=== PATIENT | male | born 1980 | race Caucasian/White ===

== ENCOUNTER 2016-04-18 08:39 | Day surgery (SDC) | payer OTHER ==
[2016-04-12 15:04] VITALS: BMI 19.2
[~2016-04-18 08:39] MED LIST: CLINDAMYCIN 900 MG in DEXTROSE 5% IN WATER 50 ML IVPB ONE; HYDROmorphone 1 MG/ML 1 ML SYRINGE IVP PRN; LACTATED RINGERS 1,000 ML IV SCH; LIDOCAINE 1% 20 ML VIAL (10MG/ML) FOR IV START INTRADERMA PRN; MIDAZOLAM 2 MG/2 ML VIAL IV PRN; ONDANSETRON 4 MG/2 ML VIAL IVP PRN
[2016-04-18 09:06] VITALS: TEMP 98.3
[2016-04-18] MEDS ORDERED: LIDOCAINE 1% 20 ML VIAL (10MG/ML) FOR IV START INTRADERMA ONE (09:33)
[2016-04-18] MEDS ORDERED: GENTAMICIN 180 MG in SODIUM CHLORIDE 0.9% 100 ML IV ONE (10:00)
[2016-04-18] MEDS ORDERED: PROPOFOL 10 MG/ML 20 ML VIAL IV ONE (10:32)
[2016-04-18] MEDS ORDERED: ePHEDrine 50 MG/ML 1 ML AMP ONE (10:32)
[2016-04-18] MEDS ORDERED: MIDAZOLAM 2 MG/2 ML VIAL ONE (10:32)
[2016-04-18] MEDS ORDERED: fentaNYL (PF) 50 MCG/ML 2 ML AMP ONE (10:32)
[2016-04-18] MEDS ORDERED: LIDOCAINE 1% INJ 10MG/ML (20 ML MDV) ONE (10:32)
[2016-04-18] MEDS ORDERED: KETOROLAC 30 MG/ML 1 ML VIAL IVP ONE (12:04)
[2016-04-18 12:34] VITALS: BP 138/93; PULSE 105; RESP 16
--- NOTE | 2016-04-19 05:22 | OP ---
DATE OF SERVICE: 04/18/2016 SURGEON: RAMESH YOU MD PREOPERATIVE DIAGNOSIS: Bladder calculi. POSTOPERATIVE DIAGNOSIS: Bladder calculi. OPERATION: Cystolithotomy. ANESTHESIA: General. ESTIMATED BLOOD LOSS: 5 ml SPECIMENS REMOVED: Bladder calculi The patient is a 35-year-old male with quadriplegia and a neurogenic bladder which has been managed with an indwelling catheter. Patient has developed recurrent urinary tract infections and has been found to have 2 bladder calculi. The largest bladder calculus measures approximately 2.5 cm in greatest diameter and the smallest appeared to be 2 cm in diameter. Treatment options reviewed and the patient has elected to proceed with cystolithotomy for treatment of the stones. DESCRIPTION OF PROCEDURE: The patient was taken the operating suite where adequate general anesthesia via LMA was instituted. The patient was placed in the supine position. Pneumatic compression stockings were applied to the lower legs. The patient has a somewhat contracted left arm which was placed in a neutral position and padded. The hair in the suprapubic area was clipped. Patient's urethral catheter was removed. The genitalia was prepped with Betadine soap and painted with Betadine solution. DuraPrep was then used to prep the lower abdominal region. The lower abdominal region and genitalia were then draped in a sterile fashion. A new 16 [place] Medel catheter was inserted into the bladder and the bladder was irrigated multiple times with saline. The bladder was then drained. A suprapubic midline incision was then made. Bleeding vessels were controlled using electrocautery. Using electrocautery, the linea alba was incised. The rectus muscles were retracted laterally. The prevesical space was developed using blunt dissection. Approximately 100 mL of water was then placed into the bladder. The location of the bladder was confirmed by passing an 18-gauge needle through the anterior wall of the bladder and into the bladder. A 4 cm midline cystotomy was then made using electrocautery. The bladder calculi were identified visually and removed using forceps. The bladder was then irrigated multiple times using sterile water. The urothelium of the bladder was then closed using running 3-0 chromic. The muscle bladder was closed using running 2-0 Vicryl. The suprapubic area and subcutaneous area was re-irrigated with sterile water. The linea alba was reapproximated in the midline using interrupted 0 Vicryl. The subcutaneous area was again irrigated with sterile water and the skin was closed using shyanne. Sterile dressing was applied. The patient tolerated the procedure well and left the operating room awake and in satisfactory condition. Blood loss was less than 5 mL. There were no intraoperative complications. Final sponge, needle and instrument reports were reported as correct. DOT
== END 2016-04-18 13:51 | disposition home or self-care (01) ==
LOC: OR 08:39
PROVIDERS: ATTEND Urology
DX: N21.0 Calculus in bladder (principal); N31.9 Neuromuscular dysfunction of bladder, unspecified; Z87.440 Personal history of urinary (tract) infections; G82.50 Quadriplegia, unspecified; I95.9 Hypotension, unspecified; N19 Unspecified kidney failure; K21.9 Gastro-esophageal reflux disease without esophagitis; Z79.891 Long term (current) use of opiate analgesic; Z79.899 Other long term (current) drug therapy; Z88.1 Allergy status to other antibiotic agents; Z88.2 Allergy status to sulfonamides
CPT/HCPCS: 51050; J2250; J2405; J2001; J3010; J1885; J2704; 82365

== ENCOUNTER 2016-05-05 06:25 | Emergency (ER) | payer OTHER ==
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
[2016-05-05 07:49] LABS: Basophils % (A) 1 %; CH 30.3; CHCM 34.1; Eosinophils # (A) 0.3 k/uL (0-0.7); Eosinophils % (A) 4 %; HCT 40.4 % (39.0-53.0); HDW 2.64; HGB 13.6 gm/dL (13.0-17.5); Luc # (Auto) 0.13; Luc % (Auto) 2; Lymphocytes # (A) 1.7 k/uL (1.0-4.8); Lymphocytes % (A) 28 %; MCHC 33.6 g/dL (31.0-37.0); MCV 89.1 fL (80.0-100.0); Mean Platelet Volume 8.6; Monocytes # (A) 0.3 k/uL (0-1.0); Monocytes % (A) 6 %; Neutrophils # (A) 3.6 k/uL (1.3-7.7); Neutrophils % (A) 60 %; RBC 4.53 m/uL (4.30-5.90); RDW 13.4 % (11.5-15.5); WBC (Perox) 5.89
[2016-05-05 08:01] LABS: ALT 27 U/L (21-72); AST 18 U/L (17-59); Alkaline Phosphatase 84 U/L (38-126); Amylase 67 U/L (30-110); Anion Gap 10 mmol/L; Blood Urea Nitrogen 9 mg/dL (9-20); Calcium 8.9 mg/dL (8.4-10.2); Carbon Dioxide 31 mmol/L (22-30); Chloride 101 mmol/L (98-107); Glucose 80 mg/dL (74-99); Non-African American GFR(MDRD) >60 (>60 ml/min/1.73 sqM); Potassium 3.1 mmol/L (3.5-5.1); Sodium 142 mmol/L (137-145); Total Bilirubin 0.6 mg/dL (0.2-1.3)
[2016-05-05 09:54] LABS: Amorphous Sediment,Urine Rare /hpf; Appearance,Urine Turbid (Clear); Bacteria,Urine Many /hpf; Bilirubin,Urine Negative (Negative); Glucose,Urine (UA) Negative (Negative); Ketones,Urine Negative (Negative); Leukocyte Esterase,Urine Large (Negative); Mucus,Urine Few /hpf; Nitrite,Urine Negative (Negative); PH, Urine 6.5 (5.0-8.0); Particle Count 35874; Protein,Urine 1+ (Negative); RBC,Urine 5 /hpf (0-5); Specific Gravity,Urine 1.018 (1.001-1.035); Squamous Epithelial Cell,Urine 3 /hpf (0-4); UA Billing (MACRO vs. MICRO) MICRO; Urobilinogen,Urine <2.0 mg/dL (<2.0); WBC,Urine >182 /hpf (0-5)
--- NOTE | 2016-05-05 11:08 | CT ---
EXAMINATION TYPE: CT abdomen pelvis wo con DATE OF EXAM: 05/05/2016 10:59 AM COMPARISON: NONE INDICATION: Kidney pain DLP: 249.3 mGycm, Automated exposure control for dose reduction was used. CONTRAST: None Study performed without Oral Contrast TECHNIQUE: Axial images were obtained from above the diaphragm to the pubic rami in the axial plane a t 5 mm thick sections. Reconstructed images are reviewed on the computer in the coronal plane. FINDINGS: Limited CT sections are obtained the lung bases. There is increased lung marking the posterior media l right lung base. Correlate for some atelectasis or pneumonia.. CT ABDOMEN: Liver: Normal Spleen: Normal Pancreas: Normal Adrenal glands: The adrenal glands are normal. Gallbladder: Normal Kidneys: No masses are evident. No hydronephrosis is present. No cysts are present. Aorta: Vascular calcification is within the aorta. Inferior vena cava: Normal. CT PELVIS: No free air is evident. Tiny dot of air may be within the left bladder wall. Loops of bowel within the abdomen and pelvis are normal. Appendix: Normal as visualized. Urinary bladder: Decompressed. Medel catheter appears to be present. Some asymmetric wall thickening may be present. No suspicious calcifications are identified currently. Phleboliths are adjacent to th e urinary bladder. Genitourinary structures: Prostate appears within normal limits. Osseous structures: No suspicious lytic or sclerotic lesions. Degenerative changes are at the bilater al hips. IMPRESSIONS: 1. No acute abdominal process. 2. Exam appears similar to 02/08/2016. Prior urinary bladder calcifications been resected. 3. Mild right medial lower lobe infiltrate
[2016-05-05] MEDS ORDERED: SULFAMETHOX-TMP 800-160MG 1 EACH TAB PO STA (11:52)
[2016-05-05] MEDS ORDERED: SULFAMETH-TMP DS STARTER PACK 2 TAB BTL PO STA (11:52)
[2016-05-05 12:18] VITALS: RESP 16
[2016-05-05 13:50] VITALS: BP 123/70; PULSE 88; TEMP 97.8
== END 2016-05-05 13:48 | disposition home or self-care (01) ==
LOC: EC 06:25
DX: N39.0 Urinary tract infection, site not specified (principal); G82.20 Paraplegia, unspecified; N31.8 Other neuromuscular dysfunction of bladder; F41.9 Anxiety disorder, unspecified; F32.9 Major depressive disorder, single episode, unspecified; Z79.899 Other long term (current) drug therapy; Z88.1 Allergy status to other antibiotic agents; Z88.0 Allergy status to penicillin; Z87.442 Personal history of urinary calculi; Z79.52 Long term (current) use of systemic steroids
CPT/HCPCS: 36415; 51701; 74176; 80053; 81001; 82150; 83605; 83690; 85025; 87040; 99285

== ENCOUNTER 2016-06-28 17:02 | Emergency (ER) | payer OTHER ==
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
--- NOTE | 2016-06-28 18:45 | US ---
EXAMINATION TYPE: US venous doppler duplex LE RT DATE OF EXAM: 06/28/2016 6:26 PM COMPARISON: NONE CLINICAL HISTORY: Pain. Rt foot swelling and leg pain. Patients is paralyzed in both legs. SIDE PERFORMED: Right VESSELS IMAGED: External Iliac Vein (EIV) Common Femoral Vein Deep Femoral Vein Greater Saphenous Vein * Femoral Vein Popliteal Vein Small Saphenous Vein * Proximal Calf Veins (* superficial vessels) TECHNOLOGIST IMPRESSION: Patient was scanned in motorized chair Right Leg: Appears negative for DVT IMPRESSION: No evidence of deep venous thrombosis within the right lower extremity.
[2016-06-28 19:14] VITALS: BP 135/78; PULSE 68; RESP 18; TEMP 98.2
== END 2016-06-28 19:14 | disposition home or self-care (01) ==
LOC: EC 17:02
DX: M25.475 Effusion, left foot (principal); M25.474 Effusion, right foot; F41.9 Anxiety disorder, unspecified; F32.9 Major depressive disorder, single episode, unspecified; Z87.01 Personal history of pneumonia (recurrent); Z86.14 Personal history of Methicillin resistant Staphylococcus aureus infection; Z79.899 Other long term (current) drug therapy; Z88.0 Allergy status to penicillin; Z88.1 Allergy status to other antibiotic agents; Z88.8 Allergy status to other drugs, medicaments and biological substances
CPT/HCPCS: 99283

== ENCOUNTER 2016-10-15 12:13 | Emergency (ER) | payer OTHER ==
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
[2016-10-15 12:47] LABS: Basophils % (A) 1 %; CH 29.7; CHCM 34.3; Eosinophils # (A) 0.3 k/uL (0-0.7); Eosinophils % (A) 6 %; HCT 41.6 % (39.0-53.0); HDW 2.49; HGB 14.2 gm/dL (13.0-17.5); Luc # (Auto) 0.07; Luc % (Auto) 1; Lymphocytes # (A) 1.4 k/uL (1.0-4.8); Lymphocytes % (A) 24 %; MCH 29.7 pg (25.0-35.0); MCHC 34.2 g/dL (31.0-37.0); MCV 86.9 fL (80.0-100.0); Mean Platelet Volume 9.1; Monocytes # (A) 0.3 k/uL (0-1.0); Monocytes % (A) 5 %; Neutrophils # (A) 3.5 k/uL (1.3-7.7); Neutrophils % (A) 63 %; RBC 4.79 m/uL (4.30-5.90); RDW 13.6 % (11.5-15.5); WBC 5.6 k/uL (3.8-10.6); WBC (Perox) 5.41
[2016-10-15 12:57] LABS: ALT 29 U/L (21-72); AST 23 U/L (17-59); Alkaline Phosphatase 104 U/L (38-126); Anion Gap 11 mmol/L; Blood Urea Nitrogen 12 mg/dL (9-20); Calcium 8.7 mg/dL (8.4-10.2); Carbon Dioxide 29 mmol/L (22-30); Chloride 103 mmol/L (98-107); Glucose 88 mg/dL (74-99); Non-African American GFR(MDRD) >60 (>60 ml/min/1.73 sqM); Potassium 3.6 mmol/L (3.5-5.1); Sodium 143 mmol/L (137-145); Total Bilirubin 0.8 mg/dL (0.2-1.3); Total Protein 7.1 g/dL (6.3-8.2); Uric Acid 4.1 mg/dL (3.5-8.5)
--- NOTE | 2016-10-15 13:19 | XR ---
EXAMINATION TYPE: 3 views left ankle. 3 views left foot. DATE OF EXAM: 10/15/2016 COMPARISON: NONE HISTORY: 36-year-old male left foot and ankle swelling and pain. Paraplegic. FINDINGS: Ankle: There is diffuse soft tissue swelling especially about the ankle. Diffuse osteopenia is also present. Ankle mortise appears groin to. Multiple extensive external artifact secures much of the calcaneus. Foot: Hammertoes are noted. There is bony deformity to the base of the first metatarsal and an impacted sub acute fracture is not excluded. IMPRESSION: 1. Marked diffuse osteopenia limits assessment of osseous detail. 2. Diffuse soft tissue swelling. 3. Assessment of the calcaneus is limited due to external artifact. If concern for calcaneal injury, consider 2 views of the calcaneus after moving the sheets from the patient's foot. 4. Possible subacute impacted fracture first metatarsal base.
[2016-10-15 14:13] VITALS: BP 110/74; PULSE 68; RESP 18; TEMP 97.9
--- NOTE | 2016-10-15 14:21 | US ---
EXAMINATION TYPE: US venous doppler duplex LE LT DATE OF EXAM: 10/15/2016 1:55 PM COMPARISON: 06/28/2016 CLINICAL HISTORY: 36-year-old male Pain. Swollen foot since this AM SIDE PERFORMED: Left TECHNIQUE: The lower extremity deep venous system is examined utilizing real time linear array sonog tom with graded compression, doppler sonography and color-flow sonography. FINDINGS: VESSELS IMAGED: External Iliac Vein (EIV) Common Femoral Vein Deep Femoral Vein Greater Saphenous Vein * Femoral Vein Popliteal Vein Proximal Calf Veins (* superficial vessels) Left Leg: Negative for DVT Additional targeted scanning in the region of the patient's foot and toes shows mild soft tissue swel ling. Patient is quadriplegic, scanned in wheelchair. IMPRESSION: No evidence for DVT within the left lower extremity imaged from the groin to the upper calf.
== END 2016-10-15 14:15 | disposition home or self-care (01) ==
LOC: EC 12:13
DX: S92.312A Displaced fracture of first metatarsal bone, left foot, initial encounter for closed fracture (principal); F32.9 Major depressive disorder, single episode, unspecified; Z88.1 Allergy status to other antibiotic agents; Z88.0 Allergy status to penicillin; Z79.899 Other long term (current) drug therapy; X58.XXXA Exposure to other specified factors, initial encounter
CPT/HCPCS: 29515; 36415; 80053; 84550; 85025; 87040; 99284

== ENCOUNTER 2016-11-10 11:35 | Emergency (ER) | payer OTHER ==
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
[2016-11-10] MEDS ORDERED: KETOROLAC 60 MG/2 ML VIAL IVP STA (12:09)
[2016-11-10 12:31] LABS: Basophils # (A) 0.1 k/uL (0-0.2); Basophils % (A) 0 %; CH 29.9; CHCM 34.4; Eosinophils # (A) 0.1 k/uL (0-0.7); Eosinophils % (A) 1 %; HDW 2.67; HGB 14.6 gm/dL (13.0-17.5); Luc # (Auto) 0.15; Luc % (Auto) 1; Lymphocytes # (A) 1.2 k/uL (1.0-4.8); Lymphocytes % (A) 9 %; MCH 29.7 pg (25.0-35.0); Mean Platelet Volume 9.4; Monocytes # (A) 0.9 k/uL (0-1.0); Monocytes % (A) 7 %; Neutrophils # (A) 10.8 k/uL (1.3-7.7); Neutrophils % (A) 82 %; RBC 4.93 m/uL (4.30-5.90); RDW 14.6 % (11.5-15.5); WBC 13.3 k/uL (3.8-10.6); WBC (Perox) 13.45
[2016-11-10 12:33] LABS: ALT 32 U/L (21-72); AST 26 U/L (17-59); Alkaline Phosphatase 114 U/L (38-126); Anion Gap 12 mmol/L; Blood Urea Nitrogen 12 mg/dL (9-20); Calcium 8.9 mg/dL (8.4-10.2); Carbon Dioxide 29 mmol/L (22-30); Chloride 101 mmol/L (98-107); Glucose 77 mg/dL (74-99); Non-African American GFR(MDRD) >60 (>60 ml/min/1.73 sqM); Potassium 3.2 mmol/L (3.5-5.1); Sodium 142 mmol/L (137-145); Total Bilirubin 0.6 mg/dL (0.2-1.3); Total Protein 6.8 g/dL (6.3-8.2)
[2016-11-10 12:36] LABS: MCV 87.2 fL (80.0-100.0)
[2016-11-10 14:14] LABS: Appearance,Urine Turbid (Clear); Bacteria,Urine Rare /hpf; Bilirubin,Urine Negative (Negative); Glucose,Urine (UA) Negative (Negative); Ketones,Urine Negative (Negative); Leukocyte Esterase,Urine Large (Negative); Mucus,Urine Occasional /hpf; Nitrite,Urine Positive (Negative); Particle Count 26929; Protein,Urine 3+ (Negative); RBC,Urine >182 /hpf (0-5); Squamous Epithelial Cell,Urine 3 /hpf (0-4); UA Billing (MACRO vs. MICRO) MICRO; Urobilinogen,Urine <2.0 mg/dL (<2.0); WBC,Urine >182 /hpf (0-5)
[2016-11-10] MEDS ORDERED: LEVOFLOXACIN 750MG-D5W PMX 750 MG in DEXTROSE/WATER 1 150ML.BAG IVPB STA (14:31)
[2016-11-10] MEDS ORDERED: SODIUM CHLORIDE 0.9% 1,000 ML IV ONE (14:32)
[2016-11-10] MEDS ORDERED: HYDROmorphone 1 MG/ML 1 ML SYRINGE IVP STA (16:12)
[2016-11-10 18:10] VITALS: TEMP 98.3
--- NOTE | 2016-11-10 18:43 | CT ---
EXAMINATION TYPE: CT abdomen pelvis wo con DATE OF EXAM: 11/10/2016 COMPARISON: May 05, 2016 HISTORY: Left sided flank pain and decreased urine output CT DLP: 327.2 mGycm Automated exposure control for dose reduction was used. TECHNIQUE: Helical acquisition of images was performed from the lung bases through the pelvis. FINDINGS: LUNG BASES: Mild dependent changes are noted at both lung bases which appear slightly improved since the previous study. LIVER/GB: No significant abnormality is appreciated. PANCREAS: No significant abnormality is seen. SPLEEN: The spleen could be enlarged however it has a very flattened appearance silhouette is most li berta normal. It is unchanged since the previous study. ADRENALS: No significant abnormality is seen. KIDNEYS: There is nonspecific. Pancreatic stranding of the fat which is stable when compared to the p revious study. There is no hydronephrosis. The left kidney is slightly diminutive with comparison to the right. FREE AIR: No free air is visualized RETROPERITONEAL ADENOPATHY: None visualized REPRODUCTIVE ORGANS: No significant abnormality is seen URINARY BLADDER: Medel catheter is noted within the collapsed urinary bladder. PELVIC ADENOPATHY: None visualized. OSSEOUS STRUCTURES: Osseous structures are stable. There is abnormal trabeculation within the left f emur which is stable. BOWEL: No significant abnormality is seen. OTHER: None IMPRESSION: FINDINGS ARE BASICALLY STABLE WHEN COMPARED TO THE PREVIOUS STUDY. PREVIOUS RIGHT LOWER LOBE INFILTRA TE HAS NEARLY RESOLVED IF NOT COMPLETELY RESOLVED.
[2016-11-10 19:13] VITALS: BP 92/55; PULSE 79; RESP 18
== END 2016-11-10 19:42 | disposition other institution (70) ==
LOC: EC 11:35
DX: N39.0 Urinary tract infection, site not specified (principal); F32.9 Major depressive disorder, single episode, unspecified; F41.9 Anxiety disorder, unspecified; Z88.0 Allergy status to penicillin; Z88.1 Allergy status to other antibiotic agents; Z79.899 Other long term (current) drug therapy
CPT/HCPCS: 99285; 96365; 96375 ×2; 36415; 80053; 85025; 81001; 74176; J1885; J1170; J1956

== ENCOUNTER → 2017-04-29 | Outpatient (CLI) | payer OTHER ==
--- NOTE | 2017-04-29 14:14 | XR ---
EXAMINATION TYPE: XR pelvis AP view DATE OF EXAM: 04/29/2017 COMPARISON: NONE HISTORY: 36-year-old male with pressure ulcer, osteomyelitis, paraplegic. FINDINGS: Marked osteopenia compatible with disuse. There is moderate to severe narrowing of superolateral hip joint space on both sides. No viktorai bony destruction identified though patient positioning, obliquity and the degree of osteopenia limits assessment. The left ischial tuberosity in particular is not wel l seen. IMPRESSION: Marked osteopenia compatible with disuse and at least moderate degenerative joint space narrowing at both hips. The degree of osteopenia and patient positioning limits assessment. However, there is no viktoria bony destruction identified on this frontal view of the pelvis. If there is persistent clinical concern, MRI can be considered.
== END | disposition home or self-care (01) ==
LOC: RADXRMAIN 11:57
PROVIDERS: ATTEND Internal Medicine Infectious Disease
DX: M85.80 Other specified disorders of bone density and structure, unspecified site (principal); L89.890 Pressure ulcer of other site, unstageable; M86.9 Osteomyelitis, unspecified; M25.852 Other specified joint disorders, left hip; M25.851 Other specified joint disorders, right hip
CPT/HCPCS: 11042; 36415; 72170; 80053; 84134; 85027; 85652; 86140

== ENCOUNTER 2017-06-03 12:25 | Inpatient (IN) | payer OTHER ==
[2017-06-03] MEDS ORDERED: VANCOMYCIN IV PER PHARMACY 1 EACH MISC MISCELLANE PRN (12:31)
[2017-06-03] MEDS ORDERED: ACETAMINOPHEN TAB 500 MG TAB PO STA (12:31)
[2017-06-03] MEDS: SODIUM CHLORIDE 0.9% 500 ML IV SCH (12:51)
[2017-06-03] MEDS ORDERED: VANCOMYCIN 1,500 MG in SODIUM CHLORIDE 0.9% 250 ML IVPB ONE (13:00)
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
[2017-06-03 13:20] LABS: Amorphous Sediment,Urine Rare /hpf; Appearance,Urine Cloudy (Clear); Bacteria,Urine Rare /hpf; Bilirubin,Urine Negative (Negative); Blood,Urine Negative (Negative); Calcium Oxalate Crystals,Urine Rare /hpf; Color,Urine Yellow; Glucose,Urine (UA) Negative (Negative); Hyaline Casts,Urine 8 /lpf (0-2); Ketones,Urine Negative (Negative); Leukocyte Esterase,Urine Large (Negative); Mucus,Urine Moderate /hpf; Protein,Urine 1+ (Negative); Specific Gravity,Urine 1.018 (1.001-1.035); Squamous Epithelial Cell,Urine 1 /hpf (0-4); WBC,Urine 63 /hpf (0-5)
[2017-06-03 13:23] LABS: ALT 49 U/L (21-72); AST 39 U/L (17-59); Albumin 2.8 g/dL (3.5-5.0); Alkaline Phosphatase 74 U/L (38-126); Anion Gap 10 mmol/L; Blood Urea Nitrogen 17 mg/dL (9-20); Calcium 8.3 mg/dL (8.4-10.2); Carbon Dioxide 35 mmol/L (22-30); Chloride 99 mmol/L (98-107); Glucose 113 mg/dL (74-99); Potassium 3.8 mmol/L (3.5-5.1); Sodium 144 mmol/L (137-145); Total Bilirubin 0.3 mg/dL (0.2-1.3); Total Protein 6.2 g/dL (6.3-8.2)
--- NOTE | 2017-06-03 13:25 | XR ---
EXAMINATION TYPE: XR chest 1V portable DATE OF EXAM: 06/03/2017 COMPARISON: Chest x-ray January 08, 2017 HISTORY: Altered mental status. Patient has lower extremity paraplegia. TECHNIQUE: Single AP portable frontal upright view of the chest is obtained. FINDINGS: There is underlying levoconvex scoliosis centered near thoracolumbar junction. Current exam is suboptimal as patient cannot sit upright or have upright positioning versus prior. There is new p atchy bibasilar linear atelectasis. No large pleural effusion or pneumothorax is seen bilaterally. Ca rdiac silhouette size is stable and upper limits of normal. IMPRESSION: Suboptimal study with new patchy bibasilar linear atelectasis.
[2017-06-03 13:27] LABS: Basophils # (A) 0.1 k/uL (0-0.2); Basophils % (A) 0 %; Eosinophils # (A) 0.1 k/uL (0-0.7); Eosinophils % (A) 0 %; HCT 36.5 % (39.0-53.0); HGB 11.5 gm/dL (13.0-17.5); Hypochromasia Slight; Lymphocytes # (A) 2.3 k/uL (1.0-4.8); Lymphocytes % (A) 12 %; MCH 27.1 pg (25.0-35.0); MCHC 31.5 g/dL (31.0-37.0); MCV 86.1 fL (80.0-100.0); Mean Platelet Volume 7.8; Monocytes # (A) 0.8 k/uL (0-1.0); Monocytes % (A) 4 %; Neutrophils # (A) 16.5 k/uL (1.3-7.7); Neutrophils % (A) 83 %; Platelet Count 328 k/uL (150-450); RBC 4.24 m/uL (4.30-5.90); RDW 13.5 % (11.5-15.5); WBC 19.9 k/uL (3.8-10.6)
[2017-06-03 13:43] LABS: INR 1.3 (<1.2); Partial Thromboplastin Time 23.2 sec (22.0-30.0); Prothrombin Time 12.2 sec (9.0-12.0)
[2017-06-03] MEDS ORDERED: ERTAPENEM 1 GM in SODIUM CHLORIDE 0.9% 50 ML IVPB STA (13:47)
[2017-06-03] MEDS ORDERED: MEROPENEM 1 GM in SODIUM CHLORIDE 0.9% 100 ML IVPB STA (13:48)
[2017-06-03] MEDS ORDERED: KETOROLAC 30 MG/ML 1 ML VIAL IVP STA (14:22)
[2017-06-03] MEDS ORDERED: ALBUTEROL NEBULIZED 2.5 MG/3 ML INHALATION PRN (14:34)
[2017-06-03] MEDS ORDERED: POLYETHYLENE GLYCOL 3350 17 GM POWD.PACK PO PRN (14:34)
[2017-06-03] MEDS ORDERED: DOCUSATE 100 MG CAP PO PRN (14:34)
--- NOTE | 2017-06-03 16:08 | XR ---
EXAMINATION TYPE: XR sacrum coccyx DATE OF EXAM: 06/03/2017 COMPARISON: NONE HISTORY: 36-year-old male with a sacral ulcer, evaluate for osteomyelitis TECHNIQUE: 4 views FINDINGS: There is marked osteopenia which limits evaluation. Degenerative changes at the hips There appears to be cortical loss involving the left ischial tuberosity. Sacrum/coccyx appears mainta ined on the lateral view. IMPRESSION: 1. Limited exam due to marked osteopenia. 2. There appears to be some cortical loss involving the left ischial tuberosity. If the patient's dec ubitus ulcer overlies this region, osteomyelitis would be suspected.
[2017-06-03] MEDS: NA PHOS,M-B/NA PHOS,DI-BA 133 ML ENEMA RECTAL SCH (17:15)
[2017-06-03] MEDS: GABAPENTIN 300 MG CAP PO SCH ×2 (18:43→23:25)
[2017-06-03] MEDS: SODIUM CHLORIDE 0.9% 1,000 ML IV SCH (18:50)
[2017-06-03] MEDS ORDERED: VANCOMYCIN 1,250 MG in SODIUM CHLORIDE 0.9% 250 ML IVPB SCH (20:00)
[2017-06-03] MEDS ORDERED: [UNRECOGNIZED DRUG - OTHER] PO SCH (21:00)
[2017-06-03] MEDS ORDERED: NUTRITIONAL SUPPLEMENT PO SCH (21:00)
[2017-06-03] MEDS: MEGESTROL 400 MG/10 ML CUP PO SCH (23:25)
[2017-06-03] MEDS: QUEtiapine 25 MG TAB PO SCH (23:26)
[2017-06-03] MEDS: BACLOFEN 10 MG TAB PO SCH (23:27)
[2017-06-03] MEDS: FLUDROCORTISONE 0.1 MG TAB PO SCH (23:27)
[2017-06-04 06:27] LABS: Basophils % (A) 0 %; Eosinophils # (A) 0.1 k/uL (0-0.7); Eosinophils % (A) 1 %; HCT 31.2 % (39.0-53.0); Hypochromasia Moderate; Lymphocytes # (A) 1.1 k/uL (1.0-4.8); Lymphocytes % (A) 7 %; MCH 27.3 pg (25.0-35.0); MCHC 30.9 g/dL (31.0-37.0); MCV 88.3 fL (80.0-100.0); Mean Platelet Volume 7.4; Monocytes # (A) 0.4 k/uL (0-1.0); Monocytes % (A) 2 %; Neutrophils # (A) 13.6 k/uL (1.3-7.7); Neutrophils % (A) 89 %; Platelet Count 268 k/uL (150-450); RBC 3.53 m/uL (4.30-5.90); RDW 13.2 % (11.5-15.5); WBC 15.3 k/uL (3.8-10.6)
[2017-06-04 06:31] LABS: HGB 9.6 gm/dL (13.0-17.5)
[2017-06-04 06:33] LABS: ALT 44 U/L (21-72); AST 23 U/L (17-59); Albumin 2.3 g/dL (3.5-5.0); Alkaline Phosphatase 70 U/L (38-126); Anion Gap 9 mmol/L; Blood Urea Nitrogen 12 mg/dL (9-20); Calcium 7.8 mg/dL (8.4-10.2); Carbon Dioxide 30 mmol/L (22-30); Chloride 101 mmol/L (98-107); Glucose 87 mg/dL (74-99); Potassium 3.2 mmol/L (3.5-5.1); Sodium 140 mmol/L (137-145); Total Bilirubin 0.3 mg/dL (0.2-1.3); Total Protein 5.2 g/dL (6.3-8.2)
[2017-06-04] MEDS ORDERED: Potassium Replacement Protocol 1 EACH MISC MISCELLANE PRN (08:02)
[2017-06-04] MEDS ORDERED: NON-FORMULARY DRUG (Ubidecarenone [Co Q-10] 100 MG) PO SCH (09:00)
[2017-06-04] MEDS: BACLOFEN 10 MG TAB PO SCH ×2 (09:16→23:10)
[2017-06-04] MEDS: GABAPENTIN 300 MG CAP PO SCH ×3 (09:17→23:21)
[2017-06-04] MEDS: SERTRALINE 100 MG TAB PO SCH (09:18)
[2017-06-04] MEDS: FLUDROCORTISONE 0.1 MG TAB PO SCH ×2 (09:18→23:10)
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
[2017-06-04] MEDS ORDERED: NA PHOS,M-B/NA PHOS,DI-BA 133 ML ENEMA RECTAL PRN (09:35)
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
[2017-06-04] MEDS ORDERED: VANCOMYCIN TROUGH DUE 1 EACH MISC MISCELLANE ONE (11:00)
[2017-06-04] MEDS: PANTOPRAZOLE 40 MG TABLET PO SCH (13:20)
[2017-06-04] MEDS: POTASSIUM CHLORIDE ER 20 MEQ TAB.ER PO SCH ×2 (13:20→23:19)
[2017-06-04] MEDS: ASCORBIC ACID 500 MG TAB PO SCH (13:21)
[2017-06-04] MEDS: MEROPENEM 1 GM in SODIUM CHLORIDE 0.9% 100 ML IVPB SCH ×2 (13:21→23:17)
--- NOTE | 2017-06-04 15:02 | NM ---
EXAMINATION TYPE: NM bone 3 phase DATE OF EXAM: 06/04/2017 COMPARISON: Radiograph 06/03/2017 HISTORY: 36-year-old male with open sore along the coccyx and left hip/pelvis for 6 months. Technique: Triple phase bone scintigraphy was performed following the injection of 23.7 mCi Tc 99m MD P. Flow and pool images followed by 3.25 hours post injection images acquired centered at the pelvis . FINDINGS: There is focal increased tracer activity posteriorly and towards the left on all 3 phases. There appe ars to be a Medel catheter in place but this increased activity a separate from where the Medel wyatt ter terminates in the bladder. IMPRESSION: Three-phase bone scan abnormality left and posteriorly. Finding suggest osteomyelitis. While it is di fficult to localize the exact site of involvement on these nuclear medicine images, the left ischial tuberosity is suspected. If confirmation is needed, a CT may be helpful to evaluate the site of bony abnormality in relation to the patient's decubitus ulcers.
[2017-06-04] MEDS: ACETAMINOPHEN TAB 325 MG TAB PO PRN ×2 (17:36→22:02)
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
[2017-06-04] MEDS: OXYBUTYNIN CHLORIDE 5 MG TAB PO SCH ×3 (23:04→23:20)
[2017-06-04] MEDS: MEGESTROL 400 MG/10 ML CUP PO SCH ×4 (23:07→23:21)
[2017-06-04] MEDS: SODIUM CHLORIDE 0.9% 1,000 ML IV SCH ×2 (23:08→23:23)
[2017-06-04] MEDS: QUEtiapine 25 MG TAB PO SCH (23:11)
[2017-06-04] MEDS: VANCOMYCIN 1,250 MG in SODIUM CHLORIDE 0.9% 250 ML IVPB SCH (23:16)
[2017-06-05] MEDS: MEROPENEM 1 GM in SODIUM CHLORIDE 0.9% 100 ML IVPB SCH ×3 (03:30→22:34)
[2017-06-05] MEDS: ACETAMINOPHEN TAB 325 MG TAB PO PRN (05:36)
[2017-06-05] MEDS: VANCOMYCIN 1,250 MG in SODIUM CHLORIDE 0.9% 250 ML IVPB SCH ×3 (05:45→16:21)
[2017-06-05] MEDS: SODIUM CHLORIDE 0.9% 1,000 ML IV SCH ×2 (05:46→06:43)
[2017-06-05 06:40] LABS: Glucose,Whole Blood 121 mg/dL (75-99)
[2017-06-05] MEDS: PANTOPRAZOLE 40 MG TABLET PO SCH (06:44)
[2017-06-05 06:58] LABS: Basophils % (A) 0 %; Eosinophils # (A) 0.2 k/uL (0-0.7); Eosinophils % (A) 1 %; HCT 32.9 % (39.0-53.0); HGB 10.4 gm/dL (13.0-17.5); Hypochromasia Moderate; Lymphocytes # (A) 1.2 k/uL (1.0-4.8); Lymphocytes % (A) 8 %; MCH 26.8 pg (25.0-35.0); MCHC 31.6 g/dL (31.0-37.0); MCV 84.8 fL (80.0-100.0); Mean Platelet Volume 7.3; Monocytes # (A) 0.4 k/uL (0-1.0); Monocytes % (A) 2 %; Neutrophils # (A) 14.4 k/uL (1.3-7.7); Neutrophils % (A) 89 %; Platelet Count 287 k/uL (150-450); RBC 3.88 m/uL (4.30-5.90); WBC 16.3 k/uL (3.8-10.6)
[2017-06-05 07:15] LABS: ALT 29 U/L (21-72); AST 22 U/L (17-59); Albumin 2.4 g/dL (3.5-5.0); Alkaline Phosphatase 79 U/L (38-126); Anion Gap 11 mmol/L; Blood Urea Nitrogen 4 mg/dL (9-20); Calcium 7.6 mg/dL (8.4-10.2); Carbon Dioxide 32 mmol/L (22-30); Chloride 96 mmol/L (98-107); Glucose 121 mg/dL (74-99); Sodium 139 mmol/L (137-145); Total Bilirubin 0.3 mg/dL (0.2-1.3); Total Protein 5.4 g/dL (6.3-8.2)
[2017-06-05 07:20] LABS: Potassium 2.5 mmol/L (3.5-5.1)
[2017-06-05] MEDS: GABAPENTIN 300 MG CAP PO SCH ×3 (09:03→22:36)
[2017-06-05] MEDS: BACLOFEN 10 MG TAB PO SCH ×2 (09:03→22:33)
[2017-06-05] MEDS: POTASSIUM CHLORIDE ER 20 MEQ TAB.ER PO SCH ×6 (09:03→22:34)
[2017-06-05] MEDS: SERTRALINE 100 MG TAB PO SCH (09:03)
[2017-06-05] MEDS: OXYBUTYNIN CHLORIDE 5 MG TAB PO SCH ×2 (09:03→22:36)
[2017-06-05] MEDS: MEGESTROL 400 MG/10 ML CUP PO SCH ×4 (09:04→22:36)
[2017-06-05] MEDS: FLUDROCORTISONE 0.1 MG TAB PO SCH ×2 (09:04→22:35)
[2017-06-05] MEDS ORDERED: HYDROcodone/APAP 5-325MG 1 EACH TAB PO PRN (10:01)
[2017-06-05] MEDS: SODIUM CHLORIDE 0.9% IRRIG 1,000 ML BTL IRRIGATION SCH (11:31)
[2017-06-05] MEDS: ASCORBIC ACID 500 MG TAB PO SCH (12:22)
[2017-06-05] MEDS: NA PHOS,M-B/NA PHOS,DI-BA 133 ML ENEMA RECTAL SCH (12:31)
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
[2017-06-05] MEDS: IBUPROFEN 400 MG TAB PO PRN (14:21)
[2017-06-05] MEDS ORDERED: Potassium Replacement Protocol 1 EACH MISC MISCELLANE PRN (17:03)
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
[2017-06-05] MEDS: QUEtiapine 25 MG TAB PO SCH (22:35)
[2017-06-06] MEDS: VANCOMYCIN 1,250 MG in SODIUM CHLORIDE 0.9% 250 ML IVPB SCH ×2 (00:15→09:02)
[2017-06-06] MEDS: MEROPENEM 1 GM in SODIUM CHLORIDE 0.9% 100 ML IVPB SCH ×3 (03:15→18:19)
[2017-06-06] MEDS: SODIUM CHLORIDE 0.9% 1,000 ML IV SCH ×4 (04:41→17:28)
[2017-06-06 06:28] LABS: Basophils % (A) 0 %; Eosinophils # (A) 0.2 k/uL (0-0.7); Eosinophils % (A) 1 %; HCT 33.9 % (39.0-53.0); HGB 10.3 gm/dL (13.0-17.5); Hypochromasia Moderate; Lymphocytes # (A) 1.3 k/uL (1.0-4.8); Lymphocytes % (A) 7 %; MCH 26.4 pg (25.0-35.0); MCHC 30.3 g/dL (31.0-37.0); MCV 87.2 fL (80.0-100.0); Mean Platelet Volume 7.3; Monocytes # (A) 0.5 k/uL (0-1.0); Monocytes % (A) 3 %; Neutrophils # (A) 15.6 k/uL (1.3-7.7); Neutrophils % (A) 89 %; Platelet Count 305 k/uL (150-450); RBC 3.89 m/uL (4.30-5.90); RDW 13.3 % (11.5-15.5); WBC 17.7 k/uL (3.8-10.6)
[2017-06-06 06:32] LABS: ALT 43 U/L (21-72); AST 23 U/L (17-59); Albumin 2.5 g/dL (3.5-5.0); Alkaline Phosphatase 91 U/L (38-126); Anion Gap 11 mmol/L; Blood Urea Nitrogen 6 mg/dL (9-20); Calcium 8.1 mg/dL (8.4-10.2); Carbon Dioxide 30 mmol/L (22-30); Chloride 104 mmol/L (98-107); Glucose 78 mg/dL (74-99); Potassium 3.7 mmol/L (3.5-5.1); Sodium 145 mmol/L (137-145); Total Bilirubin 0.5 mg/dL (0.2-1.3); Total Protein 5.5 g/dL (6.3-8.2)
[2017-06-06] MEDS ORDERED: VANCOMYCIN TROUGH DUE 1 EACH MISC MISCELLANE ONE (07:00)
[2017-06-06] MEDS: PANTOPRAZOLE 40 MG TABLET PO SCH (07:03)
[2017-06-06] MEDS: GABAPENTIN 300 MG CAP PO SCH ×3 (09:02→20:06)
[2017-06-06] MEDS: BACLOFEN 10 MG TAB PO SCH ×2 (09:04→19:53)
[2017-06-06] MEDS: SERTRALINE 100 MG TAB PO SCH (09:04)
[2017-06-06] MEDS: MEGESTROL 400 MG/10 ML CUP PO SCH ×4 (09:04→19:54)
[2017-06-06] MEDS: FLUDROCORTISONE 0.1 MG TAB PO SCH ×2 (09:04→19:55)
[2017-06-06] MEDS: OXYBUTYNIN CHLORIDE 5 MG TAB PO SCH ×2 (09:04→19:53)
[2017-06-06] MEDS ORDERED: LIDOCAINE 2% INJ 20 MG/ML SQ ONE (10:08)
[2017-06-06] MEDS: DAPTOmycin 500 MG in SODIUM CHLORIDE 0.9% 50 ML IV SCH (11:41)
[2017-06-06] MEDS ORDERED: BENZOCAINE/MENTHOL LOZENG 1 EACH LOZENGE MUCOUS MEM PRN (12:01)
[2017-06-06] MEDS: ASCORBIC ACID 500 MG TAB PO SCH (12:21)
--- NOTE | 2017-06-06 13:10 | IR ---
EXAMINATION TYPE: IR cvc insert >=5 years DATE OF EXAM: 06/06/2017 COMPARISON: NONE CLINICAL HISTORY: Infection Needs long-term intravenous access for antibiotics. PROCEDURE: After informed consent, the skin overlying the left upper extremity vein was localized with ultrasoun d and noted to be compressible and patent. An ultrasound image was obtained and submitted on the pat ient's chart. The overlying skin was prepped and draped and Lidocaine was used for local anesthesia. A skin christian was made with a scalpel. Access was gained to the vein under ultrasound guidance with a 21 gauge needle and a 0.018 inch wire was advanced. Access site was dilated with Peel-Away sheath and catheter tailored to the appropriate length and advanced such that the distal tip is at the cavoa trial junction. Spot image was obtained verifying placement. Catheter was fixed to the skin and a s terile dressing was placed following hemostasis. Catheter was aspirated and flushed with saline. Maulik frank was discharged in stable condition without complication.Maximal barrier technique is utilized. Ultrasound image is documented on the chart. Ultrasound used with sterile technique. Fluoro time and fluoroscopic images submitted to document procedure: 17 intraoperative C-arm images, 0.1 minutes fluoroscopy time IMPRESSION: STATUS POST ULTRASOUND AND FLUOROSCOPIC GUIDED PICC LINE PLACEMENT, READY FOR USE. THIS PROCEDURE WAS PERFORMED BY THE UNDERSIGNED.
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
[2017-06-06] MEDS: QUEtiapine 25 MG TAB PO SCH (19:52)
[2017-06-06] MEDS: ACETAMINOPHEN TAB 325 MG TAB PO PRN (20:07)
[2017-06-07] MEDS: MEROPENEM 1 GM in SODIUM CHLORIDE 0.9% 100 ML IVPB SCH ×3 (02:08→18:25)
[2017-06-07] MEDS: PANTOPRAZOLE 40 MG TABLET PO SCH (06:52)
[2017-06-07 06:58] LABS: Anion Gap 9 mmol/L; Blood Urea Nitrogen 6 mg/dL (9-20); Carbon Dioxide 35 mmol/L (22-30); Chloride 99 mmol/L (98-107); Glucose 101 mg/dL (74-99); Sodium 143 mmol/L (137-145)
[2017-06-07 07:05] LABS: Potassium 2.7 mmol/L (3.5-5.1)
[2017-06-07] MEDS ORDERED: Potassium Replacement Protocol 1 EACH MISC MISCELLANE PRN (07:06)
[2017-06-07] MEDS: BACLOFEN 10 MG TAB PO SCH ×2 (08:37→20:57)
[2017-06-07] MEDS: POTASSIUM CHLORIDE 10 MEQ in WATER FOR INJECTION 1 100ML.BAG IVPB SCH ×3 (08:37→11:22)
[2017-06-07] MEDS: MEGESTROL 400 MG/10 ML CUP PO SCH ×4 (08:37→20:59)
[2017-06-07] MEDS: SERTRALINE 100 MG TAB PO SCH (08:38)
[2017-06-07] MEDS: GABAPENTIN 300 MG CAP PO SCH ×3 (08:38→20:59)
[2017-06-07] MEDS: FLUDROCORTISONE 0.1 MG TAB PO SCH ×2 (08:38→20:58)
[2017-06-07] MEDS: OXYBUTYNIN CHLORIDE 5 MG TAB PO SCH ×2 (08:38→20:58)
[2017-06-07] MEDS: DAPTOmycin 500 MG in SODIUM CHLORIDE 0.9% 50 ML IV SCH (10:00)
[2017-06-07] MEDS ORDERED: VANCOMYCIN IV PER PHARMACY 1 EACH MISC MISCELLANE PRN (10:19)
[2017-06-07] MEDS: VANCOMYCIN 1,250 MG in SODIUM CHLORIDE 0.9% 250 ML IVPB SCH ×2 (12:01→18:25)
[2017-06-07] MEDS: ASCORBIC ACID 500 MG TAB PO SCH (12:01)
--- NOTE | 2017-06-07 15:48 | P.PN ---
Subjective He is feeling anxious. Daptomycin was not approved. He has to fail vancomycin. Dr. Gill and switched back to this. He is tolerated meropenem. There is no one to do IV antibiotics at home for him. He will go to an F, most likely Saturday. Objective - Vital Signs Vital signs: Vital Signs Temp 99.5 F 06/07/17 12:00 Pulse 96 06/07/17 12:00 Resp 16 06/07/17 12:00 BP 198/100 06/07/17 12:00 Pulse Ox 98 06/07/17 12:00 Intake & Output 06/06/17 06/07/17 06/07/17 18:59 06:59 18:59 Intake Total 3630 580 1320 Output Total 2600 2350 1850 Balance 1030 -1770 -530 Weight 120.1 kg 120.6 kg 70 kg Intake: Intake, IV Titration 1950 100 Amount DAPTOmycin 500 mg In 100 Sodium Chloride 0.9% 50 ml @ 100 mls/hr IV Q24H ANGELINA Rx#:[id number] Meropenem 1 gm In Sodium 100 100 Chloride 0.9% 100 ml @ 100 mls/hr IVPB Q8H ANGELINA Rx#:[id number] Sodium Chloride 0.9% 1, 1500 000 ml @ 125 mls/hr IV . Q8H ANGELINA Rx#:[id number] Vancomycin 1,250 mg In 250 Sodium Chloride 0.9% 250 ml @ 125 mls/hr IVPB Q8H ANGELINA Rx#:[id number] Oral [id number] Output: Urine 2600 2350 1850 Other: Voiding Method Indwelling Catheter Indwelling Catheter Indwelling Catheter # Voids 1 1 2 - Exam General: The patient is awake and alert, anxious Neck: The neck is supple, there is no thyromegaly, lymphadenopathy, tenderness or JVD. Cardiovascular: S1S2 is normal, There is a regular rate and rhythm. No murmur, rub or gallop is appreciated. Respiratory: Lungs are clear to auscultation bilaterally, respirations are non -labored, breath sounds are equal. Extremities: quadrepligia - Labs CBC & Chem 7: 06/06/17 05:38 06/07/17 06:06 Labs: Abnormal Lab Results - Last 24 Hours (Table) 06/07/17 Range/Units 06:06 Potassium 2.7 L* (3.5-5.1) mmol/L Carbon Dioxide 35 H (22-30) mmol/L BUN 6 L (9-20) mg/dL Creatinine 0.35 L (0.66-1.25) mg/dL Glucose 101 H (74-99) mg/dL Calcium 8.0 L (8.4-10.2) mg/dL Microbiology - Last 24 Hours (Table) 06/03/17 13:11 Blood Culture - Preliminary Blood No Growth after 96 hours 06/03/17 12:45 Blood Culture - Preliminary Blood No Growth after 96 hours Assessment and Plan (1) Osteomyelitis Current Visit: Yes Status: Acute Code(s): M86.9 - OSTEOMYELITIS, UNSPECIFIED SNOMED Code(s): 66202098 (2) Severe sepsis Current Visit: Yes Status: Acute Code(s): A41.9 - SEPSIS, UNSPECIFIED ORGANISM; R65.20 - SEVERE SEPSIS WITHOUT SEPTIC SHOCK SNOMED Code(s): 70866462 (3) UTI (urinary tract infection) Current Visit: Yes Status: Acute Code(s): N39.0 - URINARY TRACT INFECTION, SITE NOT SPECIFIED SNOMED Code(s): 32741348 (4) Blood loss anemia Current Visit: No Status: Acute Code(s): D50.0 - IRON DEFICIENCY ANEMIA SECONDARY TO BLOOD LOSS (CHRONIC) SNOMED Code(s): 951945886 (5) Pressure ulcer of contiguous region involving back and buttock Current Visit: Yes Status: Chronic Code(s): L89.40 - PRESSR ULC OF CONTIG SITE OF BACK, BUTTOCK AND HIP, UNSP STG SNOMED Code(s): 728582553 (6) Quadriplegia Current Visit: Yes Status: Chronic Code(s): G82.50 - QUADRIPLEGIA, UNSPECIFIED SNOMED Code(s): 52824567 Plan: He will continue on his current medications and antibiotics as prescribed by Dr. Bosch. We'll wait on ECF approval. Recheck labs in a.m.r
[2017-06-07] MEDS: QUEtiapine 25 MG TAB PO SCH (20:58)
[2017-06-07] MEDS: NA PHOS,M-B/NA PHOS,DI-BA 133 ML ENEMA RECTAL SCH (21:04)
[2017-06-07] MEDS: SODIUM CHLORIDE 0.9% IRRIG 1,000 ML BTL IRRIGATION SCH (22:38)
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
[2017-06-08] MEDS: VANCOMYCIN 1,250 MG in SODIUM CHLORIDE 0.9% 250 ML IVPB SCH ×3 (02:16→19:41)
[2017-06-08] MEDS: MEROPENEM 1 GM in SODIUM CHLORIDE 0.9% 100 ML IVPB SCH ×3 (02:16→17:07)
[2017-06-08 06:43] LABS: Anion Gap 6 mmol/L; Blood Urea Nitrogen 6 mg/dL (9-20); Calcium 7.9 mg/dL (8.4-10.2); Carbon Dioxide 36 mmol/L (22-30); Chloride 96 mmol/L (98-107); Glucose 116 mg/dL (74-99); Sodium 138 mmol/L (137-145)
[2017-06-08 06:46] LABS: Potassium 2.5 mmol/L (3.5-5.1)
[2017-06-08] MEDS ORDERED: Potassium Replacement Protocol 1 EACH MISC MISCELLANE PRN ×2 (06:48→20:13)
[2017-06-08] MEDS: PANTOPRAZOLE 40 MG TABLET PO SCH ×2 (06:55→09:29)
[2017-06-08] MEDS: GABAPENTIN 300 MG CAP PO SCH ×4 (09:29→19:46)
[2017-06-08] MEDS: FLUDROCORTISONE 0.1 MG TAB PO SCH ×2 (09:29→19:44)
[2017-06-08] MEDS: BACLOFEN 10 MG TAB PO SCH ×2 (09:29→19:43)
[2017-06-08] MEDS: OXYBUTYNIN CHLORIDE 5 MG TAB PO SCH ×2 (09:30→19:44)
[2017-06-08] MEDS: SERTRALINE 100 MG TAB PO SCH (09:30)
[2017-06-08] MEDS: MEGESTROL 400 MG/10 ML CUP PO SCH ×4 (09:30→19:50)
[2017-06-08] MEDS: POTASSIUM CHLORIDE ER 20 MEQ TAB.ER PO SCH ×5 (09:32→21:58)
[2017-06-08] MEDS ORDERED: METOPROLOL TARTRATE 25 MG TAB PO STA (10:05)
[2017-06-08] MEDS: ASCORBIC ACID 500 MG TAB PO SCH (12:07)
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
[2017-06-08] MEDS ORDERED: VANCOMYCIN TROUGH DUE 1 EACH MISC MISCELLANE ONE (18:00)
[2017-06-08] MEDS: METOPROLOL TARTRATE 12.5 MG TAB PO SCH (19:44)
[2017-06-08] MEDS: QUEtiapine 25 MG TAB PO SCH (19:44)
[2017-06-09] MEDS: MEROPENEM 1 GM in SODIUM CHLORIDE 0.9% 100 ML IVPB SCH ×3 (01:19→17:20)
[2017-06-09] MEDS: VANCOMYCIN 1,250 MG in SODIUM CHLORIDE 0.9% 250 ML IVPB SCH ×3 (02:51→21:02)
[2017-06-09 06:53] LABS: Anion Gap 9 mmol/L; Blood Urea Nitrogen 5 mg/dL (9-20); Calcium 8.1 mg/dL (8.4-10.2); Carbon Dioxide 35 mmol/L (22-30); Chloride 98 mmol/L (98-107); Glucose 112 mg/dL (74-99); Potassium 3.1 mmol/L (3.5-5.1); Sodium 142 mmol/L (137-145)
[2017-06-09] MEDS: FLUDROCORTISONE 0.1 MG TAB PO SCH ×2 (09:06→21:00)
[2017-06-09] MEDS: PANTOPRAZOLE 40 MG TABLET PO SCH (09:06)
[2017-06-09] MEDS: BACLOFEN 10 MG TAB PO SCH ×2 (09:06→21:00)
[2017-06-09] MEDS: OXYBUTYNIN CHLORIDE 5 MG TAB PO SCH ×2 (09:07→21:00)
[2017-06-09] MEDS: GABAPENTIN 300 MG CAP PO SCH ×3 (09:07→21:00)
[2017-06-09] MEDS: SERTRALINE 100 MG TAB PO SCH (09:07)
[2017-06-09] MEDS: METOPROLOL TARTRATE 12.5 MG TAB PO SCH (09:07)
[2017-06-09] MEDS: MEGESTROL 400 MG/10 ML CUP PO SCH ×5 (09:07→21:05)
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
[2017-06-09] MEDS: ASCORBIC ACID 500 MG TAB PO SCH (12:14)
[2017-06-09] MEDS ORDERED: METOPROLOL TARTRATE 25 MG TAB PO STA (13:33)
[2017-06-09] MEDS: QUEtiapine 25 MG TAB PO SCH (20:59)
[2017-06-09] MEDS: METOPROLOL TARTRATE 25 MG TAB PO SCH (20:59)
[2017-06-10] MEDS: MEROPENEM 1 GM in SODIUM CHLORIDE 0.9% 100 ML IVPB SCH ×3 (01:34→18:31)
[2017-06-10] MEDS: VANCOMYCIN 1,250 MG in SODIUM CHLORIDE 0.9% 250 ML IVPB SCH ×3 (03:22→20:08)
[2017-06-10 07:08] LABS: Glucose,Whole Blood 88 mg/dL (75-99)
[2017-06-10] MEDS: MEGESTROL 400 MG/10 ML CUP PO SCH ×4 (07:51→20:12)
[2017-06-10] MEDS: GABAPENTIN 300 MG CAP PO SCH ×3 (07:52→20:09)
[2017-06-10] MEDS: METOPROLOL TARTRATE 25 MG TAB PO SCH ×2 (07:52→20:10)
[2017-06-10] MEDS: FLUDROCORTISONE 0.1 MG TAB PO SCH ×2 (07:52→20:10)
[2017-06-10] MEDS: OXYBUTYNIN CHLORIDE 5 MG TAB PO SCH ×2 (07:53→20:10)
[2017-06-10] MEDS: PANTOPRAZOLE 40 MG TABLET PO SCH (07:53)
[2017-06-10] MEDS: BACLOFEN 10 MG TAB PO SCH ×2 (07:53→20:11)
[2017-06-10] MEDS: SERTRALINE 100 MG TAB PO SCH (07:54)
[2017-06-10 09:18] LABS: Basophils % (A) 0 %; Eosinophils # (A) 0.2 k/uL (0-0.7); Eosinophils % (A) 2 %; HCT 34.3 % (39.0-53.0); HGB 10.3 gm/dL (13.0-17.5); Hypochromasia Moderate; Lymphocytes # (A) 1.5 k/uL (1.0-4.8); Lymphocytes % (A) 13 %; MCH 26.1 pg (25.0-35.0); MCHC 29.9 g/dL (31.0-37.0); Mean Platelet Volume 7.2; Monocytes # (A) 0.5 k/uL (0-1.0); Monocytes % (A) 5 %; Neutrophils # (A) 9.1 k/uL (1.3-7.7); Neutrophils % (A) 79 %; Platelet Count 360 k/uL (150-450); RBC 3.94 m/uL (4.30-5.90); RDW 13.6 % (11.5-15.5); WBC 11.6 k/uL (3.8-10.6)
[2017-06-10 09:30] LABS: Anion Gap 10 mmol/L; Blood Urea Nitrogen 8 mg/dL (9-20); Calcium 8.1 mg/dL (8.4-10.2); Carbon Dioxide 35 mmol/L (22-30); Chloride 97 mmol/L (98-107); Glucose 77 mg/dL (74-99); Sodium 142 mmol/L (137-145)
[2017-06-10] MEDS: POTASSIUM CHLORIDE ER 20 MEQ TAB.ER PO SCH ×6 (11:30→23:46)
[2017-06-10] MEDS: ASCORBIC ACID 500 MG TAB PO SCH (11:32)
[2017-06-10] MEDS: SODIUM CHLORIDE 0.9% IRRIG 1,000 ML BTL IRRIGATION SCH (13:33)
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
[2017-06-10] MEDS: NA PHOS,M-B/NA PHOS,DI-BA 133 ML ENEMA RECTAL SCH (18:54)
[2017-06-10] MEDS: QUEtiapine 25 MG TAB PO SCH (20:09)
[2017-06-10] MEDS ORDERED: Potassium Replacement Protocol 1 EACH MISC MISCELLANE PRN (21:21)
[2017-06-11] MEDS: MEROPENEM 1 GM in SODIUM CHLORIDE 0.9% 100 ML IVPB SCH ×3 (02:08→18:02)
[2017-06-11] MEDS: VANCOMYCIN 1,250 MG in SODIUM CHLORIDE 0.9% 250 ML IVPB SCH ×3 (04:01→20:10)
[2017-06-11] MEDS: ACETAMINOPHEN TAB 325 MG TAB PO PRN ×2 (06:17→18:10)
[2017-06-11] MEDS: METOPROLOL TARTRATE 25 MG TAB PO SCH ×2 (06:24→20:20)
[2017-06-11 08:33] LABS: Basophils % (A) 0 %; Eosinophils # (A) 0.2 k/uL (0-0.7); Eosinophils % (A) 1 %; HCT 31.8 % (39.0-53.0); HGB 9.6 gm/dL (13.0-17.5); Hypochromasia Moderate; Lymphocytes # (A) 1.6 k/uL (1.0-4.8); Lymphocytes % (A) 12 %; MCH 25.9 pg (25.0-35.0); MCHC 30.3 g/dL (31.0-37.0); MCV 85.5 fL (80.0-100.0); Mean Platelet Volume 7.3; Monocytes # (A) 0.7 k/uL (0-1.0); Monocytes % (A) 5 %; Neutrophils # (A) 10.7 k/uL (1.3-7.7); Neutrophils % (A) 80 %; Platelet Count 347 k/uL (150-450); RBC 3.73 m/uL (4.30-5.90); RDW 13.7 % (11.5-15.5); WBC 13.3 k/uL (3.8-10.6)
[2017-06-11] MEDS: MEGESTROL 400 MG/10 ML CUP PO SCH ×5 (08:53→21:38)
[2017-06-11] MEDS: GABAPENTIN 300 MG CAP PO SCH ×3 (08:54→21:37)
[2017-06-11] MEDS: SERTRALINE 100 MG TAB PO SCH (08:54)
[2017-06-11] MEDS: FLUDROCORTISONE 0.1 MG TAB PO SCH ×2 (08:55→20:20)
[2017-06-11] MEDS: BACLOFEN 10 MG TAB PO SCH ×2 (08:55→20:19)
[2017-06-11] MEDS: OXYBUTYNIN CHLORIDE 5 MG TAB PO SCH ×2 (08:55→20:20)
[2017-06-11] MEDS: PANTOPRAZOLE 40 MG TABLET PO SCH (08:55)
[2017-06-11 09:07] LABS: Anion Gap 7 mmol/L; Blood Urea Nitrogen 10 mg/dL (9-20); Calcium 8.2 mg/dL (8.4-10.2); Carbon Dioxide 36 mmol/L (22-30); Chloride 98 mmol/L (98-107); Glucose 94 mg/dL (74-99); Potassium 3.7 mmol/L (3.5-5.1); Sodium 141 mmol/L (137-145)
[2017-06-11] MEDS: ASCORBIC ACID 500 MG TAB PO SCH (12:04)
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
--- NOTE | 2017-06-11 14:16 | P.DS ---
Providers Date of admission: 06/03/17 14:33 Expected date of discharge: 06/11/17 Attending physician: Moise Dubon Consults: 06/03/17 14:35 Consult Physician Routine Consulting Provider: Claus Gill Consult Reason/Comments: Sepsis, Sacral Ulcer Do you want consulting provider notified?: Yes 06/11/17 10:05 Consult Physician Stat Consulting Provider: Megan Cochran Consult Reason/Comments: suicidal ideation. need clearance for discharge to [facility]. Do you want consulting provider notified?: Already Contacted Primary care physician: Sung Fink - Discharge Diagnosis(es) (1) Osteomyelitis Noted patient currently getting PICC line with meropenem As well as vancomycin for resistant bacterial osteomyelitic infection Current Visit: Yes Status: Acute (2) Severe sepsis Resolved Current Visit: Yes Status: Acute (3) Quadriplegia Noted and it currently long-term care for same Current Visit: Yes Status: Chronic Patient Condition at Discharge: Fair Plan - Discharge Summary Discharge Rx Participant: No New Discharge Prescriptions: New Meropenem [Merrem] 1 gm IVPB Q8H #90 vial Acetaminophen Tab [Tylenol] 650 mg PO Q6HR PRN tab PRN Reason: Fever And/ Or Pain Benzocaine/Menthol Lozeng [Cepacol lozenge] 1 each MUCOUS MEM Q4HR PRN lozenge PRN Reason: Cough Ibuprofen [Motrin] 400 mg PO TID PRN tab PRN Reason: Fever And/Or Mild Pain Meropenem [Merrem] 1 gm IVPB Q8H vial Na Phos,M-B/Na Phos,Di-Ba [Fleet Adult] 133 ml RECTAL ONCE PRN enema PRN Reason: Constipation Pantoprazole [Protonix] 40 mg PO AC-BRKFST #30 tablet. Vancomycin 1,250 mg IVPB Q8H #90 bag Continue Fludrocortisone [Florinef] 0.2 mg PO BID Baclofen [Lioresal] 5 mg PO BID Gabapentin [Neurontin] 600 mg PO TID Sertraline [Zoloft] 200 mg PO DAILY Oxybutynin Chloride [Ditropan] 5 mg PO BID Cranberry Conc/C/Bacill Coag [Cranberry Tablet] 2 tab PO BID Ubidecarenone [Co Q-10] 100 mg PO DAILY Docusate [Colace] 100 mg PO BID PRN PRN Reason: Constipation Ascorbic Acid [Vitamin C] 500 mg PO DAILY Albuterol Nebulized [Ventolin Nebulized] 2.5 mg INHALATION RT-Q6H PRN PRN Reason: Shortness Of Breath Polyethylene Glycol 3350 [Miralax] 17 gm PO DAILY PRN PRN Reason: Constipation Sodium Chloride 0.9% Irrigatio [Saline 0.9% Irrigation] 1 applic IRRIGATION MOWEFR QUEtiapine FUMARATE [SEROquel] 75 mg PO HS Na Phos,M-B/Na Phos,Di-Ba [Fleet Adult] 133 ml RECTAL MOWEFR Megestrol [Megace] 200 mg PO QID Ensure Enlive 1 can PO BID Discharge Medication List Baclofen [Lioresal] 5 mg PO BID 04/28/14 [History] Cranberry Conc/C/Bacill Coag [Cranberry Tablet] 2 tab PO BID 04/28/14 [History] Fludrocortisone [Florinef] 0.2 mg PO BID 04/28/14 [History] Gabapentin [Neurontin] 600 mg PO TID 04/28/14 [History] Oxybutynin Chloride [Ditropan] 5 mg PO BID 04/28/14 [History] Sertraline [Zoloft] 200 mg PO DAILY 04/28/14 [History] Ubidecarenone [Co Q-10] 100 mg PO DAILY 02/18/15 [History] Docusate [Colace] 100 mg PO BID PRN 06/28/16 [History] Ascorbic Acid [Vitamin C] 500 mg PO DAILY 11/10/16 [History] Albuterol Nebulized [Ventolin Nebulized] 2.5 mg INHALATION RT-Q6H PRN 01/08/17 [ History] Ensure Enlive 1 can PO BID 06/03/17 [History] Megestrol [Megace] 200 mg PO QID 06/03/17 [History] Na Phos,M-B/Na Phos,Di-Ba [Fleet Adult] 133 ml RECTAL MOWEFR 06/03/17 [History] Polyethylene Glycol 3350 [Miralax] 17 gm PO DAILY PRN 06/03/17 [History] QUEtiapine FUMARATE [SEROquel] 75 mg PO HS 06/03/17 [History] Sodium Chloride 0.9% Irrigatio [Saline 0.9% Irrigation] 1 applic IRRIGATION MOWEFR 06/03/17 [History] Acetaminophen Tab [Tylenol] 650 mg PO Q6HR PRN tab 06/06/17 [Rx] Benzocaine/Menthol Lozeng [Cepacol lozenge] 1 each MUCOUS MEM Q4HR PRN lozenge 06/06/17 [Rx] Ibuprofen [Motrin] 400 mg PO TID PRN tab 06/06/17 [Rx] Meropenem [Merrem] 1 gm IVPB Q8H vial 06/06/17 [Rx] Meropenem [Merrem] 1 gm IVPB Q8H #90 vial 06/06/17 [Rx] Na Phos,M-B/Na Phos,Di-Ba [Fleet Adult] 133 ml RECTAL ONCE PRN enema 06/06/17 [ Rx] Pantoprazole [Protonix] 40 mg PO AC-BRKFST #30 tablet. 06/06/17 [Rx] Vancomycin 1,250 mg IVPB Q8H #90 bag 06/07/17 [Rx] Follow up Appointment(s)/Referral(s): Sung Fink Jr, DO [Primary Care Provider] - 1 Week Claus Gill MD [STAFF PHYSICIAN] - 1 Week [facility], [NON-STAFF] - [facility] [NON-STAFF] - 1 Week Ambulatory/Diagnostic Orders: Basic Metabolic Panel [LAB.AMB] Location: Determined By Patient C Reactive Protein [LAB.AMB] Location: Determined By Patient Erythrocyte Sedimentation Rate [LAB.AMB] Location: Determined By Patient Vancomycin,Trough [LAB.AMB] Location: Determined By Patient Basic Metabolic Panel [LAB.AMB] Location: Determined By Patient Complete Blood Count w/diff [LAB.AMB] Location: Determined By Patient Complete Blood Count w/diff [LAB.AMB] Time Frame: 1 Week, Location: Determined By Patient Miscellaneous Lab Order [LAB.AMB] Location: Determined By Patient Patient Instructions/Handouts: Osteomyelitis (DC), How to Prevent Pressure Ulcers (DC) Discharge Disposition: HOME WITH HOME HEALTH SERVICES
[2017-06-11] MEDS: QUEtiapine 25 MG TAB PO SCH (20:20)
[2017-06-12] MEDS: MEROPENEM 1 GM in SODIUM CHLORIDE 0.9% 100 ML IVPB SCH ×3 (02:17→20:11)
[2017-06-12] MEDS: VANCOMYCIN 1,250 MG in SODIUM CHLORIDE 0.9% 250 ML IVPB SCH ×3 (03:32→20:47)
[2017-06-12 08:46] LABS: Anion Gap 8 mmol/L; Blood Urea Nitrogen 9 mg/dL (9-20); Calcium 8.2 mg/dL (8.4-10.2); Carbon Dioxide 36 mmol/L (22-30); Chloride 99 mmol/L (98-107); Glucose 89 mg/dL (74-99); Sodium 143 mmol/L (137-145)
[2017-06-12] MEDS: PANTOPRAZOLE 40 MG TABLET PO SCH (08:59)
[2017-06-12] MEDS: BACLOFEN 10 MG TAB PO SCH ×2 (09:00→20:49)
[2017-06-12] MEDS: FLUDROCORTISONE 0.1 MG TAB PO SCH (09:02)
[2017-06-12] MEDS: GABAPENTIN 300 MG CAP PO SCH ×3 (09:07→20:49)
[2017-06-12] MEDS: MEGESTROL 400 MG/10 ML CUP PO SCH ×4 (09:08→20:50)
[2017-06-12] MEDS: SERTRALINE 100 MG TAB PO SCH (09:09)
[2017-06-12] MEDS: OXYBUTYNIN CHLORIDE 5 MG TAB PO SCH ×2 (09:09→20:49)
[2017-06-12] MEDS: METOPROLOL TARTRATE 25 MG TAB PO SCH ×2 (09:09→20:49)
[2017-06-12] MEDS ORDERED: Potassium Replacement Protocol 1 EACH MISC MISCELLANE PRN ×2 (09:11→17:06)
[2017-06-12] MEDS: POTASSIUM CHLORIDE 10 MEQ in WATER FOR INJECTION 1 100ML.BAG IVPB SCH ×4 (09:44→18:53)
[2017-06-12] MEDS: ASCORBIC ACID 500 MG TAB PO SCH (12:17)
[2017-06-12] MEDS: SODIUM CHLORIDE 0.9% IRRIG 1,000 ML BTL IRRIGATION SCH (12:18)
--- NOTE | 2017-06-12 15:55 | P.PN ---
Progress Note - Text Progress Note Date: 06/12/17 Patient has been cleared for discharge and is currently awaiting insurance authorization. [facility] Patient remains stable without concerns or complaints. Potassium is low today and is being supplemented per protocol. Will re-check in AM. Vital signs remain stable. Nurse practitioner note has been reviewed by physician. Signing provider agrees with the documented findings, assessment, and plan of care.
[2017-06-12] MEDS: NA PHOS,M-B/NA PHOS,DI-BA 133 ML ENEMA RECTAL SCH (16:45)
[2017-06-12] MEDS: QUEtiapine 25 MG TAB PO SCH (20:49)
[2017-06-12] MEDS: IBUPROFEN 400 MG TAB PO PRN (20:54)
[2017-06-13] MEDS: POTASSIUM CHLORIDE ER 20 MEQ TAB.ER PO SCH ×2 (01:03→02:19)
[2017-06-13] MEDS: MEROPENEM 1 GM in SODIUM CHLORIDE 0.9% 100 ML IVPB SCH ×2 (01:03→10:42)
[2017-06-13 01:16] VITALS: RESP 18
[2017-06-13] MEDS: VANCOMYCIN 1,250 MG in SODIUM CHLORIDE 0.9% 250 ML IVPB SCH ×2 (02:23→12:19)
[2017-06-13 06:50] LABS: Anion Gap 9 mmol/L; Blood Urea Nitrogen 12 mg/dL (9-20); Calcium 8.5 mg/dL (8.4-10.2); Carbon Dioxide 35 mmol/L (22-30); Chloride 98 mmol/L (98-107); Glucose 82 mg/dL (74-99); Potassium 3.7 mmol/L (3.5-5.1); Sodium 142 mmol/L (137-145)
[2017-06-13] MEDS ORDERED: POTASSIUM CHLORIDE ER 20 MEQ TAB.ER PO STA (07:14)
[2017-06-13 07:48] VITALS: BP 146/106; PULSE 86; TEMP 97.9
[2017-06-13] MEDS ORDERED: FLUDROCORTISONE 0.1 MG TAB PO SCH (09:00)
[2017-06-13] MEDS: ACETAMINOPHEN TAB 325 MG TAB PO PRN (10:41)
[2017-06-13] MEDS: MEGESTROL 400 MG/10 ML CUP PO SCH ×2 (10:47→12:32)
[2017-06-13] MEDS: BACLOFEN 10 MG TAB PO SCH (10:48)
[2017-06-13] MEDS: GABAPENTIN 300 MG CAP PO SCH (10:48)
[2017-06-13] MEDS: OXYBUTYNIN CHLORIDE 5 MG TAB PO SCH (10:48)
[2017-06-13] MEDS: ASCORBIC ACID 500 MG TAB PO SCH (10:48)
[2017-06-13] MEDS: PANTOPRAZOLE 40 MG TABLET PO SCH (10:49)
[2017-06-13] MEDS: SERTRALINE 100 MG TAB PO SCH (10:49)
[2017-06-13] MEDS: METOPROLOL TARTRATE 25 MG TAB PO SCH (10:49)
== END 2017-06-13 14:59 | DRG 698 ==
LOC: EC 12:25 → 6SEL 14:33 → 4MS4W 06-09 13:53 → UNDODISIN 06-13 14:16
PROVIDERS: ADMIT Family Medicine; ATTEND Family Medicine
PROC: 02HV33Z Insertion of Infusion Device into Superior Vena Cava, Percutaneous Approach (ICD-10-PCS; principal; 2017-06-06 09:32)
DX: T83.511A Infection and inflammatory reaction due to indwelling urethral catheter, initial encounter (principal); A41.9 Sepsis, unspecified organism; R65.20 Severe sepsis without septic shock; G82.53 Quadriplegia, C5-C7 complete; E43 Unspecified severe protein-calorie malnutrition; G93.41 Metabolic encephalopathy; L89.152 Pressure ulcer of sacral region, stage 2; L89.323 Pressure ulcer of left buttock, stage 3; M86.9 Osteomyelitis, unspecified; J98.11 Atelectasis; N39.0 Urinary tract infection, site not specified; S14.105S Unspecified injury at C5 level of cervical spinal cord, sequela; N31.9 Neuromuscular dysfunction of bladder, unspecified; D50.0 Iron deficiency anemia secondary to blood loss (chronic); E87.6 Hypokalemia; F32.9 Major depressive disorder, single episode, unspecified; F41.9 Anxiety disorder, unspecified; W16.42XS Fall into unspecified water causing other injury, sequela; Z66 Do not resuscitate; Z79.899 Other long term (current) drug therapy; Z86.14 Personal history of Methicillin resistant Staphylococcus aureus infection; Z87.442 Personal history of urinary calculi; Z88.1 Allergy status to other antibiotic agents; Z88.0 Allergy status to penicillin; Z88.2 Allergy status to sulfonamides; Z60.2 Problems related to living alone
CPT/HCPCS: 36415; 36569; 71045; 72220; 76937; 77001; 78315; 80048; 80053; 80202; 81001; 83605; 83735; 84132; 85025; 85610; 85730; 87040; 87077; 87086; 87186; 87502; 93005; 94640; 94760; 96361; 96365; 96366; 96375; 99285

== ENCOUNTER 2017-06-13 18:24 | Inpatient (IN) | payer OTHER ==
[2017-06-13] MEDS ORDERED: SODIUM CHLORIDE 0.9% 500 ML IV STA (18:45)
[2017-06-13] MEDS ORDERED: ACETAMINOPHEN TAB 500 MG TAB PO STA (18:53)
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
[2017-06-13 20:00] LABS: Basophils # (A) 0.1 k/uL (0-0.2); Basophils % (A) 1 %; Eosinophils # (A) 0.2 k/uL (0-0.7); Eosinophils % (A) 1 %; HCT 33.8 % (39.0-53.0); HGB 10.2 gm/dL (13.0-17.5); Hypochromasia Moderate; Lymphocytes # (A) 1.5 k/uL (1.0-4.8); Lymphocytes % (A) 11 %; MCHC 30.1 g/dL (31.0-37.0); MCV 86.3 fL (80.0-100.0); Mean Platelet Volume 7.2; Monocytes # (A) 0.4 k/uL (0-1.0); Monocytes % (A) 3 %; Neutrophils # (A) 10.8 k/uL (1.3-7.7); Neutrophils % (A) 83 %; Platelet Count 345 k/uL (150-450); RBC 3.92 m/uL (4.30-5.90); RDW 14.2 % (11.5-15.5); WBC 13.1 k/uL (3.8-10.6)
[2017-06-13 20:01] LABS: Appearance,Urine Clear (Clear); Bilirubin,Urine Negative (Negative); Blood,Urine Negative (Negative); Color,Urine Colorless; Glucose,Urine (UA) Negative (Negative); Ketones,Urine Negative (Negative); Leukocyte Esterase,Urine Negative (Negative); Nitrite,Urine Negative (Negative); PH, Urine 7.5 (5.0-8.0); Protein,Urine Negative (Negative); Specific Gravity,Urine 1.004 (1.001-1.035); Urobilinogen,Urine <2.0 mg/dL (<2.0)
[2017-06-13 20:07] LABS: INR 1.1 (<1.2); Partial Thromboplastin Time 23.3 sec (22.0-30.0)
[2017-06-13 20:11] LABS: ALT 39 U/L (21-72); AST 23 U/L (17-59); Alkaline Phosphatase 105 U/L (38-126); Amylase 73 U/L (30-110); Anion Gap 9 mmol/L; Blood Urea Nitrogen 12 mg/dL (9-20); Calcium 8.1 mg/dL (8.4-10.2); Carbon Dioxide 34 mmol/L (22-30); Chloride 97 mmol/L (98-107); Glucose 102 mg/dL (74-99); Lipase 267 U/L (23-300); Potassium 3.6 mmol/L (3.5-5.1); Sodium 140 mmol/L (137-145); Total Bilirubin 0.2 mg/dL (0.2-1.3); Total Protein 6.3 g/dL (6.3-8.2)
[2017-06-13 20:13] LABS: Amphetamine Screen,Urine Not Detected (NotDetected); Barbiturate Screen,Urine Not Detected (NotDetected); Benzodiazepines Screen,Urine Not Detected (NotDetected); Cocaine Screen,Urine Not Detected (NotDetected); Methadone Screen, Urine Not Detected (NotDetected); Opiate Screen,Urine Not Detected (NotDetected); Oxycodone Screen, Urine Not Detected (NotDetected); Phencyclidine Screen,Urine Not Detected (NotDetected); Tricyclic Antidepressant,Urine Not Detected (NotDetected); Urn Cannabinoid Scrn Not Detected (NotDetected)
[2017-06-13 20:14] LABS: Lactic Acid, Venous 1.5 mmol/L (0.7-2.0)
[2017-06-13] MEDS ORDERED: MEROPENEM 1 GM in SODIUM CHLORIDE 0.9% 100 ML IVPB STA (20:26)
[2017-06-13] MEDS ORDERED: VANCOMYCIN IV PER PHARMACY 1 EACH MISC MISCELLANE PRN (20:27)
[2017-06-13] MEDS ORDERED: SODIUM CHLORIDE 0.9% 1,000 ML IV ONE (20:34)
[2017-06-13] MEDS ORDERED: VANCOMYCIN 1,250 MG in SODIUM CHLORIDE 0.9% 250 ML IVPB STA (20:34)
[2017-06-13] MEDS ORDERED: DOCUSATE 100 MG CAP PO PRN (20:35)
[2017-06-13] MEDS ORDERED: ACETAMINOPHEN TAB 325 MG TAB PO PRN (20:35)
[2017-06-13] MEDS ORDERED: ALBUTEROL NEBULIZED 2.5 MG/3 ML INHALATION PRN (20:35)
[2017-06-13] MEDS ORDERED: POLYETHYLENE GLYCOL 3350 17 GM POWD.PACK PO PRN (20:35)
[2017-06-13] MEDS ORDERED: MEROPENEM 1 GM VIAL IVPB SCH (20:45)
[2017-06-13] MEDS: OXYBUTYNIN CHLORIDE 5 MG TAB PO SCH (23:07)
[2017-06-13] MEDS: BACLOFEN 10 MG TAB PO SCH (23:07)
[2017-06-13] MEDS: QUEtiapine 25 MG TAB PO SCH (23:13)
[2017-06-13] MEDS: GABAPENTIN 300 MG CAP PO SCH (23:13)
[2017-06-13] MEDS: MEGESTROL 400 MG/10 ML CUP PO SCH (23:19)
[2017-06-14] MEDS ORDERED: VANCOMYCIN 1,000 MG VIAL IVPB SCH
[2017-06-14] MEDS ORDERED: LORazepam 1 MG TAB PO PRN (00:14)
[2017-06-14] MEDS ORDERED: LORazepam 2 MG/ML INJ IV PRN (00:14)
[2017-06-14] MEDS: HYDROcodone/APAP 10-325MG 1 EACH TAB PO PRN (00:56)
[2017-06-14] MEDS: VANCOMYCIN 1,250 MG in SODIUM CHLORIDE 0.9% 250 ML IVPB SCH ×2 (06:03→15:01)
[2017-06-14] MEDS: MEROPENEM 1 GM in SODIUM CHLORIDE 0.9% 100 ML IVPB SCH ×3 (06:03→22:35)
[2017-06-14] MEDS: MEGESTROL 400 MG/10 ML CUP PO SCH ×4 (07:57→22:36)
[2017-06-14] MEDS: BACLOFEN 10 MG TAB PO SCH ×2 (07:58→22:35)
[2017-06-14] MEDS: SERTRALINE 100 MG TAB PO SCH (07:58)
[2017-06-14] MEDS: FLUDROCORTISONE 0.1 MG TAB PO SCH (07:58)
[2017-06-14] MEDS: GABAPENTIN 300 MG CAP PO SCH ×3 (07:58→22:36)
[2017-06-14] MEDS: OXYBUTYNIN CHLORIDE 5 MG TAB PO SCH ×2 (07:59→22:35)
[2017-06-14] MEDS: PANTOPRAZOLE 40 MG TABLET PO SCH (08:00)
[2017-06-14] MEDS ORDERED: VANCOMYCIN TROUGH DUE 1 EACH MISC MISCELLANE ONE (13:00)
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
[2017-06-14 14:32] VITALS: BMI 19.8
[2017-06-14] MEDS: VANCOMYCIN 1,000 MG in SODIUM CHLORIDE 0.9% 250 ML IVPB SCH (16:08)
[2017-06-14] MEDS: QUEtiapine 25 MG TAB PO SCH (22:36)
[2017-06-15] MEDS: VANCOMYCIN 1,000 MG in SODIUM CHLORIDE 0.9% 250 ML IVPB SCH ×3 (00:09→16:26)
[2017-06-15] MEDS: MEROPENEM 1 GM in SODIUM CHLORIDE 0.9% 100 ML IVPB SCH ×3 (05:58→22:04)
[2017-06-15 07:54] LABS: Basophils # (A) 0.1 k/uL (0-0.2); Basophils % (A) 1 %; Eosinophils # (A) 0.1 k/uL (0-0.7); Eosinophils % (A) 1 %; HCT 34.8 % (39.0-53.0); HGB 10.6 gm/dL (13.0-17.5); Hypochromasia Moderate; Lymphocytes # (A) 1.7 k/uL (1.0-4.8); Lymphocytes % (A) 15 %; MCH 26.1 pg (25.0-35.0); MCHC 30.4 g/dL (31.0-37.0); Mean Platelet Volume 7.2; Monocytes # (A) 0.4 k/uL (0-1.0); Monocytes % (A) 4 %; Neutrophils # (A) 8.6 k/uL (1.3-7.7); Neutrophils % (A) 77 %; Platelet Count 345 k/uL (150-450); RBC 4.04 m/uL (4.30-5.90); RDW 14.3 % (11.5-15.5); WBC 11.2 k/uL (3.8-10.6)
[2017-06-15 07:58] LABS: ALT 35 U/L (21-72); AST 22 U/L (17-59); Alkaline Phosphatase 115 U/L (38-126); Anion Gap 8 mmol/L; Blood Urea Nitrogen 8 mg/dL (9-20); Calcium 8.4 mg/dL (8.4-10.2); Carbon Dioxide 34 mmol/L (22-30); Chloride 100 mmol/L (98-107); Glucose 101 mg/dL (74-99); Potassium 3.2 mmol/L (3.5-5.1); Sodium 142 mmol/L (137-145); Total Bilirubin 0.2 mg/dL (0.2-1.3); Total Protein 6.3 g/dL (6.3-8.2)
[2017-06-15] MEDS ORDERED: METOPROLOL TARTRATE 25 MG TAB PO ONE (08:00)
[2017-06-15] MEDS: BACLOFEN 10 MG TAB PO SCH ×2 (08:17→22:02)
[2017-06-15] MEDS: MEGESTROL 400 MG/10 ML CUP PO SCH ×4 (08:18→22:02)
[2017-06-15] MEDS: SERTRALINE 100 MG TAB PO SCH (08:18)
[2017-06-15] MEDS: GABAPENTIN 300 MG CAP PO SCH ×3 (08:18→22:02)
[2017-06-15] MEDS: FLUDROCORTISONE 0.1 MG TAB PO SCH (08:18)
[2017-06-15] MEDS: OXYBUTYNIN CHLORIDE 5 MG TAB PO SCH ×2 (08:18→22:02)
[2017-06-15] MEDS: PANTOPRAZOLE 40 MG TABLET PO SCH (08:21)
[2017-06-15] MEDS: HYDROcodone/APAP 10-325MG 1 EACH TAB PO PRN ×2 (09:50→16:29)
--- NOTE | 2017-06-15 15:13 | P.PN ---
Subjective Progress Note Date: 06/15/17 Principal diagnosis: Osteomyelitis, sepsis/resolved, quadriplegia Patient is a 36-year-old quadriplegic male well-known to the practice who after being transferred to rehab unit to undergo IV antibiotic therapy and aggressive wound therapy decided he didn't like it there was asked to leave the facility was driven by ambulance back to [facility] and readmitted. Patient has a PICC line in the left forearm is currently receiving meropenem and vancomycin Objective - Vital Signs Vital signs: Vital Signs Temp 99.1 F 06/15/17 06:52 Pulse 98 06/15/17 06:52 Resp 16 06/15/17 06:52 BP 182/129 06/15/17 06:52 Pulse Ox 98 06/15/17 06:52 Intake & Output 06/14/17 06/15/17 06/15/17 18:59 06:59 18:59 Output Total 200 3750 Balance -200 -3750 Weight 70 kg Output: Urine 200 3750 Other: Voiding Method Indwelling Catheter Indwelling Catheter Indwelling Catheter - Exam General: [Patient awake, alert and oriented times 3. Patient in no acute distress.] HEENT: [PERRL. EOMI. No pharyngeal erythema or exudate.] Neck: [No adenopathy.] Cardiac: [Heart regular in rate and rhythm. No S3. No S4. No clicks, rubs. No murmur.] Lungs: [Clear to auscultation bilaterally.] Abdomen: [No mass. No organomegaly. Bowel sounds presnt and normoactive in all 4 quadrants.] Extremes: [No edema no cyanosis no claudication normal pulses] : [] Musculoskeletal: [No joint erythema, edema or tenderness.] Skin: Sacral decubitus ulcer currently utilizing Aquasol Silver and dressing changing dressings daily Neurologic: [No lateralizing deficits. CN II - XII grossly intact.] Quadriplegia with spastic paralysis limited use to upper extreme Lymphatic: [No adenopathy.] - Labs CBC & Chem 7: 06/15/17 07:16 06/15/17 07:16 Labs: Abnormal Lab Results - Last 24 Hours (Table) 06/15/17 06/15/17 Range/Units 07:16 07:16 WBC 11.2 H (3.8-10.6) k/uL RBC 4.04 L (4.30-5.90) m/uL Hgb 10.6 L (13.0-17.5) gm/dL Hct 34.8 L (39.0-53.0) % MCHC 30.4 L (31.0-37.0) g/dL Neutrophils # 8.6 H (1.3-7.7) k/uL Potassium 3.2 L (3.5-5.1) mmol/L Carbon Dioxide 34 H (22-30) mmol/L BUN 8 L (9-20) mg/dL Creatinine 0.40 L (0.66-1.25) mg/dL Glucose 101 H (74-99) mg/dL Albumin 3.0 L (3.5-5.0) g/dL Microbiology - Last 24 Hours (Table) 06/13/17 19:36 Urine Culture - Preliminary Urine,Catheterized Gram Neg Bacilli 06/13/17 19:36 Blood Culture - Preliminary Blood No Growth after 24 hours Assessment and Plan (1) Infected decubitus ulcer Narrative/Plan: See previous note for measurements is nicely granulated limited or no slough applying Aquacel Silver will continue to follow Current Visit: Yes Status: Acute Code(s): L89.90 - PRESSURE ULCER OF UNSPECIFIED SITE, UNSPECIFIED STAGE; L08.9 - LOCAL INFECTION OF THE SKIN AND SUBCUTANEOUS TISSUE, UNSP SNOMED Code(s): 394327001 (2) Osteomyelitis Narrative/Plan: Patient currently has PICC line inserted into the posterior aspect of the left forearm, currently getting meropenem M IV as well as vancomycin IV Current Visit: No Status: Acute Code(s): M86.9 - OSTEOMYELITIS, UNSPECIFIED SNOMED Code(s): 26571499
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
[2017-06-15] MEDS: QUEtiapine 25 MG TAB PO SCH (22:02)
[2017-06-16] MEDS: VANCOMYCIN 1,000 MG in SODIUM CHLORIDE 0.9% 250 ML IVPB SCH ×4 (00:47→23:59)
[2017-06-16] MEDS: MEROPENEM 1 GM in SODIUM CHLORIDE 0.9% 100 ML IVPB SCH ×3 (05:50→21:55)
[2017-06-16] MEDS: PANTOPRAZOLE 40 MG TABLET PO SCH (07:55)
[2017-06-16] MEDS: FLUDROCORTISONE 0.1 MG TAB PO SCH (07:56)
[2017-06-16] MEDS: BACLOFEN 10 MG TAB PO SCH ×2 (07:56→21:53)
[2017-06-16] MEDS: GABAPENTIN 300 MG CAP PO SCH ×3 (07:56→21:53)
[2017-06-16] MEDS: SERTRALINE 100 MG TAB PO SCH (07:57)
[2017-06-16] MEDS: OXYBUTYNIN CHLORIDE 5 MG TAB PO SCH ×2 (07:57→21:52)
[2017-06-16] MEDS: MEGESTROL 400 MG/10 ML CUP PO SCH ×4 (07:57→21:58)
[2017-06-16 09:21] LABS: Basophils % (A) 0 %; Eosinophils # (A) 0.1 k/uL (0-0.7); Eosinophils % (A) 1 %; HCT 33.1 % (39.0-53.0); HGB 9.9 gm/dL (13.0-17.5); Hypochromasia Moderate; Lymphocytes # (A) 1.9 k/uL (1.0-4.8); Lymphocytes % (A) 15 %; MCH 25.8 pg (25.0-35.0); MCHC 29.8 g/dL (31.0-37.0); MCV 86.6 fL (80.0-100.0); Mean Platelet Volume 7.4; Monocytes # (A) 0.5 k/uL (0-1.0); Monocytes % (A) 4 %; Neutrophils # (A) 9.8 k/uL (1.3-7.7); Neutrophils % (A) 78 %; Platelet Count 307 k/uL (150-450); RBC 3.82 m/uL (4.30-5.90); RDW 14.6 % (11.5-15.5); WBC 12.5 k/uL (3.8-10.6)
[2017-06-16 09:26] LABS: ALT 34 U/L (21-72); AST 19 U/L (17-59); Albumin 2.8 g/dL (3.5-5.0); Alkaline Phosphatase 104 U/L (38-126); Anion Gap 7 mmol/L; Blood Urea Nitrogen 10 mg/dL (9-20); Calcium 8.4 mg/dL (8.4-10.2); Carbon Dioxide 33 mmol/L (22-30); Chloride 100 mmol/L (98-107); Glucose 103 mg/dL (74-99); Potassium 3.1 mmol/L (3.5-5.1); Sodium 140 mmol/L (137-145); Total Bilirubin 0.2 mg/dL (0.2-1.3); Total Protein 5.9 g/dL (6.3-8.2)
--- NOTE | 2017-06-16 11:17 | P.PN ---
Subjective Progress Note Date: 06/16/17 Principal diagnosis: Osteomyelitis, sepsis/resolved, quadriplegia Patient is a 36-year-old quadriplegic male well-known to the practice who after being transferred to rehab unit to undergo IV antibiotic therapy and aggressive wound therapy decided he didn't like it there was asked to leave the facility was driven by ambulance back to [facility] and readmitted. Patient has a PICC line in the left forearm is currently receiving meropenem and vancomycin Objective - Vital Signs Vital signs: Vital Signs Temp 98.6 F 06/16/17 06:43 Pulse 97 06/16/17 06:43 Resp 16 06/16/17 06:43 BP 156/89 06/16/17 08:00 Pulse Ox 97 06/16/17 06:43 Intake & Output 06/15/17 06/16/17 06/16/17 18:59 06:59 18:59 Intake Total 200 Output Total 1999 2600 Balance -2000 -2600 200 Intake: Oral 200 Output: Urine 1999 2600 Other: Voiding Method Indwelling Catheter Indwelling Catheter Indwelling Catheter - Exam General: [Patient awake, alert and oriented times 3. Patient in no acute distress.] HEENT: [PERRL. EOMI. No pharyngeal erythema or exudate.] Neck: [No adenopathy.] Cardiac: [Heart regular in rate and rhythm. No S3. No S4. No clicks, rubs. No murmur.] Lungs: [Clear to auscultation bilaterally.] Abdomen: [No mass. No organomegaly. Bowel sounds presnt and normoactive in all 4 quadrants.] Extremes: [No edema no cyanosis no claudication normal pulses] : [] Musculoskeletal: [No joint erythema, edema or tenderness.] Skin: Sacral decubitus ulcer currently utilizing Aquasol Silver and dressing changing dressings daily Neurologic: [No lateralizing deficits. CN II - XII grossly intact.] Quadriplegia with spastic paralysis limited use to upper extreme Lymphatic: [No adenopathy.] - Labs CBC & Chem 7: 06/16/17 08:56 06/16/17 08:56 Labs: Abnormal Lab Results - Last 24 Hours (Table) 06/16/17 06/16/17 Range/Units 08:56 08:56 WBC 12.5 H (3.8-10.6) k/uL RBC 3.82 L (4.30-5.90) m/uL Hgb 9.9 L (13.0-17.5) gm/dL Hct 33.1 L (39.0-53.0) % MCHC 29.8 L (31.0-37.0) g/dL Neutrophils # 9.8 H (1.3-7.7) k/uL Potassium 3.1 L (3.5-5.1) mmol/L Carbon Dioxide 33 H (22-30) mmol/L Creatinine 0.40 L (0.66-1.25) mg/dL Glucose 103 H (74-99) mg/dL Total Protein 5.9 L (6.3-8.2) g/dL Albumin 2.8 L (3.5-5.0) g/dL Microbiology - Last 24 Hours (Table) 06/13/17 19:36 Urine Culture - Final Urine,Catheterized Pseudomonas aeruginosa 06/13/17 19:36 Blood Culture - Preliminary Blood No Growth after 48 hours Assessment and Plan (1) Infected decubitus ulcer Narrative/Plan: See previous note for measurements is nicely granulated limited or no slough applying Aquacel Silver will continue to follow Current Visit: Yes Status: Acute Code(s): L89.90 - PRESSURE ULCER OF UNSPECIFIED SITE, UNSPECIFIED STAGE; L08.9 - LOCAL INFECTION OF THE SKIN AND SUBCUTANEOUS TISSUE, UNSP SNOMED Code(s): 981127643 (2) Osteomyelitis Narrative/Plan: Patient currently has PICC line inserted into the posterior aspect of the left forearm, currently getting meropenem M IV as well as vancomycin IV Current Visit: No Status: Acute Code(s): M86.9 - OSTEOMYELITIS, UNSPECIFIED SNOMED Code(s): 64742720 Time with Patient: Greater than 30
[2017-06-16] MEDS ORDERED: Potassium Replacement Protocol 1 EACH MISC MISCELLANE PRN (11:28)
[2017-06-16] MEDS: POTASSIUM CHLORIDE ER 20 MEQ TAB.ER PO SCH ×2 (12:00→13:05)
[2017-06-16] MEDS: QUEtiapine 25 MG TAB PO SCH (21:52)
[2017-06-17] MEDS: MEROPENEM 1 GM in SODIUM CHLORIDE 0.9% 100 ML IVPB SCH ×2 (05:22→11:48)
[2017-06-17] MEDS ORDERED: VANCOMYCIN TROUGH DUE 1 EACH MISC MISCELLANE ONE (07:00)
[2017-06-17] MEDS: SERTRALINE 100 MG TAB PO SCH (08:07)
[2017-06-17] MEDS: GABAPENTIN 300 MG CAP PO SCH ×3 (08:07→20:56)
[2017-06-17] MEDS: PANTOPRAZOLE 40 MG TABLET PO SCH (08:08)
[2017-06-17] MEDS: MEGESTROL 400 MG/10 ML CUP PO SCH ×5 (08:08→21:04)
[2017-06-17] MEDS: BACLOFEN 10 MG TAB PO SCH ×2 (08:08→20:56)
[2017-06-17] MEDS: OXYBUTYNIN CHLORIDE 5 MG TAB PO SCH ×2 (08:08→20:56)
[2017-06-17] MEDS: FLUDROCORTISONE 0.1 MG TAB PO SCH (08:08)
[2017-06-17] MEDS: HYDROcodone/APAP 10-325MG 1 EACH TAB PO PRN ×2 (08:16→18:22)
[2017-06-17] MEDS: VANCOMYCIN 1,000 MG in SODIUM CHLORIDE 0.9% 250 ML IVPB SCH (08:31)
[2017-06-17 08:59] LABS: Basophils # (A) 0.1 k/uL (0-0.2); Basophils % (A) 0 %; Eosinophils # (A) 0.1 k/uL (0-0.7); Eosinophils % (A) 1 %; HCT 36.5 % (39.0-53.0); HGB 10.6 gm/dL (13.0-17.5); Hypochromasia Moderate; Lymphocytes % (A) 19 %; MCH 25.6 pg (25.0-35.0); MCHC 29.1 g/dL (31.0-37.0); MCV 87.9 fL (80.0-100.0); Mean Platelet Volume 7.2; Monocytes # (A) 0.5 k/uL (0-1.0); Monocytes % (A) 5 %; Neutrophils # (A) 7.6 k/uL (1.3-7.7); Neutrophils % (A) 73 %; Platelet Count 302 k/uL (150-450); RBC 4.16 m/uL (4.30-5.90); RDW 14.9 % (11.5-15.5); WBC 10.5 k/uL (3.8-10.6)
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
[2017-06-17 10:58] LABS: ALT 34 U/L (21-72); AST 23 U/L (17-59); Albumin 3.2 g/dL (3.5-5.0); Alkaline Phosphatase 116 U/L (38-126); Anion Gap 12 mmol/L; Blood Urea Nitrogen 11 mg/dL (9-20); Calcium 9.2 mg/dL (8.4-10.2); Carbon Dioxide 33 mmol/L (22-30); Chloride 101 mmol/L (98-107); Glucose 85 mg/dL (74-99); Sodium 146 mmol/L (137-145); Total Bilirubin 0.3 mg/dL (0.2-1.3); Total Protein 6.7 g/dL (6.3-8.2)
[2017-06-17] MEDS ORDERED: NA PHOS,M-B/NA PHOS,DI-BA 133 ML ENEMA RECTAL SCH ×2 (12:00→21:00)
[2017-06-17] MEDS: COLLAGENASE 250 UNIT/GM OINTMENT 30 GM TUBE TOPICAL SCH (13:04)
--- NOTE | 2017-06-17 14:46 | P.CN ---
Psychiatric Consult - . Consult date: 06/17/17 Consult:: Patient was seen on consult regarding his suicide statements. Patient insists that he is not suicidal and said he is suicidal only to stay in the hospital longer. He said he does not want to go to prison or stepdown unit since he doesn't like it there and wants to be here. He also said he noticed the system and how to work the system. He said insurance will not pay for his stay in the hospital since he is okay to go to stepdown unit. However he said insurance will pay for his services here if he says he is suicidal. When patient was asked what if the insurance company denies to pay for his services here even if he says he is suicidal, he said "then bill me". When he was asked if he can afford to pay the hospital bill he said he cannot and the hospital will not get paid. He said this with a smirk on his face. He also said he does not need to be watched since he is not really going to kill himself. I had seen this patient last week prior to his discharge. That time also he had told me that he was not suicidal and even if he wanted to kill himself there is no way he can kill himself since he is quadriplegic. Patient is on Zoloft 200 mg in the morning for "depression"and Seroquel 75 mg at bedtime to help him sleep. He said he takes Benadryl or Tylenol PM at home to sleep well in addition to Seroquel. Patient is euthymic, is able to joke smile etc. He also appears to be bright, knows how the system works and how to manipulate system for his benefit. He also agrees that he is manipulating the system to stay in the hospital. Otherwise he is polite and cooperative. He does not show any psychomotor agitation or retardation. His speech is spontaneous relevant and goal-directed even though he is very highly manipulative. His mood is euthymic and affect is appropriate to the thought content. He denies hallucinations, delusional thinking, suicidal and homicidal thoughts. He is well oriented with adequate memory concentration general knowledge etc. Assessment: Patient is highly manipulative and denies adamantly that he is suicidal. His the heavier does not appear to be because of mental illness and appears to be for secondary gains. Suggestions: I do not think he needs to be supervised for suicidal behavior since he insists that he is not suicidal and said he is suicidal only to stay in the hospital for a longer time. In view of this, his suicide precautions can be discontinued. However make sure he does not have any access to sharp objects, including utensils, since he is liable to make some gestures to convince that he is danger to self in order to extend the hospitalization.
[2017-06-17] MEDS: VANCOMYCIN 1,250 MG in SODIUM CHLORIDE 0.9% 250 ML IVPB SCH (16:47)
[2017-06-17] MEDS: IBUPROFEN 400 MG TAB PO PRN (18:21)
[2017-06-17] MEDS: QUEtiapine 25 MG TAB PO SCH (20:56)
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
[2017-06-18] MEDS: VANCOMYCIN 1,250 MG in SODIUM CHLORIDE 0.9% 250 ML IVPB SCH ×3 (01:35→17:06)
[2017-06-18] MEDS: MEGESTROL 400 MG/10 ML CUP PO SCH ×4 (07:51→21:00)
[2017-06-18] MEDS: BACLOFEN 10 MG TAB PO SCH ×2 (07:52→20:59)
[2017-06-18] MEDS: SERTRALINE 100 MG TAB PO SCH (07:52)
[2017-06-18] MEDS: metroNIDAZOLE 500 MG TAB PO SCH ×3 (07:52→21:00)
[2017-06-18] MEDS: GABAPENTIN 300 MG CAP PO SCH ×3 (07:52→20:59)
[2017-06-18] MEDS: PANTOPRAZOLE 40 MG TABLET PO SCH (07:53)
[2017-06-18] MEDS: OXYBUTYNIN CHLORIDE 5 MG TAB PO SCH ×2 (07:53→20:59)
[2017-06-18] MEDS: FLUDROCORTISONE 0.1 MG TAB PO SCH (07:53)
[2017-06-18] MEDS: COLLAGENASE 250 UNIT/GM OINTMENT 30 GM TUBE TOPICAL SCH (07:54)
[2017-06-18 08:04] LABS: Basophils % (A) 0 %; Eosinophils # (A) 0.1 k/uL (0-0.7); Eosinophils % (A) 1 %; HCT 30.8 % (39.0-53.0); HGB 9.6 gm/dL (13.0-17.5); Hypochromasia Slight; Lymphocytes # (A) 1.9 k/uL (1.0-4.8); Lymphocytes % (A) 18 %; Mean Platelet Volume 7.5; Monocytes # (A) 0.5 k/uL (0-1.0); Monocytes % (A) 5 %; Neutrophils # (A) 7.6 k/uL (1.3-7.7); Neutrophils % (A) 74 %; Platelet Count 240 k/uL (150-450); RBC 3.67 m/uL (4.30-5.90); RDW 15.4 % (11.5-15.5); WBC 10.3 k/uL (3.8-10.6)
[2017-06-18 08:30] LABS: ALT 35 U/L (21-72); AST 21 U/L (17-59); Alkaline Phosphatase 107 U/L (38-126); Anion Gap 10 mmol/L; Blood Urea Nitrogen 12 mg/dL (9-20); Calcium 8.4 mg/dL (8.4-10.2); Carbon Dioxide 31 mmol/L (22-30); Chloride 102 mmol/L (98-107); Glucose 82 mg/dL (74-99); Potassium 3.6 mmol/L (3.5-5.1); Sodium 143 mmol/L (137-145); Total Bilirubin 0.2 mg/dL (0.2-1.3)
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
[2017-06-18] MEDS: hydrALAZINE HCL 20 MG/ML 1 ML VIAL IVP PRN (10:42)
--- NOTE | 2017-06-18 11:14 | PN ---
PROGRESS NOTE DATE OF SERVICE: 06/18/2017 REASON FOR FOLLOWUP: 1. Right ischium osteomyelitis. 2. Unstageable pressure ulcer to the sacrum area. 3. UTI. INTERVAL HISTORY: The patient is afebrile. He seems to be slightly upset about his new wound to the sacral area. Denies any pain. No chest pain. No shortness of breath. No cough. No nausea, vomiting or diarrhea. PHYSICAL EXAMINATION: Blood pressure is 156/106, pulse of 105, temperature 96.9, he is 97% on room air. General description is a middle-aged male, lying in bed in no distress. RESPIRATORY SYSTEM: Unlabored breathing, clear to auscultation anteriorly. HEART: S1, S2. Regular rate and rhythm. ABDOMEN: Soft, no tenderness. Wound are currently dressed up. No drainage on the dressing. LABS: White count 10.3 with a BUN of 12, creatinine 0.39. DIAGNOSTIC IMPRESSION AND PLAN: Patient with infected pressure ulcer to the right ischium. The osteomyelitis confirmed on the x-rays as well as the bone scan. Outpatient culture positive for methicillin- resistant Staphylococcus aureus, Escherichia coli and anaerobic gram-positive rods. The patient also has a urinary tract infection with Pseudomonas that has been adequately treated as repeat UA done on 06/13/2017 was negative. He is currently on Fortaz, Vanco and Flagyl. Will be recommending switching over to Rocephin 2 g daily along with the p.o. Flagyl and IV vancomycin for 6 weeks as the organism that he grew from his wound culture in the outpatient setting. Local wound care per the his wound care physician and keep the area off the pressure. MMODL / IJN: [id number] /
[2017-06-18] MEDS ORDERED: NA PHOS,M-B/NA PHOS,DI-BA 133 ML ENEMA RECTAL STA (12:40)
[2017-06-18] MEDS ORDERED: VANCOMYCIN TROUGH DUE 1 EACH MISC MISCELLANE ONE (15:00)
[2017-06-18] MEDS: QUEtiapine 25 MG TAB PO SCH (20:59)
[2017-06-18] MEDS: POLYETHYLENE GLYCOL 3350 17 GM POWD.PACK PO SCH (20:59)
[2017-06-18] MEDS: HYDROcodone/APAP 10-325MG 1 EACH TAB PO PRN (23:39)
[2017-06-19] MEDS: VANCOMYCIN 1,000 MG in SODIUM CHLORIDE 0.9% 250 ML IVPB SCH ×4 (00:32→23:25)
[2017-06-19 09:44] LABS: Basophils % (A) 0 %; Eosinophils # (A) 0.1 k/uL (0-0.7); Eosinophils % (A) 1 %; HCT 30.1 % (39.0-53.0); HGB 9.2 gm/dL (13.0-17.5); Hypochromasia Slight; Lymphocytes # (A) 1.8 k/uL (1.0-4.8); Lymphocytes % (A) 19 %; MCH 25.7 pg (25.0-35.0); MCHC 30.5 g/dL (31.0-37.0); MCV 84.3 fL (80.0-100.0); Mean Platelet Volume 7.9; Monocytes # (A) 0.6 k/uL (0-1.0); Monocytes % (A) 6 %; Neutrophils # (A) 6.5 k/uL (1.3-7.7); Neutrophils % (A) 71 %; Platelet Count 280 k/uL (150-450); RBC 3.57 m/uL (4.30-5.90); RDW 15.7 % (11.5-15.5); WBC 9.1 k/uL (3.8-10.6)
[2017-06-19 10:10] LABS: ALT 38 U/L (21-72); AST 19 U/L (17-59); Albumin 2.9 g/dL (3.5-5.0); Alkaline Phosphatase 111 U/L (38-126); Anion Gap 12 mmol/L; Blood Urea Nitrogen 12 mg/dL (9-20); Calcium 8.6 mg/dL (8.4-10.2); Carbon Dioxide 32 mmol/L (22-30); Chloride 100 mmol/L (98-107); Glucose 83 mg/dL (74-99); Potassium 3.5 mmol/L (3.5-5.1); Sodium 144 mmol/L (137-145); Total Bilirubin 0.2 mg/dL (0.2-1.3); Total Protein 5.9 g/dL (6.3-8.2)
[2017-06-19] MEDS: PANTOPRAZOLE 40 MG TABLET PO SCH (10:17)
[2017-06-19] MEDS: GABAPENTIN 300 MG CAP PO SCH ×3 (10:18→21:03)
[2017-06-19] MEDS: MEGESTROL 400 MG/10 ML CUP PO SCH ×4 (10:18→20:51)
[2017-06-19] MEDS: SERTRALINE 100 MG TAB PO SCH (10:18)
[2017-06-19] MEDS: metroNIDAZOLE 500 MG TAB PO SCH ×3 (10:18→21:03)
[2017-06-19] MEDS: BACLOFEN 10 MG TAB PO SCH ×2 (10:18→21:03)
[2017-06-19] MEDS: OXYBUTYNIN CHLORIDE 5 MG TAB PO SCH ×2 (10:18→21:03)
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
--- NOTE | 2017-06-19 14:16 | PN ---
PROGRESS NOTE DATE OF SERVICE: 06/19/2017 REASON FOR FOLLOWUP: 1. Right ischium osteomyelitis, polymicrobic. 2. Unstageable pressure ulcer to the sacrum area. 3. UTI. 4. Pseudomonas adequately treated. INTERVAL HISTORY: The patient is afebrile. He is breathing comfortably. Denies having any chest pain or shortness of breath. No abdominal pain or any worsening pain to the right ischium or the sacral wound area. PHYSICAL EXAMINATION: Blood pressure is 145/99, with a pulse of 90, temperature 99, he is 97% on room air. General description is a middle-aged male, lying in bed in no distress. RESPIRATORY SYSTEM: Unlabored breathing, clear to auscultation anteriorly. HEART: S1, S2. Regular rate and rhythm. ABDOMEN: Soft, no tenderness. Wounds are continued dressed up, no drainage on the dressing. LABS: Hemoglobin 9.2, white count 9.1 with a BUN of 12, creatinine 0.45. DIAGNOSTIC IMPRESSION AND PLAN: Patient with a right ischium osteomyelitis with nonhealing wound. The pressure ulcer outpatient culture positive for methicillin-resistant Staphylococcus aureus, anaerobic gram-positive. Antibiotic adjusted to Rocephin 2 g daily in addition to vancomycin, pharmacy to dose and oral Flagyl for 6 weeks. Keep the area off the pressure. Local wound care per his wound care doctor. Weekly monitoring of CBC, BMP and sed rate. Follow up in the office in 2 to 3 weeks time. Scripts were written for the patient. MMODL / IJN: [id number] /
[2017-06-19] MEDS: cefTRIAXone IN SWFI 2,000 MG/20 ML SYRINGE IVP SCH (15:16)
[2017-06-19] MEDS: POTASSIUM CHLORIDE ER 20 MEQ TAB.ER PO STA ×2 (15:16→15:37)
[2017-06-19] MEDS: COLLAGENASE 250 UNIT/GM OINTMENT 30 GM TUBE TOPICAL SCH (15:37)
[2017-06-19] MEDS: NA PHOS,M-B/NA PHOS,DI-BA 133 ML ENEMA RECTAL SCH (15:38)
[2017-06-19] MEDS: hydrALAZINE HCL 20 MG/ML 1 ML VIAL IVP PRN (18:29)
[2017-06-19] MEDS: TEMAZEPAM 30 MG CAP PO SCH (21:03)
[2017-06-19] MEDS: HYDROcodone/APAP 10-325MG 1 EACH TAB PO PRN (21:05)
[2017-06-20] MEDS: cefTRIAXone IN SWFI 2,000 MG/20 ML SYRINGE IVP SCH (08:46)
[2017-06-20] MEDS: VANCOMYCIN 1,000 MG in SODIUM CHLORIDE 0.9% 250 ML IVPB SCH ×2 (08:47→16:40)
[2017-06-20] MEDS: OXYBUTYNIN CHLORIDE 5 MG TAB PO SCH ×2 (08:47→22:26)
[2017-06-20] MEDS: SERTRALINE 100 MG TAB PO SCH (08:47)
[2017-06-20] MEDS: GABAPENTIN 300 MG CAP PO SCH ×3 (08:47→22:26)
[2017-06-20] MEDS: PANTOPRAZOLE 40 MG TABLET PO SCH (08:47)
[2017-06-20] MEDS: BACLOFEN 10 MG TAB PO SCH ×2 (08:47→22:26)
[2017-06-20] MEDS: MEGESTROL 400 MG/10 ML CUP PO SCH ×4 (08:47→22:26)
[2017-06-20] MEDS: metroNIDAZOLE 500 MG TAB PO SCH ×3 (08:47→22:26)
[2017-06-20 09:17] LABS: Basophils # (A) 0.1 k/uL (0-0.2); Basophils % (A) 1 %; Eosinophils # (A) 0.2 k/uL (0-0.7); Eosinophils % (A) 2 %; HCT 32.4 % (39.0-53.0); HGB 10.2 gm/dL (13.0-17.5); Hypochromasia Slight; Lymphocytes # (A) 1.6 k/uL (1.0-4.8); Lymphocytes % (A) 20 %; MCH 26.3 pg (25.0-35.0); MCHC 31.3 g/dL (31.0-37.0); MCV 83.8 fL (80.0-100.0); Mean Platelet Volume 7.3; Monocytes # (A) 0.6 k/uL (0-1.0); Monocytes % (A) 7 %; Neutrophils # (A) 5.8 k/uL (1.3-7.7); Neutrophils % (A) 69 %; Platelet Count 280 k/uL (150-450); RBC 3.86 m/uL (4.30-5.90); RDW 15.5 % (11.5-15.5); WBC 8.4 k/uL (3.8-10.6)
[2017-06-20 09:27] LABS: ALT 38 U/L (21-72); AST 20 U/L (17-59); Alkaline Phosphatase 109 U/L (38-126); Anion Gap 9 mmol/L; Blood Urea Nitrogen 12 mg/dL (9-20); Calcium 8.8 mg/dL (8.4-10.2); Carbon Dioxide 31 mmol/L (22-30); Chloride 103 mmol/L (98-107); Glucose 86 mg/dL (74-99); Potassium 4.3 mmol/L (3.5-5.1); Sodium 143 mmol/L (137-145); Total Bilirubin 0.2 mg/dL (0.2-1.3)
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
[2017-06-20] MEDS: hydrALAZINE HCL 20 MG/ML 1 ML VIAL IVP PRN (12:08)
[2017-06-20] MEDS: COLLAGENASE 250 UNIT/GM OINTMENT 30 GM TUBE TOPICAL SCH (14:00)
--- NOTE | 2017-06-20 17:50 | PN ---
PROGRESS NOTE REASON FOR FOLLOWUP: Infected right ischial pressure ulcer with osteomyelitis. INTERVAL HISTORY: The patient is afebrile. He is currently breathing comfortably. Denies having any chest pain, shortness of breath and no diarrhea. EXAMINATION: Blood pressure is 150/98 with a pulse of 98, temperature 97.5. He is 98% on room air. General description is a middle-aged male lying in bed in no distress. RESPIRATORY SYSTEM: Unlabored breathing. Clear to auscultation anteriorly. HEART: S1, S2. Regular rate and rhythm. ABDOMEN: Soft, no tenderness. Wounds are currently dressed up. No obvious drainage on the dressing. LABS: Hemoglobin 10.2, white count 8.4 with a BUN of 12, creatinine 0.43. DIAGNOSTIC IMPRESSION AND PLAN: 1. Patient with infected right ischium pressure ulcer stage IV with underlying osteomyelitis. Culture positive for MRSA, E coli and anaerobic gram-positive. Antibiotic in the form of vancomycin, pharmacy to dose to target of 15, Rocephin 2 g daily and Flagyl to continue for 6 week course of therapy with weekly monitoring of CBC, BMP and sed rate. Local wound care with Santyl. He may benefit from a wound VAC to the right ischium pressure ulcer. Will leave that decision to his wound care doctor. 2. Patient with a sacral wound. Continue with Santyl. Keep the area off the pressure. MMODL / IJN: [id number] /
[2017-06-20] MEDS: TEMAZEPAM 30 MG CAP PO SCH (22:26)
[2017-06-20] MEDS: POLYETHYLENE GLYCOL 3350 17 GM POWD.PACK PO SCH (22:26)
[2017-06-21] MEDS: VANCOMYCIN 1,000 MG in SODIUM CHLORIDE 0.9% 250 ML IVPB SCH ×2 (01:11→08:55)
[2017-06-21] MEDS: MEGESTROL 400 MG/10 ML CUP PO SCH ×5 (01:26→21:21)
[2017-06-21] MEDS: POLYETHYLENE GLYCOL 3350 17 GM POWD.PACK PO SCH (01:26)
[2017-06-21] MEDS: TEMAZEPAM 30 MG CAP PO SCH ×2 (01:26→21:30)
[2017-06-21] MEDS: metroNIDAZOLE 500 MG TAB PO SCH ×4 (01:27→21:20)
[2017-06-21] MEDS: OXYBUTYNIN CHLORIDE 5 MG TAB PO SCH ×3 (01:27→21:20)
[2017-06-21] MEDS: BACLOFEN 10 MG TAB PO SCH ×3 (01:27→21:19)
[2017-06-21] MEDS: GABAPENTIN 300 MG CAP PO SCH ×4 (01:28→21:20)
[2017-06-21] MEDS ORDERED: VANCOMYCIN TROUGH DUE 1 EACH MISC MISCELLANE ONE (07:00)
[2017-06-21 07:31] LABS: Anion Gap 8 mmol/L; Blood Urea Nitrogen 14 mg/dL (9-20); Carbon Dioxide 28 mmol/L (22-30); Chloride 103 mmol/L (98-107); Glucose 93 mg/dL (74-99); Potassium 4.7 mmol/L (3.5-5.1); Sodium 139 mmol/L (137-145)
[2017-06-21] MEDS: PANTOPRAZOLE 40 MG TABLET PO SCH (08:58)
[2017-06-21] MEDS: COLLAGENASE 250 UNIT/GM OINTMENT 30 GM TUBE TOPICAL SCH (08:59)
[2017-06-21] MEDS: cefTRIAXone IN SWFI 2,000 MG/20 ML SYRINGE IVP SCH (08:59)
[2017-06-21] MEDS: SERTRALINE 100 MG TAB PO SCH (09:01)
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
--- NOTE | 2017-06-21 14:36 | P.PCN ---
Date of Procedure: 06/21/17 Procedure(s) Performed: Crosshatching of unstageable coccyx pressure ulcer Description of Procedure: Dr. Dubon performed bedside crosshatching of unstageable coccyx wound with scalpel to allow for better penetration of santyl and optimize wound healing. Minimal bleeding was observed. Pre and post wound measurements are the same: 7.0cm x 3.2 cm with a depth of zero. Patient tolerated procedure well.
--- NOTE | 2017-06-21 15:52 | P.CN ---
Psychiatric Consult - . Consult date: 06/21/17 Consult:: 06/21/17 15:46 Patient was seen for a psych consult regarding his inappropriate behavior last night which was considered to be suicidal. Patient is angry that his telephone coat and other belongings were removed from him and his closet last night when he was placed on suicide precaution. He insists that he is not suicidal and will not kill himself. He said he did what he did only to get the attention and to get his belongings back. He promised not to do anything that can be considered as a suicide behavior or inappropriate behavior to get attention if he wouldn't get his phone and other belongings as he wants. He also agreed to request the staff members if he needs anything in the proper way instead of acting out and causing is scene. He also agreed if he engages in any behavior suggestive of suicide behavior, he will be placed back on suicide precautions and he will not have any access to sharps and other belongings. This promised was witnessed by patient's nurse and it was agreed that he will conduct himself as a gentleman and he will receive his belongings back. Suggestion: His suicide precautions can be discontinued, his belongings can be returned to him except for sharp objects. Indication please refer to my progress note dated 06/17/2017 for other details.
[2017-06-21] MEDS: NA PHOS,M-B/NA PHOS,DI-BA 133 ML ENEMA RECTAL SCH (16:03)
--- NOTE | 2017-06-21 16:24 | PN ---
PROGRESS NOTE DATE OF SERVICE: 06/21/2017 REASON FOR FOLLOWUP: Infected right ischium pressure ulcer with osteomyelitis. INTERVAL HISTORY: The patient is afebrile. He seems to be breathing comfortably. Slightly upset, as he received a letter from the court about the guardianship. Denies having any chest pain, shortness of breath or cough. No abdominal pain and no diarrhea. PHYSICAL EXAMINATION: Blood pressure is 126/81 with a pulse of 93, temperature 98.6. He is 99% on room air. General description is a middle-aged male lying in bed in no distress. RESPIRATORY SYSTEM: Unlabored breathing. Clear to auscultation anteriorly. HEART: S1, S2. Regular rate and rhythm. ABDOMEN: Soft. No tenderness. Wounds are currently dressed up. No obvious drainage or change per the RN. LABS: BUN of 14, creatinine 0.50. Vancomycin trough was therapeutic at 15. DIAGNOSTIC IMPRESSION AND PLAN: Patient with a right ischium infected pressure ulcer with osteomyelitis. Outpatient culture with MRSA E coli and anaerobes, for which the patient is currently covered with Rocephin, vancomycin and Flagyl. That will be continued. Local wound care to continue per his admitting physician. May benefit from a wound VAC to the right hip wound. Continue Santyl to the sacral wound. Keep the area off the pressure. MMODL / IJN: [id number] /
[2017-06-21] MEDS: VANCOMYCIN 1,250 MG in SODIUM CHLORIDE 0.9% 250 ML IVPB SCH ×2 (16:27→23:08)
[2017-06-21] MEDS: HYDROcodone/APAP 10-325MG 1 EACH TAB PO PRN (21:35)
[2017-06-22] MEDS: OXYBUTYNIN CHLORIDE 5 MG TAB PO SCH ×2 (08:41→21:10)
[2017-06-22] MEDS: SERTRALINE 100 MG TAB PO SCH (08:41)
[2017-06-22] MEDS: GABAPENTIN 300 MG CAP PO SCH ×3 (08:41→21:10)
[2017-06-22] MEDS: BACLOFEN 10 MG TAB PO SCH ×2 (08:41→21:09)
[2017-06-22] MEDS: metroNIDAZOLE 500 MG TAB PO SCH ×3 (08:41→21:10)
[2017-06-22] MEDS: VANCOMYCIN 1,250 MG in SODIUM CHLORIDE 0.9% 250 ML IVPB SCH ×2 (08:42→16:05)
[2017-06-22] MEDS: PANTOPRAZOLE 40 MG TABLET PO SCH (08:42)
[2017-06-22] MEDS: cefTRIAXone IN SWFI 2,000 MG/20 ML SYRINGE IVP SCH (08:42)
[2017-06-22] MEDS: COLLAGENASE 250 UNIT/GM OINTMENT 30 GM TUBE TOPICAL SCH (08:43)
[2017-06-22] MEDS: MEGESTROL 400 MG/10 ML CUP PO SCH ×4 (08:43→21:10)
[2017-06-22 08:57] LABS: Anion Gap 11 mmol/L; Blood Urea Nitrogen 13 mg/dL (9-20); Calcium 8.9 mg/dL (8.4-10.2); Carbon Dioxide 26 mmol/L (22-30); Chloride 104 mmol/L (98-107); Glucose 79 mg/dL (74-99); Potassium 4.8 mmol/L (3.5-5.1); Sodium 141 mmol/L (137-145)
--- NOTE | 2017-06-22 17:24 | P.PN ---
Subjective Progress Note Date: 06/22/17 Principal diagnosis: Osteomyelitis, sepsis/resolved, quadriplegia Patient is a 36-year-old quadriplegic male well-known to the practice who after being transferred to rehab unit to undergo IV antibiotic therapy and aggressive wound therapy decided he didn't like it there was asked to leave the facility was driven by ambulance back to [facility] and readmitted. Patient has a PICC line in the left forearm is currently receiving meropenem and vancomycin Objective - Vital Signs Vital signs: Vital Signs Temp 99.1 F 06/22/17 15:38 Pulse 100 06/22/17 15:38 Resp 19 06/22/17 15:38 BP 126/90 06/22/17 15:38 Pulse Ox 99 06/22/17 15:38 Intake & Output 06/21/17 06/22/17 06/22/17 18:59 06:59 18:59 Intake Total 1000 Output Total 1500 3200 1100 Balance -1500 -2200 -1100 Intake: Oral 1000 Output: Urine 1500 3200 1100 Other: Voiding Method Indwelling Catheter Indwelling Catheter Indwelling Catheter - Exam General: [Patient awake, alert and oriented times 3. Patient in no acute distress.] HEENT: [PERRL. EOMI. No pharyngeal erythema or exudate.] Neck: [No adenopathy.] Cardiac: [Heart regular in rate and rhythm. No S3. No S4. No clicks, rubs. No murmur.] Lungs: [Clear to auscultation bilaterally.] Abdomen: [No mass. No organomegaly. Bowel sounds presnt and normoactive in all 4 quadrants.] Extremes: [No edema no cyanosis no claudication normal pulses] : [] Musculoskeletal: [No joint erythema, edema or tenderness.] Skin: Sacral decubitus ulcer currently utilizing Aquasol Silver and dressing changing dressings daily Neurologic: [No lateralizing deficits. CN II - XII grossly intact.] Quadriplegia with spastic paralysis limited use to upper extreme Lymphatic: [No adenopathy.] - Labs CBC & Chem 7: 06/20/17 08:46 06/22/17 07:40 Labs: Abnormal Lab Results - Last 24 Hours (Table) 06/22/17 Range/Units 07:40 Creatinine 0.44 L (0.66-1.25) mg/dL Assessment and Plan (1) Infected decubitus ulcer Narrative/Plan: See previous note for measurements is nicely granulated limited or no slough applying Aquacel Silver will continue to follow Current Visit: Yes Status: Acute Code(s): L89.90 - PRESSURE ULCER OF UNSPECIFIED SITE, UNSPECIFIED STAGE; L08.9 - LOCAL INFECTION OF THE SKIN AND SUBCUTANEOUS TISSUE, UNSP SNOMED Code(s): 842621810 (2) Osteomyelitis Narrative/Plan: Patient currently has PICC line inserted into the posterior aspect of the left forearm, currently getting meropenem M IV as well as vancomycin IV Current Visit: No Status: Acute Code(s): M86.9 - OSTEOMYELITIS, UNSPECIFIED SNOMED Code(s): 59772908 Time with Patient: Greater than 30
[2017-06-22] MEDS: TEMAZEPAM 30 MG CAP PO SCH (21:15)
[2017-06-23] MEDS: VANCOMYCIN 1,250 MG in SODIUM CHLORIDE 0.9% 250 ML IVPB SCH ×3 (00:30→20:14)
[2017-06-23 10:16] LABS: Anion Gap 12 mmol/L; Blood Urea Nitrogen 13 mg/dL (9-20); Calcium 9.3 mg/dL (8.4-10.2); Carbon Dioxide 26 mmol/L (22-30); Chloride 106 mmol/L (98-107); Glucose 92 mg/dL (74-99); Potassium 5.4 mmol/L (3.5-5.1); Sodium 144 mmol/L (137-145)
[2017-06-23] MEDS: PANTOPRAZOLE 40 MG TABLET PO SCH (11:46)
[2017-06-23] MEDS: SERTRALINE 100 MG TAB PO SCH (11:46)
[2017-06-23] MEDS: metroNIDAZOLE 500 MG TAB PO SCH ×3 (11:46→22:21)
[2017-06-23] MEDS: GABAPENTIN 300 MG CAP PO SCH ×3 (11:47→22:20)
[2017-06-23] MEDS: OXYBUTYNIN CHLORIDE 5 MG TAB PO SCH ×2 (11:47→22:20)
[2017-06-23] MEDS: BACLOFEN 10 MG TAB PO SCH ×2 (11:47→22:20)
[2017-06-23] MEDS: MEGESTROL 400 MG/10 ML CUP PO SCH ×3 (11:49→22:21)
[2017-06-23] MEDS: cefTRIAXone IN SWFI 2,000 MG/20 ML SYRINGE IVP SCH (11:49)
[2017-06-23] MEDS: HYDROcodone/APAP 10-325MG 1 EACH TAB PO PRN (11:50)
[2017-06-23] MEDS: IBUPROFEN 400 MG TAB PO PRN (14:25)
--- NOTE | 2017-06-23 15:28 | P.PN ---
Subjective Progress Note Date: 06/23/17 Principal diagnosis: Osteomyelitis, sepsis/resolved, quadriplegia Patient is a 36-year-old quadriplegic male well-known to the practice who after being transferred to rehab unit to undergo IV antibiotic therapy and aggressive wound therapy decided he didn't like it there was asked to leave the facility was driven by ambulance back to [facility] and readmitted. Patient has a PICC line in the left forearm is currently receiving meropenem and vancomycin Objective - Vital Signs Vital signs: Vital Signs Temp 97.8 F 06/23/17 07:00 Pulse 90 06/23/17 07:00 Resp 20 06/23/17 07:00 BP 158/96 06/23/17 07:00 Pulse Ox 96 06/23/17 07:00 Intake & Output 06/22/17 06/23/17 06/23/17 17:59 06:59 18:59 Intake Total Output Total Balance Intake: Oral Output: Urine Other: Voiding Method - Exam General: [Patient awake, alert and oriented times 3. Patient in no acute distress.] HEENT: [PERRL. EOMI. No pharyngeal erythema or exudate.] Neck: [No adenopathy.] Cardiac: [Heart regular in rate and rhythm. No S3. No S4. No clicks, rubs. No murmur.] Lungs: [Clear to auscultation bilaterally.] Abdomen: [No mass. No organomegaly. Bowel sounds presnt and normoactive in all 4 quadrants.] Extremes: [No edema no cyanosis no claudication normal pulses] : [] Musculoskeletal: [No joint erythema, edema or tenderness.] Skin: Sacral decubitus ulcer currently utilizing Aquasol Silver and dressing changing dressings daily Neurologic: [No lateralizing deficits. CN II - XII grossly intact.] Quadriplegia with spastic paralysis limited use to upper extreme Lymphatic: [No adenopathy.] - Labs CBC & Chem 7: 06/20/17 08:46 06/23/17 09:42 Labs: Abnormal Lab Results - Last 24 Hours (Table) 06/23/17 Range/Units 09:42 Potassium 5.4 H (3.5-5.1) mmol/L Creatinine 0.40 L (0.66-1.25) mg/dL Assessment and Plan (1) Infected decubitus ulcer Narrative/Plan: See previous note for measurements is nicely granulated limited or no slough applying Aquacel Silver will continue to follow Current Visit: Yes Status: Acute Code(s): L89.90 - PRESSURE ULCER OF UNSPECIFIED SITE, UNSPECIFIED STAGE; L08.9 - LOCAL INFECTION OF THE SKIN AND SUBCUTANEOUS TISSUE, UNSP SNOMED Code(s): 387966823 (2) Osteomyelitis Narrative/Plan: Patient currently has PICC line inserted into the posterior aspect of the left forearm, currently getting meropenem M IV as well as vancomycin IV Current Visit: No Status: Acute Code(s): M86.9 - OSTEOMYELITIS, UNSPECIFIED SNOMED Code(s): 94514892 Time with Patient: Greater than 30
[2017-06-23] MEDS: COLLAGENASE 250 UNIT/GM OINTMENT 30 GM TUBE TOPICAL SCH (20:08)
[2017-06-24] MEDS: VANCOMYCIN 1,250 MG in SODIUM CHLORIDE 0.9% 250 ML IVPB SCH (01:16)
--- NOTE | 2017-06-24 05:38 | PN ---
PROGRESS NOTE DATE OF SERVICE: 06/23/2017. REASON FOR FOLLOWUP: 1. Right osteomyelitis with a stage IV pressure ulcer. 2. Unstageable pressure ulcer to the sacral area. INTERVAL HISTORY: The patient is afebrile. He has been noticed to be breathing comfortably. Denies having any chest pain, shortness of breath or cough. No abdominal pain. No diarrhea. EXAMINATION: Blood pressure 123/83 with a pulse of 88, temperature of 98.6. He is 98% on room air. General description is a middle-aged male lying in bed in no distress. Respiratory system: Unlabored breathing. Clear to auscultation anteriorly. Heart S1, S2. Regular rate and rhythm. Abdomen soft, no tenderness. Right heel pressure ulcer with a wound VAC on. LABS: BUN of 13, creatinine 0.40. DIAGNOSTIC IMPRESSION AND PLAN: 1. Patient with infected pressure ulcer to the right ischial tuberosity. Culture with E coli MRSA and anaerobic. Currently on the Rocephin, vancomycin and Flagyl which should be continue to finish a 6-week course of therapy. Local wound care with a wound VAC. 2. Unstageable pressure ulcer to sacral area. Continue wound care with Santyl followed by moist dressing, keep the area off the pressure. MMODL / IJN: [id number] /
[2017-06-24] MEDS ORDERED: VANCOMYCIN TROUGH DUE 1 EACH MISC MISCELLANE ONE (07:00)
[2017-06-24 08:28] LABS: Anion Gap 9 mmol/L; Blood Urea Nitrogen 14 mg/dL (9-20); Calcium 9.1 mg/dL (8.4-10.2); Carbon Dioxide 28 mmol/L (22-30); Chloride 104 mmol/L (98-107); Glucose 91 mg/dL (74-99); Potassium 4.7 mmol/L (3.5-5.1); Sodium 141 mmol/L (137-145)
[2017-06-24] MEDS: cefTRIAXone IN SWFI 2,000 MG/20 ML SYRINGE IVP SCH (10:24)
[2017-06-24] MEDS: SERTRALINE 100 MG TAB PO SCH (10:24)
[2017-06-24] MEDS: MEGESTROL 400 MG/10 ML CUP PO SCH ×4 (10:24→22:01)
[2017-06-24] MEDS: GABAPENTIN 300 MG CAP PO SCH ×3 (10:24→22:01)
[2017-06-24] MEDS: OXYBUTYNIN CHLORIDE 5 MG TAB PO SCH ×2 (10:25→22:01)
[2017-06-24] MEDS: PANTOPRAZOLE 40 MG TABLET PO SCH (10:25)
[2017-06-24] MEDS: metroNIDAZOLE 500 MG TAB PO SCH ×3 (10:25→22:01)
[2017-06-24] MEDS: BACLOFEN 10 MG TAB PO SCH ×2 (10:25→22:01)
[2017-06-24] MEDS: COLLAGENASE 250 UNIT/GM OINTMENT 30 GM TUBE TOPICAL SCH ×2 (10:32→22:03)
[2017-06-24] MEDS: NA PHOS,M-B/NA PHOS,DI-BA 133 ML ENEMA RECTAL SCH (12:21)
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
[2017-06-24] MEDS: VANCOMYCIN 1,000 MG in SODIUM CHLORIDE 0.9% 250 ML IVPB SCH ×2 (15:19→23:30)
[2017-06-24] MEDS: IBUPROFEN 400 MG TAB PO PRN (17:55)
[2017-06-24] MEDS: TEMAZEPAM 30 MG CAP PO SCH (22:04)
--- NOTE | 2017-06-24 22:39 | PN ---
PROGRESS NOTE DATE OF SERVICE: 06/24/2017. REASON FOR FOLLOWUP: 1. Right ischial tuberosity osteomyelitis. 2. Sacral pressure ulcer. INTERVAL HISTORY: The patient is afebrile. He is currently waiting for placement. Denies having any chest pain, shortness of breath, cough. No abdominal pain. No diarrhea. EXAMINATION: Blood pressure 107/68 with a pulse of 99, temperature 97.3. He is 99% on room air. General description is a middle-aged male lying in bed in no distress. Respiratory system: Unlabored breathing, clear to auscultation anteriorly. Heart S1, S2. Regular rate and rhythm. Abdomen soft, no tenderness. Right ischial wound is currently covered with a wound VAC. Sacral wound still has slough tissue. No surrounding redness. LABS: BUN 14, creatinine 0.54. Vancomycin trough is elevated at 1.2. DIAGNOSTIC IMPRESSION AND PLAN: 1. Patient with a right ischial infected pressure ulcer with underlying osteomyelitis covered with Rocephin . Vanco dose will be cut back to keep the trough around 15, pharmacy is following the dose while watching kidney function closely. 2. Unstageable pressure ulcer to the sacral area. Continue local wound care with Santyl followed by moist dressing to keep the area off the pressure. MMODL / IJN: [id number] /
[2017-06-25] MEDS: MEGESTROL 400 MG/10 ML CUP PO SCH ×4 (08:56→22:47)
[2017-06-25] MEDS: cefTRIAXone IN SWFI 2,000 MG/20 ML SYRINGE IVP SCH (08:56)
[2017-06-25] MEDS: BACLOFEN 10 MG TAB PO SCH ×2 (08:56→22:44)
[2017-06-25] MEDS: VANCOMYCIN 1,000 MG in SODIUM CHLORIDE 0.9% 250 ML IVPB SCH ×2 (08:56→16:18)
[2017-06-25] MEDS: SERTRALINE 100 MG TAB PO SCH (08:56)
[2017-06-25] MEDS: GABAPENTIN 300 MG CAP PO SCH ×3 (08:57→22:46)
[2017-06-25] MEDS: PANTOPRAZOLE 40 MG TABLET PO SCH (08:57)
[2017-06-25] MEDS: OXYBUTYNIN CHLORIDE 5 MG TAB PO SCH ×2 (08:57→22:46)
[2017-06-25] MEDS: metroNIDAZOLE 500 MG TAB PO SCH ×3 (08:57→22:44)
[2017-06-25 09:01] LABS: Anion Gap 11 mmol/L; Blood Urea Nitrogen 17 mg/dL (9-20); Calcium 9.2 mg/dL (8.4-10.2); Carbon Dioxide 24 mmol/L (22-30); Chloride 104 mmol/L (98-107); Glucose 108 mg/dL (74-99); Potassium 5.3 mmol/L (3.5-5.1); Sodium 139 mmol/L (137-145)
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
--- NOTE | 2017-06-25 15:58 | PN ---
PROGRESS NOTE DATE OF SERVICE: 06/25/2017 REASON FOR FOLLOWUP: 1. Right ischial tuberosity osteomyelitis with a stage IV wound. 2. Unstageable sacral wound. INTERVAL HISTORY: The patient is afebrile. He is currently breathing comfortably. Denies having any chest pain, shortness of breath or cough. No abdominal pain or any pain in his sacral right hip or right ischial wound area. PHYSICAL EXAMINATION: Blood pressure 109/69 with a pulse of 89, temperature of 98.2. He is 97% on room air. General description is a middle-aged male lying in bed in no distress. RESPIRATORY SYSTEM: Unlabored breathing. Clear to auscultation anteriorly. HEART: S1, S2. Regular rate and rhythm. ABDOMEN: Soft. No tenderness. LABS: BUN of 17, creatinine 0.55. DIAGNOSTIC IMPRESSION AND PLAN: Patient with right ischium tuberosity osteomyelitis with methicillin-resistant Staphylococcus aeruginosa, Escherichia coli and anaerobic Gram-positive, currently on Rocephin, vancomycin and Flagyl. Continue to finish a 6-week course of therapy. Currently waiting for placement. Local wound care to the right ischial wound with wound VAC and Santyl to the sacral area. Keep the area off pressure. Continue with supportive care. MMODL / IJN: [id number] /
[2017-06-25 17:30] LABS: Basophils # (A) 0.1 k/uL (0-0.2); Basophils % (A) 0 %; Eosinophils # (A) 0.2 k/uL (0-0.7); Eosinophils % (A) 2 %; HCT 36.6 % (39.0-53.0); HGB 11.4 gm/dL (13.0-17.5); Hypochromasia Slight; Lymphocytes # (A) 1.8 k/uL (1.0-4.8); Lymphocytes % (A) 17 %; MCH 26.5 pg (25.0-35.0); MCHC 31.1 g/dL (31.0-37.0); MCV 85.4 fL (80.0-100.0); Mean Platelet Volume 7.8; Monocytes # (A) 0.9 k/uL (0-1.0); Monocytes % (A) 8 %; Neutrophils # (A) 7.8 k/uL (1.3-7.7); Neutrophils % (A) 71 %; Platelet Count 321 k/uL (150-450); RBC 4.29 m/uL (4.30-5.90); WBC 10.9 k/uL (3.8-10.6)
[2017-06-25] MEDS: TEMAZEPAM 30 MG CAP PO SCH (22:44)
[2017-06-25] MEDS: SIMETHICONE 80 MG CHEWABLE PO SCH (22:46)
[2017-06-25] MEDS: POLYETHYLENE GLYCOL 3350 17 GM POWD.PACK PO SCH (22:47)
[2017-06-25] MEDS: COLLAGENASE 250 UNIT/GM OINTMENT 30 GM TUBE TOPICAL SCH (22:48)
[2017-06-26] MEDS: VANCOMYCIN 1,000 MG in SODIUM CHLORIDE 0.9% 250 ML IVPB SCH ×3 (00:59→15:06)
[2017-06-26] MEDS: MEGESTROL 400 MG/10 ML CUP PO SCH ×2 (08:50→14:20)
[2017-06-26] MEDS: BACLOFEN 10 MG TAB PO SCH (08:51)
[2017-06-26] MEDS: PANTOPRAZOLE 40 MG TABLET PO SCH (08:51)
[2017-06-26] MEDS: OXYBUTYNIN CHLORIDE 5 MG TAB PO SCH (08:51)
[2017-06-26] MEDS: GABAPENTIN 300 MG CAP PO SCH (08:51)
[2017-06-26] MEDS: metroNIDAZOLE 500 MG TAB PO SCH (08:51)
[2017-06-26] MEDS: cefTRIAXone IN SWFI 2,000 MG/20 ML SYRINGE IVP SCH (08:51)
[2017-06-26] MEDS: SERTRALINE 100 MG TAB PO SCH (08:51)
[2017-06-26] MEDS: NA PHOS,M-B/NA PHOS,DI-BA 133 ML ENEMA RECTAL SCH (10:15)
[2017-06-26 10:46] LABS: Anion Gap 13 mmol/L; Blood Urea Nitrogen 17 mg/dL (9-20); Calcium 9.1 mg/dL (8.4-10.2); Carbon Dioxide 25 mmol/L (22-30); Chloride 102 mmol/L (98-107); Glucose 107 mg/dL (74-99); Potassium 4.8 mmol/L (3.5-5.1); Sodium 140 mmol/L (137-145)
[2017-06-26] MEDS: SIMETHICONE 80 MG CHEWABLE PO SCH ×2 (12:00→14:20)
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
--- NOTE | 2017-06-26 13:59 | PN ---
PROGRESS NOTE DATE OF SERVICE: 06/26/2017 REASON FOR FOLLOW UP: 1. Right ischial tuberosity osteomyelitis. 2. Unstageable sacral wound. INTERVAL HISTORY: The patient is afebrile, he is breathing comfortably. Denies having any chest pain, shortness of breath, cough, no abdominal pain or any diarrhea. PHYSICAL EXAMINATION: Blood pressure 154/100 with a pulse of 90, temperature 97.3. He is 97% on room air. General description is a middle-aged male, lying in bed in no distress. RESPIRATORY SYSTEM: Unlabored breathing, clear to auscultation anteriorly. HEART: S1, S2. Regular rate and rhythm. ABDOMEN: Soft, no tender. Right sacral wound is currently dressed with a wound VAC. LABS: Hemoglobin 11.4, white count 10.9, creatinine 0.49. DIAGNOSTIC IMPRESSION AND PLAN: Patient with right ischial tuberosity with osteomyelitis with stage IV pressure ulcer. Outpatient culture positive for methicillin-resistant Staphylococcus aureus Escherichia coli and anaerobic gram-positive for the patient. Continue vancomycin, pharmacy to dose to keep the trough of 15. Flagyl and Rocephin 2 g daily to finish a 6-week course of therapy. Local wound care with a rash. The patient wants to continue with the wound VAC and to the sacral wound with Santyl followed by moist dressing, keep the area off the pressure. All his questions were answered. MMODL / IJN: [id number] /
[2017-06-26 16:38] VITALS: BP 120/76; PULSE 103; RESP 16; TEMP 98.7
== END 2017-06-26 16:37 | DRG 876 ==
LOC: EC 18:24 → EEVIPCON 20:34 → 4MS4W 20:34
PROVIDERS: ADMIT Family Medicine; ATTEND Family Medicine
PROC: 0J870ZZ Division of Back Subcutaneous Tissue and Fascia, Open Approach (ICD-10-PCS; principal; 2017-06-21)
DX: F32.9 Major depressive disorder, single episode, unspecified (principal); G82.50 Quadriplegia, unspecified; E43 Unspecified severe protein-calorie malnutrition; L89.150 Pressure ulcer of sacral region, unstageable; L89.314 Pressure ulcer of right buttock, stage 4; M86.9 Osteomyelitis, unspecified; N31.9 Neuromuscular dysfunction of bladder, unspecified; S14.105S Unspecified injury at C5 level of cervical spinal cord, sequela; S14.106S Unspecified injury at C6 level of cervical spinal cord, sequela; F41.9 Anxiety disorder, unspecified; B96.5 Pseudomonas (aeruginosa) (mallei) (pseudomallei) as the cause of diseases classified elsewhere; B95.62 Methicillin resistant Staphylococcus aureus infection as the cause of diseases classified elsewhere; G43.909 Migraine, unspecified, not intractable, without status migrainosus; B96.20 Unspecified Escherichia coli [E. coli] as the cause of diseases classified elsewhere; Z79.2 Long term (current) use of antibiotics; Z79.899 Other long term (current) drug therapy; Z91.5 Personal history of self-harm; Z87.440 Personal history of urinary (tract) infections; Z87.01 Personal history of pneumonia (recurrent); Z87.442 Personal history of urinary calculi; Z88.1 Allergy status to other antibiotic agents; Z88.0 Allergy status to penicillin; W16.42XS Fall into unspecified water causing other injury, sequela
CPT/HCPCS: 36415; 80048; 80053; 80202; 80306; 81003; 82075; 82140; 82150; 83605; 83690; 85025; 85610; 85730; 87040; 87077; 87086; 87186; 96361; 96365; 99285

== ENCOUNTER → 2017-08-07 | Outpatient (CLI) | payer OTHER ==
--- NOTE | 2017-08-07 13:22 | NM ---
EXAMINATION TYPE: NM bone 3 phase DATE OF EXAM: 08/07/2017 COMPARISON: 06/04/2017 HISTORY: Osteomyelitis of the left pelvis Triple phase bone scintigraphy was performed following the injection of 23.2 mCi Tc 99m MDP. Immedia te images and 4 hours post injection images acquired. FINDINGS: There is focal increased tracer activity posteriorly and towards the left on all 3 phases. There appe ars to be a Medel catheter in place but this increased activity a separate from where the Medel wyatt ter terminates in the bladder. IMPRESSION: While it is difficult to localize the exact site of involvement on these nuclear medicine images, the left ischial tuberosity is suspected. Finding is stable from previous exam.
== END | disposition home or self-care (01) ==
LOC: RADNMMAIN 07:33
PROVIDERS: ATTEND Family Medicine
DX: L89.154 Pressure ulcer of sacral region, stage 4 (principal)
CPT/HCPCS: 78315; A9503

== ENCOUNTER → 2018-05-22 | Outpatient (CLI) | payer OTHER ==
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
== END | disposition home or self-care (01) ==
LOC: SLEEP 10:16
PROVIDERS: ATTEND Internal Medicine
DX: G47.33 Obstructive sleep apnea (adult) (pediatric) (principal); R32 Unspecified urinary incontinence; R15.9 Full incontinence of feces; S14.15 Other incomplete lesions of cervical spinal cord; G82.54 Quadriplegia, C5-C7 incomplete; Z86.59 Personal history of other mental and behavioral disorders; Z98.890 Other specified postprocedural states; Z79.899 Other long term (current) drug therapy
CPT/HCPCS: 99211

== ENCOUNTER → 2018-07-31 | Outpatient (CLI) | payer OTHER ==
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
== END ==
LOC: EEVIPCON 13:00 → SLEEP 13:02
PROVIDERS: ATTEND Internal Medicine
DX: G47.33 Obstructive sleep apnea (adult) (pediatric) (principal); G82.50 Quadriplegia, unspecified; F32.9 Major depressive disorder, single episode, unspecified; Z79.899 Other long term (current) drug therapy; Z98.890 Other specified postprocedural states; Z99.89 Dependence on other enabling machines and devices

== ENCOUNTER → 2018-09-18 | Outpatient (CLI) | payer OTHER ==
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
== END ==
LOC: SLEEP 14:27
PROVIDERS: ATTEND Internal Medicine
DX: G47.33 Obstructive sleep apnea (adult) (pediatric) (principal); G82.50 Quadriplegia, unspecified; F32.9 Major depressive disorder, single episode, unspecified; Z98.890 Other specified postprocedural states; Z99.89 Dependence on other enabling machines and devices; Z79.899 Other long term (current) drug therapy

== ENCOUNTER → 2019-02-04 | Outpatient (CLI) | payer OTHER ==
--- NOTE | 2019-02-04 15:58 | CT ---
EXAMINATION TYPE: CT abdomen pelvis wo con DATE OF EXAM: 02/04/2019 HISTORY: hematuria CT DLP: 1172 mGycm. Automated Exposure Control for Dose Reduction was Utilized. TECHNIQUE: CT scan of the abdomen and pelvis is performed without oral or IV contrast. COMPARISON: CT abdomen and pelvis November 10, 2016 and older CTs FINDINGS: Within the limitations of a non-contrast study, the following observations are made. LUNG BASES: There is possible pectus excavatum deformity redemonstrated causing AP narrowing of the h eart similar to prior. There is bibasilar linear scarring and/or atelectasis more prominent centrally in both lower lungs. Tiny pericardial effusion anterior-inferior aspect axial image 32 is slightly l arger versus prior study LIVER/GB: Liver remains small in size with prominent left hepatic lobe. PANCREAS: Stable slight prominence proximal pancreatic body approximately 58 redemonstrated. SPLEEN: Splenomegaly redemonstrated measuring 15.1 cm long axis axial image 42. ADRENALS: No significant abnormality is seen. KIDNEYS: No renal stones or hydronephrosis is seen bilaterally. Partially exophytic anterior round 1. 2 cm lesion left kidney axial image 87 favor simple thin-walled cyst, Hounsfield units average 6. Fol ey catheter in decompressed bladder. There is a possible 1 to 2 mm calculus near Medel balloon axial image 146 and coronal image 58. BOWEL: Mild prominence of colonic fecal material. No suspicious small or large bowel dilatation. Some redundancy of sigmoid colon. GENITAL ORGANS: No gross abnormality seen. LYMPH NODES: No greater than 1cm abdominal or pelvic lymph nodes are appreciated. OSSEOUS STRUCTURES: Severe degenerative change both hips, left greater than right. Correlate for unde rlying cerebral palsy. Osseous structures are demineralized with underlying scoliosis. Narrowing is f or possible sacroiliac joints, right greater than left. Mild height loss involving vertebra near the thoracolumbar junction is thought chronic. OTHER: No significant additional abnormality is seen. IMPRESSION: There is a single 1 to 2 mm calculus thought present in decompressed bladder likely accou nting for patient's symptoms of hematuria.
== END ==
LOC: RADCTMAIN 14:36
PROVIDERS: ATTEND Family Medicine
DX: N20.0 Calculus of kidney (principal)
CPT/HCPCS: 74176

== ENCOUNTER → 2019-02-16 | Outpatient (CLI) | payer OTHER | END | disposition home or self-care (01) | LOC: RADNMMAIN 13:00 | PROVIDERS: ATTEND Family Medicine | DX: Z53.9 Procedure and treatment not carried out, unspecified reason (principal) ==

== ENCOUNTER → 2019-05-28 | Outpatient (CLI) | payer OTHER ==
[2019-05-28 14:20] LABS: ALT 20 U/L (4-49); AST 21 U/L (17-59); African American GFR (CKD) >90 (>60 ml/min/1.73 sqM); Albumin 3.8 g/dL (3.5-5.0); Alkaline Phosphatase 118 U/L (38-126); Anion Gap 8 mmol/L; Blood Urea Nitrogen 16 mg/dL (9-20); Calcium 8.7 mg/dL (8.4-10.2); Carbon Dioxide 28 mmol/L (22-30); Chloride 107 mmol/L (98-107); Glucose 81 mg/dL (74-99); Magnesium 2.3 mg/dL (1.6-2.3); Non-African American GFR(CKD) >90 (>60 ml/min/1.73 sqM); Potassium 3.4 mmol/L (3.5-5.1); Sodium 143 mmol/L (137-145); Total Bilirubin 0.4 mg/dL (0.2-1.3); Total Protein 6.9 g/dL (6.3-8.2)
--- NOTE | 2019-05-28 15:35 | XR ---
EXAMINATION TYPE: XR scoliosis survey DATE OF EXAM: 05/28/2019 COMPARISON: NONE HISTORY: Scoliosis. Patient is a quadriplegic. TECHNIQUE: Frontal and lateral views of the thoracolumbar spine were obtained. FINDINGS: There is a long segment scoliosis of the thoracolumbar spine, however due to patient positi oning as the patient is a quadriplegic the thoracolumbar spine cannot be included in one image. Welch angle was measured from the inferior endplate of T12 to the inferior endplate of L4 giving an estimat ed of the more exaggerated lumbar spine levoscoliosis. Welch angle measures approximately 10 degrees. No hemivertebrae are seen. Limited evaluation on the lateral views however no gross evidence of verte bral body height loss. Partial visualization of a cervical fusion device. IMPRESSION: Limited exam as described above however an approximate Welch angle of a levoscoliosis of t he lumbar spine was measured at 10 degrees.
== END | disposition home or self-care (01) ==
LOC: RADFLMAIN 12:51
PROVIDERS: ATTEND Family Medicine
DX: M41.9 Scoliosis, unspecified (principal); E87.6 Hypokalemia
CPT/HCPCS: 36415; 72082; 80053; 83735

== ENCOUNTER 2019-06-12 14:17 | Inpatient (IN) | payer OTHER ==
[2019-06-12] MEDS ORDERED: ACETAMINOPHEN TAB 325 MG TAB PO PRN ×2 (14:24→19:34)
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
[2019-06-12 16:52] LABS: Basophils % (A) 0 %; Eosinophils # (A) 0.1 k/uL (0-0.7); Eosinophils % (A) 2 %; HCT 44.6 % (39.0-53.0); HGB 13.5 gm/dL (13.0-17.5); Hypochromasia Slight; Lymphocytes # (A) 1.1 k/uL (1.0-4.8); Lymphocytes % (A) 23 %; MCH 25.3 pg (25.0-35.0); MCHC 30.3 g/dL (31.0-37.0); MCV 83.5 fL (80.0-100.0); Monocytes # (A) 0.2 k/uL (0-1.0); Monocytes % (A) 5 %; Neutrophils # (A) 3.2 k/uL (1.3-7.7); Neutrophils % (A) 68 %; Platelet Count 194 k/uL (150-450); RBC 5.34 m/uL (4.30-5.90); RDW 14.9 % (11.5-15.5); WBC 4.7 k/uL (3.8-10.6)
[2019-06-12 17:01] LABS: INR 1.1 (<1.2); Partial Thromboplastin Time 24.4 sec (22.0-30.0)
[2019-06-12 17:02] LABS: ALT 82 U/L (4-49); AST 83 U/L (17-59); African American GFR (CKD) >90 (>60 ml/min/1.73 sqM); Albumin 4.1 g/dL (3.5-5.0); Alkaline Phosphatase 119 U/L (38-126); Anion Gap 17 mmol/L; Blood Urea Nitrogen 3 mg/dL (9-20); Calcium 8.3 mg/dL (8.4-10.2); Carbon Dioxide 21 mmol/L (22-30); Chloride 99 mmol/L (98-107); Glucose 70 mg/dL (74-99); Magnesium 1.9 mg/dL (1.6-2.3); Non-African American GFR(CKD) >90 (>60 ml/min/1.73 sqM); Sodium 137 mmol/L (137-145); Total Bilirubin 0.8 mg/dL (0.2-1.3); Total Protein 7.5 g/dL (6.3-8.2)
[2019-06-12 17:10] LABS: Potassium 2.8 mmol/L (3.5-5.1)
[2019-06-12] MEDS: ONDANSETRON 4 MG/2 ML VIAL IVP PRN (17:20)
[2019-06-12] MEDS: SODIUM CHLORIDE 0.9% 1,000 ML IV SCH ×2 (17:21→21:28)
[2019-06-12] MEDS: SODIUM CHLORIDE 0.9% 500 ML 500 ML IV SCH ×3 (17:21→21:28)
[2019-06-12] MEDS: HEPARIN SODIUM,PORCINE 5,000 UNIT/ML 1 ML VIAL SQ SCH (17:21)
[2019-06-12] MEDS: CEFEPIME 2 GM in SODIUM CHLORIDE 0.9% 100 ML IVPB SCH (17:21)
[2019-06-12] MEDS: PHENAZOPYRIDINE 200 MG TAB PO SCH ×2 (17:30→21:25)
[2019-06-12] MEDS ORDERED: SIMETHICONE 80 MG CHEWABLE PO PRN (19:34)
[2019-06-12] MEDS ORDERED: NA PHOS,M-B/NA PHOS,DI-BA 133 ML ENEMA RECTAL PRN (19:34)
[2019-06-12] MEDS ORDERED: LORazepam 1 MG TAB PO PRN (19:34)
--- NOTE | 2019-06-12 20:16 | XR ---
EXAMINATION TYPE: XR chest 1V portable DATE OF EXAM: 06/12/2019 CLINICAL HISTORY: Shortness of breath and fever with productive cough. Rhonchi on exam. TECHNIQUE: Single AP portable frontal upright view of the chest is obtained. COMPARISON: Prior chest x-ray June 03, 2017. FINDINGS: Underlying scoliosis again seen making evaluation slightly suboptimal. Partial visualizatio n of surgical change in the cervical spine redemonstrated. Persistent cardiomegaly. Persistent elevat ed right hemidiaphragm. Stable patchy left basilar opacity. Right lung is clear. No pneumothorax seen bilaterally. IMPRESSION: Cardiomegaly with patchy left basilar linear scarring and/or atelectasis. No new suspicio us focal infiltrates clearly seen.
[2019-06-12] MEDS: FAMOTIDINE 20 MG TAB PO SCH (20:17)
[2019-06-12] MEDS: ALBUTEROL NEBULIZED 2.5 MG/3 ML INHALATION SCH (20:21)
[2019-06-12] MEDS: BACLOFEN 10 MG TAB PO SCH (21:24)
[2019-06-12] MEDS: GABAPENTIN 300 MG CAP PO SCH (21:24)
[2019-06-12] MEDS: QUEtiapine 50 MG TAB PO SCH (21:24)
[2019-06-12] MEDS: OXYBUTYNIN CHLORIDE 5 MG TAB PO SCH (21:24)
[2019-06-12] MEDS: DOCUSATE 100 MG CAP PO SCH (21:24)
[2019-06-12] MEDS: HYDROcodone/APAP 5-325MG 1 EACH TAB PO PRN (21:33)
[2019-06-12 23:16] LABS: Appearance,Urine Clear (Clear); Bacteria,Urine Rare /hpf; Bilirubin,Urine Negative (Negative); Blood,Urine Small (Negative); Color,Urine Yellow; Glucose,Urine (UA) Negative (Negative); Ketones,Urine 4+ (Negative); Leukocyte Esterase,Urine Large (Negative); Mucus,Urine Rare /hpf; Nitrite,Urine Negative (Negative); PH, Urine 6.5 (5.0-8.0); Protein,Urine 1+ (Negative); RBC,Urine 4 /hpf (0-5); Specific Gravity,Urine 1.012 (1.001-1.035); Urobilinogen,Urine <2.0 mg/dL (<2.0); WBC,Urine 32 /hpf (0-5)
[2019-06-13 03:11] LABS: African American GFR (CKD) >90 (>60 ml/min/1.73 sqM); Anion Gap 14 mmol/L; Blood Urea Nitrogen 3 mg/dL (9-20); Carbon Dioxide 22 mmol/L (22-30); Chloride 101 mmol/L (98-107); Glucose 76 mg/dL (74-99); Magnesium 1.8 mg/dL (1.6-2.3); Non-African American GFR(CKD) >90 (>60 ml/min/1.73 sqM); Sodium 137 mmol/L (137-145)
[2019-06-13 03:15] LABS: Basophils % (A) 0 %; Eosinophils # (A) 0.1 k/uL (0-0.7); Eosinophils % (A) 3 %; HCT 39.5 % (39.0-53.0); HGB 12.4 gm/dL (13.0-17.5); Hypochromasia Slight; Lymphocytes # (A) 1.5 k/uL (1.0-4.8); Lymphocytes % (A) 34 %; MCH 25.9 pg (25.0-35.0); MCHC 31.5 g/dL (31.0-37.0); MCV 82.2 fL (80.0-100.0); Mean Platelet Volume 8.9; Monocytes # (A) 0.2 k/uL (0-1.0); Monocytes % (A) 6 %; Neutrophils # (A) 2.4 k/uL (1.3-7.7); Neutrophils % (A) 54 %; Platelet Count 187 k/uL (150-450); RDW 15.1 % (11.5-15.5); WBC 4.4 k/uL (3.8-10.6)
[2019-06-13 03:18] LABS: Potassium 2.6 mmol/L (3.5-5.1)
[2019-06-13] MEDS: CEFEPIME 2 GM in SODIUM CHLORIDE 0.9% 100 ML IVPB SCH ×2 (05:12→16:43)
[2019-06-13] MEDS: HEPARIN SODIUM,PORCINE 5,000 UNIT/ML 1 ML VIAL SQ SCH ×3 (06:41→16:43)
[2019-06-13] MEDS: LEVOTHYROXINE 50 MCG TAB PO SCH (06:42)
[2019-06-13] MEDS: SODIUM CHLORIDE 0.9% 1,000 ML IV SCH ×3 (06:43→21:56)
[2019-06-13] MEDS: POTASSIUM CHLORIDE ER 20 MEQ TAB.ER PO SCH ×3 (07:07→13:07)
[2019-06-13] MEDS: ALBUTEROL NEBULIZED 2.5 MG/3 ML INHALATION SCH ×2 (08:50→20:25)
[2019-06-13] MEDS: ONDANSETRON 4 MG/2 ML VIAL IVP PRN (09:31)
[2019-06-13] MEDS: VORTIOXETINE HYDROBROMIDE 10 MG TABLET PO SCH (09:32)
[2019-06-13] MEDS: BACLOFEN 10 MG TAB PO SCH ×4 (09:34→21:48)
[2019-06-13] MEDS: PHENAZOPYRIDINE 200 MG TAB PO SCH ×3 (09:35→21:43)
[2019-06-13] MEDS: FAMOTIDINE 20 MG TAB PO SCH (09:35)
[2019-06-13] MEDS: HYDROcodone/APAP 5-325MG 1 EACH TAB PO PRN (11:22)
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
[2019-06-13] MEDS ORDERED: VANCOMYCIN IV PER PHARMACY 1 EACH MISC MISCELLANE PRN (12:06)
[2019-06-13] MEDS ORDERED: VANCOMYCIN 1,500 MG in SODIUM CHLORIDE 0.9% 250 ML IVPB ONE (12:30)
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
[2019-06-13 14:14] LABS: Appearance,Urine Clear (Clear); Bacteria,Urine Rare /hpf; Bilirubin,Urine Negative (Negative); Blood,Urine Trace (Negative); Color,Urine Yellow; Glucose,Urine (UA) Negative (Negative); Hyaline Casts,Urine 4 /lpf (0-2); Ketones,Urine 4+ (Negative); Leukocyte Esterase,Urine Large (Negative); Mucus,Urine Many /hpf; Nitrite,Urine Negative (Negative); Protein,Urine 1+ (Negative); RBC,Urine 3 /hpf (0-5); Squamous Epithelial Cell,Urine <1 /hpf (0-4); Urobilinogen,Urine <2.0 mg/dL (<2.0); WBC,Urine 17 /hpf (0-5)
[2019-06-13] MEDS: FLUDROCORTISONE 0.1 MG TAB PO SCH (14:56)
[2019-06-13] MEDS: MULTIVITAMINS, THERA 1 EACH TAB PO SCH (14:56)
[2019-06-13] MEDS: OXYBUTYNIN CHLORIDE 5 MG TAB PO SCH ×2 (14:56→21:49)
[2019-06-13] MEDS: GABAPENTIN 300 MG CAP PO SCH ×2 (14:56→21:49)
[2019-06-13] MEDS: DOCUSATE 100 MG CAP PO SCH ×2 (14:56→21:48)
--- NOTE | 2019-06-13 15:45 | P.CN ---
Psychiatric Consult - . Consult date: 06/13/19 Consult:: 06/13/19 15:35 IDENTIFYING DATA: 38-year-old male patient HPI: Patient admitted to the medical floor [facility] with difficulties feeling sick and not able to sleep for 3 days. Patient describes that he has been feeling sick and has not been sleeping for the last 3 days. He does state he slept some last night. He believes he was admitted for a bladder infection. Psychiatry is consulted coming he doesn't think he has been feeling depressed lately. He does feel like he is feeling worse physically currently. PAST PSYCHIATRIC HISTORY: Patient states that he was on Zoloft for a long time and per chart history he was recently switched to trintellix. He has never had any psychiatric hospitalizations. He is not no attempts to hurt himself. He states that this point in time he has no interest in counseling, doesn't want a referral sheet for outpatient counseling treatment. He is currently on Seroquel and trintellix. He did not seem to have awareness of being on the newer medication trintellix. PMH: Quadriplegic, breathing issues; per chart history pneumonia, renal disease, osteomyelitis, sepsis, decubitus ulcer, migraines, kidney stones, sinus infections, bronchitis ALLERGIES: Ciprofloxacin, erythromycin, penicillin MEDICATIONS: Tylenol when necessary, albuterol, Lioresal, cefepime, Colace, Neurontin, heparin, [place] when necessary, Motrin when necessary, Synthroid, Florinef, Ativan when necessary, Theragran, Zofran when necessary, Ditropan, Protonix, Pyridium, MiraLAX, Seroquel, Fleet adult when necessary, Trintellix, vancomycin when necessary Mylicon when necessary CHEMICAL DEPENDENCY HISTORY: Denies, says it's never been an issue. FAMILY PSYCHIATRIC HISTORY: Not that he is aware of FAMILY CHEMICAL DEPENDENCY HISTORY: Family history of drug and alcohol use SOCIAL HISTORY: Currently lives by himself in an apartment. He is on disability. No current relationship. he does have some family support. Relates that he likes art and working on puzzles. MENTAL STATUS EXAM: He is alert and cooperative with the interview. His speech is fluent, not rapid or pressured. His mood is described as "up in the air." He denies any suicidal ideations. He does not voice any thoughts of harm to others. No evidence of psychosis or agitation. IMPRESSIONS: Unspecified depressive disorder history PLAN: At this time maintain current psychotropic medication regimen. Continue to monitor for further benefit of intelligence. Continue to monitor for any medication side effects. I did discuss he treatment option of outpatient counseling for patient which he is refusing at this time, does not wish to have the outpatient referral list. I do not see any criteria for inpatient psychiatric hospitalization.
[2019-06-13] MEDS: PANTOPRAZOLE 40 MG TABLET PO SCH (17:53)
[2019-06-13] MEDS: QUEtiapine 50 MG TAB PO SCH (21:49)
[2019-06-13] MEDS: VANCOMYCIN 1,000 MG in SODIUM CHLORIDE 0.9% 250 ML IVPB SCH (23:57)
[2019-06-14] MEDS: HEPARIN SODIUM,PORCINE 5,000 UNIT/ML 1 ML VIAL SQ SCH ×3 (03:21→16:35)
[2019-06-14] MEDS: HYDROcodone/APAP 5-325MG 1 EACH TAB PO PRN (03:24)
[2019-06-14] MEDS: CEFEPIME 2 GM in SODIUM CHLORIDE 0.9% 100 ML IVPB SCH ×2 (03:27→15:34)
[2019-06-14] MEDS: SODIUM CHLORIDE 0.9% 1,000 ML IV SCH ×3 (06:51→21:47)
[2019-06-14] MEDS: VANCOMYCIN 1,000 MG in SODIUM CHLORIDE 0.9% 250 ML IVPB SCH ×3 (06:51→22:10)
[2019-06-14] MEDS: LEVOTHYROXINE 50 MCG TAB PO SCH (06:51)
[2019-06-14] MEDS ORDERED: LISINOPRIL 5 MG TAB PO SCH (09:00)
[2019-06-14] MEDS: PHENAZOPYRIDINE 200 MG TAB PO SCH ×3 (09:22→21:47)
[2019-06-14] MEDS: POLYETHYLENE GLYCOL 3350 17 GM POWD.PACK PO SCH (09:24)
[2019-06-14] MEDS: CHLORTHALIDONE 25 MG TAB PO SCH (09:24)
[2019-06-14] MEDS: BACLOFEN 10 MG TAB PO SCH ×4 (09:24→21:45)
[2019-06-14] MEDS ORDERED: LISINOPRIL 5 MG TAB PO STA (10:56)
--- NOTE | 2019-06-14 11:01 | P.PN ---
Subjective Progress Note Date: 06/14/19 Principal diagnosis: Admission for urinary tract infection symptomatic occluding elevated temp, history of quadriplegia, indwelling Medel catheter Patient is awake alert oriented 3 recent elevation in blood pressure initiating therapy including 5 mg lisinopril as well as 25 mg chlorthalidone daily Also with the presumptive culture and the blood and probably in the urine is co agulase-negative staph initiated vancomycin IV yesterday to complete therapeutic antibiotic choices Objective - Vital Signs Vital signs: Vital Signs Temp 98.3 F 06/14/19 08:00 Pulse 65 06/14/19 08:00 Resp 16 06/14/19 08:00 BP 188/111 06/14/19 10:37 Pulse Ox 97 06/14/19 08:00 Intake & Output 06/13/19 06/14/19 06/14/19 18:59 06:59 18:59 Intake Total 1500 Output Total 700 2000 Balance 800 -2000 Intake: Intake, IV Titration 1100 Amount Cefepime 2 gm In Sodium 100 Chloride 0.9% 100 ml @ 200 mls/hr IVPB Q12H [facility] Rx#:[id number] Sodium Chloride 0.9% 1, 750 000 ml @ 130 mls/hr IV . Q7H42M [facility] Rx#:[id number] Vancomycin 1,500 mg In 250 Sodium Chloride 0.9% 250 ml @ 125 mls/hr IVPB ONCE ONE Rx#:[id number] Oral 400 Output: Urine 700 2000 Other: Voiding Method Indwelling Catheter Indwelling Catheter Indwelling Catheter # Bowel Movements 1 - Exam General: [Patient awake, alert and oriented times 3. Patient in no acute distress.] Quadriplegia HEENT: [PERRL. EOMI. No pharyngeal erythema or exudate.] Neck: [No adenopathy.] Cardiac: [Heart regular in rate and rhythm. No S3. No S4. No clicks, rubs. No murmur.] Lungs: [Clear to auscultation bilaterally.] Abdomen: [No mass. No organomegaly. Bowel sounds presnt and normoactive in all 4 quadrants.] Extremes: [No edema no cyanosis no claudication normal pulses] : Normal male genitalia with some erosion of the urethral meatus Musculoskeletal: [No joint erythema, edema or tenderness.] Marked atrophy of all 4 extremes consistent with quadriplegia Skin: [No rash.] Neurologic: [No lateralizing deficits. CN II - XII grossly intact.] Lymphatic: [No adenopathy.] - Labs CBC & Chem 7: 06/13/19 02:47 06/13/19 02:47 Labs: Abnormal Lab Results - Last 24 Hours (Table) 06/13/19 Range/Units 13:36 Urine Protein 1+ H (Negative) Urine Ketones 4+ H (Negative) Urine Blood Trace H (Negative) Ur Leukocyte Esterase Large H (Negative) Urine WBC 17 H (0-5) /hpf Urine Bacteria Rare H (None) /hpf Hyaline Casts 4 H (0-2) /lpf Urine Mucus Many H (None) /hpf Microbiology - Last 24 Hours (Table) 06/13/19 13:36 Urine Culture - Preliminary Urine,Voided 06/12/19 16:15 Blood Culture Gram Stain - Preliminary Blood Blood Culture - Preliminary Coagulase Negative Staph 06/12/19 16:15 Blood Culture - Final Blood Assessment and Plan (1) Essential hypertension with goal blood pressure less than 130/85 Current Visit: Yes Status: Acute Code(s): I10 - ESSENTIAL (PRIMARY) HYPERTENSION SNOMED Code(s): 50526366 Plan: Urinary tract infection probable coag-negative staph Vanco and second-generation cephalosporin IV Started patient on 10 mg lisinopril 25 mg chlorthalidone for hypertension Hypokalemia being corrected We'll continue to follow closely Time with Patient: Greater than 30
[2019-06-14] MEDS: GABAPENTIN 300 MG CAP PO SCH ×2 (11:10→21:45)
[2019-06-14] MEDS: FLUDROCORTISONE 0.1 MG TAB PO SCH (11:10)
[2019-06-14] MEDS: DOCUSATE 100 MG CAP PO SCH ×2 (11:10→21:46)
[2019-06-14] MEDS: VORTIOXETINE HYDROBROMIDE 10 MG TABLET PO SCH (11:11)
[2019-06-14] MEDS: OXYBUTYNIN CHLORIDE 5 MG TAB PO SCH ×2 (11:11→21:46)
[2019-06-14] MEDS: MULTIVITAMINS, THERA 1 EACH TAB PO SCH (11:11)
--- NOTE | 2019-06-14 11:26 | P.PN ---
Subjective Principal diagnosis: Admission for urinary tract infection symptomatic occluding elevated temp, history of quadriplegia, indwelling Medel catheter Patient is awake alert oriented 3 recent elevation in blood pressure initiating therapy including 5 mg lisinopril as well as 25 mg chlorthalidone daily Also with the presumptive culture and the blood and probably in the urine is coagulase-negative staph initiated vancomycin IV yesterday to complete therapeutic antibiotic choices Objective - Vital Signs Vital signs: Vital Signs Temp 98.3 F 06/14/19 08:00 Pulse 65 06/14/19 08:00 Resp 16 06/14/19 08:00 BP 188/111 06/14/19 10:37 Pulse Ox 97 06/14/19 08:00 Intake & Output 06/13/19 06/14/19 06/14/19 18:59 06:59 18:59 Intake Total 1500 420 Output Total 700 2000 Balance 800 -2000 420 Intake: Intake, IV Titration 1100 Amount Cefepime 2 gm In Sodium 100 Chloride 0.9% 100 ml @ 200 mls/hr IVPB Q12H [facility] Rx#:[id number] Sodium Chloride 0.9% 1, 750 000 ml @ 130 mls/hr IV . Q7H42M [facility] Rx#:[id number] Vancomycin 1,500 mg In 250 Sodium Chloride 0.9% 250 ml @ 125 mls/hr IVPB ONCE ONE Rx#:[id number] Oral 400 420 Output: Urine 700 2000 Other: Voiding Method Indwelling Catheter Indwelling Catheter Indwelling Catheter # Bowel Movements 1 - Labs CBC & Chem 7: 06/13/19 02:47 06/13/19 02:47 Labs: Abnormal Lab Results - Last 24 Hours (Table) 06/13/19 Range/Units 13:36 Urine Protein 1+ H (Negative) Urine Ketones 4+ H (Negative) Urine Blood Trace H (Negative) Ur Leukocyte Esterase Large H (Negative) Urine WBC 17 H (0-5) /hpf Urine Bacteria Rare H (None) /hpf Hyaline Casts 4 H (0-2) /lpf Urine Mucus Many H (None) /hpf Microbiology - Last 24 Hours (Table) 06/13/19 13:36 Urine Culture - Preliminary Urine,Voided 06/12/19 16:15 Blood Culture Gram Stain - Preliminary Blood Blood Culture - Preliminary Coagulase Negative Staph 06/12/19 16:15 Blood Culture - Final Blood Assessment and Plan (1) Essential hypertension with goal blood pressure less than 130/85 Current Visit: Yes Status: Acute Code(s): I10 - ESSENTIAL (PRIMARY) HYPERTENSION SNOMED Code(s): 94876268
--- NOTE | 2019-06-14 11:26 | P.PN ---
Progress Note - Text Progress Note Date: 06/14/19 The patient is afebrile and says that he wants to go home. White blood count yesterday was 4400. Potassium was 2.6. Urine culture is pending. I examined the patient's penis and he does not appear to have any significant urethral erosion as the meatus remains within the glans. There is some purulent discharge around the catheter and this may be related to the fact that he now has an 18-[place] catheter. I suggested to the patient that the catheter be downsized to a 16-[place] as this will help reduce urethritis. If he has leakage of urine around the catheter it is most likely related to bladder spasms and not an inadequate urethral lumen. He had a computed tomography scan of the abdomen and pelvis on 02/04/2019 without IV contrast. I reviewed the images. He has no evidence of renal calculi or hydronephrosis. There was a less than 1 mm calculus adjacent to the balloon of the catheter which is most likely nonsignificant. I plan no further evaluation at this time. He should continue to have his catheter changed every 3 weeks. Only symptomatic urinary tract infection should be treated.
[2019-06-14] MEDS: ALBUTEROL NEBULIZED 2.5 MG/3 ML INHALATION SCH ×2 (13:11→15:58)
[2019-06-14] MEDS ORDERED: amLODIPine 5 MG TAB PO STA (14:47)
[2019-06-14 16:00] LABS: HCT 39.2 % (39.0-53.0); HGB 12.5 gm/dL (13.0-17.5); Hypochromasia Slight; MCH 26.3 pg (25.0-35.0); MCV 82.2 fL (80.0-100.0); Mean Platelet Volume 8.4; Platelet Count 178 k/uL (150-450); RBC 4.77 m/uL (4.30-5.90); RDW 15.1 % (11.5-15.5); WBC 3.9 k/uL (3.8-10.6)
[2019-06-14 16:08] LABS: ALT 58 U/L (4-49); AST 57 U/L (17-59); African American GFR (CKD) >90 (>60 ml/min/1.73 sqM); Albumin 3.9 g/dL (3.5-5.0); Alkaline Phosphatase 115 U/L (38-126); Anion Gap 13 mmol/L; Blood Urea Nitrogen <2 mg/dL (9-20); Calcium 8.4 mg/dL (8.4-10.2); Carbon Dioxide 26 mmol/L (22-30); Chloride 101 mmol/L (98-107); Glucose 80 mg/dL (74-99); Non-African American GFR(CKD) >90 (>60 ml/min/1.73 sqM); Sodium 140 mmol/L (137-145); Total Bilirubin 0.7 mg/dL (0.2-1.3); Total Protein 7.3 g/dL (6.3-8.2)
[2019-06-14 16:15] LABS: Potassium 2.7 mmol/L (3.5-5.1)
[2019-06-14] MEDS ORDERED: Potassium Replacement Protocol 1 EACH MISC MISCELLANE PRN (16:16)
--- NOTE | 2019-06-14 16:33 | P.PN ---
Progress Note - Text Progress Note Date: 06/14/19 Interval history: Patient seen in psychiatric follow-up today. I had discussed earlier today with Dr. Fink regarding history of some of his psychiatric symptoms. We discussed him currently being on trintellix. He does describe is having difficulties with nausea today. Patient relays that he will have some on and off thoughts of not wanting to live, when he gets these thoughts he just lets it pass. He denies any actual suicidal thoughts. Mental status exam: He is alert and cooperative with the interview. He seems to describe his mood is doing pretty well, he does not relate any significant depressed mood. He denies any thoughts of suicide. He does not show any active evidence of psychosis and does not display any agitation. Plan: Patient will be maintained on current psychotropic medication regimen. Continue to monitor for any medication side effects. I did bring up the idea about outpatient counseling with the patient again which he again refuses. Psychiatry can continue to follow up with the patient to monitor his status.
[2019-06-14] MEDS: POTASSIUM CHLORIDE ER 20 MEQ TAB.ER PO SCH ×3 (16:35→18:59)
[2019-06-14] MEDS: PANTOPRAZOLE 40 MG TABLET PO SCH (16:36)
[2019-06-14] MEDS: IBUPROFEN 400 MG TAB PO PRN (16:40)
[2019-06-14] MEDS: QUEtiapine 50 MG TAB PO SCH (21:46)
[2019-06-14] MEDS: Potassium Replacement Protocol 1 EACH MISC MISCELLANE PRN (22:50)
[2019-06-15] MEDS: HEPARIN SODIUM,PORCINE 5,000 UNIT/ML 1 ML VIAL SQ SCH ×4 (00:09→22:46)
[2019-06-15] MEDS: Potassium Replacement Protocol 1 EACH MISC MISCELLANE PRN ×2 (00:10→01:10)
[2019-06-15] MEDS: CEFEPIME 2 GM in SODIUM CHLORIDE 0.9% 100 ML IVPB SCH ×2 (04:15→17:15)
[2019-06-15] MEDS: SODIUM CHLORIDE 0.9% 1,000 ML IV SCH ×3 (04:15→20:50)
[2019-06-15] MEDS: VANCOMYCIN 1,000 MG in SODIUM CHLORIDE 0.9% 250 ML IVPB SCH ×3 (05:41→21:19)
[2019-06-15] MEDS: LEVOTHYROXINE 50 MCG TAB PO SCH (05:41)
[2019-06-15 05:49] LABS: Basophils % (A) 0 %; Eosinophils # (A) 0.1 k/uL (0-0.7); Eosinophils % (A) 4 %; HCT 38.1 % (39.0-53.0); HGB 12.4 gm/dL (13.0-17.5); Lymphocytes # (A) 1.1 k/uL (1.0-4.8); Lymphocytes % (A) 33 %; MCH 26.3 pg (25.0-35.0); MCHC 32.4 g/dL (31.0-37.0); MCV 81.2 fL (80.0-100.0); Mean Platelet Volume 8.3; Monocytes # (A) 0.4 k/uL (0-1.0); Monocytes % (A) 12 %; Neutrophils # (A) 1.6 k/uL (1.3-7.7); Neutrophils % (A) 48 %; Platelet Count 172 k/uL (150-450); RBC 4.69 m/uL (4.30-5.90); RDW 15.6 % (11.5-15.5); WBC 3.3 k/uL (3.8-10.6)
[2019-06-15 06:00] LABS: ALT 50 U/L (4-49); AST 45 U/L (17-59); African American GFR (CKD) >90 (>60 ml/min/1.73 sqM); Albumin 3.6 g/dL (3.5-5.0); Alkaline Phosphatase 112 U/L (38-126); Anion Gap 10 mmol/L; Blood Urea Nitrogen 2 mg/dL (9-20); Calcium 8.4 mg/dL (8.4-10.2); Carbon Dioxide 21 mmol/L (22-30); Chloride 106 mmol/L (98-107); Glucose 79 mg/dL (74-99); Non-African American GFR(CKD) >90 (>60 ml/min/1.73 sqM); Potassium 3.4 mmol/L (3.5-5.1); Sodium 137 mmol/L (137-145); Total Bilirubin 0.8 mg/dL (0.2-1.3); Total Protein 6.8 g/dL (6.3-8.2)
[2019-06-15] MEDS: ALBUTEROL NEBULIZED 2.5 MG/3 ML INHALATION SCH (08:28)
[2019-06-15] MEDS ORDERED: ALBUTEROL NEBULIZED 2.5 MG/3 ML INHALATION PRN (08:41)
[2019-06-15] MEDS: LISINOPRIL 10 MG TAB PO SCH (08:48)
[2019-06-15] MEDS: BACLOFEN 10 MG TAB PO SCH ×4 (08:48→21:20)
[2019-06-15] MEDS: CHLORTHALIDONE 25 MG TAB PO SCH (08:48)
[2019-06-15] MEDS: amLODIPine 5 MG TAB PO SCH (08:48)
[2019-06-15] MEDS: PHENAZOPYRIDINE 200 MG TAB PO SCH ×3 (08:49→22:45)
[2019-06-15] MEDS: VORTIOXETINE HYDROBROMIDE 10 MG TABLET PO SCH (08:50)
[2019-06-15] MEDS: ONDANSETRON 4 MG/2 ML VIAL IVP PRN (11:13)
[2019-06-15] MEDS: HYDROcodone/APAP 5-325MG 1 EACH TAB PO PRN (11:39)
[2019-06-15] MEDS ORDERED: VANCOMYCIN TROUGH DUE 1 EACH MISC MISCELLANE ONE (12:00)
[2019-06-15] MEDS ORDERED: ALBUTEROL NEBULIZED 2.5 MG/3 ML INHALATION SCH (12:00)
[2019-06-15] MEDS ORDERED: IPRATROPIUM-ALBUTEROL 3 ML NEB INHALATION PRN (12:06)
[2019-06-15] MEDS: GABAPENTIN 300 MG CAP PO SCH ×2 (12:54→20:51)
[2019-06-15] MEDS: OXYBUTYNIN CHLORIDE 5 MG TAB PO SCH ×2 (12:54→20:51)
[2019-06-15] MEDS: MULTIVITAMINS, THERA 1 EACH TAB PO SCH (12:54)
[2019-06-15] MEDS: DOCUSATE 100 MG CAP PO SCH ×2 (12:54→20:51)
[2019-06-15] MEDS: FLUDROCORTISONE 0.1 MG TAB PO SCH (12:55)
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
[2019-06-15] MEDS: IPRATROPIUM-ALBUTEROL 3 ML NEB INHALATION SCH ×2 (16:19→20:23)
[2019-06-15] MEDS: PANTOPRAZOLE 40 MG TABLET PO SCH (17:09)
[2019-06-15] MEDS: IBUPROFEN 400 MG TAB PO PRN (17:09)
[2019-06-15] MEDS: QUEtiapine 50 MG TAB PO SCH (20:51)
[2019-06-15] MEDS: guaiFENesin 600 MG TABLET.ER PO SCH (20:51)
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
[2019-06-16] MEDS: SODIUM CHLORIDE 0.9% 1,000 ML IV SCH ×3 (03:37→20:55)
[2019-06-16] MEDS: CEFEPIME 2 GM in SODIUM CHLORIDE 0.9% 100 ML IVPB SCH ×2 (03:53→18:16)
[2019-06-16] MEDS: LEVOTHYROXINE 50 MCG TAB PO SCH (05:48)
[2019-06-16] MEDS: IPRATROPIUM-ALBUTEROL 3 ML NEB INHALATION SCH ×4 (08:00→18:59)
[2019-06-16] MEDS: HEPARIN SODIUM,PORCINE 5,000 UNIT/ML 1 ML VIAL SQ SCH ×3 (08:19→23:45)
[2019-06-16] MEDS: VORTIOXETINE HYDROBROMIDE 10 MG TABLET PO SCH (08:20)
[2019-06-16] MEDS: PHENAZOPYRIDINE 200 MG TAB PO SCH ×3 (08:21→21:55)
[2019-06-16] MEDS: BACLOFEN 10 MG TAB PO SCH ×4 (08:21→20:54)
[2019-06-16] MEDS: LISINOPRIL 10 MG TAB PO SCH (08:22)
[2019-06-16] MEDS: guaiFENesin 600 MG TABLET.ER PO SCH ×2 (08:22→20:54)
[2019-06-16] MEDS: amLODIPine 5 MG TAB PO SCH (08:22)
[2019-06-16] MEDS: POLYETHYLENE GLYCOL 3350 17 GM POWD.PACK PO SCH (08:28)
[2019-06-16] MEDS: CHLORTHALIDONE 25 MG TAB PO SCH (09:14)
[2019-06-16] MEDS ORDERED: amLODIPine 5 MG TAB PO STA (11:09)
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
[2019-06-16 12:03] LABS: Appearance,Urine Clear (Clear); Bacteria,Urine Rare /hpf; Bilirubin,Urine Negative (Negative); Blood,Urine Moderate (Negative); Color,Urine Dark Yellow; Glucose,Urine (UA) Negative (Negative); Ketones,Urine Negative (Negative); Leukocyte Esterase,Urine Large (Negative); Mucus,Urine Rare /hpf; Nitrite,Urine Negative (Negative); PH, Urine 6.5 (5.0-8.0); Protein,Urine Negative (Negative); RBC,Urine 178 /hpf (0-5); Specific Gravity,Urine 1.005 (1.001-1.035); Squamous Epithelial Cell,Urine 1 /hpf (0-4); Urobilinogen,Urine <2.0 mg/dL (<2.0); WBC,Urine 12 /hpf (0-5)
[2019-06-16] MEDS: OXYBUTYNIN CHLORIDE 5 MG TAB PO SCH ×2 (12:22→20:54)
[2019-06-16] MEDS: GABAPENTIN 300 MG CAP PO SCH ×2 (12:22→20:54)
[2019-06-16] MEDS: FLUDROCORTISONE 0.1 MG TAB PO SCH (12:22)
[2019-06-16] MEDS: DOCUSATE 100 MG CAP PO SCH ×2 (12:22→20:54)
[2019-06-16] MEDS: MULTIVITAMINS, THERA 1 EACH TAB PO SCH (12:25)
[2019-06-16 12:44] LABS: Magnesium 1.8 mg/dL (1.6-2.3)
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
[2019-06-16] MEDS: ONDANSETRON 4 MG/2 ML VIAL IVP PRN (12:58)
[2019-06-16 13:06] LABS: Potassium 2.6 mmol/L (3.5-5.1)
[2019-06-16] MEDS ORDERED: Magnesium Replacement Protocol 1 EACH MISC MISCELLANE PRN (14:08)
--- NOTE | 2019-06-16 14:09 | PN ---
PROGRESS NOTE DATE OF SERVICE: 06/16/2019 REASON: 1. Currently Pseudomonas urinary tract infection with #2 positive blood culture. INTERVAL HISTORY: The patient is currently afebrile, has been breathing comfortably. Denies having any chest pain or any cough. No abdominal pain, no diarrhea. PHYSICAL EXAMINATION: Blood pressure 150/100 with a pulse of 85, temperature 97.9, he is 92% on room air. General description is a middle-aged male, lying in bed in no distress. RESPIRATORY SYSTEM: Unlabored breathing, clear to auscultation anteriorly. HEART: S1, S2. Regular rate and rhythm. ABDOMEN: Soft, no tenderness. LABS: Repeat UA this morning after change of Medel catheter shows large leukocyte esterases and 170 WBC. DIAGNOSTIC IMPRESSION AND PLAN: Patient with recurrent Pseudomonas urinary tract infection. Medel catheter has been changed though UA is still positive. Will keep the patient on cefepime 2 g q.12 for another 10 days to finish his 2 week course of therapy. The patient currently has a midline #2 positive blood culture with likely skin contamination no need for treatment for the same. MMODL / IJN: [id number] /
[2019-06-16] MEDS: MAGNESIUM SULFATE-D5W PMX 1 GM in DEXTROSE/WATER 1 100ML.BAG IVPB SCH ×2 (14:22→17:06)
[2019-06-16] MEDS: POTASSIUM CHLORIDE ER 20 MEQ TAB.ER PO SCH ×5 (14:22→23:45)
--- NOTE | 2019-06-16 14:25 | P.PN ---
Subjective Progress Note Date: 06/15/19 This 38-year-old quadraplegic white male was admitted for UTI, possible sepsis, and worsening depression. He has been seen by infectious disease. He remains on IV antibiotics. He has been seen by psychiatric services. currently rounded on him until today. He informed me that this patient frequently denies illnesses to anyone other than the primary care team and that frequently is manipulative. Today he complains of staff not paying good attention to them. He is on new medications for hypertension he is tolerating these. He denies any chest pains or shortness of breath this time. Objective - Vital Signs Vital signs: Vital Signs Temp 97.7 F 06/16/19 06:42 Pulse 85 06/16/19 06:42 Resp 18 06/16/19 06:42 BP 160/107 06/16/19 06:42 Pulse Ox 92 L 06/16/19 06:42 Intake & Output 06/15/19 06/16/19 06/16/19 18:59 06:59 18:59 Intake Total 240 1020 Output Total 2603 3800 1250 Balance -2363 -2780 -1250 Intake: Oral 240 1020 Output: Urine 2600 3800 1250 Stool 3 Other: Voiding Method Indwelling Catheter Indwelling Catheter Indwelling Catheter # Bowel Movements 1 - Exam General: The patient is awake and alert, ihe is agitated and does not appear acutely ill. Neck: The neck is supple, there is no thyromegaly, lymphadenopathy, tenderness or JVD. Cardiovascular: S1S2 is normal, There is a regular rate and rhythm. No murmur, rub or gallop is appreciated. Respiratory: Lungs are clear to auscultation bilaterally, respirations are non-labored, breath sounds are equal. Extremities: no tenderness, There is no pedal edema.atrophy from quadraplegia Neurological: CN II-XII intact, limited use of upper and no use of lower extremities, Speech is normal. - Labs CBC & Chem 7: 06/15/19 05:35 06/16/19 12:05 Labs: Abnormal Lab Results - Last 24 Hours (Table) 06/16/19 06/16/19 Range/Units 11:30 12:05 Potassium 2.6 L* (3.5-5.1) mmol/L Urine Blood Moderate H (Negative) Ur Leukocyte Esterase Large H (Negative) Urine RBC 178 H (0-5) /hpf Urine WBC 12 H (0-5) /hpf Urine Bacteria Rare H (None) /hpf Urine Mucus Rare H (None) /hpf Assessment and Plan (1) Sepsis Current Visit: No Status: Acute Code(s): A41.9 - SEPSIS, UNSPECIFIED ORGANISM SNOMED Code(s): 24852651 (2) UTI (urinary tract infection) Current Visit: No Status: Acute Code(s): N39.0 - URINARY TRACT INFECTION, SITE NOT SPECIFIED SNOMED Code(s): 12322867 (3) Depression Current Visit: No Status: Chronic Code(s): F32.9 - MAJOR DEPRESSIVE DISORDER, SINGLE EPISODE, UNSPECIFIED SNOMED Code(s): 33303507 (4) Neurogenic bladder Current Visit: No Status: Chronic Code(s): N31.9 - NEUROMUSCULAR DYSFUNCTION OF BLADDER, UNSPECIFIED SNOMED Code(s): 702703646 (5) Quadriplegia Current Visit: No Status: Chronic Code(s): G82.50 - QUADRIPLEGIA, UNSPECIFIED SNOMED Code(s): 89616450 Plan: Wait on further recommendations from psychiatry, urology, and infectious disease. He will remain on his current medication treatments. Repeat labs in a.m. possible discharge in 24 to 48 hours. jeanne
[2019-06-16] MEDS: PANTOPRAZOLE 40 MG TABLET PO SCH (16:59)
[2019-06-16] MEDS: QUEtiapine 50 MG TAB PO SCH (20:54)
[2019-06-16 22:29] VITALS: RESP 18
[2019-06-17] MEDS ORDERED: Potassium Replacement Protocol 1 EACH MISC MISCELLANE PRN (03:40)
[2019-06-17] MEDS: CEFEPIME 2 GM in SODIUM CHLORIDE 0.9% 100 ML IVPB SCH (04:58)
[2019-06-17] MEDS: SODIUM CHLORIDE 0.9% 1,000 ML IV SCH (04:59)
[2019-06-17] MEDS: LEVOTHYROXINE 50 MCG TAB PO SCH (06:12)
[2019-06-17] MEDS: POTASSIUM CHLORIDE ER 20 MEQ TAB.ER PO SCH ×2 (06:13→08:41)
[2019-06-17] MEDS: IPRATROPIUM-ALBUTEROL 3 ML NEB INHALATION SCH ×3 (08:12→15:42)
[2019-06-17] MEDS: VORTIOXETINE HYDROBROMIDE 10 MG TABLET PO SCH (08:41)
[2019-06-17] MEDS: guaiFENesin 600 MG TABLET.ER PO SCH (08:42)
[2019-06-17] MEDS: BACLOFEN 10 MG TAB PO SCH ×2 (08:42→14:03)
[2019-06-17] MEDS: PHENAZOPYRIDINE 200 MG TAB PO SCH (08:42)
[2019-06-17] MEDS: HEPARIN SODIUM,PORCINE 5,000 UNIT/ML 1 ML VIAL SQ SCH (08:42)
[2019-06-17] MEDS: LISINOPRIL 10 MG TAB PO SCH (08:42)
[2019-06-17] MEDS ORDERED: amLODIPine 10 MG TAB PO SCH (09:00)
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
[2019-06-17] MEDS ORDERED: POTASSIUM CHLORIDE ER 20 MEQ TAB.ER PO STA (12:33)
--- NOTE | 2019-06-17 13:26 | P.PN ---
Progress Note - Text Progress Note Date: 06/17/19 Psychiatry progress note: Interval History: Patient was seen for follow-up for depression on the medical floor. Patient has a history of quadriplegia and was admitted to the medical floors for UTI and sepsis. Patient has been on Seroquel 50 mg daily at bedtime plus Trintellix 10 mg daily for his mood. Nurse claims that patient has not had any behavioral symptoms lately and has been taking his medications. Patient was seen at the bedside and was directable and agreeable to speak to chief underwriter. He states that his mood is "better today" and denies any current depression. He states that he was irritable the other day with a nurse while she was changing him on the bed. He states that he got into an argument with her as she was being "rough". Patient also claims that he does not like being cared for by "young nurses" and states that most of them are "not well educated" referring to how they help him. Patient claims that he is ready to go home and feels much better than when he came in to the hospital. He states that he slept of the night last night and has a fair appetite at this time. At this time patient denies any suicidal or homical ideations, intent or plan. Patient denies any auditory, visual hallucinations and denies any paranoia or delusions. Patient denies any side effects from the medications and has been compliant with meds. Mental Status Exam: General Appearance: Patient appears to be stated age is alert, directable, and cooperative. Patient is laying in the hospital bed. Behavior: Patient is calmly laying in bed without any agitated behavior. Cooperative. Speech: Patient's speech is fluent and nonpressured. Mood/Affect: Mood is "better today", affect is congruent and constricted. Suicidality/Homicidality: Patient denies having any suicidal or homicidal ideation intent or plan. Perceptions: Patient denies any visual hallucinations and denies any auditory hallucinations Though content/process: There is no evidence of any delusional thought content and thought process is linear and goal-directed. Memory and concentration: AOX3, grossly intact for the purposes of this session Judgment and insight: Improving Assessment Depressive disorder unspecified Plan: -At this time patient does NOT meet inpatient psychiatric criteria. Patient w ill be maintained on current psychotropic medication regimen of Seroquel 50 mg daily at bedtime and Trintellix 10 mg daily for mood. Reshipping Clerk again brought up option for outpatient counseling however patient continues to refuse months that remain on his current medications. Psychiatry will sign off at this time.
[2019-06-17] MEDS: MULTIVITAMINS, THERA 1 EACH TAB PO SCH (14:02)
[2019-06-17] MEDS: OXYBUTYNIN CHLORIDE 5 MG TAB PO SCH (14:02)
[2019-06-17] MEDS: GABAPENTIN 300 MG CAP PO SCH (14:02)
[2019-06-17] MEDS: DOCUSATE 100 MG CAP PO SCH (14:02)
[2019-06-17 15:04] VITALS: BP 109/75; PULSE 101; TEMP 98.7
--- NOTE | 2019-06-17 15:09 | P.PN ---
Subjective Progress Note Date: 06/17/19 This 38-year-old quadraplegic white male was admitted for UTI, possible sepsis, and worsening depression. He has been seen by infectious disease. He remains on IV antibiotics. He has been seen by psychiatric services. currently rounded on him until today. He informed me that this patient frequently denies illnesses to anyone other than the primary care team and that frequently is manipulative. Today he complains of staff not paying good attention to them. He is on new medications for hypertension he is tolerating these. He denies any chest pains or shortness of breath this time. 06/16/2019 and initially had planned for discharge but potassium 2.7, magnesium 1.8. Receiving potassium supplements. Patient does not like the hospital food, diet intake fair. Afebrile. Medel catheter changed, UA remains positive . Continues on cefepime as per infectious disease .Denies chest pain, palpitations or shortness of breath. Denies nausea vomiting or diarrhea. Denies abdominal pain. Objective - Vital Signs Vital signs: Vital Signs Temp 97.5 F L 06/16/19 14:50 Pulse 86 06/16/19 14:50 Resp 17 06/16/19 14:50 BP 140/98 06/16/19 14:50 Pulse Ox 91 L 06/16/19 14:50 Intake & Output 06/15/19 06/16/19 06/16/19 18:59 06:59 18:59 Intake Total 240 1020 480 Output Total 2603 3800 1250 Balance -6983 -2780 -770 Intake: Oral 240 1020 480 Output: Urine 2600 3800 1250 Stool 3 Other: Voiding Method Indwelling Catheter Indwelling Catheter Indwelling Catheter # Bowel Movements 1 - Exam - Exam General: The patient is awake and alert, no acute distress Neck: The neck is supple, there is no thyromegaly, lymphadenopathy, tenderness or JVD. Cardiovascular: S1S2 is normal, There is a regular rate and rhythm. No murmur, rub or gallop is appreciated. ABD: Soft nondistended, nontender, positive bowel sounds. No guarding. Respiratory: Lungs are clear to auscultation bilaterally, respirations are n on-labored, breath sounds are equal. Extremities: no tenderness, There is no pedal edema.atrophy from quadraplegia Neurological: CN II-XII intact, limited use of upper and no use of lower extremities, Speech is normal. - Labs CBC & Chem 7: 06/15/19 05:35 06/17/19 11:03 Labs: Abnormal Lab Results - Last 24 Hours (Table) 06/16/19 06/16/19 Range/Units 11:30 12:05 Potassium 2.6 L* (3.5-5.1) mmol/L Urine Blood Moderate H (Negative) Ur Leukocyte Esterase Large H (Negative) Urine RBC 178 H (0-5) /hpf Urine WBC 12 H (0-5) /hpf Urine Bacteria Rare H (None) /hpf Urine Mucus Rare H (None) /hpf Assessment and Plan Assessment: (1) Sepsis Current Visit: No Status: Acute Code(s): A41.9 - SEPSIS, UNSPECIFIED ORGANISM SNOMED Code(s): 94383241 (2) UTI (urinary tract infection), recurrent, Pseudomonas Current Visit: No Status: Acute Code(s): N39.0 - URINARY TRACT INFECTION, SITE NOT SPECIFIED SNOMED Code(s): 12586646 (3) Depression Current Visit: No Status: Chronic Code(s): F32.9 - MAJOR DEPRESSIVE DISORDER, SINGLE EPISODE, UNSPECIFIED SNOMED Code(s): 73081569 (4) Neurogenic bladder Current Visit: No Status: Chronic Code(s): N31.9 - NEUROMUSCULAR DYSFUNCTION OF BLADDER, UNSPECIFIED SNOMED Code(s): 447943669 (5) Quadriplegia Current Visit: No Status: Chronic Code(s): G82.50 - QUADRIPLEGIA, UNSPECIFIED SNOMED Code(s): 20563712 (6) hypokalemia Plan: Continue on current medication regime ,monitoring and symptomatic treatment. Continue with potassium supplementation with follow-up levels this afternoon as per protocol. Discharge planning in progress for tomorrow pending potassium within normal limits. The impression and plan of care has been dictated as directed. : I performed a history and examination of this patient, discussed the same with the dictator. I agree with the dictator's note ,documented as a scribe. Any additional findings or plans will be noted.
--- NOTE | 2019-06-17 15:13 | P.DS ---
Providers Date of admission: 06/12/19 15:09 Expected date of discharge: 06/17/19 Attending physician: Moise Dubon Consults: 06/12/19 14:26 Consult Physician Routine Consulting Provider: Jose Devine Consult Reason/Comments: uti, urethral meatus iritation Do you want consulting provider notified?: Yes Placement Type Exists?: Yes 06/12/19 14:28 Consult Physician Routine Consulting Provider: Harman Awad Consult Reason/Comments: depression, suicidal ideation Do you want consulting provider notified?: Yes Placement Type Exists?: Yes 06/12/19 19:43 Consult Physician Routine Consulting Provider: Luiz Singh Consult Reason/Comments: Home CPAP follow up and need assessment, patient not getting supply Do you want consulting provider notified?: Yes 06/15/19 10:26 Consult Physician Urgent Consulting Provider: Marialuisa Lei Consult Reason/Comments: postive blood culture, questin PICC line Do you want consulting provider notified?: Yes Primary care physician: Moise Dubon Hospital Course: Final Diagnoses: (1) Sepsis Current Visit: No Status: Acute Code(s): A41.9 - SEPSIS, UNSPECIFIED ORGANISM SNOMED Code(s): 35128369 (2) UTI (urinary tract infection), recurrent, Pseudomonas Current Visit: No Status: Acute Code(s): N39.0 - URINARY TRACT INFECTION, SITE NOT SPECIFIED SNOMED Code(s): 54252800 (3) Depression Current Visit: No Status: Chronic Code(s): F32.9 - MAJOR DEPRESSIVE DISORDER, SINGLE EPISODE, UNSPECIFIED SNOMED Code(s): 33927482 (4) Neurogenic bladder Current Visit: No Status: Chronic Code(s): N31.9 - NEUROMUSCULAR DYSFUNCTION OF BLADDER, UNSPECIFIED SNOMED Code(s): 282632499 (5) Quadriplegia Current Visit: No Status: Chronic Code(s): G82.50 - QUADRIPLEGIA, UNSPECIFIED SNOMED Code(s): 19598640 (6) hypokalemia, currently resolved, follow-up outpatient labs ordered Hospital course:This 38-year-old quadraplegic white male was admitted for UTI, possible sepsis, and worsening depression. He has been seen by infectious disease. He remains on IV antibiotics. He has been seen by psychiatric services. currently rounded on him until today. He informed me that this patient frequently denies illnesses to anyone other than the primary care team and that frequently is manipulative. Today he complains of staff not paying good attention to them. He is on new medications for hypertension he is tolerating these. He denies any chest pains or shortness of breath this time. 06/16/2019 and initially had planned for discharge but potassium 2.7, magnesium 1.8. Receiving potassium supplements. Patient does not like the hospital food, diet intake fair. Afebrile. Medel catheter changed, UA remains positive . Continues on cefepime as per infectious disease .Denies chest pain, palpitations or shortness of breath. Denies nausea vomiting or diarrhea. Denies abdominal pain. Significant clinical improvement. Cleared by infectious disease for discharge. Patient is being discharged home in a stable condition with guarded prognosis. - Exam General: The patient is awake and alert, no acute distress Cardiovascular: S1S2 is normal, There is a regular rate and rhythm. No murmur, rub or gallop is appreciated. ABD: Soft nondistended, nontender, positive bowel sounds. No guarding. Respiratory: Lungs are clear to auscultation bilaterally, respirations are non-labored, breath sounds are equal. Neurological: CN II-XII intact, limited use of upper and no use of lower extremities, Speech is normal. The impression and plan of care has been dictated as directed. : I performed a history and examination of this patient, discussed the same with the dictator. I agree with the dictator's note ,documented as a scribe. Any additional findings or plans will be noted. Patient Condition at Discharge: Stable Plan - Discharge Summary Discharge Rx Participant: No New Discharge Prescriptions: New Lisinopril [Zestril] 10 mg PO DAILY tab amLODIPine [Norvasc] 10 mg PO DAILY #30 tablet Cefepime HCl [Maxipime] 2 gm IV Q12H #20 vial guaiFENesin [Mucinex] 600 mg PO Q12HR #20 tablet.er Continue Gabapentin [Neurontin] 600 mg PO BID@1400,2000 Oxybutynin Chloride [Ditropan] 5 mg PO BID@1400,2000 Ubidecarenone [Co Q-10] 100 mg PO BID@1400,2100 Docusate [Colace] 100 mg PO BID@1400,1999 Albuterol Nebulized [Ventolin Nebulized] 2.5 mg INHALATION RT-BID@1399,2099 Na Phos,M-B/Na Phos,Di-Ba [Fleet Adult] 133 ml RECTAL MOWEFR Megestrol [Megace] 200 mg PO QID PRN PRN Reason: APPETITE Acetaminophen Tab [Tylenol] 650 mg PO Q6HR PRN tab PRN Reason: Fever And/ Or Pain LORazepam [Ativan] 1 mg PO Q8HR PRN #30 tab PRN Reason: Anxiety Simethicone Chew [Mylicon Chew] 40 mg PO QID PRN chew PRN Reason: Bloating Baclofen [Lioresal] 5 mg PO QID Polyethylene Glycol 3350 [Miralax] 17 gm PO SUTUTH Fludrocortisone [Florinef] 0.2 mg PO DAILY@1400 HYDROcodone/APAP 5-325MG [[place] 5-325] 1 tab PO BID PRN PRN Reason: Pain Ibuprofen [Motrin Ib] 400 mg PO Q8H PRN PRN Reason: Pain Levothyroxine Sodium [Synthroid] 50 mcg PO DAILY@0900 Multivitamins, Thera [Multivitamin (formulary)] 1 tab PO DAILY@1399 Omeprazole [PriLOSEC] 20 mg PO DAILY@1800 QUEtiapine [SEROquel] 50 mg PO DAILY@1999 Vortioxetine Hydrobromide [Trintellix] 10 mg PO DAILY@1000 Discharge Medication List Gabapentin [Neurontin] 600 mg PO BID@1399,199904/28/14 [History] Oxybutynin Chloride [Ditropan] 5 mg PO BID@1399,199904/28/14 [History] Ubidecarenone [Co Q-10] 100 mg PO BID@1399,209902/18/15 [History] Docusate [Colace] 100 mg PO BID@1399,199906/28/16 [History] Albuterol Nebulized [Ventolin Nebulized] 2.5 mg INHALATION RT-BID@1399,209901/08/17 [History] Megestrol [Megace] 200 mg PO QID PRN 06/03/17 [History] Na Phos,M-B/Na Phos,Di-Ba [Fleet Adult] 133 ml RECTAL MOWEFR 06/03/17 [History] Acetaminophen Tab [Tylenol] 650 mg PO Q6HR PRN tab 06/06/17 [Rx] LORazepam [Ativan] 1 mg PO Q8HR PRN #30 tab 06/26/17 [Rx] Simethicone Chew [Mylicon Chew] 40 mg PO QID PRN chew 06/26/17 [Rx] Baclofen [Lioresal] 5 mg PO QID 06/12/19 [History] Fludrocortisone [Florinef] 0.2 mg PO DAILY@1400 06/12/19 [History] HYDROcodone/APAP 5-325MG [[place] 5-325] 1 tab PO BID PRN 06/12/19 [History] Ibuprofen [Motrin Ib] 400 mg PO Q8H PRN 06/12/19 [History] Levothyroxine Sodium [Synthroid] 50 mcg PO DAILY@0900 06/12/19 [History] Multivitamins, Thera [Multivitamin (formulary)] 1 tab PO DAILY@1400 06/12/19 [History] Omeprazole [PriLOSEC] 20 mg PO DAILY@1800 06/12/19 [History] Polyethylene Glycol 3350 [Miralax] 17 gm PO SUTUTH 06/12/19 [History] QUEtiapine [SEROquel] 50 mg PO DAILY@199906/12/19 [History] Vortioxetine Hydrobromide [Trintellix] 10 mg PO DAILY@1000 06/12/19 [History] Cefepime HCl [Maxipime] 2 gm IV Q12H #20 vial 06/16/19 [Rx] Lisinopril [Zestril] 10 mg PO DAILY tab 06/16/19 [Rx] amLODIPine [Norvasc] 10 mg PO DAILY #30 tablet 06/16/19 [Rx] guaiFENesin [Mucinex] 600 mg PO Q12HR #20 tablet.er 06/17/19 [Rx] Follow up [facility]Ref[facility] - Moise Dubon MD [Primary Care Provider] - 06/23/19 9:00 am Ambulatory/Diagnostic Orders: Complete Blood Count w/diff [LAB.AMB] Time Frame: 3 Days, Location: None Selected Activity/Diet/Wound Care/Special Instructions: pending F/U Potassium and magnesium levels
--- NOTE | 2019-06-17 16:18 | PN ---
PROGRESS NOTE DATE OF SERVICE: 06/17/2019 REASON FOR FOLLOWUP: Urinary tract infection. INTERVAL HISTORY: The patient is currently afebrile, has been breathing comfortably. Denies having any chest pain or cough. No nausea. No vomiting. No abdominal pain or diarrhea. PHYSICAL EXAMINATION: Blood pressure 135/90 with a pulse of 80, temperature 98.2. He is 91% on room air. General description is a middle-aged male lying in bed in no distress. RESPIRATORY SYSTEM: Unlabored breathing. Clear to auscultation anteriorly. HEART: S1, S2. Regular rate and rhythm. ABDOMEN: Soft. No tenderness. LABS: Potassium is 3.5. Repeat urine culture is currently pending. DIAGNOSTIC IMPRESSION AND PLAN: 1. Patient with a positive urinalysis and concern for urinary tract infection. As the UA has been significantly positive despite changing his Medel catheter in this patient who has MULTIPLE ANTIBIOTIC ALLERGIES and has recently grown Pseudomonas on multiple occasions, he is currently covered with cefepime; to continue for about a week, for which the patient already has a midline. 2. Positive blood culture with coagulase-negative staphylococcus, likely contamination. No need for treatment for the same. MMODL / IJN: [id number] /
== END 2019-06-17 16:23 | disposition home health service (06) | DRG 698 ==
LOC: EEVIPCON 15:09 → 3SCARD 15:09 → 6NMEDSUR 06-15 20:17
PROVIDERS: ADMIT Family Medicine; ATTEND Family Medicine
PROC: 05HD33Z Insertion of Infusion Device into Right Cephalic Vein, Percutaneous Approach (ICD-10-PCS; principal; 2019-06-16 12:25)
DX: T83.511A Infection and inflammatory reaction due to indwelling urethral catheter, initial encounter (principal); A41.52 Sepsis due to Pseudomonas; G82.50 Quadriplegia, unspecified; N39.0 Urinary tract infection, site not specified; I11.9 Hypertensive heart disease without heart failure; G47.33 Obstructive sleep apnea (adult) (pediatric); F32.9 Major depressive disorder, single episode, unspecified; N31.9 Neuromuscular dysfunction of bladder, unspecified; G43.909 Migraine, unspecified, not intractable, without status migrainosus; F41.9 Anxiety disorder, unspecified; N48.89 Other specified disorders of penis; S12.500S Unspecified displaced fracture of sixth cervical vertebra, sequela; S12.600S Unspecified displaced fracture of seventh cervical vertebra, sequela; E87.6 Hypokalemia; N34.2 Other urethritis; R33.9 Retention of urine, unspecified; V89.2XXS Person injured in unspecified motor-vehicle accident, traffic, sequela; Z79.899 Other long term (current) drug therapy; Z79.890 Hormone replacement therapy; Z86.19 Personal history of other infectious and parasitic diseases; Z87.01 Personal history of pneumonia (recurrent); Z96.0 Presence of urogenital implants; Z87.440 Personal history of urinary (tract) infections; Z86.14 Personal history of Methicillin resistant Staphylococcus aureus infection; Z87.442 Personal history of urinary calculi; Z95.828 Presence of other vascular implants and grafts; Z87.448 Personal history of other diseases of urinary system; Z87.2 Personal history of diseases of the skin and subcutaneous tissue; Z88.1 Allergy status to other antibiotic agents; Z88.0 Allergy status to penicillin; Z81.1 Family history of alcohol abuse and dependence
CPT/HCPCS: 36410; 71045; 76937; 80048; 80053; 80202; 81001; 82533; 83605; 83735; 84132; 84443; 84484; 85025; 85027; 85610; 85730; 87040; 87086; 94640; 94667; 94760

== ENCOUNTER → 2019-06-20 | Outpatient (CLI) | payer OTHER ==
[2019-06-20 12:09] LABS: Anisocytosis Slight; Basophils % (A) 1 %; Eosinophils # (A) 0.1 k/uL (0-0.7); Eosinophils % (A) 2 %; HCT 40.3 % (39.0-53.0); HGB 12.8 gm/dL (13.0-17.5); Lymphocytes # (A) 1.4 k/uL (1.0-4.8); Lymphocytes % (A) 24 %; MCH 26.6 pg (25.0-35.0); MCHC 31.9 g/dL (31.0-37.0); MCV 83.4 fL (80.0-100.0); Mean Platelet Volume 8.8; Monocytes # (A) 0.3 k/uL (0-1.0); Monocytes % (A) 5 %; Neutrophils % (A) 66 %; Platelet Count 170 k/uL (150-450); RBC 4.83 m/uL (4.30-5.90); RDW 16.5 % (11.5-15.5)
[2019-06-20 16:41] LABS: African American GFR (CKD) 175.9 (60.0-200.0); Anion Gap 8.5 mmol/L (4.00-12.00); BUN/Creat Ratio 27.5 Ratio (12.00-20.00); Calcium 8.8 mg/dL (8.7-10.3); Carbon Dioxide 29.5 mmol/L (21.6-31.8); Magnesium 1.8 mg/dL (1.5-2.4); Non-African American GFR(CKD) 151.7 (60.0-200.0); Potassium 3.2 mmol/L (3.5-5.5)
== END | disposition home or self-care (01) ==
LOC: LABWHC1 11:24
PROVIDERS: ATTEND Nurse Practitioner
DX: N39.0 Urinary tract infection, site not specified (principal); E87.6 Hypokalemia; E83.42 Hypomagnesemia
CPT/HCPCS: 36415; 80048; 83735; 85025

== ENCOUNTER 2019-06-21 20:09 | Emergency (ER) | payer OTHER ==
[2019-06-21] MEDS ORDERED: DEXAMETHASONE SOD PHOSPHATE 10 MG/ML 1 ML VIAL IV STA (20:47)
[2019-06-21] MEDS ORDERED: AZTREONAM 2 GM in SODIUM CHLORIDE 0.9% 100 ML IVPB STA (21:45)
[2019-06-21] MEDS ORDERED: diphenhydrAMINE 50 MG/ML 1 ML VIAL IVP STA (21:45)
[2019-06-21] MEDS ORDERED: FAMOTIDINE 20 MG/2 ML VIAL IV STA (21:45)
[2019-06-21] MEDS ORDERED: SODIUM CHLORIDE 0.9% 1,000 ML IV ONE (21:51)
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
[2019-06-21 23:46] VITALS: TEMP 99.1
[2019-06-22 00:06] VITALS: BP 120/78; PULSE 100; RESP 16
== END 2019-06-22 00:18 | disposition home or self-care (01) ==
LOC: EC 20:09
DX: L50.9 Urticaria, unspecified (principal); T36.1X5A Adverse effect of cephalosporins and other beta-lactam antibiotics, initial encounter; R45.1 Restlessness and agitation; F41.9 Anxiety disorder, unspecified; F32.9 Major depressive disorder, single episode, unspecified; G82.20 Paraplegia, unspecified; R78.81 Bacteremia; N39.0 Urinary tract infection, site not specified; Z79.52 Long term (current) use of systemic steroids; Z79.899 Other long term (current) drug therapy; Z88.1 Allergy status to other antibiotic agents; Z88.0 Allergy status to penicillin; Z98.890 Other specified postprocedural states; Z86.14 Personal history of Methicillin resistant Staphylococcus aureus infection
CPT/HCPCS: 99283; 96374; 96375 ×2; 96361; J1100

== ENCOUNTER 2019-06-28 | Emergency (ER) | payer OTHER | END 2019-06-28 04:46 | disposition home or self-care (01) | CPT/HCPCS: 99283 ==

== ENCOUNTER 2019-08-06 06:02 | Emergency (ER) | payer OTHER ==
[2019-08-06] MEDS ORDERED: SODIUM CHLORIDE 0.9% 1,000 ML IV ONE (06:27)
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
[2019-08-06 07:20] LABS: Basophils # (A) 0.1 k/uL (0-0.2); Basophils % (A) 1 %; Eosinophils # (A) 0.2 k/uL (0-0.7); Eosinophils % (A) 2 %; HGB 15.3 gm/dL (13.0-17.5); Lymphocytes # (A) 2.3 k/uL (1.0-4.8); Lymphocytes % (A) 20 %; MCH 27.1 pg (25.0-35.0); MCHC 31.8 g/dL (31.0-37.0); MCV 85.3 fL (80.0-100.0); Mean Platelet Volume 9.4; Monocytes # (A) 0.5 k/uL (0-1.0); Monocytes % (A) 4 %; Neutrophils # (A) 8.5 k/uL (1.3-7.7); Neutrophils % (A) 73 %; Platelet Count 252 k/uL (150-450); RBC 5.63 m/uL (4.30-5.90); RDW 15.4 % (11.5-15.5); WBC 11.6 k/uL (3.8-10.6)
[2019-08-06 07:25] LABS: ALT 26 U/L (4-49); AST 23 U/L (17-59); African American GFR (CKD) >90 (>60 ml/min/1.73 sqM); Albumin 4.9 g/dL (3.5-5.0); Alkaline Phosphatase 108 U/L (38-126); Anion Gap 14 mmol/L; Blood Urea Nitrogen 13 mg/dL (9-20); Calcium 10.1 mg/dL (8.4-10.2); Carbon Dioxide 24 mmol/L (22-30); Chloride 102 mmol/L (98-107); Glucose 85 mg/dL (74-99); Non-African American GFR(CKD) >90 (>60 ml/min/1.73 sqM); Potassium 4.5 mmol/L (3.5-5.1); Sodium 140 mmol/L (137-145); Total Bilirubin 0.7 mg/dL (0.2-1.3); Total Protein 8.8 g/dL (6.3-8.2)
[2019-08-06 07:43] LABS: Partial Thromboplastin Time 23.6 sec (22.0-30.0); Prothrombin Time 10.7 sec (9.0-12.0)
[2019-08-06 07:56] LABS: Amorphous Sediment,Urine Occasional /hpf; Appearance,Urine Cloudy (Clear); Bacteria,Urine Rare /hpf; Bilirubin,Urine Negative (Negative); Blood,Urine Negative (Negative); Color,Urine Light Yellow; Glucose,Urine (UA) Negative (Negative); Ketones,Urine Negative (Negative); Leukocyte Esterase,Urine Large (Negative); Mucus,Urine Rare /hpf; Nitrite,Urine Positive (Negative); PH, Urine 7.5 (5.0-8.0); Protein,Urine Negative (Negative); RBC,Urine 4 /hpf (0-5); Urobilinogen,Urine <2.0 mg/dL (<2.0); WBC,Urine 66 /hpf (0-5)
[2019-08-06 08:16] VITALS: PULSE 85; TEMP 98.8
[2019-08-06] MEDS ORDERED: LIDOCAINE 4% CREAM 5 GM TUBE TOPICAL ONE (08:23)
[2019-08-06] MEDS ORDERED: SODIUM CHLORIDE 0.9% 500 ML 500 ML IV ONE (08:24)
[2019-08-06 09:08] VITALS: BP 131/102; RESP 18
== END 2019-08-06 09:06 | disposition home or self-care (01) ==
LOC: SUPCPDRO 06:02 → EC 06:02 → EEVIPCON 06:02 → EC 09:06
DX: E86.0 Dehydration (principal); R19.7 Diarrhea, unspecified; L89.892 Pressure ulcer of other site, stage 2; G82.50 Quadriplegia, unspecified; F41.9 Anxiety disorder, unspecified; F32.9 Major depressive disorder, single episode, unspecified; Z79.890 Hormone replacement therapy; Z79.899 Other long term (current) drug therapy; Z88.0 Allergy status to penicillin; Z88.1 Allergy status to other antibiotic agents
CPT/HCPCS: 36415; 80053; 81001; 83605; 85025; 85610; 85730; 87040; 87086; 96360; 99284

== ENCOUNTER 2019-11-03 11:50 | Emergency (ER) | payer OTHER ==
[2019-11-03] MEDS ORDERED: SODIUM CHLORIDE 0.9% 1,000 ML IV ONE (12:19)
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
[2019-11-03 12:54] LABS: Basophils # (A) 0.1 k/uL (0-0.2); Basophils % (A) 1 %; Eosinophils # (A) 0.4 k/uL (0-0.7); Eosinophils % (A) 6 %; HCT 43.5 % (39.0-53.0); HGB 14.4 gm/dL (13.0-17.5); Lymphocytes # (A) 2.1 k/uL (1.0-4.8); Lymphocytes % (A) 32 %; MCHC 33.1 g/dL (31.0-37.0); MCV 84.7 fL (80.0-100.0); Mean Platelet Volume 9.6; Monocytes # (A) 0.5 k/uL (0-1.0); Monocytes % (A) 7 %; Neutrophils # (A) 3.4 k/uL (1.3-7.7); Neutrophils % (A) 52 %; Platelet Count 181 k/uL (150-450); RBC 5.13 m/uL (4.30-5.90); RDW 14.9 % (11.5-15.5); WBC 6.6 k/uL (3.8-10.6)
--- NOTE | 2019-11-03 12:58 | XR ---
EXAMINATION TYPE: XR chest 1V DATE OF EXAM: 11/03/2019 COMPARISON: 06/12/2019 HISTORY: 39-year-old male with fever TECHNIQUE: Single frontal view of the chest is obtained. FINDINGS: Dextroconvex scoliosis with distorted thoracic anatomy. Heart appears mildly enlarged. Panniculus pro jects over the lower chest. ACDF hardware. No viktoria consolidation or pleural effusion seen. IMPRESSION: Dextroconvex scoliosis. Mild cardiomegaly. No definite acute process.
[2019-11-03 13:01] LABS: ALT 31 U/L (4-49); AST 24 U/L (17-59); African American GFR (CKD) >90 (>60 ml/min/1.73 sqM); Albumin 4.4 g/dL (3.5-5.0); Alkaline Phosphatase 79 U/L (38-126); Anion Gap 11 mmol/L; Blood Urea Nitrogen 12 mg/dL (9-20); Calcium 9.1 mg/dL (8.4-10.2); Carbon Dioxide 23 mmol/L (22-30); Chloride 104 mmol/L (98-107); Creatine Kinase 35 U/L (55-170); Glucose 93 mg/dL (74-99); Non-African American GFR(CKD) >90 (>60 ml/min/1.73 sqM); Potassium 3.9 mmol/L (3.5-5.1); Sodium 138 mmol/L (137-145); Total Bilirubin 0.6 mg/dL (0.2-1.3); Total Protein 7.4 g/dL (6.3-8.2)
[2019-11-03 14:11] LABS: Appearance,Urine Cloudy (Clear); Bacteria,Urine Moderate /hpf; Bilirubin,Urine Negative (Negative); Blood,Urine Negative (Negative); Color,Urine Yellow; Glucose,Urine (UA) Negative (Negative); Ketones,Urine Negative (Negative); Leukocyte Esterase,Urine Large (Negative); Mucus,Urine Many /hpf; Nitrite,Urine Positive (Negative); Protein,Urine 1+ (Negative); RBC,Urine 2 /hpf (0-5); Specific Gravity,Urine 1.023 (1.001-1.035); Squamous Epithelial Cell,Urine 2 /hpf (0-4); WBC,Urine 140 /hpf (0-5)
[2019-11-03] MEDS ORDERED: DIPHENOX-ATROP STARTER PACK 8 TAB BTL PO STA (14:45)
[2019-11-03 15:06] VITALS: BP 109/74; PULSE 82; RESP 16; TEMP 98.5
== END 2019-11-03 15:10 | disposition home or self-care (01) ==
LOC: EC 11:50
DX: R19.7 Diarrhea, unspecified (principal); N39.0 Urinary tract infection, site not specified; F41.9 Anxiety disorder, unspecified; G43.909 Migraine, unspecified, not intractable, without status migrainosus; F32.9 Major depressive disorder, single episode, unspecified; J40 Bronchitis, not specified as acute or chronic; Z79.899 Other long term (current) drug therapy; Z79.890 Hormone replacement therapy; Z88.0 Allergy status to penicillin; Z88.1 Allergy status to other antibiotic agents; Z86.14 Personal history of Methicillin resistant Staphylococcus aureus infection; Z96.0 Presence of urogenital implants
CPT/HCPCS: 36415; 71045; 80053; 81001; 82550; 83605; 85025; 87040; 87086; 96360; 99285

== ENCOUNTER 2020-02-10 09:38 | Observation (INO) | payer OTHER ==
[2020-02-10] MEDS ORDERED: Potassium Replacement Protocol 1 EACH MISC MISCELLANE PRN (13:14)
[2020-02-10] MEDS ORDERED: Magnesium Replacement Protocol 1 EACH MISC MISCELLANE PRN ×2 (13:14→13:27)
[2020-02-10] MEDS ORDERED: PANTOPRAZOLE 40 MG/10 ML VIAL IVP SCH (13:15)
[2020-02-10] MEDS ORDERED: IPRATROPIUM-ALBUTEROL 3 ML NEB INHALATION PRN (13:15)
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
--- NOTE | 2020-02-10 14:55 | XR ---
EXAMINATION TYPE: XR chest 1V portable DATE OF EXAM: 02/10/2020 COMPARISON: 11/03/2019 INDICATION: Rule out infiltrate TECHNIQUE: Single frontal view of the chest is obtained. FINDINGS: The heart size is normal. The pulmonary vasculature is normal. The lungs are clear. Patient is side bent towards the right. Postsurgical changes are within the cervical spine. IMPRESSION: 1. No acute pulmonary process.
[2020-02-10 15:25] LABS: Basophils % (A) 1 %; Eosinophils # (A) 0.2 k/uL (0-0.7); Eosinophils % (A) 3 %; HGB 14.2 gm/dL (13.0-17.5); Lymphocytes % (A) 24 %; MCH 28.8 pg (25.0-35.0); MCHC 32.4 g/dL (31.0-37.0); Mean Platelet Volume 9.5; Monocytes # (A) 0.5 k/uL (0-1.0); Monocytes % (A) 6 %; Neutrophils # (A) 5.4 k/uL (1.3-7.7); Neutrophils % (A) 65 %; Platelet Count 164 k/uL (150-450); RBC 4.94 m/uL (4.30-5.90); RDW 14.2 % (11.5-15.5); WBC 8.3 k/uL (3.8-10.6)
[2020-02-10] MEDS: IPRATROPIUM-ALBUTEROL 3 ML NEB INHALATION SCH ×2 (15:36→20:08)
[2020-02-10 15:41] LABS: ALT 21 U/L (4-49); AST 33 U/L (17-59); African American GFR (CKD) >90 (>60 ml/min/1.73 sqM); Albumin 4.1 g/dL (3.5-5.0); Albumin/Globulin Ratio 1.3; Alkaline Phosphatase 81 U/L (38-126); Anion Gap 10 mmol/L; Blood Urea Nitrogen 16 mg/dL (9-20); Calcium 9.1 mg/dL (8.4-10.2); Carbon Dioxide 22 mmol/L (22-30); Chloride 109 mmol/L (98-107); Globulin 3.1 g/dL; Glucose 113 mg/dL (74-99); Magnesium 2.1 mg/dL (1.6-2.3); Non-African American GFR(CKD) >90 (>60 ml/min/1.73 sqM); Potassium 3.8 mmol/L (3.5-5.1); Sodium 141 mmol/L (137-145); Total Bilirubin 0.5 mg/dL (0.2-1.3); Total Protein 7.2 g/dL (6.3-8.2)
[2020-02-10] MEDS: SODIUM CHLORIDE 0.9% 1,000 ML IV SCH (16:21)
[2020-02-10] MEDS: DOCUSATE 100 MG CAP PO SCH ×2 (16:22→20:28)
[2020-02-10] MEDS: HEPARIN SODIUM,PORCINE 5,000 UNIT/ML 1 ML VIAL SQ SCH ×2 (16:22→21:20)
[2020-02-10] MEDS: ERTAPENEM 1 GM in SODIUM CHLORIDE 0.9% 50 ML IVPB SCH (16:22)
[2020-02-10] MEDS ORDERED: MAGNESIUM HYDROXIDE 2,400 MG/10 ML CUP PO PRN (17:08)
[2020-02-10] MEDS ORDERED: IBUPROFEN 200 MG TAB PO PRN (17:08)
[2020-02-10] MEDS ORDERED: SIMETHICONE 80 MG CHEWABLE PO PRN (17:08)
[2020-02-10] MEDS ORDERED: HYDROcodone/APAP 5-325MG 1 EACH TAB PO PRN (17:08)
[2020-02-10] MEDS ORDERED: MAGNESIUM CITRATE 296 ML BOTTLE PO PRN (17:08)
[2020-02-10] MEDS ORDERED: Phenol 1.4% Sore Throat Spray Bottle MUCOUS MEM PRN (17:08)
[2020-02-10] MEDS ORDERED: NON FORMULARY DRUG (Omeprazole 20 MG Capsule.Dr) PO SCH (18:00)
[2020-02-10] MEDS: BACLOFEN 10 MG TAB PO SCH ×2 (18:12→20:28)
[2020-02-10] MEDS ORDERED: NON FORMULARY DRUG (Ubidecarenone [Co Q-10] 100 MG Capsule) PO SCH (20:00)
[2020-02-10] MEDS: ALBUTEROL NEBULIZED 2.5 MG/3 ML INHALATION SCH (20:10)
[2020-02-10] MEDS: GABAPENTIN 300 MG CAP PO SCH (20:28)
[2020-02-10] MEDS: QUEtiapine 100 MG TAB PO SCH (21:07)
[2020-02-10] MEDS: OXYBUTYNIN CHLORIDE 5 MG TAB PO SCH (21:07)
[2020-02-11 02:36] LABS: Appearance,Urine Clear (Clear); Bacteria,Urine Rare /hpf; Bilirubin,Urine Negative (Negative); Blood,Urine Negative (Negative); Color,Urine Yellow; Glucose,Urine (UA) Negative (Negative); Ketones,Urine Negative (Negative); Leukocyte Esterase,Urine Large (Negative); Mucus,Urine Rare /hpf; Nitrite,Urine Negative (Negative); PH, Urine 7.5 (5.0-8.0); Protein,Urine Negative (Negative); RBC,Urine 1 /hpf (0-5); Specific Gravity,Urine 1.015 (1.001-1.035); Squamous Epithelial Cell,Urine <1 /hpf (0-4); Urobilinogen,Urine <2.0 mg/dL (<2.0); WBC,Urine 23 /hpf (0-5)
[2020-02-11 04:00] LABS: Basophils % (A) 1 %; Eosinophils # (A) 0.1 k/uL (0-0.7); Eosinophils % (A) 2 %; HCT 40.6 % (39.0-53.0); HGB 12.7 gm/dL (13.0-17.5); Lymphocytes # (A) 1.7 k/uL (1.0-4.8); Lymphocytes % (A) 30 %; MCH 28.4 pg (25.0-35.0); MCHC 31.4 g/dL (31.0-37.0); MCV 90.6 fL (80.0-100.0); Mean Platelet Volume 9.6; Monocytes # (A) 0.3 k/uL (0-1.0); Monocytes % (A) 5 %; Neutrophils # (A) 3.5 k/uL (1.3-7.7); Neutrophils % (A) 60 %; Platelet Count 137 k/uL (150-450); RBC 4.48 m/uL (4.30-5.90); RDW 14.5 % (11.5-15.5); WBC 5.9 k/uL (3.8-10.6)
[2020-02-11] MEDS: SODIUM CHLORIDE 0.9% 1,000 ML IV SCH ×2 (04:35→16:40)
[2020-02-11] MEDS: IPRATROPIUM-ALBUTEROL 3 ML NEB INHALATION SCH ×4 (07:20→20:02)
[2020-02-11] MEDS: HEPARIN SODIUM,PORCINE 5,000 UNIT/ML 1 ML VIAL SQ SCH ×2 (08:45→20:30)
[2020-02-11] MEDS ORDERED: ENOXAPARIN 40 MG/0.4 ML SYRINGE SQ SCH (09:00)
[2020-02-11 09:29] LABS: African American GFR (CKD) 159.3 (60.0-200.0); Anion Gap 7.7 mmol/L (4.00-12.00); Calcium 8.8 mg/dL (8.7-10.3); Carbon Dioxide 26.3 mmol/L (21.6-31.8); Non-African American GFR(CKD) 137.5 (60.0-200.0); Potassium 4.1 mmol/L (3.5-5.5)
[2020-02-11] MEDS: BACLOFEN 10 MG TAB PO SCH ×4 (10:15→20:26)
[2020-02-11] MEDS: VORTIOXETINE HYDROBROMIDE 10 MG TABLET PO SCH (10:16)
[2020-02-11] MEDS: ALBUTEROL NEBULIZED 2.5 MG/3 ML INHALATION SCH ×2 (10:40→20:02)
[2020-02-11] MEDS: ERTAPENEM 1 GM in SODIUM CHLORIDE 0.9% 50 ML IVPB SCH (13:07)
[2020-02-11 13:19] VITALS: BMI 19.3
[2020-02-11] MEDS ORDERED: FLUDROCORTISONE 0.1 MG TAB PO SCH (14:00)
[2020-02-11] MEDS ORDERED: MULTIVITAMINS, THERA 1 EACH TAB PO SCH (14:00)
[2020-02-11] MEDS: OXYBUTYNIN CHLORIDE 5 MG TAB PO SCH ×2 (14:02→20:26)
[2020-02-11] MEDS: GABAPENTIN 300 MG CAP PO SCH ×2 (14:02→20:26)
[2020-02-11] MEDS: DOCUSATE 100 MG CAP PO SCH ×2 (14:08→20:30)
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
[2020-02-11] MEDS ORDERED: PANTOPRAZOLE 40 MG TABLET PO SCH (18:00)
[2020-02-11] MEDS ORDERED: PANTOPRAZOLE 40 MG/10 ML VIAL IVP SCH (18:00)
[2020-02-11] MEDS ORDERED: polyethylene glycoL 3350 17 GM POWD.PACK PO SCH (20:00)
[2020-02-11] MEDS: QUEtiapine 100 MG TAB PO SCH (20:26)
[2020-02-12 05:57] LABS: Basophils # (A) 0.1 k/uL (0-0.2); Basophils % (A) 1 %; Eosinophils # (A) 0.2 k/uL (0-0.7); Eosinophils % (A) 4 %; HCT 41.5 % (39.0-53.0); HGB 13.4 gm/dL (13.0-17.5); Lymphocytes % (A) 34 %; MCH 28.7 pg (25.0-35.0); MCHC 32.2 g/dL (31.0-37.0); MCV 89.1 fL (80.0-100.0); Mean Platelet Volume 9.1; Monocytes # (A) 0.3 k/uL (0-1.0); Monocytes % (A) 6 %; Neutrophils # (A) 3.2 k/uL (1.3-7.7); Neutrophils % (A) 54 %; Platelet Count 140 k/uL (150-450); RBC 4.66 m/uL (4.30-5.90); RDW 14.2 % (11.5-15.5); WBC 5.9 k/uL (3.8-10.6)
[2020-02-12] MEDS: IPRATROPIUM-ALBUTEROL 3 ML NEB INHALATION SCH ×2 (07:51→10:42)
[2020-02-12] MEDS: HEPARIN SODIUM,PORCINE 5,000 UNIT/ML 1 ML VIAL SQ SCH (08:33)
[2020-02-12] MEDS: SODIUM CHLORIDE 0.9% 1,000 ML IV SCH (08:33)
[2020-02-12] MEDS ORDERED: NA PHOS,M-B/NA PHOS,DI-BA 133 ML ENEMA RECTAL ONE (08:43)
[2020-02-12] MEDS ORDERED: LEVOTHYROXINE 50 MCG TAB PO SCH (09:00)
[2020-02-12] MEDS: VORTIOXETINE HYDROBROMIDE 10 MG TABLET PO SCH (09:18)
[2020-02-12] MEDS: BACLOFEN 10 MG TAB PO SCH (09:21)
[2020-02-12 10:06] LABS: African American GFR (CKD) 159.3 (60.0-200.0); Anion Gap 9.9 mmol/L (4.00-12.00); Carbon Dioxide 23.1 mmol/L (21.6-31.8); Non-African American GFR(CKD) 137.5 (60.0-200.0); Potassium 4.2 mmol/L (3.5-5.5)
[2020-02-12] MEDS: ALBUTEROL NEBULIZED 2.5 MG/3 ML INHALATION SCH (10:41)
[2020-02-12 10:49] VITALS: BP 133/102; RESP 18; TEMP 98.5
[2020-02-12 11:10] VITALS: PULSE 88
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
== END 2020-02-12 14:23 | disposition home health service (06) ==
LOC: 6NMEDSUR 12:40 → INTOOBSV 12:40 → UNDODISIN 02-12 14:23
PROVIDERS: ADMIT Family Medicine; ATTEND Family Medicine
DX: T83.511A Infection and inflammatory reaction due to indwelling urethral catheter, initial encounter (principal); N39.0 Urinary tract infection, site not specified; B96.20 Unspecified Escherichia coli [E. coli] as the cause of diseases classified elsewhere; Z16.12 Extended spectrum beta lactamase (ESBL) resistance; Z87.828 Personal history of other (healed) physical injury and trauma; G82.50 Quadriplegia, unspecified; N28.9 Disorder of kidney and ureter, unspecified; F41.9 Anxiety disorder, unspecified; F32.9 Major depressive disorder, single episode, unspecified; N31.8 Other neuromuscular dysfunction of bladder; G43.909 Migraine, unspecified, not intractable, without status migrainosus; M24.542 Contracture, left hand; M24.541 Contracture, right hand; M24.575 Contracture, left foot; M24.574 Contracture, right foot; Z86.14 Personal history of Methicillin resistant Staphylococcus aureus infection; Z86.19 Personal history of other infectious and parasitic diseases; Z87.01 Personal history of pneumonia (recurrent); Z87.39 Personal history of other diseases of the musculoskeletal system and connective tissue; I25.2 Old myocardial infarction; Z87.442 Personal history of urinary calculi; Z79.890 Hormone replacement therapy; Z79.899 Other long term (current) drug therapy; Z88.1 Allergy status to other antibiotic agents; Z88.0 Allergy status to penicillin; Z95.828 Presence of other vascular implants and grafts
CPT/HCPCS: 96361 ×2; 96365; 96366 ×2; 96372 ×2; 96375; 94640 ×5; 80053; 80048 ×2; 83735 ×2; 85025 ×3; 81001; 87040; 87086; 71045; G0379; G0378 ×3; J1644 ×2; J1335 ×2; C9113

== ENCOUNTER 2020-04-07 18:36 | Inpatient (IN) | payer OTHER ==
[2020-04-07] MEDS ORDERED: MORPHINE SULFATE 4 MG/ML SYRINGE IVP STA (19:03)
[2020-04-07] MEDS ORDERED: SODIUM CHLORIDE 0.9% 500 ML 500 ML IV ONE ×2 (19:03→21:15)
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
[2020-04-07] MEDS ORDERED: ONDANSETRON 4 MG/2 ML VIAL IVP STA (20:10)
[2020-04-07 20:16] LABS: ALT 21 U/L (4-49); AST 23 U/L (17-59); African American GFR (CKD) >90 (>60 ml/min/1.73 sqM); Albumin 4.4 g/dL (3.5-5.0); Alkaline Phosphatase 87 U/L (38-126); Anion Gap 10 mmol/L; Blood Urea Nitrogen 17 mg/dL (9-20); Calcium 9.6 mg/dL (8.4-10.2); Carbon Dioxide 27 mmol/L (22-30); Chloride 105 mmol/L (98-107); Glucose 89 mg/dL (74-99); Non-African American GFR(CKD) >90 (>60 ml/min/1.73 sqM); Potassium 3.9 mmol/L (3.5-5.1); Sodium 142 mmol/L (137-145); Total Bilirubin 0.5 mg/dL (0.2-1.3); Total Protein 7.9 g/dL (6.3-8.2)
[2020-04-07 20:21] LABS: Appearance,Urine Cloudy (Clear); Bilirubin,Urine Negative (Negative); Blood,Urine Moderate (Negative); Color,Urine Yellow; Glucose,Urine (UA) Negative (Negative); Hyaline Casts,Urine 20 /lpf (0-2); Ketones,Urine Negative (Negative); Leukocyte Esterase,Urine Moderate (Negative); Mucus,Urine Occasional /hpf; Nitrite,Urine Negative (Negative); Protein,Urine 3+ (Negative); RBC,Urine >182 /hpf (0-5); Specific Gravity,Urine 1.014 (1.001-1.035); Urobilinogen,Urine <2.0 mg/dL (<2.0); WBC,Urine >182 /hpf (0-5)
[2020-04-07 20:23] LABS: Basophils # (A) 0.2 k/uL (0-0.2); Basophils % (A) 1 %; Eosinophils # (A) 0.3 k/uL (0-0.7); Eosinophils % (A) 2 %; HCT 53.8 % (39.0-53.0); Lymphocytes # (A) 2.5 k/uL (1.0-4.8); Lymphocytes % (A) 14 %; MCH 28.8 pg (25.0-35.0); MCHC 32.4 g/dL (31.0-37.0); MCV 88.9 fL (80.0-100.0); Mean Platelet Volume 8.9; Monocytes % (A) 6 %; Neutrophils # (A) 13.2 k/uL (1.3-7.7); Neutrophils % (A) 75 %; Platelet Count 181 k/uL (150-450); RBC 6.05 m/uL (4.30-5.90); WBC 17.6 k/uL (3.8-10.6)
[2020-04-07 20:24] LABS: HGB 17.4 gm/dL (13.0-17.5)
[2020-04-07 20:26] LABS: Prothrombin Time 10.6 sec (9.0-12.0)
[2020-04-07 20:28] LABS: Creatine Kinase MB 1.4 ng/mL (0.0-2.4)
--- NOTE | 2020-04-07 20:33 | XR ---
EXAM: XR Chest, 1 View CLINICAL HISTORY: ITS.REASON XR Reason: dyspnea TECHNIQUE: Frontal view of the chest. COMPARISON: Chest radiograph on 02/10/2020 FINDINGS: Hardware: None. Lungs/pleura: Minimal atelectasis or scarring in the right midlung. No focal consolidation. No pleural effusion or pneumothorax. Heart/mediastinum: Stable mild enlargement of the cardiac silhouette. Soft tissues: Unremarkable. Bones: No acute fracture. Cervical fusion hardware. Curvature of the spine. Upper abdomen: Normal. IMPRESSION: No acute disease identified.
[2020-04-07 20:40] LABS: Troponin I 0.25 ng/mL (0.000-0.034)
[2020-04-07] MEDS ORDERED: ASPIRIN 81 MG PO STA (20:42)
[2020-04-07] MEDS ORDERED: SODIUM CHLORIDE 0.9% 1,000 ML IV ONE (21:15)
[2020-04-07] MEDS ORDERED: VANCOMYCIN IV PER PHARMACY 1 EACH MISC MISCELLANE STA (21:18)
[2020-04-07] MEDS ORDERED: NALOXONE 0.4 MG/ML 1 ML VIAL IV PRN (21:35)
[2020-04-07] MEDS: SODIUM CHLORIDE 0.9% 250 ML IV SCH ×4 (21:48→22:45)
[2020-04-07] MEDS ORDERED: ERTAPENEM 1 GM in SODIUM CHLORIDE 0.9% 50 ML IVPB ONE (22:00)
[2020-04-07] MEDS: SODIUM CHLORIDE 0.9% 1,000 ML IV SCH (22:34)
--- NOTE | 2020-04-07 22:35 | CT ---
EXAM: CT Angiography Chest With Intravenous Contrast CLINICAL HISTORY: ITS.REASON CT Reason: dyspnea, elevated d-dimer, elevated troponin TECHNIQUE: Axial computed tomographic angiography images of the chest with intravenous contrast. CTDI is 21.97 mGy and DLP is 621.6 mGy-cm. This CT exam was performed using one or more of the following dose reduction techniques: automated exposure control, adjustment of the mA and/or kV according to patient size, and/or use of iterative reconstruction technique. MIP reconstructed images were created and reviewed. COMPARISON: 04/07/2020 FINDINGS: Pulmonary arteries: No filling defects. Aorta: No thoracic aortic aneurysm. Lungs: No mass. No consolidation. Scarring/discoid atelectasis at the lung bases. Pleural space: No pneumothorax. No effusion. Heart: No cardiomegaly. No pericardial effusion. Bones/joints: No acute fracture or dislocation. Chronic appearing mild superior and inferior endplate wedging of T8, superior endplate wedging of T10, T12, and L1. Soft tissues: Mildly nodular liver. Soft tissue swelling in the left chest wall. Lymph nodes: No enlarged lymph nodes. IMPRESSION: 1. No pulmonary embolism. 2. Partially visualized Soft tissue swelling of the left anterior chest wall, likely infectious or inflammatory process. No fluid collection. There are nonspecific prominent superficial veins in this area. 3. Mildly nodular liver suggestive of early cirrhotic morphology. 4. Chronic appearing mild superior and inferior endplate wedging of T8, superior endplate wedging of T10, T12, and L1.
[2020-04-07] MEDS ORDERED: VANCOMYCIN 1,250 MG in SODIUM CHLORIDE 0.9% 250 ML IVPB ONE (23:00)
[2020-04-08] MEDS: SODIUM CHLORIDE 0.9% 250 ML IV SCH ×6 (00:13→01:23)
[2020-04-08 02:53] LABS: Basophils # (A) 0.1 k/uL (0-0.2); Basophils % (A) 1 %; Eosinophils # (A) 0.4 k/uL (0-0.7); Eosinophils % (A) 3 %; HGB 14.9 gm/dL (13.0-17.5); Lymphocytes # (A) 2.4 k/uL (1.0-4.8); Lymphocytes % (A) 18 %; MCH 28.2 pg (25.0-35.0); MCHC 31.6 g/dL (31.0-37.0); MCV 89.1 fL (80.0-100.0); Monocytes # (A) 0.6 k/uL (0-1.0); Monocytes % (A) 5 %; Neutrophils % (A) 73 %; Platelet Count 169 k/uL (150-450); RBC 5.28 m/uL (4.30-5.90); RDW 14.3 % (11.5-15.5); WBC 13.6 k/uL (3.8-10.6)
[2020-04-08 03:20] LABS: ALT 18 U/L (4-49); AST 21 U/L (17-59); African American GFR (CKD) >90 (>60 ml/min/1.73 sqM); Albumin 3.7 g/dL (3.5-5.0); Alkaline Phosphatase 66 U/L (38-126); Anion Gap 7 mmol/L; Blood Urea Nitrogen 17 mg/dL (9-20); Calcium 8.7 mg/dL (8.4-10.2); Carbon Dioxide 24 mmol/L (22-30); Chloride 109 mmol/L (98-107); Glucose 109 mg/dL (74-99); Non-African American GFR(CKD) >90 (>60 ml/min/1.73 sqM); Potassium 4.4 mmol/L (3.5-5.1); Sodium 140 mmol/L (137-145); Total Bilirubin 0.5 mg/dL (0.2-1.3); Total Protein 6.7 g/dL (6.3-8.2)
[2020-04-08] MEDS: SODIUM CHLORIDE 0.9% 1,000 ML IV SCH ×2 (05:45→15:44)
[2020-04-08] MEDS: VANCOMYCIN 1,000 MG in SODIUM CHLORIDE 0.9% 250 ML IVPB SCH ×3 (05:45→21:00)
[2020-04-08] MEDS ORDERED: ACETAMINOPHEN TAB 325 MG TAB PO PRN (07:32)
[2020-04-08] MEDS ORDERED: IBUPROFEN 400 MG TAB PO PRN (09:05)
[2020-04-08] MEDS ORDERED: SIMETHICONE 80 MG CHEWABLE PO PRN (09:05)
[2020-04-08] MEDS ORDERED: guaiFENesin-DM 100-10MG/5ML 10 ML CUP PO PRN (09:05)
[2020-04-08] MEDS ORDERED: Phenol 1.4% Sore Throat Spray Bottle MUCOUS MEM PRN (09:05)
[2020-04-08] MEDS ORDERED: MAGNESIUM CITRATE 296 ML BOTTLE PO PRN (09:05)
[2020-04-08] MEDS ORDERED: LOPERAMIDE 2 MG CAP PO PRN (09:05)
[2020-04-08] MEDS ORDERED: MAGNESIUM HYDROXIDE 2,400 MG/10 ML CUP PO PRN (09:05)
[2020-04-08] MEDS: VORTIOXETINE HYDROBROMIDE 10 MG TABLET PO SCH (10:35)
[2020-04-08] MEDS: BACLOFEN 10 MG TAB PO SCH ×4 (10:35→21:01)
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
[2020-04-08] MEDS: ALBUTEROL NEBULIZED 2.5 MG/3 ML INHALATION SCH ×2 (12:23→19:39)
[2020-04-08] MEDS: HYDROcodone/APAP 5-325MG 1 EACH TAB PO PRN ×2 (12:25→21:00)
[2020-04-08] MEDS ORDERED: NON FORMULARY DRUG (Ubidecarenone [Co Q-10] 100 MG Capsule) PO SCH (14:00)
[2020-04-08] MEDS: DOCUSATE 100 MG CAP PO SCH ×2 (15:43→21:02)
[2020-04-08] MEDS: GABAPENTIN 300 MG CAP PO SCH ×2 (15:43→21:00)
[2020-04-08] MEDS: MULTIVITAMINS, THERA 1 EACH TAB PO SCH (15:44)
[2020-04-08] MEDS: OXYBUTYNIN CHLORIDE 5 MG TAB PO SCH ×2 (15:44→21:02)
[2020-04-08] MEDS: FLUDROCORTISONE 0.1 MG TAB PO SCH (15:44)
[2020-04-08] MEDS: PANTOPRAZOLE 40 MG TABLET PO SCH (17:33)
[2020-04-08] MEDS: QUEtiapine 50 MG TAB PO SCH (21:02)
[2020-04-09] MEDS: SODIUM CHLORIDE 0.9% 1,000 ML IV SCH (04:42)
[2020-04-09] MEDS ORDERED: VANCOMYCIN TROUGH DUE 1 EACH MISC MISCELLANE ONE (05:00)
[2020-04-09] MEDS: VANCOMYCIN 1,000 MG in SODIUM CHLORIDE 0.9% 250 ML IVPB SCH ×2 (05:57→19:39)
[2020-04-09 06:37] LABS: African American GFR (CKD) >90 (>60 ml/min/1.73 sqM); Non-African American GFR(CKD) >90 (>60 ml/min/1.73 sqM)
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
[2020-04-09] MEDS: ALBUTEROL NEBULIZED 2.5 MG/3 ML INHALATION SCH ×3 (07:46→20:51)
[2020-04-09] MEDS: VORTIOXETINE HYDROBROMIDE 10 MG TABLET PO SCH (09:02)
[2020-04-09] MEDS: BACLOFEN 10 MG TAB PO SCH ×4 (09:02→21:44)
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
[2020-04-09 10:36] LABS: Cholesterol 139 mg/dL (<200); HDL Cholesterol 28 mg/dL (40-60); LDL Cholesterol,Calculated 89 mg/dL (0-99); Triglycerides 112 mg/dL (<150)
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
--- NOTE | 2020-04-09 13:00 | ECHOF ---
Referral Reason:lv function, elevated troponins MEASUREMENTS -------- HEIGHT: 188.0 cm WEIGHT: 89.4 kg BP: 101/65 IVSd: 1.5 cm (0.6 - 1.1) LVIDd: 2.6 cm (3.9 - 5.3) LVPWd: 1.5 cm (0.6 - 1.1) IVSs: 1.9 cm LVIDs: 1.7 cm LVPWs: 1.8 cm Ao Diam: 1.9 cm (2.0 - 3.7) AV Cusp: 1.9 cm (1.5 - 2.6) LA Diam: 2.1 cm (2.7 - 3.8) MV E Genaro: 0.90 m/s MV DecT: 103 ms MV A Genaro: 0.71 m/s MV E/A Ratio: 1.27 FINDINGS -------- Sinus rhythm. This was a technically difficult study with suboptimal views. Patient was scanned while sitting up in his wheel chair. The left ventricular size is normal. There is moderate concentric left ventricular hypertrophy. O verall left ventricular systolic function is normal with, an EF between 55 - 60 %. The RV was not well visualized. The left atrial size is normal. The right atrium was not well visualized. Interatrial and interventricular septum intact. The aortic valve was not well visualized. There is no evidence of aortic regurgitation. There is no evidence of aortic stenosis. No mitral regurgitation. The tricuspid valve was not well visualized. The pulmonic valve was not well visualized. The aortic root size is normal. IVC Not well visulized. There is a small, generalized pericardial effusion present. CONCLUSIONS -------- 1. The left ventricular size is normal. 2. There is moderate concentric left ventricular hypertrophy. 3. Overall left ventricular systolic function is normal with, an EF between 55 - 60 %. 4. There is a small, generalized pericardial effusion present. ABRASIVE MIXER HELPER: Ilana Valera RDCS
[2020-04-09] MEDS: OXYBUTYNIN CHLORIDE 5 MG TAB PO SCH ×2 (13:58→22:34)
[2020-04-09] MEDS: GABAPENTIN 300 MG CAP PO SCH ×2 (13:58→21:45)
[2020-04-09] MEDS: ASPIRIN 81 MG PO SCH (13:58)
[2020-04-09] MEDS: FLUDROCORTISONE 0.1 MG TAB PO SCH (13:58)
[2020-04-09] MEDS: DOCUSATE 100 MG CAP PO SCH ×2 (13:58→21:44)
[2020-04-09] MEDS: MULTIVITAMINS, THERA 1 EACH TAB PO SCH (14:00)
[2020-04-09] MEDS ORDERED: VANCOMYCIN 1,000 MG in SODIUM CHLORIDE 0.9% 250 ML IVPB SCH (18:15)
[2020-04-09] MEDS: PANTOPRAZOLE 40 MG TABLET PO SCH (19:36)
[2020-04-09] MEDS: QUEtiapine 50 MG TAB PO SCH (22:34)
--- NOTE | 2020-04-10 01:23 | PN ---
PROGRESS NOTE DATE OF SERVICE: 04/09/2020 REASON FOR FOLLOWUP: Catheter-associated urinary tract infection. INTERVAL HISTORY: The patient is currently afebrile. Patient is breathing comfortably. Denies having any chest pain or any cough. No nausea. No abdominal pain or diarrhea. PHYSICAL EXAMINATION: Blood pressure is 100/71 with a pulse of 69, temperature 99.7. He is 98% on room air. General description is a middle-aged male up in the bed in no distress. Respiratory system: Unlabored breathing, clear to auscultation anteriorly. Heart S1, S2. Regular rate and rhythm. Abdomen soft. No tenderness. LABS: No new labs been obtained today. Culture so far pending. DIAGNOSTIC IMPRESSION AND PLAN: Patient admitted to the hospital with a catheter associated urinary tract infection in this patient with recent culture with MRSA. Patient is covered with vancomycin while waiting for the culture to finalize. Continue supportive care. MMODL / IJN: [id number] /
[2020-04-10 07:08] LABS: MCH 28.7 pg (25.0-35.0); MCHC 32.4 g/dL (31.0-37.0); MCV 88.5 fL (80.0-100.0); Mean Platelet Volume 8.7; Platelet Count 133 k/uL (150-450); RBC 4.53 m/uL (4.30-5.90); RDW 14.1 % (11.5-15.5)
[2020-04-10] MEDS: VANCOMYCIN 1,000 MG in SODIUM CHLORIDE 0.9% 250 ML IVPB SCH (07:23)
[2020-04-10] MEDS: SODIUM CHLORIDE 0.9% 1,000 ML IV SCH (07:23)
[2020-04-10 07:52] VITALS: RESP 18
[2020-04-10] MEDS: ALBUTEROL NEBULIZED 2.5 MG/3 ML INHALATION SCH (08:32)
[2020-04-10] MEDS: VORTIOXETINE HYDROBROMIDE 10 MG TABLET PO SCH (09:11)
[2020-04-10] MEDS: ASPIRIN 81 MG PO SCH (09:11)
[2020-04-10] MEDS: GABAPENTIN 300 MG CAP PO SCH (09:12)
[2020-04-10] MEDS: BACLOFEN 10 MG TAB PO SCH (09:12)
[2020-04-10 09:46] LABS: African American GFR (CKD) 174.6 (60.0-200.0); Anion Gap 7.8 mmol/L (4.00-12.00); Calcium 8.8 mg/dL (8.7-10.3); Carbon Dioxide 26.2 mmol/L (21.6-31.8); Non-African American GFR(CKD) 150.7 (60.0-200.0); Potassium 4.3 mmol/L (3.5-5.5)
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
[2020-04-10 14:47] VITALS: BP 131/84; PULSE 75; TEMP 98.6
--- NOTE | 2020-04-10 17:01 | PN ---
PROGRESS NOTE DATE OF SERVICE: 04/10/2020 REASON FOR FOLLOWUP: COVID-19 infection. INTERVAL HISTORY: The patient is currently afebrile. Patient is feeling better. Breathing comfortably. The patient has been very upset as nobody can get an IV on him and has been threatening and wants to leave. No vomiting. No diarrhea. He was unable to provide any reliable history because he was so upset. PHYSICAL EXAMINATION: Blood pressure 131/84, pulse of 75. Temperature 98.3. Pulse ox 93% on room air. General description is a middle-aged male, lying in bed in no distress. Patient refused the rest of the exam. LABS: Hemoglobin 13.1, white count 8.0 with a BUN of 12, creatinine 0.4. was 18.9 yesterday. Culture both blood and urine has been negative. DIAGNOSTIC IMPRESSION AND PLAN: Patient admitted to the hospital with concern for a catheter-associated urinary tract infection. Patient's Medel has been changed and culture so far negative. White count normalized. With negative cultures and the patient allergies, recommend no antibiotic on discharge. This was discussed in detail with the patient as well as the admitting physician. MMODL / IJN: [id number] /
[2020-04-10] MEDS ORDERED: polyethylene glycoL 3350 17 GM POWD.PACK PO SCH (20:00)
[2020-04-11] MEDS ORDERED: NA PHOS,M-B/NA PHOS,DI-BA 133 ML ENEMA RECTAL SCH (09:00)
[2020-04-11] MEDS ORDERED: LEVOTHYROXINE 50 MCG TAB PO SCH (09:00)
--- NOTE | 2020-04-18 23:52 | CDI ---
Documentation Clarification Form Date: 04/19/2020 From: Dilshad Armstrong Phone: If you have a question about this query, please contact Una Rolon [employer] Engineer at [phone] between 8am and 5pm. Admit Date: 04/07/2020 09:35:00 PM Patient Name: Mimi Johnson Visit Number: [id number] Discharge Date: 04/10/2020 03:59:00 PM ATTENTION: The Clinical Documentation Specialists (CDI) and [facility] Coding Staff appreciate your assistance in clarifying documentation. Please respond to the clarification below the line at the bottom and electronically sign. The CDI & [facility] Coding staff will review the response and follow-up if needed. Please note: Queries are made part of the Legal Health Record. If you have any questions, please contact the author of this message via ITS. Dr. Cody Robertson MD., The patient presented with the Generalized pain, Elevated troponin, Dyspnea, UTI (urinary tract infection), Severe sepsis. History/Risk Factors: catheter-associated urinary tract infection, Paraplegia, Depression WBC : 8.0H Blood cultures: NG144 Vitals signs on admission: Temperature 98.4 F Pulse Rate 86 115 H Respiratory 18 18 Rate Blood Pressure 147/104 82/61 O2 Sat by Pulse 99 98 Oximetry Treatment: IV fluids, IV antibiotics In ED stated "Given the patient's UA findings, leukocytosis and elevated lactic acid level, I suspect that the patient has severe sepsis likely secondary to UTI". 04/10 Progress noted by Gilles Hernandez DO stated "Patient is currently admitted to the hospital secondary to UTI and sepsis". 04/10 PN by Marialuisa Young MD stated as "catheter-associated urinary tract infection". In your professional opinion, please clarify if these findings signify one of the following conditions, Condition Sepsis ruled out Sepsis Severe Sepsis Other, please specify Unable to determine As per my note. BRETD
== END 2020-04-10 15:59 | disposition home or self-care (01) | DRG 699 ==
LOC: EC 18:36 → 3SCARD 21:35 → 5NMEDONC 04-09 17:12
PROVIDERS: ADMIT Internal Medicine; ATTEND Internal Medicine
DX: T83.518A Infection and inflammatory reaction due to other urinary catheter, initial encounter (principal); N39.0 Urinary tract infection, site not specified; G82.20 Paraplegia, unspecified; E27.40 Unspecified adrenocortical insufficiency; K59.00 Constipation, unspecified; F32.9 Major depressive disorder, single episode, unspecified; K74.60 Unspecified cirrhosis of liver; F41.9 Anxiety disorder, unspecified; Y84.6 Urinary catheterization as the cause of abnormal reaction of the patient, or of later complication, without mention of misadventure at the time of the procedure; Z20.828 Contact with and (suspected) exposure to other viral communicable diseases; N31.9 Neuromuscular dysfunction of bladder, unspecified; Z79.899 Other long term (current) drug therapy; Z79.890 Hormone replacement therapy; Z88.1 Allergy status to other antibiotic agents; Z88.0 Allergy status to penicillin; Z86.19 Personal history of other infectious and parasitic diseases; Z87.442 Personal history of urinary calculi; Z87.440 Personal history of urinary (tract) infections; Z86.14 Personal history of Methicillin resistant Staphylococcus aureus infection; Z81.1 Family history of alcohol abuse and dependence; V89.2XXS Person injured in unspecified motor-vehicle accident, traffic, sequela
CPT/HCPCS: 36415; 71045; 71275; 80048; 80053; 80061; 80202; 81001; 82553; 82565; 83605; 83880; 84443; 84484; 85025; 85027; 85379; 85610; 87040; 87086; 87635; 93005; 93306; 94640; 96361; 96365; 96367; 96375; 99291

== ENCOUNTER 2020-05-04 09:17 | Day surgery (SDC) | payer OTHER ==
[~2020-05-04 09:17] MED LIST changes: -CLINDAMYCIN 900 MG in DEXTROSE 5% IN WATER 50 ML IVPB ONE; +DEXAMETHASONE SOD PHOSPHATE 4 MG/ML 1 ML VIAL IV ONE; +GENTAMICIN 120 MG in SODIUM CHLORIDE 0.9% 100 ML IVPB PRN; -HYDROmorphone 1 MG/ML 1 ML SYRINGE IVP PRN; -LACTATED RINGERS 1,000 ML IV SCH; +LIDOCAINE 1% (10MG/ML) FOR IV START INTRADERMA PRN; -LIDOCAINE 1% 20 ML VIAL (10MG/ML) FOR IV START INTRADERMA PRN; -MIDAZOLAM 2 MG/2 ML VIAL IV PRN; +ONDANSETRON 4 MG/2 ML VIAL IVP ONE; -ONDANSETRON 4 MG/2 ML VIAL IVP PRN
[2020-05-04] MEDS: LACTATED RINGERS 1,000 ML IV SCH (10:22)
[2020-05-04 10:38] LABS: Basophils # (A) 0.1 k/uL (0-0.2); Basophils % (A) 1 %; Eosinophils # (A) 0.2 k/uL (0-0.7); Eosinophils % (A) 2 %; HCT 45.6 % (39.0-53.0); HGB 14.7 gm/dL (13.0-17.5); Lymphocytes # (A) 2.5 k/uL (1.0-4.8); Lymphocytes % (A) 32 %; MCH 27.9 pg (25.0-35.0); MCHC 32.3 g/dL (31.0-37.0); MCV 86.5 fL (80.0-100.0); Mean Platelet Volume 10.4; Monocytes # (A) 0.4 k/uL (0-1.0); Monocytes % (A) 5 %; Neutrophils # (A) 4.6 k/uL (1.3-7.7); Neutrophils % (A) 58 %; Platelet Count 151 k/uL (150-450); RBC 5.27 m/uL (4.30-5.90); RDW 14.1 % (11.5-15.5); WBC 7.9 k/uL (3.8-10.6)
[2020-05-04 10:47] LABS: African American GFR (CKD) >90 (>60 ml/min/1.73 sqM); Anion Gap 8 mmol/L; Blood Urea Nitrogen 12 mg/dL (9-20); Calcium 9.4 mg/dL (8.4-10.2); Carbon Dioxide 23 mmol/L (22-30); Chloride 108 mmol/L (98-107); Glucose 90 mg/dL (74-99); Non-African American GFR(CKD) >90 (>60 ml/min/1.73 sqM); Potassium 4.6 mmol/L (3.5-5.1); Sodium 139 mmol/L (137-145)
[2020-05-04] MEDS ORDERED: PROPOFOL 10 MG/ML 20 ML VIAL IV ONE (11:53)
[2020-05-04] MEDS ORDERED: MIDAZOLAM 2 MG/2 ML VIAL ONE (11:53)
[2020-05-04] MEDS ORDERED: hydrALAZINE HCL 20 MG/ML 1 ML VIAL ONE (11:53)
[2020-05-04] MEDS ORDERED: fentaNYL (PF) 50 MCG/ML 2 ML AMP ONE (11:53)
[2020-05-04] MEDS ORDERED: LIDOCAINE 2% INJ 20 MG/ML SQ ONE (12:26)
[2020-05-04] MEDS ORDERED: LACTATED RINGERS 1,000 ML IV ONE (12:50)
[2020-05-04] MEDS ORDERED: HYDROcodone/APAP 5-325MG 1 EACH TAB PO PRN ×2 (13:18→14:17)
[2020-05-04] MEDS ORDERED: ALBUTEROL HFA INHALER INHALATION PRN (13:18)
--- NOTE | 2020-05-04 13:18 | P.OP ---
Date of Procedure: 05/04/20 Preoperative Diagnosis: Urine retention secondary to neurogenic bladder Postoperative Diagnosis: Same Procedure(s) Performed: Attempted percutaneous cystostomy (aborted) open cystostomy with placement of suprapubic tube Anesthesia: MAC Surgeon: Harman Wong Estimated Blood Loss (ml): 20 Pathology: none sent Condition: stable Disposition: PACU Indications for Procedure: The patient is a 39-year-old quadriplegic with urine retention and a chronic indwelling urethral catheter that was called urethral erosion. He wishes a suprapubic tube. He comes for percutaneous cystostomy tube Description of Procedure: Patient is brought to the operating suite. He's placed on the operating table supine position. He is too stiff to placed in lithotomy position. He only wishes IV sedation. I'll do a percutaneous cystostomy He is prepped and draped sterilely. A small incision above the pubis was made. I feel the bladder 300 mL to the urethral Medel. I place a needle into the bladder. Through the needle I passed a tiny wire into the bladder. Over this wire pass a larger catheter into the bladder. I then place an 035 wire into the bladder. Then over the wire I passed for ureteroscopy tract dilating balloon. I dilate the tract easily but attempt to pass a sheath into the bladder and I'm unable to do so due to scarring from the previous suprapubic approach to remove the bladder stones. I thus extending the incision. The rectus fascia. Open the bladder. I placed an 18-Yoruba Medel through the dome of the bladder. Close the bladder in 2 layers of 3 and 2-0 Vicryl. I bring the suprapubic tube out through the top portion of the incision. A close rectus fascia with 0 PDS [id number]. The skin is stapled. Rebeca drain is brought through separate stab incision into the prevesical space of. I will leave the urethral catheter. The skin is stapled. The patient awake and returned recovery in good condition. Blood loss is 20 mL.
[2020-05-04] MEDS ORDERED: NON FORMULARY DRUG (Ubidecarenone [Co Q-10] 100 MG Capsule) PO SCH (14:00)
[2020-05-04] MEDS: DEXTROSE 5%-0.45% NACL 1,000 ML IV SCH (14:07)
[2020-05-04] MEDS ORDERED: FLUDROCORTISONE 0.1 MG TAB PO SCH (14:30)
[2020-05-04] MEDS: BACLOFEN 10 MG TAB PO SCH ×3 (16:22→20:09)
[2020-05-04] MEDS: GABAPENTIN 300 MG CAP PO SCH ×2 (16:22→20:09)
[2020-05-04] MEDS ORDERED: PANTOPRAZOLE 40 MG TABLET PO SCH (18:00)
[2020-05-04] MEDS: OXYBUTYNIN CHLORIDE 5 MG TAB PO SCH (20:09)
[2020-05-04] MEDS: DOCUSATE 100 MG CAP PO SCH (20:09)
[2020-05-04] MEDS: DOXYCYCLINE 100 MG CAP PO SCH (20:30)
[2020-05-04] MEDS ORDERED: QUEtiapine 50 MG TAB PO SCH (21:00)
[2020-05-05] MEDS ORDERED: LEVOTHYROXINE 50 MCG TAB PO SCH (06:30)
[2020-05-05] MEDS: LACTATED RINGERS 1,000 ML IV SCH (07:55)
[2020-05-05] MEDS: DOXYCYCLINE 100 MG CAP PO SCH (08:07)
[2020-05-05] MEDS: DEXTROSE 5%-0.45% NACL 1,000 ML IV SCH (08:07)
[2020-05-05] MEDS: DOCUSATE 100 MG CAP PO SCH (08:07)
[2020-05-05] MEDS: OXYBUTYNIN CHLORIDE 5 MG TAB PO SCH (08:07)
[2020-05-05 08:28] VITALS: RESP 16
[2020-05-05] MEDS ORDERED: polyethylene glycoL 3350 17 GM POWD.PACK PO SCH (09:00)
[2020-05-05] MEDS ORDERED: VORTIOXETINE HYDROBROMIDE 10 MG TABLET PO SCH (10:00)
[2020-05-05] MEDS: BACLOFEN 10 MG TAB PO SCH (10:01)
--- NOTE | 2020-05-05 10:47 | P.DS ---
Providers Expected date of discharge: 05/05/20 Attending physician: Harman Wong Primary care physician: Ivette Ashley [facility] Hospital Course: On the day of admission, the patient underwent open cystostomy with placement of suprapubic tube. The perioperative course was unremarkable. He remained afebrile with stable vital signs. On the first postoperative day, he denied pain and was not taking analgesics. Both the urethral catheter and the suprapubic cystostomy tube were draining clear yellow urine. The incision was clean and dry, and there was minimal sanguinous Rebeca drainage. Procedures: Attempted percutaneous cystostomy (aborted), open cystostomy with placement of suprapubic tube on 05/04/2020. Patient Condition at Discharge: Good Plan - Discharge Summary Discharge Rx Participant: No New Discharge Prescriptions: No Action Gabapentin [Neurontin] 600 mg PO BID@1400,2000 Oxybutynin Chloride [Ditropan] 5 mg PO BID Ubidecarenone [Co Q-10] 100 mg PO BID@1399,1999 Docusate [Colace] 100 mg PO BID Baclofen [Lioresal] 5 mg PO QID@10,14,18,20 polyethylene glycoL 3350 [Miralax] 17 gm PO SUTUTH Fludrocortisone [Florinef] 0.1 mg PO DAILY@1400 HYDROcodone/APAP 5-325MG [[place] 5-325] 1 tab PO DIRECTED PRN PRN Reason: Pain Levothyroxine Sodium [Synthroid] 50 mcg PO DAILY Omeprazole [PriLOSEC] 20 mg PO DAILY@1800 Vortioxetine Hydrobromide [Trintellix] 10 mg PO DAILY@1000 Na Phos,M-B/Na Phos,Di-Ba [Fleet Adult] 133 ml RECTAL MOWEFR QUEtiapine FUMARATE 50 mg PO HS Doxycycline [Vibramycin] 100 mg PO BID Albuterol Inhaler [Ventolin Hfa Inhaler] 1 puff INHALATION RT-QID PRN PRN Reason: Shortness Of Breath D-Mannose 1 tab PO DAILY Megestrol Acetate 40mg/1 Ml 1 tsp PO BID Discharge Medication List Gabapentin [Neurontin] 600 mg PO BID@1400,2000 04/28/14 [History] Oxybutynin Chloride [Ditropan] 5 mg PO BID 04/28/14 [History] Ubidecarenone [Co Q-10] 100 mg PO BID@1400,199902/18/15 [History] Docusate [Colace] 100 mg PO BID 06/28/16 [History] Baclofen [Lioresal] 5 mg PO QID@10,14,18,20 06/12/19 [History] Fludrocortisone [Florinef] 0.1 mg PO DAILY@1400 06/12/19 [History] HYDROcodone/APAP 5-325MG [[place] 5-325] 1 tab PO DIRECTED PRN 06/12/19 [History] Levothyroxine Sodium [Synthroid] 50 mcg PO DAILY 06/12/19 [History] Omeprazole [PriLOSEC] 20 mg PO DAILY@1800 06/12/19 [History] Vortioxetine Hydrobromide [Trintellix] 10 mg PO DAILY@1000 06/12/19 [History] polyethylene glycoL 3350 [Miralax] 17 gm PO SUTUTH 06/12/19 [History] Na Phos,M-B/Na Phos,Di-Ba [Fleet Adult] 133 ml RECTAL MOWEFR 04/07/20 [History] Albuterol Inhaler [Ventolin Hfa Inhaler] 1 puff INHALATION RT-QID PRN 04/29/20 [History] D-Mannose 1 tab PO DAILY 04/29/20 [History] Doxycycline [Vibramycin] 100 mg PO BID 04/29/20 [History] Megestrol Acetate 40mg/1 Ml 1 tsp PO BID 04/29/20 [History] QUEtiapine FUMARATE 50 mg PO HS 04/29/20 [History] Follow up Appointment(s)/Referral(s): Harman Wong MD [STAFF PHYSICIAN] - 1 Week Activity/Diet/Wound Care/Special Instructions: Discharge home with Medel catheter and suprapubic cystostomy tube, both to gravity drainage. Okay to shower 05/06/2020. Drink plenty of fluids. Avoid strenuous activity. Discharge Disposition: HOME SELF-CARE
[2020-05-05 13:24] VITALS: BP 116/81; PULSE 86; TEMP 99
== END 2020-05-05 12:56 | disposition home or self-care (01) ==
LOC: OR 09:17 → 4SSUR 13:12 → OR 05-05 12:56
PROVIDERS: ATTEND Urology
DX: N31.9 Neuromuscular dysfunction of bladder, unspecified (principal); R33.9 Retention of urine, unspecified; N36.8 Other specified disorders of urethra; I25.2 Old myocardial infarction; I25.10 Atherosclerotic heart disease of native coronary artery without angina pectoris; G47.33 Obstructive sleep apnea (adult) (pediatric); F41.9 Anxiety disorder, unspecified; F32.9 Major depressive disorder, single episode, unspecified; G82.20 Paraplegia, unspecified; M86.9 Osteomyelitis, unspecified; Z88.0 Allergy status to penicillin; Z88.1 Allergy status to other antibiotic agents; Z88.8 Allergy status to other drugs, medicaments and biological substances; Z79.890 Hormone replacement therapy; Z79.899 Other long term (current) drug therapy; Z87.01 Personal history of pneumonia (recurrent); Z86.14 Personal history of Methicillin resistant Staphylococcus aureus infection; Z87.442 Personal history of urinary calculi; G43.909 Migraine, unspecified, not intractable, without status migrainosus; Z79.52 Long term (current) use of systemic steroids
CPT/HCPCS: 80048; 85025; 53899; C2627; C1769; J2001; J2250; J0360; J1100; J2405; J3010; J1580; J2704

== ENCOUNTER → 2020-05-05 | Outpatient (CLI) | payer OTHER ==
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
== END | disposition home or self-care (01) ==
LOC: SLEEP 17:08
PROVIDERS: ATTEND Internal Medicine
DX: G47.33 Obstructive sleep apnea (adult) (pediatric) (principal); Z86.69 Personal history of other diseases of the nervous system and sense organs; Z86.59 Personal history of other mental and behavioral disorders; Z87.81 Personal history of (healed) traumatic fracture; Z99.89 Dependence on other enabling machines and devices; Z79.899 Other long term (current) drug therapy; Z79.51 Long term (current) use of inhaled steroids

== ENCOUNTER 2020-09-09 14:21 | Inpatient (IN) | payer OTHER ==
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
[2020-09-09] MEDS ORDERED: SODIUM CHLORIDE 0.9% 1,000 ML IV STA ×2 (15:17→16:57)
[2020-09-09] MEDS: SODIUM CHLORIDE 0.9% 1,000 ML IV SCH ×2 (16:34→18:48)
[2020-09-09 16:55] LABS: ALT 16 U/L (4-49); AST 21 U/L (17-59); African American GFR (CKD) >90 (>60 ml/min/1.73 sqM); Albumin 3.2 g/dL (3.5-5.0); Alkaline Phosphatase 62 U/L (38-126); Anion Gap 14 mmol/L; Blood Urea Nitrogen 17 mg/dL (9-20); Calcium 8.8 mg/dL (8.4-10.2); Carbon Dioxide 18 mmol/L (22-30); Chloride 103 mmol/L (98-107); Glucose 111 mg/dL (74-99); Non-African American GFR(CKD) >90 (>60 ml/min/1.73 sqM); Potassium 3.6 mmol/L (3.5-5.1); Sodium 135 mmol/L (137-145); Total Bilirubin 1.7 mg/dL (0.2-1.3)
[2020-09-09] MEDS ORDERED: SODIUM CHLORIDE 0.9% 500 ML 500 ML IV STA (16:57)
--- NOTE | 2020-09-09 17:13 | XR ---
EXAMINATION TYPE: XR chest 1V portable DATE OF EXAM: 09/09/2020 COMPARISON: NONE HISTORY: Short of breath TECHNIQUE: 2 views FINDINGS: There is increased pulmonary interstitial density. There is slight elevation of the right d iaphragm. Heart appears enlarged. There is no heart failure. IMPRESSION: Inspiration is decreased compared to old exam with elevated right diaphragm and interstit ial new pulmonary infiltrates and atelectasis at the lung bases. No obvious heart failure.
[2020-09-09 17:24] LABS: INR 1.2 (<1.2); Prothrombin Time 12.6 sec (9.0-12.0)
[2020-09-09] MEDS ORDERED: LEVOFLOXACIN 750MG-D5W PMX 750 MG in DEXTROSE/WATER 1 150ML.BAG IVPB STA (17:25)
[2020-09-09] MEDS ORDERED: VANCOMYCIN IV PER PHARMACY 1 EACH MISC MISCELLANE PRN (17:25)
[2020-09-09 17:26] LABS: Partial Thromboplastin Time 18.7 sec (22.0-30.0)
[2020-09-09] MEDS ORDERED: LEVOFLOXACIN 750MG-D5W PMX 750 MG in DEXTROSE/WATER 1 150ML.BAG IVPB SCH (17:30)
[2020-09-09 17:33] LABS: Basophils % (A) 1 %; Eosinophils # (A) 0.1 k/uL (0-0.7); Eosinophils % (A) 2 %; HCT 45.3 % (39.0-53.0); HGB 14.2 gm/dL (13.0-17.5); Lymphocytes % (A) 31 %; MCH 27.7 pg (25.0-35.0); MCHC 31.3 g/dL (31.0-37.0); MCV 88.5 fL (80.0-100.0); Mean Platelet Volume 9.7; Monocytes # (A) 0.2 k/uL (0-1.0); Monocytes % (A) 6 %; Neutrophils % (A) 59 %; Platelet Count 141 k/uL (150-450); RBC 5.11 m/uL (4.30-5.90); RDW 14.6 % (11.5-15.5); WBC 3.4 k/uL (3.8-10.6)
[2020-09-09] MEDS ORDERED: VANCOMYCIN 1,000 MG in SODIUM CHLORIDE 0.9% 250 ML IVPB ONE (17:45)
[2020-09-09] MEDS ORDERED: PNEUMONIA PROTOCOL UTILIZED 1 EACH MISC PO PRN (18:18)
[2020-09-09] MEDS: NOREPINEPHRINE 32 MG in SODIUM CHLORIDE 0.9% 218 ML IV SCH (18:40)
[2020-09-09] MEDS ORDERED: ONDANSETRON 4 MG/2 ML VIAL IVP STA (19:40)
[2020-09-09] MEDS: IPRATROPIUM-ALBUTEROL 3 ML NEB INHALATION SCH (19:54)
[2020-09-09] MEDS ORDERED: guaiFENesin-DM 100-10MG/5ML 10 ML CUP PO PRN (23:00)
[2020-09-10] MEDS: IPRATROPIUM-ALBUTEROL 3 ML NEB INHALATION PRN ×3 (00:17→23:50)
[2020-09-10] MEDS: ERTAPENEM 1 GM in SODIUM CHLORIDE 0.9% 50 ML IVPB SCH ×2 (00:49→23:21)
[2020-09-10 01:39] LABS: Appearance,Urine Turbid (Clear); Bacteria,Urine Occasional /hpf; Bilirubin,Urine Negative (Negative); Blood,Urine Small (Negative); Cellular Casts,Urine 8 /lpf (0); Color,Urine Dark Brown; Glucose,Urine (UA) Negative (Negative); Hyaline Casts,Urine 181 /lpf (0-2); Ketones,Urine Negative (Negative); Leukocyte Esterase,Urine Large (Negative); Mucus,Urine Many /hpf; Nitrite,Urine Negative (Negative); PH, Urine 5.5 (5.0-8.0); Protein,Urine 2+ (Negative); RBC,Urine 40 /hpf (0-5); Specific Gravity,Urine 1.025 (1.001-1.035); Squamous Epithelial Cell,Urine 3 /hpf (0-4); WBC,Urine >182 /hpf (0-5)
[2020-09-10] MEDS: VANCOMYCIN 750 MG in SODIUM CHLORIDE 0.9% 250 ML IVPB SCH ×3 (03:11→18:41)
[2020-09-10 04:07] LABS: African American GFR (CKD) >90 (>60 ml/min/1.73 sqM); Non-African American GFR(CKD) >90 (>60 ml/min/1.73 sqM)
[2020-09-10] MEDS ORDERED: IBUPROFEN 600 MG TAB PO PRN (06:43)
[2020-09-10] MEDS: ACETAMINOPHEN TAB 325 MG TAB PO PRN ×2 (06:54→20:16)
[2020-09-10] MEDS: IPRATROPIUM-ALBUTEROL 3 ML NEB INHALATION SCH ×4 (07:33→19:45)
--- NOTE | 2020-09-10 07:54 | XR ---
EXAMINATION TYPE: XR chest 1V DATE OF EXAM: 09/10/2020 COMPARISON: Chest x-ray 09/09/2020 HISTORY: Pneumonia TECHNIQUE: Single frontal view of the chest is obtained. FINDINGS: Postop changes are noted cervical spine. Patient is rotated. Right hemidiaphragm is obscur ed, patchy bilateral lateral airspace disease is present. Technique is limited, there are overlying l horace. Cardiac mediastinal silhouette is likely stable. No evident pneumothorax. There may be spinal c urvature. IMPRESSION: Correlate for pneumonia. Exam is limited technically. Prominence of the appearance of he art may be technical.
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
[2020-09-10] MEDS: OXYBUTYNIN CHLORIDE 5 MG TAB PO SCH ×3 (10:31→20:23)
[2020-09-10] MEDS: BACLOFEN 10 MG TAB PO SCH ×4 (10:31→20:15)
[2020-09-10] MEDS: SODIUM CHLORIDE 0.9% 1,000 ML IV SCH ×7 (10:34→23:22)
[2020-09-10] MEDS: LEVOTHYROXINE 50 MCG TAB PO SCH (11:39)
[2020-09-10] MEDS: MUPIROCIN 2% OINT 22 GM TUBE TOPICAL SCH ×3 (12:12→22:13)
[2020-09-10 14:23] LABS: Glucose,Whole Blood 63 mg/dL (75-99)
[2020-09-10 14:52] LABS: Glucose,Whole Blood 66 mg/dL (75-99)
[2020-09-10 15:32] LABS: Glucose,Whole Blood 68 mg/dL (75-99)
[2020-09-10 15:53] LABS: Glucose,Whole Blood 80 mg/dL (75-99)
[2020-09-10] MEDS: MULTIVITAMINS, THERA 1 EACH TAB PO SCH (16:30)
[2020-09-10] MEDS: GABAPENTIN 300 MG CAP PO SCH ×2 (16:30→20:15)
[2020-09-10] MEDS: FLUDROCORTISONE 0.1 MG TAB PO SCH (16:32)
[2020-09-10] MEDS: DOCUSATE 100 MG CAP PO SCH ×2 (16:32→20:16)
[2020-09-10] MEDS: NOREPINEPHRINE 32 MG in SODIUM CHLORIDE 0.9% 218 ML IV SCH (18:41)
[2020-09-10] MEDS: LEVOFLOXACIN 750MG-D5W PMX 750 MG in DEXTROSE/WATER 1 150ML.BAG IVPB SCH (18:41)
[2020-09-10] MEDS: QUEtiapine 100 MG TAB PO SCH (20:23)
[2020-09-10 22:00] LABS: Glucose,Whole Blood 130 mg/dL (75-99)
[2020-09-11] MEDS: VANCOMYCIN TROUGH DUE 1 EACH MISC MISCELLANE ONE ×2 (02:28→02:35)
[2020-09-11] MEDS: VANCOMYCIN 750 MG in SODIUM CHLORIDE 0.9% 250 ML IVPB SCH (02:29)
[2020-09-11] MEDS: SODIUM CHLORIDE 0.9% 1,000 ML IV SCH ×3 (02:30→15:46)
[2020-09-11] MEDS: ACETAMINOPHEN TAB 325 MG TAB PO PRN (02:46)
[2020-09-11] MEDS: IPRATROPIUM-ALBUTEROL 3 ML NEB INHALATION PRN ×2 (04:11→23:35)
[2020-09-11 04:36] LABS: Basophils % (A) 0 %; Eosinophils # (A) 0.1 k/uL (0-0.7); Eosinophils % (A) 2 %; HCT 31.2 % (39.0-53.0); Lymphocytes # (A) 0.5 k/uL (1.0-4.8); Lymphocytes % (A) 12 %; MCH 29.3 pg (25.0-35.0); MCHC 33.5 g/dL (31.0-37.0); MCV 87.6 fL (80.0-100.0); Mean Platelet Volume 8.7; Monocytes # (A) 0.2 k/uL (0-1.0); Monocytes % (A) 4 %; Neutrophils # (A) 3.3 k/uL (1.3-7.7); Neutrophils % (A) 81 %; Platelet Count 115 k/uL (150-450); RBC 3.56 m/uL (4.30-5.90); RDW 14.4 % (11.5-15.5)
[2020-09-11 04:45] LABS: ALT 16 U/L (4-49); AST 19 U/L (17-59); African American GFR (CKD) >90 (>60 ml/min/1.73 sqM); Albumin 2.2 g/dL (3.5-5.0); Alkaline Phosphatase 54 U/L (38-126); Anion Gap 7 mmol/L; Blood Urea Nitrogen 7 mg/dL (9-20); Calcium 7.6 mg/dL (8.4-10.2); Carbon Dioxide 20 mmol/L (22-30); Chloride 110 mmol/L (98-107); Glucose 81 mg/dL (74-99); Non-African American GFR(CKD) >90 (>60 ml/min/1.73 sqM); Potassium 3.1 mmol/L (3.5-5.1); Sodium 137 mmol/L (137-145); Total Bilirubin 0.9 mg/dL (0.2-1.3); Total Protein 4.4 g/dL (6.3-8.2)
[2020-09-11 05:39] LABS: HGB 10.4 gm/dL (13.0-17.5)
[2020-09-11] MEDS ORDERED: Potassium Replacement Protocol 1 EACH MISC MISCELLANE PRN ×2 (06:12→16:42)
[2020-09-11] MEDS: POTASSIUM CHLORIDE ER 20 MEQ TAB.ER PO SCH ×2 (06:26→09:24)
[2020-09-11 08:12] LABS: Glucose,Whole Blood 85 mg/dL (75-99)
--- NOTE | 2020-09-11 08:14 | XR ---
EXAMINATION TYPE: XR chest 1V DATE OF EXAM: 09/11/2020 COMPARISON: Chest x-ray 09/10/2020 HISTORY: Pneumonia TECHNIQUE: Single frontal view of the chest is obtained. FINDINGS: Bibasilar airspace disease is present. Heart is likely stable. No evident pneumothorax. Pa tient is again rotated. Hemidiaphragms are obscured. Postop change noted to the cervical spine. IMPRESSION: Correlate for pneumonia, difficult to exclude effusion.
[2020-09-11] MEDS: IPRATROPIUM-ALBUTEROL 3 ML NEB INHALATION SCH ×4 (08:19→19:36)
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
[2020-09-11] MEDS: polyethylene glycoL 3350 17 GM POWD.PACK PO SCH (09:23)
[2020-09-11] MEDS: BACLOFEN 10 MG TAB PO SCH ×4 (09:23→19:39)
[2020-09-11] MEDS: OXYBUTYNIN CHLORIDE 5 MG TAB PO SCH ×3 (09:23→19:40)
[2020-09-11] MEDS: LEVOTHYROXINE 50 MCG TAB PO SCH (09:24)
[2020-09-11] MEDS: MUPIROCIN 2% OINT 22 GM TUBE TOPICAL SCH ×3 (09:24→22:06)
[2020-09-11] MEDS: guaiFENesin 600 MG TABLET.ER PO SCH ×2 (09:24→19:40)
[2020-09-11] MEDS: VANCOMYCIN 1,000 MG in SODIUM CHLORIDE 0.9% 250 ML IVPB SCH ×2 (10:52→19:06)
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
[2020-09-11] MEDS: MULTIVITAMINS, THERA 1 EACH TAB PO SCH (14:15)
[2020-09-11] MEDS: FLUDROCORTISONE 0.1 MG TAB PO SCH (14:15)
[2020-09-11] MEDS: GABAPENTIN 300 MG CAP PO SCH ×2 (14:15→19:40)
[2020-09-11] MEDS: DOCUSATE 100 MG CAP PO SCH ×2 (14:16→19:39)
[2020-09-11] MEDS ORDERED: POTASSIUM CHLORIDE ER 20 MEQ TAB.ER PO SCH (17:00)
[2020-09-11] MEDS: NOREPINEPHRINE 32 MG in SODIUM CHLORIDE 0.9% 218 ML IV SCH (17:38)
[2020-09-11] MEDS: LEVOFLOXACIN 750MG-D5W PMX 750 MG in DEXTROSE/WATER 1 150ML.BAG IVPB SCH (17:54)
[2020-09-11] MEDS: QUEtiapine 100 MG TAB PO SCH (19:40)
[2020-09-11] MEDS: HYDROcodone/APAP 5-325MG 1 EACH TAB PO PRN (19:57)
[2020-09-11] MEDS: ERTAPENEM 1 GM in SODIUM CHLORIDE 0.9% 50 ML IVPB SCH (22:14)
[2020-09-12] MEDS: VANCOMYCIN 1,000 MG in SODIUM CHLORIDE 0.9% 250 ML IVPB SCH ×3 (02:20→19:13)
[2020-09-12] MEDS: IPRATROPIUM-ALBUTEROL 3 ML NEB INHALATION PRN ×2 (03:32→21:29)
[2020-09-12 04:16] LABS: ALT 17 U/L (4-49); AST 20 U/L (17-59); African American GFR (CKD) >90 (>60 ml/min/1.73 sqM); Albumin 2.3 g/dL (3.5-5.0); Alkaline Phosphatase 62 U/L (38-126); Anion Gap 6 mmol/L; Blood Urea Nitrogen 3 mg/dL (9-20); Calcium 7.9 mg/dL (8.4-10.2); Carbon Dioxide 21 mmol/L (22-30); Chloride 113 mmol/L (98-107); Glucose 75 mg/dL (74-99); Magnesium 1.7 mg/dL (1.6-2.3); Non-African American GFR(CKD) >90 (>60 ml/min/1.73 sqM); Potassium 3.6 mmol/L (3.5-5.1); Sodium 140 mmol/L (137-145); Total Bilirubin 0.6 mg/dL (0.2-1.3); Total Protein 4.8 g/dL (6.3-8.2)
[2020-09-12 04:20] LABS: Basophils % (A) 0 %; Eosinophils # (A) 0.2 k/uL (0-0.7); Eosinophils % (A) 4 %; HGB 10.4 gm/dL (13.0-17.5); Lymphocytes # (A) 0.7 k/uL (1.0-4.8); Lymphocytes % (A) 16 %; MCHC 31.7 g/dL (31.0-37.0); MCV 88.4 fL (80.0-100.0); Mean Platelet Volume 8.5; Monocytes # (A) 0.2 k/uL (0-1.0); Monocytes % (A) 4 %; Neutrophils # (A) 3.3 k/uL (1.3-7.7); Neutrophils % (A) 76 %; Platelet Count 109 k/uL (150-450); RBC 3.73 m/uL (4.30-5.90); WBC 4.3 k/uL (3.8-10.6)
[2020-09-12] MEDS ORDERED: POTASSIUM CHLORIDE ER 20 MEQ TAB.ER PO SCH ×2 (07:00→19:00)
[2020-09-12 07:04] LABS: Glucose,Whole Blood 80 mg/dL (75-99)
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
[2020-09-12] MEDS: IPRATROPIUM-ALBUTEROL 3 ML NEB INHALATION SCH ×4 (08:08→20:50)
[2020-09-12] MEDS: LEVOTHYROXINE 50 MCG TAB PO SCH (09:44)
[2020-09-12] MEDS: guaiFENesin 600 MG TABLET.ER PO SCH ×2 (09:44→19:57)
[2020-09-12] MEDS: BACLOFEN 10 MG TAB PO SCH ×4 (09:44→19:57)
[2020-09-12] MEDS: OXYBUTYNIN CHLORIDE 5 MG TAB PO SCH ×3 (09:45→19:59)
[2020-09-12] MEDS: MUPIROCIN 2% OINT 22 GM TUBE TOPICAL SCH ×3 (09:46→19:59)
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
[2020-09-12] MEDS: NA PHOS,M-B/NA PHOS,DI-BA 133 ML ENEMA RECTAL SCH (11:43)
[2020-09-12] MEDS: SODIUM CHLORIDE 0.9% 1,000 ML IV SCH (14:52)
[2020-09-12] MEDS: DOCUSATE 100 MG CAP PO SCH ×2 (15:00→19:59)
[2020-09-12] MEDS: MULTIVITAMINS, THERA 1 EACH TAB PO SCH (15:00)
[2020-09-12] MEDS: GABAPENTIN 300 MG CAP PO SCH ×2 (15:01→19:58)
[2020-09-12] MEDS: FLUDROCORTISONE 0.1 MG TAB PO SCH (15:01)
[2020-09-12] MEDS: NOREPINEPHRINE 32 MG in SODIUM CHLORIDE 0.9% 218 ML IV SCH (15:09)
[2020-09-12 15:59] LABS: Glucose,Whole Blood 93 mg/dL (75-99)
[2020-09-12] MEDS: LEVOFLOXACIN 750MG-D5W PMX 750 MG in DEXTROSE/WATER 1 150ML.BAG IVPB SCH (18:03)
[2020-09-12] MEDS: QUEtiapine 100 MG TAB PO SCH (19:59)
[2020-09-12] MEDS: HYDROcodone/APAP 5-325MG 1 EACH TAB PO PRN (20:15)
[2020-09-12] MEDS: ERTAPENEM 1 GM in SODIUM CHLORIDE 0.9% 50 ML IVPB SCH (22:42)
[2020-09-13] MEDS ORDERED: VANCOMYCIN TROUGH DUE 1 EACH MISC MISCELLANE ONE (02:00)
[2020-09-13] MEDS: VANCOMYCIN 1,000 MG in SODIUM CHLORIDE 0.9% 250 ML IVPB SCH (02:53)
[2020-09-13 03:28] LABS: Basophils % (A) 1 %; Eosinophils # (A) 0.2 k/uL (0-0.7); Eosinophils % (A) 4 %; HCT 33.4 % (39.0-53.0); HGB 10.8 gm/dL (13.0-17.5); Lymphocytes # (A) 0.9 k/uL (1.0-4.8); Lymphocytes % (A) 20 %; MCH 28.3 pg (25.0-35.0); MCHC 32.2 g/dL (31.0-37.0); MCV 87.9 fL (80.0-100.0); Mean Platelet Volume 8.1; Monocytes # (A) 0.3 k/uL (0-1.0); Monocytes % (A) 7 %; Neutrophils # (A) 2.8 k/uL (1.3-7.7); Neutrophils % (A) 66 %; Platelet Count 114 k/uL (150-450); RDW 14.8 % (11.5-15.5); WBC 4.2 k/uL (3.8-10.6)
[2020-09-13 03:41] LABS: African American GFR (CKD) >90 (>60 ml/min/1.73 sqM); Anion Gap 7 mmol/L; Blood Urea Nitrogen 3 mg/dL (9-20); Calcium 7.7 mg/dL (8.4-10.2); Carbon Dioxide 25 mmol/L (22-30); Chloride 103 mmol/L (98-107); Glucose 77 mg/dL (74-99); Magnesium 1.6 mg/dL (1.6-2.3); Non-African American GFR(CKD) >90 (>60 ml/min/1.73 sqM); Potassium 3.4 mmol/L (3.5-5.1); Sodium 135 mmol/L (137-145)
[2020-09-13] MEDS: POTASSIUM CHLORIDE ER 20 MEQ TAB.ER PO SCH ×2 (05:20→06:21)
[2020-09-13] MEDS: IPRATROPIUM-ALBUTEROL 3 ML NEB INHALATION SCH ×4 (06:01→21:21)
[2020-09-13] MEDS: BACLOFEN 10 MG TAB PO SCH ×4 (09:28→20:03)
[2020-09-13] MEDS: guaiFENesin 600 MG TABLET.ER PO SCH ×2 (09:28→20:04)
[2020-09-13] MEDS: LEVOTHYROXINE 50 MCG TAB PO SCH (09:29)
[2020-09-13] MEDS: polyethylene glycoL 3350 17 GM POWD.PACK PO SCH (09:30)
[2020-09-13] MEDS: OXYBUTYNIN CHLORIDE 5 MG TAB PO SCH ×3 (09:30→20:56)
[2020-09-13] MEDS ORDERED: Magnesium Replacement Protocol 1 EACH MISC MISCELLANE PRN (10:19)
[2020-09-13] MEDS: MAGNESIUM SULFATE-D5W PMX 1 GM in DEXTROSE/WATER 1 100ML.BAG IVPB SCH ×2 (10:44→11:57)
[2020-09-13] MEDS ORDERED: VANCOMYCIN 1,250 MG in SODIUM CHLORIDE 0.9% 250 ML IVPB SCH (11:00)
[2020-09-13] MEDS: MUPIROCIN 2% OINT 22 GM TUBE TOPICAL SCH ×3 (11:59→20:57)
[2020-09-13] MEDS ORDERED: LIDOCAINE 1% INJ 10MG/ML (20 ML MDV) ONE (12:20)
[2020-09-13] MEDS: LIDOCAINE 1% INJ 10MG/ML (20 ML MDV) SQ ONE ×2 (12:47→13:05)
--- NOTE | 2020-09-13 13:42 | XR ---
EXAMINATION TYPE: XR chest 1V confirm line plcmt DATE OF EXAM: 09/13/2020 COMPARISON: 09/11/2020 HISTORY: Cough TECHNIQUE: Single frontal view of the chest is obtained. FINDINGS: Postsurgical change involving the cervical spine noted there is a left-sided PICC line ext ending into the jugular vein. Correlate for repositioning. Bilateral areas of infiltrate and pleural effusion are stable. Heart is enlarged. No pneumothorax. IMPRESSION: 1. Bilateral infiltrates are stable with small effusions. 2. PICC line appears within the left jugular vein and repositioning recommended.
--- NOTE | 2020-09-13 13:43 | XR ---
EXAMINATION TYPE: XR chest 1V portable DATE OF EXAM: 09/13/2020 COMPARISON: 09/13/2020 HISTORY: PICC line placement TECHNIQUE: Single frontal view of the chest is obtained. FINDINGS: Bilateral infiltrate and pleural effusion stable. Cardiomegaly and postsurgical change cer vical spine stable. No pneumothorax. PICC line seen with the tip overlying the caval atrial junction. No pneumothorax. IMPRESSION: 1. PICC line appears in good position. 2. Stable diffuse bilateral infiltrate and small effusion.
--- NOTE | 2020-09-13 13:43 | XR ---
EXAMINATION TYPE: XR chest 1V portable DATE OF EXAM: 09/13/2020 COMPARISON: 09/13/2020 HISTORY: PICC line placement TECHNIQUE: Single frontal view of the chest is obtained. FINDINGS: There is a left PICC line with its tip projecting superiorly at the SVC confluence. This s hould be redirected inferiorly. Heart size is grossly enlarged. Patchy left perihilar and basilar air space opacity appear stable since prior exam. Right basilar airspace opacity is less prominent, stabl e. Small left pleural effusion. No right pleural effusion. No pneumothorax. IMPRESSION: 1. Left PICC line with its tip projecting superiorly at the SVC confluence. This should be redirected inferiorly. 2. Cardiomegaly. 3. Patchy bibasilar airspace opacities are stable. Small left pleural effusion.
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
--- NOTE | 2020-09-13 14:45 | IR ---
EXAMINATION TYPE: IR cvc insert >=5 years DATE OF EXAM: 09/13/2020 COMPARISON: NONE HISTORY: Neck, Needs long-term intravenous access for total parenteral nutrition, antibiotics FINDINGS: Maximal barrier technique was utilized. Hand hygiene obtained with soap and water and alco hol-based hand rub. The skin overlying the right upper extremity vein was localized with ultrasound a nd noted to be compressible and patent by ultrasound. An ultrasound image was obtained and submitted on patient's chart. Sterile technique utilized with the ultrasound machine. The skin overlying was p repped and draped and Lidocaine used for local anesthesia. A skin christian was made with a scalpel. Acc ess was gained to the vein under direct ultrasound guidance with a 21-gauge needle and a 0.018 inch w luis was advanced but could not be advanced centrally. Despite attempted manipulations the wire and ca theter could not be advanced, sheath was removed, hemostasis achieved by manual compression, attentio n directed to the left basilic vein. Using similar technique, ultrasound was used, the vein was noted to be compressible and patent by ultrasound. Lidocaine was used for local anesthesia and a skin christian made with a scalpel. Access gained with a 21-gauge needle and a 0.018 inch wire was advanced central ly. Access site was dilated with a peel-away sheath and the catheter tailored to length. Catheter ad vanced centrally and a post procedure chest x-ray verified placement with tip at the superior vena ca va. Catheter was fixed to the skin and a sterile dressing placed. Hemostasis achieved and the wyatt ter was aspirated and flushed with sterile saline. The patient remained in stable condition. IMPRESSION: STATUS POST ULTRASOUND GUIDED PICC LINE PLACEMENT, READY FOR USE. THIS PROCEDURE WAS PER FORMED BY THE UNDERSIGNED.
[2020-09-13] MEDS: DOCUSATE 100 MG CAP PO SCH ×2 (14:49→20:04)
[2020-09-13] MEDS: MULTIVITAMINS, THERA 1 EACH TAB PO SCH (14:50)
[2020-09-13] MEDS: GABAPENTIN 300 MG CAP PO SCH ×2 (14:50→20:04)
[2020-09-13] MEDS: FLUDROCORTISONE 0.1 MG TAB PO SCH (14:52)
--- NOTE | 2020-09-13 17:56 | P.PN ---
Subjective Progress Note Date: 09/13/20 Principal diagnosis: Right lower lobe pneumonia, sepsis, hypotension Mr. Johnson was originally seen by myself in the office Saturday last was determined to have a right lower lobe pneumonia on auscultation patient was sent to the emergency room for probable admission to the hospital for pneumonia. Patient was subsequently evaluated and admitted to the intensive care unit, ere he underwent fluid resuscitation, and started on IV antibiotics was seen at that time by critical care maintenance shop welder Dr. Singh Today patient's remains in the ICU on 2 L nasal cannula sats are 93% currently on Vanco and Levaquin and [facility] infectious disease consultation was added today by Dr. Smalls, this gentleman is a quadriplegic paralyzed from mid chest down No swallowing issues at this time. Pneumonia appears to be bilateral Dr. Mirza suspects aspiration, that is entirely possible I'm not unconvinced that he doesn't have some element of sleep apnea and have had difficulty having sleep studies performed because of his special needs. The culture shows no staph aureuspseudomonas denies shortness of breath does have intermittent episodic chills current temp is 99 blood pressure was 102/86 currently off pressors hemoglobin is 10.8 and normal renal functions at this time Objective - Vital Signs Vital signs: Vital Signs Temp 98.4 F 09/13/20 16:00 Pulse 100 09/13/20 17:00 Resp 17 09/13/20 16:00 BP 112/97 09/13/20 16:00 Pulse Ox 93 L 09/13/20 12:30 Intake & Output 09/12/20 09/13/20 09/13/20 18:59 06:59 18:59 Intake Total 490 1200 550 Output Total 985 2350 1575 Balance -834 -4319 -0042 Intake: Intake, IV Titration 390 550 Amount Magnesium Sulfate-D5w Pmx 200 1 gm In Dextrose/Water 1 100ml.bag @ 100 mls/hr IVPB Q1H ANGELINA Rx#: [id number] Sodium Chloride 0.9% 1, 140 100 000 ml @ 20 mls/hr IV . Q24H ANGELINA Rx#:[id number] Vancomycin 1,000 mg In 250 250 Sodium Chloride 0.9% 250 ml @ 125 mls/hr IVPB Q8H ANGELINA Rx#:[id number] Oral 100 1200 Output: Urine 985 2350 1575 Other: Voiding Method Indwelling Catheter Indwelling Catheter Indwelling Catheter # Bowel Movements 1 - Exam General: [Patient awake, alert and oriented times 3. Patient in no acute distress. Today HEENT: [PERRL. EOMI. No pharyngeal erythema or exudate.] Neck: [No adenopathy.] Cardiac: [Heart regular in rate and rhythm. No S3. No S4. No clicks, rubs. No murmur.] Lungs: Breath sounds slightly diminished bilaterally coarse bibasilar crackles noted Abdomen: [No mass. No organomegaly. Bowel sounds presnt and normoactive in all 4 quadrants.] Extremes: [No edema no cyanosis no claudication normal pulses] : Patient recently had a suprapubic catheter placed Musculoskeletal: [No joint erythema, edema or tenderness. Spastic paralysis noted Skin: No apparent breakdown of skin no decubitus at this time Neurologic: [No lateralizing deficits. CN II - XII grossly intact.] Lymphatic: [No adenopathy.] - Labs CBC & Chem 7: 09/13/20 03:00 09/13/20 03:00 Labs: Abnormal Lab Results - Last 24 Hours (Table) 09/13/20 09/13/20 Range/Units 03:00 03:00 RBC 3.80 L (4.30-5.90) m/uL Hgb 10.8 L (13.0-17.5) gm/dL Hct 33.4 L (39.0-53.0) % Plt Count 114 L (150-450) k/uL Lymphocytes # 0.9 L (1.0-4.8) k/uL Sodium 135 L (137-145) mmol/L Potassium 3.4 L (3.5-5.1) mmol/L BUN 3 L (9-20) mg/dL Creatinine 0.28 L (0.66-1.25) mg/dL Calcium 7.7 L (8.4-10.2) mg/dL Microbiology - Last 24 Hours (Table) 09/09/20 16:00 Blood Culture - Preliminary Blood No Growth after 72 hours 09/09/20 16:28 Blood Culture - Preliminary Blood No Growth after 72 hours 09/10/20 00:01 Urine Culture - Final Urine,Clean Catch Escherichia coli Enterococcus faecalis Assessment and Plan (1) Lactic acidosis Current Visit: Yes Status: Acute Code(s): E87.2 - ACIDOSIS SNOMED Code(s): 64717164 (2) Pneumonia Current Visit: Yes Status: Acute Code(s): J18.9 - PNEUMONIA, UNSPECIFIED ORGANISM SNOMED Code(s): 506327475 (3) Sepsis Current Visit: Yes Status: Acute Code(s): A41.9 - SEPSIS, UNSPECIFIED ORGANISM SNOMED Code(s): 30594288 (4) Suprapubic catheter Current Visit: Yes Status: Acute Code(s): Z93.59 - OTHER CYSTOSTOMY STATUS SNOMED Code(s): 392283910 (5) Dehydration Current Visit: No Status: Acute Code(s): E86.0 - DEHYDRATION SNOMED Code(s): 89792671 (6) Dyspnea Current Visit: No Status: Acute Code(s): R06.00 - DYSPNEA, UNSPECIFIED SNOMED Code(s): 018623739 (7) Hypotension Current Visit: No Status: Acute Code(s): I95.9 - HYPOTENSION, UNSPECIFIED SNOMED Code(s): 25770353 (8) Severe sepsis Current Visit: No Status: Acute Code(s): A41.9 - SEPSIS, UNSPECIFIED ORGANISM; R65.20 - SEVERE SEPSIS WITHOUT SEPTIC SHOCK SNOMED Code(s): 22322235 Plan: Current plan continue IV antibiotics Infectious disease consultation Continue rehydration Discussed possibility of going home on IV antibiotics with PICC line 72 hours of negative cultures and sputum cultures nondiagnostic Quadriplegia by history patient requires turning regularly to prevent decubitus ulcer formation Will continue to follow closely Time with Patient: Greater than 30
[2020-09-13] MEDS: NOREPINEPHRINE 32 MG in SODIUM CHLORIDE 0.9% 218 ML IV SCH (19:52)
[2020-09-13] MEDS: SODIUM CHLORIDE 0.9% 1,000 ML IV SCH (19:53)
[2020-09-13] MEDS: LEVOFLOXACIN 750MG-D5W PMX 750 MG in DEXTROSE/WATER 1 150ML.BAG IVPB SCH (20:54)
[2020-09-13] MEDS: QUEtiapine 100 MG TAB PO SCH (20:56)
[2020-09-13] MEDS: ERTAPENEM 1 GM in SODIUM CHLORIDE 0.9% 50 ML IVPB SCH (22:38)
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
[2020-09-14 01:34] VITALS: RESP 18
[2020-09-14] MEDS: guaiFENesin 600 MG TABLET.ER PO SCH (07:17)
[2020-09-14] MEDS: polyethylene glycoL 3350 17 GM POWD.PACK PO SCH (07:17)
[2020-09-14] MEDS: LEVOTHYROXINE 50 MCG TAB PO SCH (07:17)
[2020-09-14] MEDS: MUPIROCIN 2% OINT 22 GM TUBE TOPICAL SCH ×2 (07:18→16:54)
[2020-09-14] MEDS: NA PHOS,M-B/NA PHOS,DI-BA 133 ML ENEMA RECTAL SCH (08:23)
[2020-09-14] MEDS: IPRATROPIUM-ALBUTEROL 3 ML NEB INHALATION SCH ×3 (08:50→16:37)
[2020-09-14] MEDS: BACLOFEN 10 MG TAB PO SCH ×3 (10:35→16:53)
[2020-09-14] MEDS: OXYBUTYNIN CHLORIDE 5 MG TAB PO SCH ×2 (10:36→14:22)
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
--- NOTE | 2020-09-14 13:48 | P.DS ---
Providers Date of admission: 09/09/20 18:18 Expected date of discharge: 09/14/20 Attending physician: Moise Dubon Consults: 09/09/20 18:18 Consult Physician Stat Consulting Provider: Luiz Singh Consult Reason/Comments: critical care Do you want consulting provider notified?: Already Contacted 09/13/20 08:54 Consult Physician Routine Consulting Provider: Marialuisa Lei Consult Reason/Comments: sepsis Do you want consulting provider notified?: Yes Primary care physician: Sung Fink - Debra Diagnosis(es) (1) Lactic acidosis Current Visit: Yes Status: Acute (2) Pneumonia Current Visit: Yes Status: Acute (3) Sepsis Current Visit: Yes Status: Acute (4) Suprapubic catheter Current Visit: Yes Status: Acute (5) Dehydration Current Visit: No Status: Acute (6) Dyspnea Current Visit: No Status: Acute (7) Hypotension Current Visit: No Status: Acute (8) Severe sepsis Current Visit: No Status: Acute Hospital Course: General: [Patient awake, alert and oriented times 3. Patient in no acute distr ess.] HEENT: [PERRL. EOMI. No pharyngeal erythema or exudate.] Neck: [No adenopathy.] Cardiac: [Heart regular in rate and rhythm. No S3. No S4. No clicks, rubs. No murmur.] Lungs: Breath sounds improved bilaterally Abdomen: [No mass. No organomegaly. Bowel sounds presnt and normoactive in all 4 quadrants.] Extremes: Spastic paralysis all 4 extremes limited use of upper extremes : Suprapubic or pubic catheter inserted, male genitalia Musculoskeletal: [No joint erythema, edema or tenderness.] Skin: [No rash.] Neurologic: [No lateralizing deficits. CN II - XII grossly intact.] Believe his C2 trauma quadriplegia from C2 level Lymphatic: [No adenopathy.] Patient Condition at Discharge: Fair Plan - Discharge Summary Discharge Rx Participant: No New Discharge Prescriptions: New Ertapenem [INVanz] 1 gm IVPB Q24H #10 bag No Action Gabapentin [Neurontin] 600 mg PO BID@1400,2000 Oxybutynin Chloride [Ditropan] 5 mg PO TID@1000,1400,2000 Ubidecarenone [Co Q-10] 100 mg PO BID@1400,2000 Docusate [Colace] 100 mg PO BID@1400,1999 Baclofen [Lioresal] 5 mg PO QID@10,14,18,20 polyethylene glycoL 3350 [Miralax] 17 gm PO SUTUTH Fludrocortisone [Florinef] 0.1 mg PO DAILY@1400 HYDROcodone/APAP 5-325MG [[place] 5-325] 1 tab PO QID PRN PRN Reason: Pain Levothyroxine Sodium [Synthroid] 50 mcg PO DAILY@0900 Omeprazole [PriLOSEC] 20 mg PO DAILY@1800 Vortioxetine Hydrobromide [Trintellix] 10 mg PO DAILY@1000 Na Phos,M-B/Na Phos,Di-Ba [Fleet Adult] 133 ml RECTAL MOWEFR QUEtiapine FUMARATE 50 mg PO HS@2000 Albuterol Inhaler [Ventolin Hfa Inhaler] 1 puff INHALATION RT-QID PRN PRN Reason: Shortness Of Breath D-[place]ose 1 tab PO DAILY@1400 Cetirizine HCl [Zyrtec] 10 mg PO DAILY PRN PRN Reason: Allergy Symptoms [place] Vicky Herbal Laxative 1 cap PO DAILY PRN PRN Reason: Constipation Magnesium Citrate [Citrate of Magnesia] 296 ml PO DAILY PRN PRN Reason: Constipation Ibuprofen [Motrin Ib] 200 - 800 mg PO Q8H PRN PRN Reason: Pain Or Fever > 100.5 Simethicone [Gas-X] 125 mg PO ACHS PRN PRN Reason: gas/bloating Megestrol Acetate 400 mg PO DAILY Loperamide HCl [Imodium A-D] 2 mg PO ACHS PRN PRN Reason: Diarrhea guaiFENesin-DM 100-10MG/5ML [Robitussin DM] 10 ml PO Q4H PRN PRN Reason: cough/ congestion Phenol [Chloraseptic] 1 spray MUCOUS MEM QID PRN PRN Reason: Sore Throat Magnesium Hydroxide [Milk of Magnesia] 3,200 mg PO DAILY PRN PRN Reason: Constipation Multivitamins, Thera [Multivitamin (formulary)] 1 tab PO DAILY@1400 Discharge Medication List Gabapentin [Neurontin] 600 mg PO BID@1399,199904/28/14 [History] Oxybutynin Chloride [Ditropan] 5 mg PO TID@1000,1399,199904/28/14 [History] Ubidecarenone [Co Q-10] 100 mg PO BID@1399,199902/18/15 [History] Docusate [Colace] 100 mg PO BID@1399,199906/28/16 [History] Baclofen [Lioresal] 5 mg PO QID@10,14,18,20 06/12/19 [History] Fludrocortisone [Florinef] 0.1 mg PO DAILY@1400 06/12/19 [History] HYDROcodone/APAP 5-325MG [[place] 5-325] 1 tab PO QID PRN 06/12/19 [History] Levothyroxine Sodium [Synthroid] 50 mcg PO DAILY@0900 06/12/19 [History] Omeprazole [PriLOSEC] 20 mg PO DAILY@1800 06/12/19 [History] Vortioxetine Hydrobromide [Trintellix] 10 mg PO DAILY@1000 06/12/19 [History] polyethylene glycoL 3350 [Miralax] 17 gm PO SUTUTH 06/12/19 [History] Na Phos,M-B/Na Phos,Di-Ba [Fleet Adult] 133 ml RECTAL MOWEFR 04/07/20 [History] Albuterol Inhaler [Ventolin Hfa Inhaler] 1 puff INHALATION RT-QID PRN 04/29/20 [History] D-Mannose 1 tab PO DAILY@139904/29/20 [History] QUEtiapine FUMARATE 50 mg PO HS@199904/29/20 [History] Cetirizine HCl [Zyrtec] 10 mg PO DAILY PRN 09/09/20 [History] Ibuprofen [Motrin Ib] 200 - 800 mg PO Q8H PRN 09/09/20 [History] Loperamide HCl [Imodium A-D] 2 mg PO ACHS PRN 09/09/20 [History] Magnesium Citrate [Citrate of Magnesia] 296 ml PO DAILY PRN 09/09/20 [History] Magnesium Hydroxide [Milk of Magnesia] 3,200 mg PO DAILY PRN 09/09/20 [History] Megestrol Acetate 400 mg PO DAILY 09/09/20 [History] Multivitamins, Thera [Multivitamin (formulary)] 1 tab PO DAILY@1400 09/09/20 [History] Phenol [Chloraseptic] 1 spray MUCOUS MEM QID PRN 09/09/20 [History] Simethicone [Gas-X] 125 mg PO ACHS PRN 09/09/20 [History] [place] Vicky Herbal Laxative 1 cap PO DAILY PRN 09/09/20 [History] guaiFENesin-DM 100-10MG/5ML [Robitussin DM] 10 ml PO Q4H PRN 09/09/20 [History] Ertapenem [INVanz] 1 gm IVPB Q24H #10 bag 09/14/20 [Rx] Follow up Appointment(s)/Referral(s): [facility], [NON-STAFF] - 1-2 Days Sung Fink Jr, [Primary Care Provider] - 1-2 days
[2020-09-14] MEDS: MULTIVITAMINS, THERA 1 EACH TAB PO SCH (14:22)
[2020-09-14] MEDS: FLUDROCORTISONE 0.1 MG TAB PO SCH (14:22)
[2020-09-14] MEDS: GABAPENTIN 300 MG CAP PO SCH (14:22)
[2020-09-14] MEDS: DOCUSATE 100 MG CAP PO SCH (14:24)
--- NOTE | 2020-09-14 14:52 | CDI ---
Documentation Clarification Form Date: 09/14/2020 02:34:57 PM From: Anastasia Calzada RN, CCDS Admit Date: 09/09/2020 06:18:00 PM Patient Name: Mimi Johnson Visit Number: [id number] ATTENTION: The Clinical Documentation Specialists (CDI) and [facility] Coding Staff appreciate your assistance in clarifying documentation. Please respond to the clarification below the line at the bottom and electronically sign. The CDI & [facility] Coding staff will review the response and follow-up if needed. Please note: Queries are made part of the Legal Health Record. If you have any questions, please contact the author of this message via ITS. Dr. Sung Fink UTI with Sepsis is documented and patient has a chronic suprapubic catheter. Additional clarification regarding the etiology of the UTI is requested. History/Risk Factors: Recurrent UTI's, neurogenic bladder, suprapubic catheter, paraplegia, kidney stones, MRSA, ESBL Clinical Indicators: 09/10 Pulmonary consult and Progress notes: "He has a suprapubic catheter was inserted recently by urology. Recurrent urinary tract infection secondary to neurogenic bladder." 09/10 H&P: PMH: "UTI's, chronic Medel catheter now switched to suprapubic catheter April 2020 neurogenic bladder, paraplegic." 09/14 Pulmonary progress notes; "Recurrent urinary tract infection, and urine culture showed ESBL E. coli, Enterococcus faecalis, currently on Invanz ." 09/10 Urinalysis: Dark brown, turbid, +2 Protein, small amount of blood, Large amount of Leukocyte esterase, 40 RBC< >182 WBC, Many WBC Clumps, Occasional bacteria, 181 Hyaline Casts, many Mucus 09/10 Urine culture: + E. coli, + Enterococcus faecalis Treatment: 09/09 Entapenem 1gm IVPB Q 24 hrs. 09/09-09/13 Levaquin 750 mg IVPB Q 24 hrs. 09/09 Vancomycin IVPB PTD Please clarify the etiology of the UTI, if known: [ ] UTI is related to Suprapubic catheter [ ] UTI is not related to Suprapubic catheter [ ] Other condition, please specify [ ] Unable to determine (Template Last Revised: June 2020) _unable to determine, patient was definit. septic, RLL pneumonia. The SP catheter was recently placed,pt. always has UTis. Hence the reason for sp cath. MTDD
[2020-09-14 15:10] VITALS: BP 99/68; TEMP 98.3
[2020-09-14 16:48] VITALS: PULSE 101
[2020-09-14] MEDS: ERTAPENEM 1 GM in SODIUM CHLORIDE 0.9% 50 ML IVPB SCH (16:52)
[2020-09-14] MEDS ORDERED: LEVOFLOXACIN 750 MG TAB PO SCH (18:00)
[2020-09-14] MEDS: NOREPINEPHRINE 32 MG in SODIUM CHLORIDE 0.9% 218 ML IV SCH (19:17)
[2020-09-14] MEDS: SODIUM CHLORIDE 0.9% 1,000 ML IV SCH (19:17)
--- NOTE | 2020-09-16 17:14 | P.PN ---
Progress Note - Text Progress Note Date: 09/14/20 REASON FOR FOLLOWUP: 1. ESBL E. coli urinary tract infection. INTERVAL HISTORY: The patient is afebrile. Patient is breathing comfortably on room air The patient denies having any chest pain. Patient did have occasional cough, not bringing up any sputum. No abdominal pain and no diarrhea PHYSICAL EXAMINATION: Blood pressure is 99/68 with a pulse of 85, temperature 98.4. He is 95% on room air cannula. General description is an middle-aged male lying in bed in no distress. Respiratory system: Unlabored breathing, decreased breath sounds, no wheeze. HEART: S1, S2. Regular rate and rhythm. ABDOMEN: Soft, no tenderness. LABS: Reviewed DIAGNOSTIC IMPRESSION AND PLAN: 1. Patient with ESBL E. coli catheter associated urinary tract infection in this patient seemed to be clinically responding to Invanz 1 g daily to continue for another 10 days to finish his course of therapy and close outpatient follow-up
== END 2020-09-14 19:26 | disposition home or self-care (01) | DRG 871 ==
LOC: EC 14:21 → 2SICU 18:18 → 4SSUR 09-13 21:15
PROVIDERS: ADMIT Family Medicine; ATTEND Family Medicine
PROC: 3E033XZ Introduction of Vasopressor into Peripheral Vein, Percutaneous Approach (ICD-10-PCS; 2020-09-09)
PROC: 02HV33Z Insertion of Infusion Device into Superior Vena Cava, Percutaneous Approach (ICD-10-PCS; principal; 2020-09-13 18:20)
DX: A41.9 Sepsis, unspecified organism (principal); J69.0 Pneumonitis due to inhalation of food and vomit; R65.21 Severe sepsis with septic shock; G82.50 Quadriplegia, unspecified; E87.2 Acidosis; Z16.12 Extended spectrum beta lactamase (ESBL) resistance; N39.0 Urinary tract infection, site not specified; Z20.822 Contact with and (suspected) exposure to COVID-19; S14.106D Unspecified injury at C6 level of cervical spinal cord, subsequent encounter; B96.20 Unspecified Escherichia coli [E. coli] as the cause of diseases classified elsewhere; B95.2 Enterococcus as the cause of diseases classified elsewhere; G47.33 Obstructive sleep apnea (adult) (pediatric); Z87.440 Personal history of urinary (tract) infections; N31.9 Neuromuscular dysfunction of bladder, unspecified; Z88.0 Allergy status to penicillin; Z88.1 Allergy status to other antibiotic agents; F32.9 Major depressive disorder, single episode, unspecified; Z86.14 Personal history of Methicillin resistant Staphylococcus aureus infection; E87.6 Hypokalemia; L01.00 Impetigo, unspecified; Z79.52 Long term (current) use of systemic steroids; Z79.890 Hormone replacement therapy; Z79.899 Other long term (current) drug therapy; Z87.01 Personal history of pneumonia (recurrent); R21 Rash and other nonspecific skin eruption; R77.8 Other specified abnormalities of plasma proteins; Z81.1 Family history of alcohol abuse and dependence
CPT/HCPCS: 36415; 36573; 71045; 80048; 80053; 80202; 81001; 82565; 83605; 83735; 84132; 84145; 84484; 85025; 85610; 85730; 87040; 87070; 87077; 87086; 87186; 87205; 87635; 93005; 94640; 94660; 94664; 94667; 94668; 96360; 96361; 99291

== ENCOUNTER 2021-01-05 20:29 | Emergency (ER) | payer OTHER ==
[2021-01-05 20:38] VITALS: BP 115/84; PULSE 64; RESP 16; TEMP 98.3
[2021-01-05] MEDS ORDERED: SULFAMETHOX-TMP 800-160MG 1 EACH TAB PO STA (23:00)
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
== END 2021-01-05 23:52 | disposition home or self-care (01) ==
LOC: EEVIPCON 20:29 → EC 20:29
DX: N39.0 Urinary tract infection, site not specified (principal); F32.9 Major depressive disorder, single episode, unspecified; F41.9 Anxiety disorder, unspecified; Z79.899 Other long term (current) drug therapy; Z79.890 Hormone replacement therapy; Z79.1 Long term (current) use of non-steroidal anti-inflammatories (NSAID); Z79.51 Long term (current) use of inhaled steroids; Z88.0 Allergy status to penicillin; Z88.2 Allergy status to sulfonamides; Z88.1 Allergy status to other antibiotic agents
CPT/HCPCS: 99283

== ENCOUNTER 2021-01-06 01:05 | Emergency (ER) | payer OTHER ==
[2021-01-06 01:13] LABS: Glucose,Whole Blood 103 mg/dL (75-99)
[2021-01-06 01:22] VITALS: TEMP 98.4
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
[2021-01-06 03:24] VITALS: RESP 18
--- NOTE | 2021-01-06 04:00 | XR ---
EXAMINATION TYPE: XR Hip Complete LT DATE OF EXAM: 01/06/2021 COMPARISON: NONE HISTORY: Left hip pain TECHNIQUE: 2 views FINDINGS: There is osteopenia. There is some narrowing of the hip joint space. I see no fracture nor dislocation. Acetabulum is intact. IMPRESSION: No fracture seen.
[2021-01-06] MEDS ORDERED: IBUPROFEN 400 MG TAB PO STA (04:33)
[2021-01-06 06:12] VITALS: BP 106/65; PULSE 79
== END 2021-01-06 06:58 | disposition home or self-care (01) ==
LOC: EC 01:05
DX: F39 Unspecified mood [affective] disorder (principal); F41.9 Anxiety disorder, unspecified; F32.9 Major depressive disorder, single episode, unspecified; Z88.0 Allergy status to penicillin; Z88.1 Allergy status to other antibiotic agents; Z88.2 Allergy status to sulfonamides; Z87.440 Personal history of urinary (tract) infections
CPT/HCPCS: 36415; 73502; 82075; 99284

== ENCOUNTER 2021-01-07 01:57 | Emergency (ER) | payer OTHER ==
[2021-01-07 02:29] VITALS: TEMP 98.1
--- NOTE | 2021-01-07 04:26 | CT ---
EXAMINATION TYPE: CT brain brian [place] DATE OF EXAM: 01/07/2021 COMPARISON: None HISTORY: fall/pain CT DLP: 1542.7 mGycm Automated exposure control for dose reduction was used. Images obtained of the brain and cervical spine without contrast ventricles have normal size. There i s no mass effect nor midline shift. There is no sign of intracranial hemorrhage. Calvarium is intact. Cervical vertebra show mild straightening. There is old anterior fusion surgery from C4 to C6. There is no subluxation. I see no cervical spine compression fracture. IMPRESSION: Negative CT scan of the brain. Multilevel fusion surgery in the cervical spine. No fracture seen.
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
[2021-01-07 06:04] VITALS: BP 112/64; PULSE 88; RESP 18
== END 2021-01-07 06:25 | disposition home or self-care (01) ==
LOC: SUPCPDRO 01:57 → EC 01:57
DX: Z04.3 Encounter for examination and observation following other accident (principal); F41.9 Anxiety disorder, unspecified; F32.9 Major depressive disorder, single episode, unspecified; Z88.0 Allergy status to penicillin; Z88.1 Allergy status to other antibiotic agents; Z88.2 Allergy status to sulfonamides; Z87.440 Personal history of urinary (tract) infections
CPT/HCPCS: 70450; 72125; 99284

== ENCOUNTER 2021-01-18 08:20 | Emergency (ER) | payer OTHER ==
[2021-01-18] MEDS ORDERED: SODIUM CHLORIDE 0.9% 1,000 ML IV STA (08:48)
[2021-01-18] MEDS ORDERED: SODIUM CHLORIDE 0.9% 500 ML 500 ML IV STA (08:48)
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
--- NOTE | 2021-01-18 09:09 | XR ---
EXAMINATION TYPE: XR chest 2V DATE OF EXAM: 01/18/2021 COMPARISON: 09/13/2020 INDICATION: Chest pain TECHNIQUE: Frontal and lateral views of the chest are obtained. FINDINGS: The heart size is normal. The pulmonary vasculature is normal. The lungs are clear. PICC line enters on the left tip in distal superior vena cava region. IMPRESSION: 1. No acute pulmonary process.
[2021-01-18 10:07] LABS: ALT 18 U/L (4-49); AST 23 U/L (17-59); African American GFR (CKD) >90 (>60 ml/min/1.73 sqM); Albumin 3.8 g/dL (3.5-5.0); Alkaline Phosphatase 214 U/L (38-126); Anion Gap 10 mmol/L; Blood Urea Nitrogen 9 mg/dL (9-20); Calcium 8.8 mg/dL (8.4-10.2); Carbon Dioxide 27 mmol/L (22-30); Chloride 106 mmol/L (98-107); Glucose 98 mg/dL (74-99); Lipase 264 U/L (23-300); Magnesium 2.2 mg/dL (1.6-2.3); Non-African American GFR(CKD) >90 (>60 ml/min/1.73 sqM); Sodium 143 mmol/L (137-145); Total Bilirubin 0.5 mg/dL (0.2-1.3); Total Protein 7.2 g/dL (6.3-8.2)
[2021-01-18 10:10] LABS: Basophils % (A) 0 %; Eosinophils # (A) 0.1 k/uL (0-0.7); Eosinophils % (A) 1 %; HCT 43.8 % (39.0-53.0); HGB 14.5 gm/dL (13.0-17.5); Lymphocytes # (A) 1.4 k/uL (1.0-4.8); Lymphocytes % (A) 15 %; MCH 27.7 pg (25.0-35.0); MCV 83.7 fL (80.0-100.0); Mean Platelet Volume 9.8; Monocytes # (A) 0.7 k/uL (0-1.0); Monocytes % (A) 8 %; Neutrophils # (A) 6.7 k/uL (1.3-7.7); Neutrophils % (A) 75 %; Platelet Count 221 k/uL (150-450); RBC 5.23 m/uL (4.30-5.90); RDW 14.5 % (11.5-15.5)
[2021-01-18 10:40] LABS: Appearance,Urine Cloudy (Clear); Bilirubin,Urine Negative (Negative); Blood,Urine Negative (Negative); Budding Yeast,Urine Many /hpf; Color,Urine Colorless; Glucose,Urine (UA) Negative (Negative); Ketones,Urine Negative (Negative); Leukocyte Esterase,Urine Small (Negative); Mucus,Urine Rare /hpf; Nitrite,Urine Negative (Negative); PH, Urine 7.5 (5.0-8.0); Protein,Urine 2+ (Negative); Specific Gravity,Urine 1.005 (1.001-1.035); Squamous Epithelial Cell,Urine <1 /hpf (0-4); Urobilinogen,Urine <2.0 mg/dL (<2.0); WBC,Urine 6 /hpf (0-5)
[2021-01-18] MEDS ORDERED: POTASSIUM CHLORIDE 20 MEQ in WATER FOR INJECTION 1 100ML.BAG IVPB STA (11:44)
[2021-01-18 12:25] VITALS: RESP 20
[2021-01-18 17:46] VITALS: BP 169/94; PULSE 82; TEMP 97.8
== END 2021-01-18 18:35 | disposition home or self-care (01) ==
LOC: EC 08:20
DX: E86.0 Dehydration (principal); E87.6 Hypokalemia; R07.89 Other chest pain; R06.02 Shortness of breath; R42 Dizziness and giddiness; R05 Cough; I10 Essential (primary) hypertension; Z79.899 Other long term (current) drug therapy; Z88.0 Allergy status to penicillin; Z88.2 Allergy status to sulfonamides; Z88.1 Allergy status to other antibiotic agents; Z88.8 Allergy status to other drugs, medicaments and biological substances
CPT/HCPCS: 82075; 36415; 93005; 83880; 80053; 83605; 83690; 83735; 84484; 85025; 81001; 87040; 71046; 99285; 96360; 96361; J3480

== ENCOUNTER 2021-01-19 07:41 | Emergency (ER) | payer OTHER ==
[2021-01-19 08:07] VITALS: BP 154/111; PULSE 93; RESP 18; TEMP 98.8
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
== END 2021-01-19 09:27 | disposition home or self-care (01) ==
LOC: EC 07:41
DX: G82.50 Quadriplegia, unspecified (principal); N39.0 Urinary tract infection, site not specified; F32.9 Major depressive disorder, single episode, unspecified; F41.9 Anxiety disorder, unspecified; Z79.52 Long term (current) use of systemic steroids; Z79.890 Hormone replacement therapy; Z79.899 Other long term (current) drug therapy; Z88.0 Allergy status to penicillin; Z88.1 Allergy status to other antibiotic agents; Z88.2 Allergy status to sulfonamides
CPT/HCPCS: 99283

== ENCOUNTER 2021-02-01 15:59 | Emergency (ER) | payer OTHER ==
[2021-02-01] MEDS ORDERED: hydrALAZINE HCL 20 MG/ML 1 ML VIAL IVP STA (16:42)
[2021-02-01] MEDS ORDERED: ACETAMINOPHEN TAB 500 MG TAB PO STA (16:42)
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
[2021-02-01 18:00] LABS: Basophils # (A) 0.1 k/uL (0-0.2); Basophils % (A) 1 %; Eosinophils # (A) 0.5 k/uL (0-0.7); Eosinophils % (A) 4 %; HCT 38.8 % (39.0-53.0); HGB 12.3 gm/dL (13.0-17.5); Hypochromasia Slight; Lymphocytes % (A) 18 %; MCH 27.4 pg (25.0-35.0); MCHC 31.7 g/dL (31.0-37.0); MCV 86.3 fL (80.0-100.0); Mean Platelet Volume 9.2; Monocytes # (A) 0.6 k/uL (0-1.0); Monocytes % (A) 6 %; Neutrophils # (A) 7.9 k/uL (1.3-7.7); Neutrophils % (A) 70 %; Platelet Count 220 k/uL (150-450); RDW 15.2 % (11.5-15.5); WBC 11.2 k/uL (3.8-10.6)
--- NOTE | 2021-02-01 18:09 | XR ---
EXAMINATION TYPE: XR chest 2V DATE OF EXAM: 02/01/2021 COMPARISON: 01/18/2021 HISTORY: 40 years Male. STUDY INDICATION GIVEN: Fever . TECHNIQUE: Frontal lateral chest radiographs IMPRESSION: Somewhat suboptimal evaluation due to spinal curvature. There is a patchy opacity in the medial aspect of the right lower lobe. There are linear bibasilar op acities. Findings concerning for right lower lobe pneumonia with bibasilar subsegmental atelectasis. The cardiomediastinal silhouette is within normal limit. Leftward midthoracic scoliosis which was not seen on prior study. Partially seen hardware projecting in the cervical spine.
[2021-02-01 18:11] LABS: ALT 18 U/L (4-49); AST 20 U/L (17-59); African American GFR (CKD) >90 (>60 ml/min/1.73 sqM); Albumin 3.8 g/dL (3.5-5.0); Alkaline Phosphatase 223 U/L (38-126); Anion Gap 11 mmol/L; Blood Urea Nitrogen 18 mg/dL (9-20); Calcium 8.9 mg/dL (8.4-10.2); Carbon Dioxide 22 mmol/L (22-30); Chloride 106 mmol/L (98-107); Glucose 98 mg/dL (74-99); Non-African American GFR(CKD) >90 (>60 ml/min/1.73 sqM); Potassium 4.3 mmol/L (3.5-5.1); Sodium 139 mmol/L (137-145); Total Bilirubin 0.4 mg/dL (0.2-1.3); Total Protein 6.9 g/dL (6.3-8.2)
[2021-02-01 19:32] VITALS: TEMP 98.8
[2021-02-01 19:33] LABS: Appearance,Urine Turbid (Clear); Bilirubin,Urine Negative (Negative); Blood,Urine Moderate (Negative); Color,Urine Light Yellow; Glucose,Urine (UA) Negative (Negative); Ketones,Urine Negative (Negative); Leukocyte Esterase,Urine Large (Negative); Mucus,Urine Rare /hpf; Nitrite,Urine Negative (Negative); PH, Urine 7.5 (5.0-8.0); Protein,Urine Trace (Negative); RBC,Urine >182 /hpf (0-5); Specific Gravity,Urine 1.013 (1.001-1.035); Squamous Epithelial Cell,Urine 1 /hpf (0-4); Urobilinogen,Urine <2.0 mg/dL (<2.0); WBC,Urine >182 /hpf (0-5)
[2021-02-01] MEDS ORDERED: cefTRIAXone IN SWFI 1,000 MG/10 ML SYRINGE IVP STA ×2 (20:22→20:23)
[2021-02-01] MEDS ORDERED: IBUPROFEN 600 MG TAB PO STA (20:43)
[2021-02-01 21:18] VITALS: BP 122/78; PULSE 82; RESP 16
== END 2021-02-01 22:40 | disposition home or self-care (01) ==
LOC: EC 15:59
DX: N39.0 Urinary tract infection, site not specified (principal); I10 Essential (primary) hypertension; F32.9 Major depressive disorder, single episode, unspecified; F41.9 Anxiety disorder, unspecified; Z79.890 Hormone replacement therapy; Z79.899 Other long term (current) drug therapy; Z88.0 Allergy status to penicillin; Z88.1 Allergy status to other antibiotic agents; Z88.2 Allergy status to sulfonamides
CPT/HCPCS: 36415; 93005; 80053; 83605; 85025; 81001; 87040; 87086; 71046; 51702; 99284; 96374; 96375; J0360; J0696

== ENCOUNTER 2021-03-01 09:34 | Emergency (ER) | payer OTHER ==
[2021-03-01 09:49] VITALS: RESP 18; TEMP 98.2
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
[2021-03-01 10:12] LABS: Appearance,Urine Cloudy (Clear); Bacteria,Urine Moderate /hpf; Basophils # (A) 0.1 k/uL (0-0.2); Basophils % (A) 1 %; Bilirubin,Urine Negative (Negative); Blood,Urine Negative (Negative); Color,Urine Light Yellow; Eosinophils # (A) 0.3 k/uL (0-0.7); Eosinophils % (A) 4 %; Glucose,Urine (UA) Negative (Negative); HCT 40.4 % (39.0-53.0); HGB 12.9 gm/dL (13.0-17.5); Ketones,Urine Negative (Negative); Leukocyte Esterase,Urine Large (Negative); Lymphocytes # (A) 2.2 k/uL (1.0-4.8); Lymphocytes % (A) 32 %; MCH 27.1 pg (25.0-35.0); MCHC 31.8 g/dL (31.0-37.0); MCV 85.3 fL (80.0-100.0); Mean Platelet Volume 9.3; Monocytes # (A) 0.5 k/uL (0-1.0); Monocytes % (A) 7 %; Mucus,Urine Rare /hpf; Neutrophils # (A) 3.8 k/uL (1.3-7.7); Neutrophils % (A) 54 %; Nitrite,Urine Negative (Negative); PH, Urine 7.5 (5.0-8.0); Platelet Count 178 k/uL (150-450); Protein,Urine Negative (Negative); RBC 4.74 m/uL (4.30-5.90); RBC,Urine 7 /hpf (0-5); RDW 14.5 % (11.5-15.5); Specific Gravity,Urine 1.013 (1.001-1.035); Urobilinogen,Urine <2.0 mg/dL (<2.0); WBC,Urine 81 /hpf (0-5)
[2021-03-01 10:19] LABS: ALT 20 U/L (4-49); AST 24 U/L (17-59); African American GFR (CKD) >90 (>60 ml/min/1.73 sqM); Alkaline Phosphatase 121 U/L (38-126); Anion Gap 9 mmol/L; Blood Urea Nitrogen 20 mg/dL (9-20); Calcium 9.4 mg/dL (8.4-10.2); Carbon Dioxide 23 mmol/L (22-30); Chloride 109 mmol/L (98-107); Glucose 86 mg/dL (74-99); Lipase 371 U/L (23-300); Non-African American GFR(CKD) >90 (>60 ml/min/1.73 sqM); Potassium 4.1 mmol/L (3.5-5.1); Sodium 141 mmol/L (137-145); Total Bilirubin 0.7 mg/dL (0.2-1.3); Total Protein 7.3 g/dL (6.3-8.2)
[2021-03-01] MEDS ORDERED: ERTAPENEM 1 GM in SODIUM CHLORIDE 0.9% 50 ML IVPB STA (11:26)
[2021-03-01 11:57] VITALS: BP 127/91; PULSE 81
== END 2021-03-01 12:18 | disposition home or self-care (01) ==
LOC: EC 09:34
DX: N39.0 Urinary tract infection, site not specified (principal); F32.A Depression, unspecified; F41.9 Anxiety disorder, unspecified; Z79.1 Long term (current) use of non-steroidal anti-inflammatories (NSAID); Z79.899 Other long term (current) drug therapy; Z88.0 Allergy status to penicillin; Z88.1 Allergy status to other antibiotic agents; Z88.2 Allergy status to sulfonamides
CPT/HCPCS: 36415; 93005; 80053; 83690; 85025; 81001; 87086; 87077; 87186; 99284; 96374; J1335

== ENCOUNTER 2021-03-20 18:59 | Emergency (ER) | payer OTHER ==
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
[2021-03-20 21:15] LABS: Amphetamine Screen,Urine Not Detected (NotDetected); Barbiturate Screen,Urine Not Detected (NotDetected); Benzodiazepines Screen,Urine Not Detected (NotDetected); Cocaine Screen,Urine Not Detected (NotDetected); Methadone Screen, Urine Not Detected (NotDetected); Opiate Screen,Urine Not Detected (NotDetected); Oxycodone Screen, Urine Not Detected (NotDetected); Phencyclidine Screen,Urine Not Detected (NotDetected); Tricyclic Antidepressant,Urine Detected (NotDetected); Urn Cannabinoid Scrn Not Detected (NotDetected)
--- NOTE | 2021-03-20 21:15 | XR ---
EXAMINATION TYPE: XR shoulder complete LT DATE OF EXAM: 03/20/2021 COMPARISON: NONE HISTORY: Arm pain TECHNIQUE: 3 views FINDINGS: There is no sign of fracture nor dislocation. Glenohumeral joint is intact. There are no pa thologic calcifications. IMPRESSION: Negative left shoulder exam. No fracture.
[2021-03-21] MEDS ORDERED: SODIUM CHLORIDE 0.9% 50 ML IVPB ONE (04:00)
[2021-03-21] MEDS ORDERED: SOTROVIMAB (EUA) 500 MG in SODIUM CHLORIDE 0.9% 100 ML IVPB ONE (04:00)
[2021-03-21 06:43] VITALS: RESP 20
[2021-03-21 12:34] VITALS: BP 160/90; PULSE 79; TEMP 98.2
--- NOTE | 2021-03-21 14:50 | P.CN ---
Psychiatric Consult - . Consult date: 03/21/21 Consult:: 03/21/21 14:44 Patient was seen for evaluation / triage for suicidal ideation and agitation while at [facility]. Initial clinical certificate was filled out by staff psychologist at [facility]. Upon evaluation in the , the patient endorses chronic suicidal thoughts but denies any active intention and/or plan. He also reports no homicidal ideation, intention, and/or plan with the only caveat that he would do what he can physically to protect himself. He expresses significant mood dysregulation, hypervigilence, and other traits indicative of a personality disorder, specifically Borderline Personality Disorder. He would not benefit from inpatient psychiatric hospitalization at this time and it is recommended that he receive outpatient psychotherapy, with a focus on Dialectical behavioral therapy. The patient presents with no imminent risk of harm to self or others at this time. He is not actively psychotic. He is alert and oriented in all spheres. At this time, there is no significant criterion to fill out a second clinical certificate to violate his autonomy as an individual. Bhupinder Duarte MD
== END 2021-03-21 18:15 | disposition home or self-care (01) ==
LOC: EC 18:59
DX: M25.512 Pain in left shoulder (principal); F32.A Depression, unspecified; F41.9 Anxiety disorder, unspecified; Z79.890 Hormone replacement therapy; Z79.1 Long term (current) use of non-steroidal anti-inflammatories (NSAID); Z79.51 Long term (current) use of inhaled steroids; Z79.899 Other long term (current) drug therapy; Z20.822 Contact with and (suspected) exposure to COVID-19; Y09 Assault by unspecified means
CPT/HCPCS: 80306; 82075; 87635; 99284

== ENCOUNTER 2021-05-22 12:51 | Inpatient (IN) | payer OTHER ==
[2021-05-22 14:51] LABS: Appearance,Urine Turbid (Clear); Bacteria,Urine Occasional /hpf; Bilirubin,Urine Negative (Negative); Blood,Urine Large (Negative); Color,Urine Yellow; Glucose,Urine (UA) Negative (Negative); Ketones,Urine 1+ (Negative); Leukocyte Esterase,Urine Large (Negative); Mucus,Urine Many /hpf; Nitrite,Urine Positive (Negative); Protein,Urine 3+ (Negative); RBC,Urine >182 /hpf (0-5); Specific Gravity,Urine 1.023 (1.001-1.035); Squamous Epithelial Cell,Urine 4 /hpf (0-4); WBC,Urine >182 /hpf (0-5)
[2021-05-22 15:24] LABS: Basophils % (A) 1 %; Eosinophils # (A) 0.2 k/uL (0-0.7); Eosinophils % (A) 3 %; HGB 14.5 gm/dL (13.0-17.5); Lymphocytes # (A) 2.1 k/uL (1.0-4.8); Lymphocytes % (A) 32 %; MCH 26.9 pg (25.0-35.0); MCHC 32.3 g/dL (31.0-37.0); MCV 83.5 fL (80.0-100.0); Mean Platelet Volume 9.5; Monocytes # (A) 0.3 k/uL (0-1.0); Monocytes % (A) 5 %; Neutrophils # (A) 3.7 k/uL (1.3-7.7); Neutrophils % (A) 58 %; Platelet Count 138 k/uL (150-450); RBC 5.39 m/uL (4.30-5.90); RDW 15.5 % (11.5-15.5); WBC 6.4 k/uL (3.8-10.6)
[2021-05-22] MEDS: SODIUM CHLORIDE 0.9% 500 ML 500 ML IV SCH ×2 (15:30→16:02)
[2021-05-22 15:40] LABS: ALT 37 U/L (4-49); AST 33 U/L (17-59); African American GFR (CKD) >90 (>60 ml/min/1.73 sqM); Albumin 4.2 g/dL (3.5-5.0); Alkaline Phosphatase 106 U/L (38-126); Anion Gap 11 mmol/L; Blood Urea Nitrogen 8 mg/dL (9-20); Calcium 9.2 mg/dL (8.4-10.2); Carbon Dioxide 18 mmol/L (22-30); Chloride 106 mmol/L (98-107); Glucose 86 mg/dL (74-99); Non-African American GFR(CKD) >90 (>60 ml/min/1.73 sqM); Sodium 135 mmol/L (137-145); Total Bilirubin 0.8 mg/dL (0.2-1.3); Total Protein 7.8 g/dL (6.3-8.2)
[2021-05-22 15:45] LABS: Potassium 4.3 mmol/L (3.5-5.1)
--- NOTE | 2021-05-22 16:08 | XR ---
EXAMINATION TYPE: XR chest 1V portable DATE OF EXAM: 05/22/2021 COMPARISON: 02/01/2021 HISTORY: Chest pain TECHNIQUE: Single frontal view of the chest is obtained. FINDINGS: There is no focal air space opacity, pleural effusion, or pneumothorax seen. The cardiac silhouette size is within normal limits. The osseous structures are intact. Scoliotic curvature noted. IMPRESSION: 1. No acute process.
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
[2021-05-22] MEDS ORDERED: SODIUM CHLORIDE 0.9% 500 ML 500 ML IV STA (17:17)
[2021-05-22 17:48] LABS: Appearance,Urine Cloudy (Clear); Bacteria,Urine Rare /hpf; Bilirubin,Urine Negative (Negative); Blood,Urine Moderate (Negative); Color,Urine Light Yellow; Glucose,Urine (UA) Negative (Negative); Hyaline Casts,Urine 3 /lpf (0-2); Ketones,Urine Negative (Negative); Leukocyte Esterase,Urine Large (Negative); Mucus,Urine Few /hpf; Nitrite,Urine Negative (Negative); Protein,Urine Trace (Negative); RBC,Urine 16 /hpf (0-5); Specific Gravity,Urine 1.005 (1.001-1.035); Squamous Epithelial Cell,Urine 2 /hpf (0-4); Urobilinogen,Urine <2.0 mg/dL (<2.0); WBC,Urine >182 /hpf (0-5)
[2021-05-22] MEDS ORDERED: ERTAPENEM 1 GM in SODIUM CHLORIDE 0.9% 50 ML IVPB STA (18:22)
[2021-05-22] MEDS ORDERED: ACETAMINOPHEN TAB 325 MG TAB PO PRN (18:23)
[2021-05-22] MEDS ORDERED: NALOXONE 0.4 MG/ML 1 ML VIAL IV PRN (18:23)
[2021-05-22] MEDS: SODIUM CHLORIDE 0.9% 1,000 ML IV SCH (19:21)
[2021-05-22] MEDS ORDERED: diphenhydrAMINE 50 MG CAP PO PRN (20:30)
[2021-05-22] MEDS ORDERED: HYDROcodone/APAP 5-325MG 1 EACH TAB PO PRN (20:30)
[2021-05-22] MEDS ORDERED: HYDROCORTISONE 1% CREAM 30 GM TUBE TOPICAL PRN (20:30)
[2021-05-22] MEDS ORDERED: NA PHOS,M-B/NA PHOS,DI-BA 133 ML ENEMA RECTAL PRN (20:30)
[2021-05-22] MEDS ORDERED: PANTOPRAZOLE 40 MG TABLET PO PRN (20:30)
[2021-05-22] MEDS ORDERED: ALBUTEROL NEBULIZED 2.5 MG/3 ML INHALATION PRN (20:30)
[2021-05-22] MEDS ORDERED: ARTIFICIAL TEARS-HYPROMELLOSE DROPS 15 ML BTL BOTH EYES PRN (20:30)
[2021-05-22] MEDS ORDERED: IBUPROFEN 800 MG TAB PO PRN (20:30)
[2021-05-22] MEDS ORDERED: D MANNOSE PO SCH (21:00)
[2021-05-22] MEDS ORDERED: CRANBERRY PO SCH (21:00)
[2021-05-22] MEDS: OXYBUTYNIN CHLORIDE 5 MG TAB PO SCH (21:40)
[2021-05-22] MEDS: FLUDROCORTISONE 0.1 MG TAB PO SCH (21:40)
[2021-05-22] MEDS: GABAPENTIN 300 MG CAP PO SCH (21:40)
[2021-05-22] MEDS: ASCORBIC ACID 500 MG TAB PO SCH (21:40)
[2021-05-22] MEDS: BACLOFEN 10 MG TAB PO SCH (21:40)
[2021-05-22] MEDS: SERTRALINE 100 MG TAB PO SCH (21:40)
[2021-05-22] MEDS: DOCUSATE 100 MG CAP PO SCH (21:41)
[2021-05-23] MEDS: SODIUM CHLORIDE 0.9% 1,000 ML IV SCH ×3 (03:30→17:00)
[2021-05-23] MEDS: LEVOTHYROXINE 50 MCG TAB PO SCH (05:15)
[2021-05-23 07:18] LABS: African American GFR (CKD) >90 (>60 ml/min/1.73 sqM); Anion Gap 11 mmol/L; Blood Urea Nitrogen 6 mg/dL (9-20); Calcium 9.4 mg/dL (8.4-10.2); Carbon Dioxide 18 mmol/L (22-30); Chloride 113 mmol/L (98-107); Glucose 97 mg/dL (74-99); Non-African American GFR(CKD) >90 (>60 ml/min/1.73 sqM); Potassium 4.6 mmol/L (3.5-5.1); Sodium 142 mmol/L (137-145)
[2021-05-23] MEDS: polyethylene glycoL 3350 17 GM POWD.PACK PO SCH (07:49)
[2021-05-23] MEDS: SERTRALINE 100 MG TAB PO SCH ×2 (07:50→20:12)
[2021-05-23] MEDS: DOCUSATE 100 MG CAP PO SCH ×2 (07:50→20:12)
[2021-05-23] MEDS: OXYBUTYNIN CHLORIDE 5 MG TAB PO SCH ×2 (07:50→20:13)
[2021-05-23] MEDS: GABAPENTIN 300 MG CAP PO SCH ×2 (07:50→20:13)
[2021-05-23] MEDS: BACLOFEN 10 MG TAB PO SCH ×2 (07:51→20:13)
[2021-05-23] MEDS: FLUDROCORTISONE 0.1 MG TAB PO SCH ×2 (07:51→20:12)
[2021-05-23] MEDS: MULTIVITAMINS, THERA 1 EACH TAB PO SCH (07:51)
[2021-05-23] MEDS: CHOLECALCIFEROL 25 MCG (1000 IU) TABLET PO SCH (07:51)
[2021-05-23] MEDS: ASCORBIC ACID 500 MG TAB PO SCH ×2 (07:51→20:10)
[2021-05-23] MEDS: VORTIOXETINE HYDROBROMIDE 10 MG TABLET PO SCH (07:52)
[2021-05-23] MEDS ORDERED: amLODIPine 5 MG TAB PO SCH (09:00)
[2021-05-23] MEDS ORDERED: NON FORMULARY DRUG (Ubidecarenone [Coenzyme Q10] 50 MG Capsule) PO SCH (09:00)
[2021-05-23 09:26] LABS: Basophils # (A) 0.1 k/uL (0-0.2); Basophils % (A) 1 %; Eosinophils # (A) 0.4 k/uL (0-0.7); Eosinophils % (A) 5 %; HCT 51.3 % (39.0-53.0); HGB 16.4 gm/dL (13.0-17.5); Hypochromasia Slight; Lymphocytes # (A) 2.3 k/uL (1.0-4.8); Lymphocytes % (A) 32 %; MCH 27.7 pg (25.0-35.0); MCHC 32.1 g/dL (31.0-37.0); MCV 86.3 fL (80.0-100.0); Mean Platelet Volume 14.5; Monocytes # (A) 0.5 k/uL (0-1.0); Monocytes % (A) 7 %; Neutrophils # (A) 3.8 k/uL (1.3-7.7); Neutrophils % (A) 52 %; RBC 5.94 m/uL (4.30-5.90); RDW 15.5 % (11.5-15.5); WBC 7.2 k/uL (3.8-10.6)
[2021-05-23] MEDS: ERTAPENEM 1 GM in SODIUM CHLORIDE 0.9% 50 ML IVPB SCH (11:23)
[2021-05-23] MEDS ORDERED: PANTOPRAZOLE 40 MG/10 ML VIAL IVP SCH (12:00)
[2021-05-23 12:13] LABS: Platelet Count 155 k/uL (150-450)
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
--- NOTE | 2021-05-23 14:42 | XR ---
Left foot HISTORY: Pain, metatarsal fracture follow-up 3 views of the left foot correlated to prior exam 10/15/2016 Local thickening of the proximal first metatarsal is present. Bone mineralization is reduced. Distal second through fourth metatarsals show a similar irregular appearance. There is soft tissue swelling present. There is a plantar cannula spur. IMPRESSION: Low bone mineralization may limit evaluation. Posttraumatic changes. Likely to be healed.
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
[2021-05-23] MEDS: QUEtiapine 100 MG TAB PO SCH (17:00)
--- NOTE | 2021-05-23 19:41 | CT ---
EXAMINATION TYPE: CT abdomen pelvis wo con CT DLP: 706.5 mGycm, Automated exposure control for dose reduction was used. DATE OF EXAM: 05/23/2021 6:05 PM COMPARISON: None.. CT abdomen pelvis most recent from . CLINICAL INDICATION:Male, 40 years old with history of Stones; Abdominal pain. TECHNIQUE: Standard CT of the abdomen and pelvis without IV or oral contrast. Lack of IV or oral co ntrast limits evaluation of solid and hollow organ viscera. Coronal and sagittal reformats were perfo rmed. FINDINGS: LOWER CHEST: Unremarkable ABDOMEN LIVER: Unremarkable GALLBLADDER AND BILE DUCTS: Unremarkable. PANCREAS: Unremarkable. SPLEEN: Unremarkable. ADRENAL GLANDS: Unremarkable. KIDNEYS AND URETERS: No evidence of hydronephrosis or renal calculus. The ureters are unremarkable. Similar left renal cysts. PELVIS BLADDER: Nondistended with Medel catheter in place. Subtle high density linear area the Medel balloon which may represent a calculus. REPRODUCTIVE: Unremarkable. ABDOMEN & PELVIS STOMACH AND BOWEL: No evidence of bowel obstruction. Few scattered colonic diverticula are present. PERITONEUM: No evidence of pneumoperitoneum or free fluid. VASCULATURE: No evidence of aortic aneurysm. MUSCULOSKELETAL: No acute osseous abnormalities moderate diffuse osteopenia noted throughout the osse ous structures LYMPH NODES: No gross evidence for lymphadenopathy. SOFT TISSUE/ABDOMINAL WALL: Unremarkable IMPRESSION: 1. Nondistended bladder with Medel catheter in place and inflammatory changes around the bladder, co rrelate with urinalysis for cystitis. Subtle high density linear lesion next to the balloon which may represent a calculus. 2. Diffuse osseous demineralization. 3. Colonic diverticulosis.
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
[2021-05-24] MEDS: SODIUM CHLORIDE 0.9% 1,000 ML IV SCH ×3 (03:20→15:30)
[2021-05-24] MEDS: LEVOTHYROXINE 50 MCG TAB PO SCH (06:10)
[2021-05-24] MEDS: PANTOPRAZOLE 40 MG TABLET PO SCH (08:47)
[2021-05-24] MEDS ORDERED: NA PHOS,M-B/NA PHOS,DI-BA 133 ML ENEMA RECTAL SCH (09:00)
[2021-05-24] MEDS: GABAPENTIN 300 MG CAP PO SCH ×2 (09:47→22:27)
[2021-05-24] MEDS: FLUDROCORTISONE 0.1 MG TAB PO SCH ×2 (09:47→22:27)
[2021-05-24] MEDS: MULTIVITAMINS, THERA 1 EACH TAB PO SCH (09:48)
[2021-05-24] MEDS: OXYBUTYNIN CHLORIDE 5 MG TAB PO SCH ×2 (09:49→22:28)
[2021-05-24] MEDS: DOCUSATE 100 MG CAP PO SCH ×2 (09:49→22:27)
[2021-05-24] MEDS: VORTIOXETINE HYDROBROMIDE 10 MG TABLET PO SCH (09:49)
[2021-05-24] MEDS: ASCORBIC ACID 500 MG TAB PO SCH ×2 (09:50→22:27)
[2021-05-24] MEDS: CHOLECALCIFEROL 25 MCG (1000 IU) TABLET PO SCH (09:50)
[2021-05-24] MEDS: BACLOFEN 10 MG TAB PO SCH ×2 (09:50→22:27)
[2021-05-24] MEDS: SERTRALINE 100 MG TAB PO SCH ×2 (09:51→22:28)
[2021-05-24 10:14] LABS: African American GFR (CKD) 173.4 (60.0-200.0); Anion Gap 11.7 mmol/L (10.00-18.00); BUN/Creat Ratio 11.5 Ratio (12.00-20.00); Blood Urea Nitrogen 4.6 mg/dL (9.0-27.0); Calcium 8.3 mg/dL (8.7-10.3); Carbon Dioxide 19.3 mmol/L (20.0-27.5); Non-African American GFR(CKD) 149.6 (60.0-200.0); Potassium 3.8 mmol/L (3.5-5.5)
[2021-05-24 10:15] LABS: Basophils # (A) 0.06 X 10*3/uL (0.00-0.10); Basophils % (A) 1.3 %; Eosinophils # (A) 0.23 X 10*3/uL (0.04-0.35); Eosinophils % (A) 5.1 %; HCT 39.1 % (39.6-50.0); HGB 12.1 g/dL (13.0-17.0); Immature Grans, Automated 0.4 %; Lymphocytes # (A) 1.43 X 10*3/uL (0.90-5.00); Lymphocytes % (A) 31.6 %; MCH 26.4 pg (27.0-32.0); MCHC 30.9 g/dL (32.0-37.0); MCV 85.2 fL (80.0-97.0); Mean Platelet Volume 12.9 fL (9.5-12.2); Monocytes # (A) 0.45 X 10*3/uL (0.20-1.00); NRBC Per 100 WBC 0 /100 WBCS (0.0-0.0); Neutrophils # (A) 2.33 X 10*3/uL (1.80-7.70); Neutrophils % (A) 51.6 %; Platelet Count 175 X 10*3/uL (140-440); RBC 4.59 X 10*6/uL (4.40-5.60); RDW 16.5 % (11.5-14.5); WBC 4.52 X 10*3/uL (4.50-10.00)
[2021-05-24] MEDS: ERTAPENEM 1 GM in SODIUM CHLORIDE 0.9% 50 ML IVPB SCH ×2 (14:02→15:32)
[2021-05-24] MEDS: QUEtiapine 100 MG TAB PO SCH (17:12)
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
[2021-05-25 03:21] VITALS: RESP 16
[2021-05-25] MEDS: LEVOTHYROXINE 50 MCG TAB PO SCH (05:53)
[2021-05-25] MEDS: SODIUM CHLORIDE 0.9% 1,000 ML IV SCH ×2 (05:55→16:38)
[2021-05-25] MEDS: PANTOPRAZOLE 40 MG TABLET PO SCH (07:43)
[2021-05-25] MEDS: GABAPENTIN 300 MG CAP PO SCH (09:48)
[2021-05-25] MEDS: SERTRALINE 100 MG TAB PO SCH (09:49)
[2021-05-25] MEDS: ASCORBIC ACID 500 MG TAB PO SCH (09:49)
[2021-05-25] MEDS: MULTIVITAMINS, THERA 1 EACH TAB PO SCH (09:50)
[2021-05-25] MEDS: BACLOFEN 10 MG TAB PO SCH (09:50)
[2021-05-25] MEDS: DOCUSATE 100 MG CAP PO SCH (09:50)
[2021-05-25] MEDS: CHOLECALCIFEROL 25 MCG (1000 IU) TABLET PO SCH (09:50)
[2021-05-25] MEDS: OXYBUTYNIN CHLORIDE 5 MG TAB PO SCH (09:50)
[2021-05-25] MEDS: FLUDROCORTISONE 0.1 MG TAB PO SCH (09:51)
[2021-05-25] MEDS: polyethylene glycoL 3350 17 GM POWD.PACK PO SCH (09:51)
[2021-05-25] MEDS: VORTIOXETINE HYDROBROMIDE 10 MG TABLET PO SCH (09:59)
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
[2021-05-25 14:37] VITALS: BP 108/72; PULSE 74; TEMP 98.9
[2021-05-25] MEDS: ERTAPENEM 1 GM in SODIUM CHLORIDE 0.9% 50 ML IVPB SCH (15:03)
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
== END 2021-05-25 17:03 | disposition home health service (06) | DRG 698 ==
LOC: EEVIPCON 12:51 → EC 12:51 → 4SSUR 18:23 → OBSVTOIN 05-24 13:00
PROVIDERS: ADMIT Family Medicine; ATTEND Family Medicine
PROC: 05HD33Z Insertion of Infusion Device into Right Cephalic Vein, Percutaneous Approach (ICD-10-PCS; principal; 2021-05-24 16:15)
DX: T83.518A Infection and inflammatory reaction due to other urinary catheter, initial encounter (principal); G82.50 Quadriplegia, unspecified; N30.90 Cystitis, unspecified without hematuria; B95.4 Other streptococcus as the cause of diseases classified elsewhere; I95.9 Hypotension, unspecified; Z20.822 Contact with and (suspected) exposure to COVID-19; Y84.6 Urinary catheterization as the cause of abnormal reaction of the patient, or of later complication, without mention of misadventure at the time of the procedure; E86.0 Dehydration; F32.A Depression, unspecified; G47.33 Obstructive sleep apnea (adult) (pediatric); F41.9 Anxiety disorder, unspecified; N18.9 Chronic kidney disease, unspecified; N31.9 Neuromuscular dysfunction of bladder, unspecified; N36.8 Other specified disorders of urethra; Z79.899 Other long term (current) drug therapy; Z81.1 Family history of alcohol abuse and dependence; Z86.14 Personal history of Methicillin resistant Staphylococcus aureus infection; Z87.440 Personal history of urinary (tract) infections; Z88.1 Allergy status to other antibiotic agents; Z93.59 Other cystostomy status; Z88.0 Allergy status to penicillin; Z88.8 Allergy status to other drugs, medicaments and biological substances; Z88.2 Allergy status to sulfonamides
CPT/HCPCS: 36410; 36415; 71045; 74176; 76937; 80048; 80053; 81001; 83605; 85025; 87040; 87086; 87635; 93005; 94640; 96360; 96361; 99285

== ENCOUNTER → 2021-06-01 | Outpatient (CLI) | payer OTHER ==
[2021-06-01 13:32] LABS: Amorphous Sediment,Urine Rare /hpf; Appearance,Urine Cloudy (Clear); Bacteria,Urine Rare /hpf; Bilirubin,Urine Negative (Negative); Blood,Urine Negative (Negative); Budding Yeast,Urine Many /hpf; Color,Urine Yellow; Glucose,Urine (UA) Negative (Negative); Ketones,Urine Negative (Negative); Leukocyte Esterase,Urine Large (Negative); Mucus,Urine Occasional /hpf; Nitrite,Urine Negative (Negative); PH, Urine 6.5 (5.0-8.0); Protein,Urine Trace (Negative); Specific Gravity,Urine 1.017 (1.001-1.035); Squamous Epithelial Cell,Urine 1 /hpf (0-4); Urobilinogen,Urine <2.0 mg/dL (<2.0); WBC,Urine 85 /hpf (0-5)
[2021-06-01 20:37] LABS: Basophils # (A) 0.06 X 10*3/uL (0.00-0.10); Basophils % (A) 0.9 %; Eosinophils # (A) 0.46 X 10*3/uL (0.04-0.35); Eosinophils % (A) 7.2 %; HCT 43.6 % (39.6-50.0); HGB 13.3 g/dL (13.0-17.0); Immature Grans, Automated 0.2 %; Lymphocytes # (A) 2.11 X 10*3/uL (0.90-5.00); Lymphocytes % (A) 33.2 %; MCH 26.5 pg (27.0-32.0); MCHC 30.5 g/dL (32.0-37.0); MCV 86.9 fL (80.0-97.0); Mean Platelet Volume 14.3 fL (9.5-12.2); Monocytes # (A) 0.41 X 10*3/uL (0.20-1.00); Monocytes % (A) 6.4 %; NRBC Per 100 WBC 0 /100 WBCS (0.0-0.0); Neutrophils # (A) 3.31 X 10*3/uL (1.80-7.70); Neutrophils % (A) 52.1 %; Platelet Count 162 X 10*3/uL (140-440); RBC 5.02 X 10*6/uL (4.40-5.60); RDW 16.8 % (11.5-14.5); WBC 6.36 X 10*3/uL (4.50-10.00)
[2021-06-01 20:41] LABS: African American GFR (CKD) 158.2 (60.0-200.0); Albumin/Globulin Ratio 1.48 (1.60-3.17); Anion Gap 12.4 mmol/L (10.00-18.00); Calcium 8.7 mg/dL (8.7-10.3); Carbon Dioxide 19.6 mmol/L (20.0-27.5); Globulin 2.7 g/dL (1.6-3.3); Non-African American GFR(CKD) 136.5 (60.0-200.0); Potassium 4.3 mmol/L (3.5-5.5); Total Bilirubin 0.2 mg/dL (0.30-1.20); Total Protein 6.7 g/dL (6.2-8.2)
== END | disposition home or self-care (01) ==
LOC: LABPAT 11:33
PROVIDERS: ATTEND Urology
DX: Z01.812 Encounter for preprocedural laboratory examination (principal); N31.9 Neuromuscular dysfunction of bladder, unspecified
CPT/HCPCS: 80053; 81001; 85025; 87086

== ENCOUNTER 2021-06-07 07:29 | Day surgery (SDC) | payer OTHER ==
[2021-06-06 10:39] VITALS: BMI 28.2
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
[~2021-06-07 07:29] MED LIST changes: -DEXAMETHASONE SOD PHOSPHATE 4 MG/ML 1 ML VIAL IV ONE; -GENTAMICIN 120 MG in SODIUM CHLORIDE 0.9% 100 ML IVPB PRN; +GENTAMICIN 140 MG in SODIUM CHLORIDE 0.9% 100 ML IVPB PRN; +LACTATED RINGERS 1,000 ML IV SCH; -ONDANSETRON 4 MG/2 ML VIAL IVP ONE
[2021-06-07 08:43] LABS: Glucose,Whole Blood 86 mg/dL (75-99)
[2021-06-07] MEDS ORDERED: ONDANSETRON 4 MG/2 ML VIAL ONE (08:48)
[2021-06-07] MEDS ORDERED: ONDANSETRON 4 MG/2 ML VIAL IVP ONE (08:51)
[2021-06-07] MEDS ORDERED: DEXAMETHASONE SOD PHOSPHATE 4 MG/ML 1 ML VIAL IV ONE (08:51)
[2021-06-07] MEDS ORDERED: HYDROCORTISONE SUCCINATE 100 MG/2 ML VIAL IV ONE (08:51)
[2021-06-07] MEDS ORDERED: PROPOFOL 10 MG/ML 20 ML VIAL IV ONE (09:39)
[2021-06-07] MEDS ORDERED: fentaNYL (PF) 50 MCG/ML 2 ML AMP ONE (09:39)
[2021-06-07] MEDS ORDERED: hydrALAZINE HCL 20 MG/ML 1 ML VIAL ONE (09:39)
[2021-06-07] MEDS ORDERED: MIDAZOLAM 2 MG/2 ML VIAL ONE (09:39)
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
[2021-06-07 10:29] VITALS: TEMP 98.9
[2021-06-07 10:53] VITALS: RESP 16
[2021-06-07 12:38] VITALS: BP 111/72; PULSE 94
== END 2021-06-07 13:23 ==
LOC: OR 07:29
PROVIDERS: ATTEND Urology
DX: N31.9 Neuromuscular dysfunction of bladder, unspecified (principal); R33.9 Retention of urine, unspecified; G82.50 Quadriplegia, unspecified; Z87.01 Personal history of pneumonia (recurrent); Z86.19 Personal history of other infectious and parasitic diseases; M24.575 Contracture, left foot; M24.574 Contracture, right foot; Z86.14 Personal history of Methicillin resistant Staphylococcus aureus infection; G43.909 Migraine, unspecified, not intractable, without status migrainosus; Z87.442 Personal history of urinary calculi; Z98.890 Other specified postprocedural states; F41.9 Anxiety disorder, unspecified; F32.A Depression, unspecified; R45.4 Irritability and anger; Z81.1 Family history of alcohol abuse and dependence; Z79.890 Hormone replacement therapy; Z79.899 Other long term (current) drug therapy; Z88.1 Allergy status to other antibiotic agents; Z88.0 Allergy status to penicillin; Z88.2 Allergy status to sulfonamides
CPT/HCPCS: 51040; J2250; J0360; J1100; J1720; J2405; J3010; J1580; J2704

== ENCOUNTER 2021-12-20 11:21 | Inpatient (IN) | payer OTHER ==
[2021-12-20] MEDS ORDERED: SODIUM CHLORIDE 0.9% 1,000 ML IV ONE (11:27)
[2021-12-20] MEDS ORDERED: ONDANSETRON 4 MG/2 ML VIAL IVP STA (12:23)
[2021-12-20 12:32] LABS: Basophils % (A) 0 %; Eosinophils # (A) 0.1 k/uL (0-0.7); Eosinophils % (A) 1 %; HCT 46.9 % (39.0-53.0); HGB 14.9 gm/dL (13.0-17.5); Lymphocytes # (A) 1.3 k/uL (1.0-4.8); Lymphocytes % (A) 10 %; MCH 26.6 pg (25.0-35.0); MCHC 31.8 g/dL (31.0-37.0); MCV 83.6 fL (80.0-100.0); Mean Platelet Volume 10.3; Monocytes # (A) 0.9 k/uL (0-1.0); Monocytes % (A) 6 %; Neutrophils # (A) 11.4 k/uL (1.3-7.7); Neutrophils % (A) 82 %; Platelet Count 183 k/uL (150-450); RBC 5.61 m/uL (4.30-5.90); RDW 14.3 % (11.5-15.5)
[2021-12-20] MEDS ORDERED: ERTAPENEM 1 GM in SODIUM CHLORIDE 0.9% 50 ML IVPB STA (12:32)
[2021-12-20 13:12] LABS: Appearance,Urine Cloudy (Clear); Bacteria,Urine Occasional /hpf; Bilirubin,Urine Negative (Negative); Blood,Urine Large (Negative); Color,Urine Yellow; Glucose,Urine (UA) Negative (Negative); Ketones,Urine 1+ (Negative); Leukocyte Esterase,Urine Large (Negative); Mucus,Urine Rare /hpf; Nitrite,Urine Positive (Negative); PH, Urine 7.5 (5.0-8.0); Protein,Urine 2+ (Negative); RBC,Urine 81 /hpf (0-5); Specific Gravity,Urine 1.007 (1.001-1.035); Squamous Epithelial Cell,Urine 1 /hpf (0-4); Triple Phosphate Crystal,Urine Rare /hpf; Urobilinogen,Urine <2.0 mg/dL (<2.0); WBC,Urine 71 /hpf (0-5)
[2021-12-20] MEDS ORDERED: ACETAMINOPHEN TAB 325 MG TAB PO PRN (14:11)
[2021-12-20] MEDS ORDERED: NALOXONE 0.4 MG/ML 1 ML VIAL IV PRN (14:11)
[2021-12-20] MEDS ORDERED: ONDANSETRON 4 MG/2 ML VIAL IVP PRN (14:11)
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
[2021-12-20] MEDS ORDERED: diphenhydrAMINE 25 MG CAP PO PRN (14:13)
[2021-12-20] MEDS ORDERED: HYDROcodone/APAP 5-325MG 1 EACH TAB PO PRN (14:13)
[2021-12-20] MEDS ORDERED: NA PHOS,M-B/NA PHOS,DI-BA 133 ML ENEMA RECTAL PRN (14:13)
[2021-12-20] MEDS ORDERED: ARTIFICIAL TEARS-HYPROMELLOSE DROPS 15 ML BTL BOTH EYES PRN (14:13)
[2021-12-20] MEDS: SODIUM CHLORIDE 0.9% 1,000 ML IV SCH (14:27)
[2021-12-20] MEDS: PANTOPRAZOLE 40 MG/10 ML VIAL IV SCH (16:10)
[2021-12-20 16:39] LABS: ALT 17 U/L (4-49); AST 28 U/L (17-59); African American GFR (CKD) >90 (>60 ml/min/1.73 sqM); Albumin 4.1 g/dL (3.5-5.0); Alkaline Phosphatase 136 U/L (38-126); Anion Gap 15 mmol/L; Blood Urea Nitrogen 5 mg/dL (9-20); Calcium 8.7 mg/dL (8.4-10.2); Carbon Dioxide 18 mmol/L (22-30); Chloride 103 mmol/L (98-107); Glucose 83 mg/dL (74-99); Non-African American GFR(CKD) >90 (>60 ml/min/1.73 sqM); Potassium 3.9 mmol/L (3.5-5.1); Sodium 136 mmol/L (137-145); Total Bilirubin 0.8 mg/dL (0.2-1.3); Total Protein 7.2 g/dL (6.3-8.2)
[2021-12-20] MEDS: ALBUTEROL NEBULIZED 2.5 MG/3 ML INHALATION PRN (19:51)
[2021-12-20] MEDS ORDERED: CRANBERRY PO SCH (21:00)
[2021-12-20] MEDS ORDERED: D MANNOSE PO SCH (21:00)
[2021-12-20] MEDS: SERTRALINE 100 MG TAB PO SCH (21:05)
[2021-12-20] MEDS: ASCORBIC ACID 500 MG TAB PO SCH (21:05)
[2021-12-20] MEDS: BACLOFEN 10 MG TAB PO SCH (21:05)
[2021-12-20] MEDS: QUEtiapine 100 MG TAB PO SCH (21:05)
[2021-12-20] MEDS: GABAPENTIN 300 MG CAP PO SCH (21:05)
[2021-12-20] MEDS: OXYBUTYNIN CHLORIDE 5 MG TAB PO SCH (21:05)
[2021-12-20] MEDS: DOCUSATE 100 MG CAP PO SCH (21:05)
[2021-12-20] MEDS: FLUDROCORTISONE 0.1 MG TAB PO SCH (21:45)
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
[2021-12-21] MEDS: ERTAPENEM 1 GM in SODIUM CHLORIDE 0.9% 50 ML IVPB SCH (00:29)
[2021-12-21] MEDS: SODIUM CHLORIDE 0.9% 1,000 ML IV SCH ×2 (05:45→16:57)
[2021-12-21] MEDS: LEVOTHYROXINE 50 MCG TAB PO SCH (08:22)
[2021-12-21] MEDS: CHOLECALCIFEROL 25 MCG (1000 IU) TABLET PO SCH (08:22)
[2021-12-21] MEDS: BACLOFEN 10 MG TAB PO SCH ×2 (08:22→20:35)
[2021-12-21] MEDS: GABAPENTIN 300 MG CAP PO SCH ×2 (08:22→20:35)
[2021-12-21] MEDS: ASCORBIC ACID 500 MG TAB PO SCH ×2 (08:22→20:35)
[2021-12-21] MEDS: OXYBUTYNIN CHLORIDE 5 MG TAB PO SCH ×2 (08:22→20:35)
[2021-12-21] MEDS: DOCUSATE 100 MG CAP PO SCH ×2 (08:22→20:35)
[2021-12-21] MEDS: PANTOPRAZOLE 40 MG/10 ML VIAL IV SCH (08:22)
[2021-12-21] MEDS: amLODIPine 5 MG TAB PO SCH (08:22)
[2021-12-21] MEDS: SERTRALINE 100 MG TAB PO SCH ×2 (08:22→20:35)
[2021-12-21] MEDS: FLUDROCORTISONE 0.1 MG TAB PO SCH ×2 (08:23→20:35)
[2021-12-21] MEDS: VORTIOXETINE HYDROBROMIDE 10 MG TABLET PO SCH (08:23)
[2021-12-21] MEDS: ALBUTEROL NEBULIZED 2.5 MG/3 ML INHALATION PRN ×3 (12:15→19:57)
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
[2021-12-21] MEDS ORDERED: BENZOCAINE/MENTHOL LOZENG 1 EACH LOZENGE MUCOUS MEM PRN (15:43)
[2021-12-21] MEDS: QUEtiapine 100 MG TAB PO SCH (16:56)
[2021-12-22] MEDS: ERTAPENEM 1 GM in SODIUM CHLORIDE 0.9% 50 ML IVPB SCH ×2 (00:35→23:06)
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
[2021-12-22] MEDS ORDERED: NA PHOS,M-B/NA PHOS,DI-BA 133 ML ENEMA RECTAL SCH (09:00)
[2021-12-22 09:09] LABS: Basophils # (A) 0.04 X 10*3/uL (0.00-0.10); Basophils % (A) 0.7 %; Eosinophils # (A) 0.12 X 10*3/uL (0.04-0.35); Eosinophils % (A) 2.2 %; HCT 38.2 % (39.6-50.0); Immature Grans, Automated 0.4 %; Lymphocytes # (A) 1.75 X 10*3/uL (0.90-5.00); Lymphocytes % (A) 32.3 %; MCH 26.3 pg (27.0-32.0); MCHC 31.4 g/dL (32.0-37.0); MCV 83.6 fL (80.0-97.0); Mean Platelet Volume 12.6 fL (9.5-12.2); Monocytes # (A) 0.41 X 10*3/uL (0.20-1.00); Monocytes % (A) 7.6 %; NRBC Per 100 WBC 0 /100 WBCS (0.0-0.0); Neutrophils # (A) 3.08 X 10*3/uL (1.80-7.70); Neutrophils % (A) 56.8 %; Platelet Count 140 X 10*3/uL (140-440); RBC 4.57 X 10*6/uL (4.40-5.60); RDW 16.3 % (11.5-14.5); WBC 5.42 X 10*3/uL (4.50-10.00)
[2021-12-22 09:25] LABS: African American GFR (CKD) 172.2 (60.0-200.0); Anion Gap 11.1 mmol/L (10.00-18.00); BUN/Creat Ratio 21.75 Ratio (12.00-20.00); Blood Urea Nitrogen 8.7 mg/dL (9.0-27.0); Carbon Dioxide 22.9 mmol/L (20.0-27.5); Non-African American GFR(CKD) 148.6 (60.0-200.0); Potassium 3.6 mmol/L (3.5-5.5)
[2021-12-22] MEDS: SODIUM CHLORIDE 0.9% 1,000 ML IV SCH ×2 (10:05→23:09)
[2021-12-22] MEDS: CHOLECALCIFEROL 25 MCG (1000 IU) TABLET PO SCH (10:06)
[2021-12-22] MEDS: BACLOFEN 10 MG TAB PO SCH ×2 (10:06→20:37)
[2021-12-22] MEDS: amLODIPine 5 MG TAB PO SCH (10:06)
[2021-12-22] MEDS: ASCORBIC ACID 500 MG TAB PO SCH ×2 (10:06→20:37)
[2021-12-22] MEDS: DOCUSATE 100 MG CAP PO SCH ×2 (10:06→20:37)
[2021-12-22] MEDS: SERTRALINE 100 MG TAB PO SCH ×2 (10:07→20:37)
[2021-12-22] MEDS: VORTIOXETINE HYDROBROMIDE 10 MG TABLET PO SCH (10:07)
[2021-12-22] MEDS: LEVOTHYROXINE 50 MCG TAB PO SCH (10:07)
[2021-12-22] MEDS: PANTOPRAZOLE 40 MG TABLET PO SCH (10:07)
[2021-12-22] MEDS: GABAPENTIN 300 MG CAP PO SCH ×2 (10:07→20:37)
[2021-12-22] MEDS: OXYBUTYNIN CHLORIDE 5 MG TAB PO SCH ×2 (10:07→20:37)
[2021-12-22] MEDS: FLUDROCORTISONE 0.1 MG TAB PO SCH ×2 (10:07→20:37)
[2021-12-22] MEDS: ALBUTEROL NEBULIZED 2.5 MG/3 ML INHALATION PRN ×2 (12:05→20:21)
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
[2021-12-22] MEDS: QUEtiapine 100 MG TAB PO SCH (17:39)
[2021-12-23] MEDS: OXYBUTYNIN CHLORIDE 5 MG TAB PO SCH ×2 (08:04→21:56)
[2021-12-23] MEDS: FLUDROCORTISONE 0.1 MG TAB PO SCH ×2 (08:04→21:56)
[2021-12-23] MEDS: PANTOPRAZOLE 40 MG TABLET PO SCH (08:04)
[2021-12-23] MEDS: BACLOFEN 10 MG TAB PO SCH ×2 (08:04→21:56)
[2021-12-23] MEDS: VORTIOXETINE HYDROBROMIDE 10 MG TABLET PO SCH (08:04)
[2021-12-23] MEDS: DOCUSATE 100 MG CAP PO SCH ×2 (08:05→21:56)
[2021-12-23] MEDS: GABAPENTIN 300 MG CAP PO SCH ×2 (08:05→21:56)
[2021-12-23] MEDS: LEVOTHYROXINE 50 MCG TAB PO SCH (08:05)
[2021-12-23] MEDS: ASCORBIC ACID 500 MG TAB PO SCH ×2 (08:05→21:56)
[2021-12-23] MEDS: CHOLECALCIFEROL 25 MCG (1000 IU) TABLET PO SCH (08:05)
[2021-12-23] MEDS: amLODIPine 5 MG TAB PO SCH (08:05)
[2021-12-23] MEDS: SODIUM CHLORIDE 0.9% 1,000 ML IV SCH (08:06)
[2021-12-23] MEDS: SERTRALINE 100 MG TAB PO SCH ×2 (08:06→21:56)
[2021-12-23 16:07] LABS: Appearance,Urine Clear (Clear); Bacteria,Urine Rare /hpf; Bilirubin,Urine Negative (Negative); Blood,Urine Negative (Negative); Color,Urine Colorless; Glucose,Urine (UA) Negative (Negative); Ketones,Urine Negative (Negative); Leukocyte Esterase,Urine Small (Negative); Nitrite,Urine Negative (Negative); Protein,Urine Negative (Negative); RBC,Urine 1 /hpf (0-5); Specific Gravity,Urine 1.005 (1.001-1.035); Urobilinogen,Urine <2.0 mg/dL (<2.0); WBC,Urine 5 /hpf (0-5)
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
[2021-12-23] MEDS: QUEtiapine 100 MG TAB PO SCH (17:14)
[2021-12-23] MEDS: ERTAPENEM 1 GM in SODIUM CHLORIDE 0.9% 50 ML IVPB SCH (23:42)
[2021-12-24] MEDS: SODIUM CHLORIDE 0.9% 1,000 ML IV SCH (00:06)
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
[2021-12-24] MEDS: ALBUTEROL NEBULIZED 2.5 MG/3 ML INHALATION PRN ×2 (01:21→12:03)
[2021-12-24 07:39] VITALS: BP 103/71; RESP 17; TEMP 97.9
[2021-12-24] MEDS: amLODIPine 5 MG TAB PO SCH (08:15)
[2021-12-24] MEDS: ASCORBIC ACID 500 MG TAB PO SCH (08:15)
[2021-12-24] MEDS: OXYBUTYNIN CHLORIDE 5 MG TAB PO SCH (08:15)
[2021-12-24] MEDS: GABAPENTIN 300 MG CAP PO SCH (08:15)
[2021-12-24] MEDS: CHOLECALCIFEROL 25 MCG (1000 IU) TABLET PO SCH (08:15)
[2021-12-24] MEDS: BACLOFEN 10 MG TAB PO SCH (08:15)
[2021-12-24] MEDS: DOCUSATE 100 MG CAP PO SCH (08:15)
[2021-12-24] MEDS: SERTRALINE 100 MG TAB PO SCH (08:15)
[2021-12-24] MEDS: PANTOPRAZOLE 40 MG TABLET PO SCH (08:15)
[2021-12-24] MEDS: LEVOTHYROXINE 50 MCG TAB PO SCH (08:15)
[2021-12-24] MEDS: FLUDROCORTISONE 0.1 MG TAB PO SCH (08:15)
[2021-12-24] MEDS: VORTIOXETINE HYDROBROMIDE 10 MG TABLET PO SCH (08:16)
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
[2021-12-24 11:52] LABS: African American GFR (CKD) 181.5 (60.0-200.0); Anion Gap 10.1 mmol/L (10.00-18.00); BUN/Creat Ratio 23.84 Ratio (12.00-20.00); Blood Urea Nitrogen 8.4 mg/dL (9.0-27.0); Calcium 8.5 mg/dL (8.7-10.3); Carbon Dioxide 27.8 mmol/L (20.0-27.5); Non-African American GFR(CKD) 156.6 (60.0-200.0); Potassium 3.8 mmol/L (3.5-5.5)
[2021-12-24 12:13] VITALS: PULSE 72
== END 2021-12-24 14:23 | disposition home or self-care (01) | DRG 698 ==
LOC: EC 11:21 → 4SSUR 14:11
PROVIDERS: ADMIT Family Medicine; ATTEND Family Medicine
DX: T83.518A Infection and inflammatory reaction due to other urinary catheter, initial encounter (principal); G93.41 Metabolic encephalopathy; F32.A Depression, unspecified; N18.9 Chronic kidney disease, unspecified; N31.9 Neuromuscular dysfunction of bladder, unspecified; R53.83 Other fatigue; R01.1 Cardiac murmur, unspecified; G47.33 Obstructive sleep apnea (adult) (pediatric); Y84.6 Urinary catheterization as the cause of abnormal reaction of the patient, or of later complication, without mention of misadventure at the time of the procedure; B95.61 Methicillin susceptible Staphylococcus aureus infection as the cause of diseases classified elsewhere; F41.9 Anxiety disorder, unspecified; Z79.899 Other long term (current) drug therapy; Z79.891 Long term (current) use of opiate analgesic; Z88.0 Allergy status to penicillin; Z88.2 Allergy status to sulfonamides; Z86.19 Personal history of other infectious and parasitic diseases; Z87.440 Personal history of urinary (tract) infections; Z88.1 Allergy status to other antibiotic agents; Z87.01 Personal history of pneumonia (recurrent); Z87.39 Personal history of other diseases of the musculoskeletal system and connective tissue; Z87.442 Personal history of urinary calculi; Z86.14 Personal history of Methicillin resistant Staphylococcus aureus infection; Z81.1 Family history of alcohol abuse and dependence; Z82.69 Family history of other diseases of the musculoskeletal system and connective tissue; Z79.890 Hormone replacement therapy; Z93.59 Other cystostomy status; Z87.81 Personal history of (healed) traumatic fracture
CPT/HCPCS: 36415; 80048; 80053; 81001; 83605; 85025; 87040; 87086; 94640; 96361; 96365; 96375; 99284

== ENCOUNTER 2022-02-14 17:32 | Inpatient (IN) | payer OTHER ==
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
[2022-02-14 19:51] LABS: Basophils % (A) 1 %; Eosinophils # (A) 0.3 k/uL (0-0.7); Eosinophils % (A) 4 %; HCT 44.4 % (39.0-53.0); HGB 14.6 gm/dL (13.0-17.5); Hypochromasia Slight; Lymphocytes # (A) 1.7 k/uL (1.0-4.8); Lymphocytes % (A) 23 %; MCH 28.1 pg (25.0-35.0); MCHC 32.8 g/dL (31.0-37.0); MCV 85.7 fL (80.0-100.0); Mean Platelet Volume 10.3; Monocytes # (A) 0.3 k/uL (0-1.0); Monocytes % (A) 4 %; Neutrophils # (A) 4.7 k/uL (1.3-7.7); Neutrophils % (A) 67 %; Platelet Count 135 k/uL (150-450); RBC 5.19 m/uL (4.30-5.90); RDW 15.7 % (11.5-15.5); WBC 7.1 k/uL (3.8-10.6)
[2022-02-14 20:01] LABS: ALT 21 U/L (4-49); AST 20 U/L (17-59); Acetaminophen <10.0 ug/mL; African American GFR (CKD) >90 (>60 ml/min/1.73 sqM); Albumin 4.1 g/dL (3.5-5.0); Alkaline Phosphatase 120 U/L (38-126); Anion Gap 9 mmol/L; Blood Urea Nitrogen 10 mg/dL (9-20); Calcium 8.3 mg/dL (8.4-10.2); Carbon Dioxide 23 mmol/L (22-30); Chloride 103 mmol/L (98-107); Glucose 88 mg/dL (74-99); Non-African American GFR(CKD) >90 (>60 ml/min/1.73 sqM); Partial Thromboplastin Time 25.4 sec (22.0-30.0); Potassium 4.2 mmol/L (3.5-5.1); Prothrombin Time 11.2 sec (9.0-12.0); Salicylate <1.0 mg/dL; Sodium 135 mmol/L (137-145); Total Bilirubin 0.5 mg/dL (0.2-1.3); Total Protein 6.8 g/dL (6.3-8.2)
[2022-02-14 20:17] LABS: T4, Free (Free Thyroxine) 2.05 ng/dL (0.78-2.19)
[2022-02-15] MEDS ORDERED: SODIUM CHLORIDE 0.9% 1,000 ML IV ONE (09:09)
[2022-02-15] MEDS ORDERED: ONDANSETRON 4 MG/2 ML VIAL IVP STA (09:09)
[2022-02-15] MEDS: DOCUSATE 100 MG CAP PO SCH ×2 (12:58→23:29)
[2022-02-15] MEDS: amLODIPine 5 MG TAB PO SCH (12:58)
[2022-02-15] MEDS: PANTOPRAZOLE 40 MG TABLET PO SCH (12:58)
[2022-02-15] MEDS: BACLOFEN 10 MG TAB PO SCH ×2 (12:58→22:58)
[2022-02-15] MEDS: GABAPENTIN 300 MG CAP PO SCH ×2 (12:58→22:58)
[2022-02-15] MEDS: FLUDROCORTISONE 0.1 MG TAB PO SCH ×2 (12:58→22:58)
[2022-02-15] MEDS: SERTRALINE 100 MG TAB PO SCH ×2 (12:58→22:58)
[2022-02-15] MEDS: VORTIOXETINE HYDROBROMIDE 10 MG TABLET PO SCH (12:59)
[2022-02-15] MEDS: LACTULOSE 20 GM/30 ML CUP PO SCH (12:59)
[2022-02-15] MEDS: OXYBUTYNIN CHLORIDE 5 MG TAB PO SCH ×2 (12:59→22:58)
[2022-02-15] MEDS ORDERED: NITROGLYCERIN SL TABS 0.4 MG TAB SUBLINGUAL PRN (14:14)
[2022-02-15] MEDS ORDERED: NALOXONE 0.4 MG/ML 1 ML VIAL IV PRN (17:32)
[2022-02-15] MEDS ORDERED: NITROGLYCERIN OINT 1 INCH/GM PACKET TOPICAL SCH (18:00)
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
[2022-02-15] MEDS ORDERED: NA PHOS,M-B/NA PHOS,DI-BA 133 ML ENEMA RECTAL STA (21:02)
[2022-02-16] MEDS ORDERED: ASPIRIN 325 MG TAB PO SCH (09:00)
[2022-02-16] MEDS: LACTULOSE 20 GM/30 ML CUP PO SCH (09:21)
[2022-02-16] MEDS: GABAPENTIN 300 MG CAP PO SCH ×3 (09:21→21:21)
[2022-02-16] MEDS: amLODIPine 5 MG TAB PO SCH (09:21)
[2022-02-16] MEDS: DOCUSATE 100 MG CAP PO SCH ×2 (09:21→21:21)
[2022-02-16] MEDS: FLUDROCORTISONE 0.1 MG TAB PO SCH ×2 (09:21→21:22)
[2022-02-16] MEDS: OXYBUTYNIN CHLORIDE 5 MG TAB PO SCH ×3 (09:21→21:22)
[2022-02-16] MEDS: SERTRALINE 100 MG TAB PO SCH ×2 (09:21→21:21)
[2022-02-16] MEDS: BACLOFEN 10 MG TAB PO SCH ×2 (09:21→21:22)
[2022-02-16] MEDS: PANTOPRAZOLE 40 MG TABLET PO SCH (09:21)
[2022-02-16] MEDS: VORTIOXETINE HYDROBROMIDE 10 MG TABLET PO SCH (09:45)
[2022-02-16] MEDS: ALBUTEROL NEBULIZED 2.5 MG/3 ML INHALATION PRN ×3 (10:29→21:27)
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
[2022-02-16] MEDS: LEVOTHYROXINE 50 MCG TAB PO SCH (15:17)
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
[2022-02-16] MEDS: ACETAMINOPHEN TAB 325 MG TAB PO PRN (21:20)
[2022-02-17] MEDS: ALBUTEROL NEBULIZED 2.5 MG/3 ML INHALATION PRN ×2 (12:03→20:20)
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
[2022-02-17] MEDS: PANTOPRAZOLE 40 MG TABLET PO SCH (13:04)
[2022-02-17] MEDS: LACTULOSE 20 GM/30 ML CUP PO SCH (13:04)
[2022-02-17] MEDS: DOCUSATE 100 MG CAP PO SCH ×2 (13:04→21:20)
[2022-02-17] MEDS: LEVOTHYROXINE 50 MCG TAB PO SCH (13:04)
[2022-02-17] MEDS: OXYBUTYNIN CHLORIDE 5 MG TAB PO SCH ×3 (13:04→21:20)
[2022-02-17] MEDS: BACLOFEN 10 MG TAB PO SCH ×2 (13:04→21:20)
[2022-02-17] MEDS: GABAPENTIN 300 MG CAP PO SCH ×3 (13:04→21:20)
[2022-02-17] MEDS: FLUDROCORTISONE 0.1 MG TAB PO SCH ×2 (13:04→21:20)
[2022-02-17] MEDS: SERTRALINE 100 MG TAB PO SCH ×2 (13:04→21:20)
[2022-02-17] MEDS: amLODIPine 5 MG TAB PO SCH (13:04)
[2022-02-17] MEDS: VORTIOXETINE HYDROBROMIDE 10 MG TABLET PO SCH (13:04)
[2022-02-17] MEDS: ACETAMINOPHEN TAB 325 MG TAB PO PRN (21:19)
[2022-02-18] MEDS: LEVOTHYROXINE 50 MCG TAB PO SCH (06:43)
[2022-02-18] MEDS: PANTOPRAZOLE 40 MG TABLET PO SCH (06:43)
[2022-02-18] MEDS: GABAPENTIN 300 MG CAP PO SCH ×3 (08:53→21:12)
[2022-02-18] MEDS: SERTRALINE 100 MG TAB PO SCH ×2 (08:53→21:12)
[2022-02-18] MEDS: DOCUSATE 100 MG CAP PO SCH ×2 (08:53→21:12)
[2022-02-18] MEDS: LACTULOSE 20 GM/30 ML CUP PO SCH (08:53)
[2022-02-18] MEDS: FLUDROCORTISONE 0.1 MG TAB PO SCH ×2 (08:53→21:12)
[2022-02-18] MEDS: OXYBUTYNIN CHLORIDE 5 MG TAB PO SCH ×3 (08:53→21:12)
[2022-02-18] MEDS: VORTIOXETINE HYDROBROMIDE 10 MG TABLET PO SCH (08:53)
[2022-02-18] MEDS: amLODIPine 5 MG TAB PO SCH (08:53)
[2022-02-18] MEDS: BACLOFEN 10 MG TAB PO SCH ×2 (08:53→21:11)
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
[2022-02-18] MEDS ORDERED: HYDROCORTISONE 1% CREAM 30 GM TUBE TOPICAL PRN (10:40)
[2022-02-18] MEDS: ALBUTEROL NEBULIZED 2.5 MG/3 ML INHALATION PRN ×2 (11:02→21:11)
[2022-02-18 11:24] LABS: Basophils # (A) 0.06 X 10*3/uL (0.00-0.10); Basophils % (A) 1.1 %; Eosinophils # (A) 0.19 X 10*3/uL (0.04-0.35); Eosinophils % (A) 3.6 %; HCT 45.6 % (39.6-50.0); Immature Grans, Automated 0.2 %; Lymphocytes # (A) 1.64 X 10*3/uL (0.90-5.00); Lymphocytes % (A) 30.7 %; MCH 26.6 pg (27.0-32.0); MCHC 30.7 g/dL (32.0-37.0); MCV 86.5 fL (80.0-97.0); Monocytes # (A) 0.38 X 10*3/uL (0.20-1.00); Monocytes % (A) 7.1 %; NRBC Per 100 WBC 0 /100 WBCS (0.0-0.0); Neutrophils # (A) 3.06 X 10*3/uL (1.80-7.70); Neutrophils % (A) 57.3 %; Platelet Count 118 X 10*3/uL (140-440); RBC 5.27 X 10*6/uL (4.40-5.60); RDW 17.3 % (11.5-14.5); WBC 5.34 X 10*3/uL (4.50-10.00)
[2022-02-18 11:46] LABS: African American GFR (CKD) 175.3 (60.0-200.0); Anion Gap 12.7 mmol/L (10.00-18.00); BUN/Creat Ratio 14.36 Ratio (12.00-20.00); Blood Urea Nitrogen 5.5 mg/dL (9.0-27.0); Calcium 8.4 mg/dL (8.7-10.3); Carbon Dioxide 22.7 mmol/L (20.0-27.5); Magnesium 2.1 mg/dL (1.5-2.4); Non-African American GFR(CKD) 151.3 (60.0-200.0); Potassium 3.5 mmol/L (3.5-5.5)
[2022-02-18] MEDS: ACETAMINOPHEN TAB 325 MG TAB PO PRN ×2 (15:56→21:12)
--- NOTE | 2022-02-19 00:47 | P.PN ---
Progress Note - Text Progress Note Date: 02/18/22 Psychiatry follow-up note: Interval history: Patient was seen resting in his bed with sitter at bedside and was directable and agreeable to speak with principal technical writer. He reports good mood, appetite and sleep. He denies depressed mood. At this time patient denies any suicidal or homicidal ideations intent or plan. Denies any auditory or visual hallucinations. Patient denies any side effects from the medications and has been compliant with meds. Per staff he has been in good mood, eating his meals and cooperative with treatment. Mental status exam: General Appearance: Patient appears to be stated age is alert, directable, and cooperative. Behavior: No agitated behavior. Patient is calm and directable Speech: Patient's speech is fluent and non-pressured. Mood/Affect: Mood is "good", affect is congruent and constricted. Suicidality/Homicidality: Patient denies having any suicidal or homicidal ideation intent or plan. Perceptions: Patient denies any auditory or visual hallucinations. Though content/process: There is no evidence of any delusional thought content and thought process is linear and goal-directed. Memory and concentration: AOX3, grossly intact for the purposes of this session Judgment and insight: improving mildly Assessment/Plan: At this time patient does not appear to meet criteria for inpatient psychiatric admission since the is denying suicidal ideations plan or intent. Continue current medications. Can discontinue one-to-one sitter at this time patient denies thoughts of harming himself or others. Continue to reevaluate safety and reinstate sitter if safety concerns arise. relief worker to work with guardian and provide outpatient mental health/psychiatry resources for appropriate follow up upon discharge Communicated plan with patient's nurse. Treatment meeting with patient's guardian is recommended to harm to self or ot hers following discharge, and to ensure home environment is safe (no guns or weapons, pill bottles locked up). Will continue to follow along Contact with any questions
--- NOTE | 2022-02-19 00:48 | P.PN ---
Progress Note - Text Progress Note Date: 02/18/22 Psychiatry follow-up note: Interval history: Patient was seen resting in his bed with sitter at bedside and was directable and agreeable to speak with junior technical writer. He reports good mood, appetite and sleep. He denies depressed mood. At this time patient denies any suicidal or homicidal ideations intent or plan. Denies any auditory or visual hallucinations. Patient denies any side effects from the medications and has been compliant with meds. Per staff he has been in good mood, eating his meals and cooperative with treatment. Mental status exam: General Appearance: Patient appears to be stated age is alert, directable, and cooperative. Behavior: No agitated behavior. Patient is calm and directable Speech: Patient's speech is fluent and non-pressured. Mood/Affect: Mood is "good", affect is congruent and constricted. Suicidality/Homicidality: Patient denies having any suicidal or homicidal ideation intent or plan. Perceptions: Patient denies any auditory or visual hallucinations. Though content/process: There is no evidence of any delusional thought content and thought process is linear and goal-directed. Memory and concentration: AOX3, grossly intact for the purposes of this session Judgment and insight: improving mildly Assessment/Plan: At this time patient does not appear to meet criteria for inpatient psychiatric admission since the is denying suicidal ideations plan or intent. Continue current medications. Can discontinue one-to-one sitter at this time patient denies thoughts of harming himself or others. Continue to reevaluate safety and reinstate sitter if safety concerns arise. generator worker to work with guardian and provide outpatient mental health/psychiatry resources for appropriate follow up upon discharge Communicated plan with patient's nurse. Treatment meeting with patient's guardian is recommended to harm to self or ot hers following discharge, and to ensure home environment is safe (no guns or weapons, pill bottles locked up). Will continue to follow along Contact with any questions
[2022-02-19] MEDS: PANTOPRAZOLE 40 MG TABLET PO SCH (06:47)
[2022-02-19] MEDS: LEVOTHYROXINE 50 MCG TAB PO SCH (06:47)
[2022-02-19] MEDS: ALBUTEROL NEBULIZED 2.5 MG/3 ML INHALATION PRN (08:11)
[2022-02-19 09:14] VITALS: BP 120/74; PULSE 64; RESP 17; TEMP 97.8
[2022-02-19] MEDS: SERTRALINE 100 MG TAB PO SCH (10:07)
[2022-02-19] MEDS: amLODIPine 5 MG TAB PO SCH (10:07)
[2022-02-19] MEDS: FLUDROCORTISONE 0.1 MG TAB PO SCH (10:07)
[2022-02-19] MEDS: DOCUSATE 100 MG CAP PO SCH (10:08)
[2022-02-19] MEDS: LACTULOSE 20 GM/30 ML CUP PO SCH (10:08)
[2022-02-19] MEDS: GABAPENTIN 300 MG CAP PO SCH (10:08)
[2022-02-19] MEDS: OXYBUTYNIN CHLORIDE 5 MG TAB PO SCH (10:08)
[2022-02-19] MEDS: VORTIOXETINE HYDROBROMIDE 10 MG TABLET PO SCH (10:08)
[2022-02-19] MEDS: BACLOFEN 10 MG TAB PO SCH (10:08)
--- NOTE | 2022-02-19 13:56 | P.PN ---
Progress Note - Text Progress Note Date: 02/19/22 Interval history: Patient was seen resting in his bed and was directable and agreeable to speak with medical technical writer. He reports good mood, appetite and sleep and states that he is doing "fine now". He appears to be more future oriented speaking about why he wants to live including his health and that "I'm not ready to yet". He states that he realized that he was done was wrong and wants to keep on living. He appears to have improvement in his impulse control and also was more directable today during conversation and his affect has been improving as well. States that he is sleeping on and off in the hospital and will resume taking his Seroquel at nighttime when he gets home. At this time patient denies any suicidal or homicidal ideations intent or plan. Denies any auditory or visual hallucinations. Patient denies any side effects from the medications and has been compliant with meds. Per staff he has been in good mood, eating his meals and cooperative with treatment. Mental status exam: General Appearance: Patient appears to be stated age is alert, directable, and cooperative. Behavior: No agitated behavior. Patient is calm and directable Speech: Patient's speech is fluent and non-pressured. Mood/Affect: Mood is "good", affect is congruent and constricted. Suicidality/Homicidality: Patient denies having any suicidal or homicidal ideation intent or plan. Perceptions: Patient denies any auditory or visual hallucinations. Though content/process: There is no evidence of any delusional thought content and thought process is linear and goal-directed. He tried oriented. Memory and concentration: AOX3, grossly intact for the purposes of this session Judgment and insight: improving mildly Assessment/Plan: At this time patient does not appear to meet criteria for inpatient psychiatric admission since the is denying suicidal ideations plan or intent. Continue current medications. craft worker to work with guardian and provide outpatient mental health/psychiatry resources for appropriate follow up upon discharge. Patient was previously enrolled in [facility] however will be reconnected with this upon discharge for follow-up. Communicated plan with patient's nurse and to social media intern. Treatment meeting with patient's guardian is recommended to harm to self or others following discharge, and to ensure home environment is safe (no guns or weapons, pill bottles locked up). At this time psychiatry will sign off. Contact with any questions
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
== END 2022-02-19 17:15 | disposition home or self-care (01) | DRG 917 ==
LOC: EC 17:32 → 4SSUR 02-15 17:33
PROVIDERS: ADMIT Family Medicine; ATTEND Family Medicine
DX: T38.1X2A Poisoning by thyroid hormones and substitutes, intentional self-harm, initial encounter (principal); G82.50 Quadriplegia, unspecified; R45.851 Suicidal ideations; I12.9 Hypertensive chronic kidney disease with stage 1 through stage 4 chronic kidney disease, or unspecified chronic kidney disease; E03.9 Hypothyroidism, unspecified; N18.9 Chronic kidney disease, unspecified; F32.9 Major depressive disorder, single episode, unspecified; N31.9 Neuromuscular dysfunction of bladder, unspecified; K21.9 Gastro-esophageal reflux disease without esophagitis; F41.9 Anxiety disorder, unspecified; G47.33 Obstructive sleep apnea (adult) (pediatric); Z62.819 Personal history of unspecified abuse in childhood; Z20.822 Contact with and (suspected) exposure to COVID-19; Z93.59 Other cystostomy status; Z79.890 Hormone replacement therapy; Z79.899 Other long term (current) drug therapy; Z88.0 Allergy status to penicillin; Z88.2 Allergy status to sulfonamides; Z88.1 Allergy status to other antibiotic agents; I25.2 Old myocardial infarction; Z81.1 Family history of alcohol abuse and dependence; Z28.310 Unvaccinated for COVID-19; Z87.39 Personal history of other diseases of the musculoskeletal system and connective tissue; Z86.14 Personal history of Methicillin resistant Staphylococcus aureus infection
CPT/HCPCS: 36415; 80048; 80053; 80143; 80179; 82075; 83735; 84439; 84443; 84481; 85025; 85610; 85730; 87635; 93005; 94640; 96361; 96374; 99285

== ENCOUNTER 2022-03-04 21:12 | Emergency (ER) | payer OTHER ==
[2022-03-04 21:36] VITALS: BP 91/68; PULSE 90; RESP 16; TEMP 98.6
[2022-03-04] MEDS ORDERED: SODIUM CHLORIDE 0.9% 500 ML 500 ML IV ONE (22:00)
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
[2022-03-04 22:35] LABS: Basophils % (A) 1 %; Eosinophils # (A) 0.2 k/uL (0-0.7); Eosinophils % (A) 3 %; HCT 44.9 % (39.0-53.0); HGB 15.1 gm/dL (13.0-17.5); Lymphocytes # (A) 2.1 k/uL (1.0-4.8); Lymphocytes % (A) 25 %; MCH 28.7 pg (25.0-35.0); MCHC 33.6 g/dL (31.0-37.0); MCV 85.3 fL (80.0-100.0); Mean Platelet Volume 9.3; Monocytes # (A) 0.6 k/uL (0-1.0); Monocytes % (A) 8 %; Neutrophils # (A) 5.2 k/uL (1.3-7.7); Neutrophils % (A) 63 %; Platelet Count 192 k/uL (150-450); RBC 5.26 m/uL (4.30-5.90); RDW 14.8 % (11.5-15.5); WBC 8.3 k/uL (3.8-10.6)
[2022-03-04 22:44] LABS: African American GFR (CKD) >90 (>60 ml/min/1.73 sqM); Anion Gap 8 mmol/L; Blood Urea Nitrogen 13 mg/dL (9-20); Calcium 8.6 mg/dL (8.4-10.2); Carbon Dioxide 26 mmol/L (22-30); Chloride 106 mmol/L (98-107); Glucose 90 mg/dL (74-99); Non-African American GFR(CKD) >90 (>60 ml/min/1.73 sqM); Potassium 4.2 mmol/L (3.5-5.1); Sodium 140 mmol/L (137-145)
[2022-03-05 00:43] LABS: Amphetamine Screen,Urine Not Detected (NotDetected); Barbiturate Screen,Urine Not Detected (NotDetected); Benzodiazepines Screen,Urine Detected (NotDetected); Cocaine Screen,Urine Not Detected (NotDetected); Methadone Screen, Urine Not Detected (NotDetected); Opiate Screen,Urine Not Detected (NotDetected); Oxycodone Screen, Urine Not Detected (NotDetected); Phencyclidine Screen,Urine Not Detected (NotDetected); Tricyclic Antidepressant,Urine Detected (NotDetected); Urn Cannabinoid Scrn Detected (NotDetected)
[2022-03-05 00:48] LABS: Appearance,Urine Cloudy (Clear); Bacteria,Urine Few /hpf; Bilirubin,Urine Negative (Negative); Blood,Urine Negative (Negative); Color,Urine Yellow; Glucose,Urine (UA) Negative (Negative); Ketones,Urine Trace (Negative); Leukocyte Esterase,Urine Large (Negative); Mucus,Urine Occasional /hpf; Nitrite,Urine Positive (Negative); Protein,Urine Trace (Negative); RBC,Urine 4 /hpf (0-5); Specific Gravity,Urine 1.017 (1.001-1.035); Squamous Epithelial Cell,Urine 1 /hpf (0-4); WBC,Urine 90 /hpf (0-5)
[2022-03-05] MEDS ORDERED: NITROFURANTOIN MONOHYD/M-CRYST 100 MG CAP PO SCH (01:15)
== END 2022-03-05 04:54 | disposition home or self-care (01) ==
LOC: EC 21:12
DX: Z00.8 Encounter for other general examination (principal); N39.0 Urinary tract infection, site not specified; F32.A Depression, unspecified; F41.9 Anxiety disorder, unspecified; Z88.0 Allergy status to penicillin; Z88.2 Allergy status to sulfonamides; Z88.1 Allergy status to other antibiotic agents; Z79.810 Long term (current) use of selective estrogen receptor modulators (SERMs); Z79.899 Other long term (current) drug therapy
CPT/HCPCS: 36415; 80048; 80306; 81001; 82075; 85025; 87086; 96360; 96361; 99285

== ENCOUNTER 2022-03-05 13:05 | Inpatient (IN) | payer OTHER ==
[2022-03-05 14:44] LABS: Basophils # (A) 0.1 k/uL (0-0.2); Basophils % (A) 1 %; Eosinophils # (A) 0.3 k/uL (0-0.7); Eosinophils % (A) 3 %; HCT 45.5 % (39.0-53.0); Lymphocytes # (A) 1.5 k/uL (1.0-4.8); Lymphocytes % (A) 18 %; MCH 28.1 pg (25.0-35.0); MCHC 33.1 g/dL (31.0-37.0); MCV 84.9 fL (80.0-100.0); Mean Platelet Volume 9.7; Monocytes # (A) 0.4 k/uL (0-1.0); Monocytes % (A) 5 %; Neutrophils # (A) 6.1 k/uL (1.3-7.7); Neutrophils % (A) 73 %; Platelet Count 154 k/uL (150-450); RBC 5.36 m/uL (4.30-5.90); RDW 15.1 % (11.5-15.5); WBC 8.4 k/uL (3.8-10.6)
--- NOTE | 2022-03-05 15:15 | XR ---
EXAMINATION TYPE: XR chest 2V DATE OF EXAM: 03/05/2022 COMPARISON: 05/22/2021 TECHNIQUE: PA and lateral views submitted. HISTORY: Shortness of breath FINDINGS: The lungs are clear and there is no pneumothorax, pleural effusion, or focal pneumonia. Elevated ri ght hemidiaphragm with limited inspiration and diffuse hyperinflation. Postsurgical change overlying the cervical spine. Subsegmental changes right hilum stable. IMPRESSION: 1. 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 Stable from prior exam. Linear c hanges extending from the right hilum are also stable likely on the basis of chronic atelectasis. 2. COPD..
[2022-03-05 15:23] LABS: ALT 22 U/L (4-49); AST 33 U/L (17-59); African American GFR (CKD) >90 (>60 ml/min/1.73 sqM); Albumin 4.4 g/dL (3.5-5.0); Alkaline Phosphatase 111 U/L (38-126); Anion Gap 9 mmol/L; Blood Urea Nitrogen 10 mg/dL (9-20); Calcium 8.7 mg/dL (8.4-10.2); Carbon Dioxide 22 mmol/L (22-30); Chloride 104 mmol/L (98-107); Glucose 84 mg/dL (74-99); Non-African American GFR(CKD) >90 (>60 ml/min/1.73 sqM); Sodium 135 mmol/L (137-145); Total Bilirubin 0.9 mg/dL (0.2-1.3); Total Protein 7.5 g/dL (6.3-8.2)
[2022-03-05 15:25] LABS: Potassium 4.6 mmol/L (3.5-5.1)
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
[2022-03-05] MEDS ORDERED: SODIUM CHLORIDE 0.9% 1,000 ML IV ONE (15:54)
[2022-03-05] MEDS ORDERED: MORPHINE SULFATE 2 MG/ML SYRINGE IVP STA ×2 (19:43→20:12)
[2022-03-05] MEDS ORDERED: CLOBETASOL PROP 0.05% CR 15GM TOPICAL PRN (22:23)
[2022-03-05] MEDS: CLARITHROMYCIN 500 MG TAB PO SCH (23:08)
[2022-03-05] MEDS: BACLOFEN 10 MG TAB PO SCH (23:09)
[2022-03-05] MEDS: SERTRALINE 100 MG TAB PO SCH (23:09)
[2022-03-05] MEDS: OXYBUTYNIN CHLORIDE 5 MG TAB PO SCH (23:09)
[2022-03-05] MEDS: GABAPENTIN 300 MG CAP PO SCH (23:09)
[2022-03-05] MEDS: FLUDROCORTISONE 0.1 MG TAB PO SCH (23:09)
[2022-03-05] MEDS: NITROFURANTOIN MONOHYD/M-CRYST 100 MG CAP PO SCH (23:15)
[2022-03-06] MEDS: Acetaminophen-Codeine 300-30mg TAB PO PRN ×3 (02:48→23:56)
[2022-03-06] MEDS: PANTOPRAZOLE 40 MG TABLET PO SCH (08:25)
[2022-03-06] MEDS: BACLOFEN 10 MG TAB PO SCH ×2 (08:25→23:53)
[2022-03-06] MEDS: LEVOTHYROXINE 50 MCG TAB PO SCH (08:25)
[2022-03-06] MEDS: amLODIPine 5 MG TAB PO SCH (08:25)
[2022-03-06] MEDS: MULTIVITAMINS, THERA 1 EACH TAB PO SCH (08:25)
[2022-03-06] MEDS: DOCUSATE 100 MG CAP PO SCH ×2 (08:25→23:54)
[2022-03-06] MEDS: CLARITHROMYCIN 500 MG TAB PO SCH ×2 (08:25→23:54)
[2022-03-06] MEDS: SERTRALINE 100 MG TAB PO SCH ×2 (08:25→23:55)
[2022-03-06] MEDS: GABAPENTIN 300 MG CAP PO SCH ×3 (08:25→23:55)
[2022-03-06] MEDS: NITROFURANTOIN MONOHYD/M-CRYST 100 MG CAP PO SCH ×2 (08:26→23:55)
[2022-03-06] MEDS: FLUDROCORTISONE 0.1 MG TAB PO SCH ×2 (08:26→23:54)
[2022-03-06] MEDS: OXYBUTYNIN CHLORIDE 5 MG TAB PO SCH ×3 (08:26→23:55)
[2022-03-06] MEDS: HYDROCORTISONE 1% CREAM 30 GM TUBE TOPICAL SCH ×2 (08:27→23:54)
[2022-03-06] MEDS: NYSTATIN 100,000UNIT/GM CREAM 30 GM TUBE TOPICAL SCH ×2 (08:27→23:55)
[2022-03-06] MEDS: VORTIOXETINE HYDROBROMIDE 10 MG TABLET PO SCH (08:28)
[2022-03-06] MEDS: polyethylene glycoL 3350 17 GM POWD.PACK PO SCH ×2 (08:33→23:55)
[2022-03-06] MEDS: LACTULOSE 20 GM/30 ML CUP PO SCH (08:33)
[2022-03-06] MEDS ORDERED: NON FORMULARY DRUG (Ubidecarenone [Coenzyme Q10] 50 MG Capsule) PO SCH (09:00)
[2022-03-06] MEDS ORDERED: VANCOMYCIN IV PER PHARMACY 1 EACH MISC MISCELLANE PRN (11:21)
[2022-03-06] MEDS: ALBUTEROL NEBULIZED 2.5 MG/3 ML INHALATION PRN (11:55)
[2022-03-06 12:21] LABS: Appearance,Urine Clear (Clear); Bilirubin,Urine Negative (Negative); Blood,Urine Negative (Negative); Color,Urine Light Yellow; Glucose,Urine (UA) Negative (Negative); Ketones,Urine Negative (Negative); Leukocyte Esterase,Urine Negative (Negative); Nitrite,Urine Negative (Negative); PH, Urine 5.5 (5.0-8.0); Protein,Urine Negative (Negative); Specific Gravity,Urine 1.004 (1.001-1.035); Urobilinogen,Urine <2.0 mg/dL (<2.0)
[2022-03-06] MEDS: VANCOMYCIN 1,000 MG in SODIUM CHLORIDE 0.9% 250 ML IVPB SCH ×2 (12:25→23:53)
[2022-03-06 12:32] VITALS: BMI 21.5
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
[2022-03-06] MEDS: buPROPion SR 100 MG TABLET.ER PO SCH (15:49)
[2022-03-06] MEDS ORDERED: QUEtiapine 100 MG TAB PO SCH ×2 (18:00→20:00)
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
[2022-03-07] MEDS: VANCOMYCIN 1,000 MG in SODIUM CHLORIDE 0.9% 250 ML IVPB SCH ×3 (05:07→20:33)
[2022-03-07] MEDS: LEVOTHYROXINE 50 MCG TAB PO SCH (06:20)
[2022-03-07] MEDS: BACLOFEN 10 MG TAB PO SCH ×2 (08:25→20:33)
[2022-03-07] MEDS: NITROFURANTOIN MONOHYD/M-CRYST 100 MG CAP PO SCH ×2 (08:27→21:56)
[2022-03-07] MEDS: GABAPENTIN 300 MG CAP PO SCH ×3 (08:27→21:52)
[2022-03-07] MEDS: CLARITHROMYCIN 500 MG TAB PO SCH ×2 (08:28→21:52)
[2022-03-07] MEDS: MULTIVITAMINS, THERA 1 EACH TAB PO SCH (08:28)
[2022-03-07] MEDS: amLODIPine 5 MG TAB PO SCH (08:28)
[2022-03-07] MEDS: OXYBUTYNIN CHLORIDE 5 MG TAB PO SCH ×3 (08:28→21:52)
[2022-03-07] MEDS: PANTOPRAZOLE 40 MG TABLET PO SCH (08:28)
[2022-03-07] MEDS: SERTRALINE 100 MG TAB PO SCH ×2 (08:28→20:34)
[2022-03-07] MEDS: DOCUSATE 100 MG CAP PO SCH ×2 (08:28→20:34)
[2022-03-07] MEDS: buPROPion SR 100 MG TABLET.ER PO SCH (08:29)
[2022-03-07] MEDS: FLUDROCORTISONE 0.1 MG TAB PO SCH ×2 (08:29→21:52)
[2022-03-07] MEDS: VORTIOXETINE HYDROBROMIDE 10 MG TABLET PO SCH (08:29)
[2022-03-07] MEDS: HYDROCORTISONE 1% CREAM 30 GM TUBE TOPICAL SCH ×2 (08:30→20:35)
[2022-03-07] MEDS: polyethylene glycoL 3350 17 GM POWD.PACK PO SCH ×2 (08:30→21:46)
[2022-03-07] MEDS: LACTULOSE 20 GM/30 ML CUP PO SCH (08:30)
[2022-03-07] MEDS: NYSTATIN 100,000UNIT/GM CREAM 30 GM TUBE TOPICAL SCH ×2 (08:30→20:35)
--- NOTE | 2022-03-07 13:23 | P.PN ---
Progress Note - Text Progress Note Date: 03/07/22 Interval History: Patient was seen today for psychiatric follow-up regarding patient's depression. According to EMR and nurse report, patient ate one of his blisters on his side and was endorsing suicidal thoughts yesterday evening. Patient has been taking his medications as prescribed. There is claims that patient is doing better today and not endorsing suicidal thoughts. He was placed on a one-to-one sitter yesterday evening. Patient was seen resting in bed and agreeable to speak to wr iter. He states that he is doing better today compared to yesterday. He states that "all of a sudden I got suicidal yesterday". He states that he attempted suicide by eating one of his blisters that he peeled off. He claims that his intent was to "get infected from it". He states that he does not feel like that this today and appears to be more future oriented. He states that he feels medications have started to help him. He claims that he had a difficult time sleeping last night and was agreed to have his Seroquel increased. He contracts to safety at this time and gives several reasons as to why he wants to live. He answered questions appropriately and was directable during conversation and appears to have a fairly brighter affect today. Denying any anxiety at this time. At this time patient denies any suicidal or homical ideations, intent or plan. Patient denies any auditory, visual hallucinations and denies any paranoia or delusions. Patient denies any side effects from the medications and has been compliant with meds. Mental Status Exam: General Appearance: Patient appears to be thin, long hair, stated age is alert, pleasant, and attempts to be cooperative. Patient appears to have fair hygiene and grooming wearing hospital gown with fair eye contact. Behavior: Patient is calmly lying in bed without any agitated behavior. cooperative. Speech: Patient's speech is fluent and nonpressured. Mood/Affect: Patient reports their mood is "better than yesterday", affect is congruent and brighter Suicidality/Homicidality: Patient denies having any suicidal or homicidal ideation intent or plan. Perceptions: Patient denies any visual hallucinations and denies any auditory hallucinations Though content/process: There is no evidence of any delusional thought content and thought process is linear and goal-directed. rambles. more future oriented. Memory and concentration: AOX3, grossly intact for the purposes of this session Judgment and insight: fair IMPRESSIONS: Major depressive disorder, without psychotic features Anxiety disorder unspecified Suicide attempt PLAN: -At this time patient DOES NOT meet criteria for psychiatric admission -Would recommend the following medication changes/additions: increase Seroquel 150 mg at 8 PM for mood adjunct/sleep, increase Zoloft 150 mg daily + 100 mg qhs for mood/anxiety. wellbutrin 100 mg daily for mood adjunct. -home economics extension worker to provide patient with outpatient mental health/psychiatry resources for appropriate follow up upon discharge -Patient will likely need placement or new caregiver at home. -Will continue to follow along tomorrow. -discussed with nurse plan and decided to d/c corporate safety manager at this time as patient is [place] to safety, denying any SI and is more future oriented. -Please contact with any questions.
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
[2022-03-07] MEDS ORDERED: VANCOMYCIN TROUGH DUE 1 EACH MISC MISCELLANE ONE (19:00)
[2022-03-07] MEDS: QUEtiapine 50 MG TAB PO SCH (20:33)
[2022-03-07] MEDS: ALBUTEROL NEBULIZED 2.5 MG/3 ML INHALATION PRN (20:38)
[2022-03-08] MEDS: VANCOMYCIN 1,000 MG in SODIUM CHLORIDE 0.9% 250 ML IVPB SCH ×3 (03:25→22:05)
[2022-03-08 06:05] LABS: African American GFR (CKD) >90 (>60 ml/min/1.73 sqM); Anion Gap 6 mmol/L; Blood Urea Nitrogen 14 mg/dL (9-20); Calcium 8.3 mg/dL (8.4-10.2); Carbon Dioxide 29 mmol/L (22-30); Chloride 105 mmol/L (98-107); Glucose 92 mg/dL (74-99); Non-African American GFR(CKD) >90 (>60 ml/min/1.73 sqM); Potassium 3.9 mmol/L (3.5-5.1); Sodium 140 mmol/L (137-145)
[2022-03-08] MEDS: LEVOTHYROXINE 50 MCG TAB PO SCH (06:23)
[2022-03-08 08:50] LABS: Basophils # (A) 0.03 X 10*3/uL (0.00-0.10); Basophils % (A) 0.5 %; Eosinophils # (A) 0.25 X 10*3/uL (0.04-0.35); HGB 13.5 g/dL (13.0-17.0); Immature Grans, Automated 0.5 %; Lymphocytes # (A) 1.74 X 10*3/uL (0.90-5.00); Lymphocytes % (A) 27.9 %; MCH 27.4 pg (27.0-32.0); MCHC 31.4 g/dL (32.0-37.0); MCV 87.4 fL (80.0-97.0); Mean Platelet Volume 12.5 fL (9.5-12.2); Monocytes # (A) 0.46 X 10*3/uL (0.20-1.00); Monocytes % (A) 7.4 %; NRBC Per 100 WBC 0 /100 WBCS (0.0-0.0); Neutrophils # (A) 3.72 X 10*3/uL (1.80-7.70); Neutrophils % (A) 59.7 %; Platelet Count 181 X 10*3/uL (140-440); RBC 4.92 X 10*6/uL (4.40-5.60); RDW 16.4 % (11.5-14.5); WBC 6.23 X 10*3/uL (4.50-10.00)
[2022-03-08] MEDS: SERTRALINE 50 MG TAB PO SCH (09:24)
[2022-03-08] MEDS: LACTULOSE 20 GM/30 ML CUP PO SCH ×2 (09:24→09:36)
[2022-03-08] MEDS: DOCUSATE 100 MG CAP PO SCH ×2 (09:25→22:19)
[2022-03-08] MEDS: MULTIVITAMINS, THERA 1 EACH TAB PO SCH (09:25)
[2022-03-08] MEDS: amLODIPine 5 MG TAB PO SCH (09:27)
[2022-03-08] MEDS: buPROPion SR 100 MG TABLET.ER PO SCH (09:27)
[2022-03-08] MEDS: NITROFURANTOIN MONOHYD/M-CRYST 100 MG CAP PO SCH ×2 (09:27→22:21)
[2022-03-08] MEDS: BACLOFEN 10 MG TAB PO SCH ×2 (09:27→22:22)
[2022-03-08] MEDS: polyethylene glycoL 3350 17 GM POWD.PACK PO SCH ×3 (09:27→22:23)
[2022-03-08] MEDS: PANTOPRAZOLE 40 MG TABLET PO SCH (09:27)
[2022-03-08] MEDS: GABAPENTIN 300 MG CAP PO SCH ×3 (09:27→22:25)
[2022-03-08] MEDS: OXYBUTYNIN CHLORIDE 5 MG TAB PO SCH ×3 (09:29→22:19)
[2022-03-08] MEDS: CLARITHROMYCIN 500 MG TAB PO SCH ×2 (09:29→22:20)
[2022-03-08] MEDS ORDERED: VANCOMYCIN 1,000 MG in SODIUM CHLORIDE 0.9% 250 ML IVPB SCH (10:00)
[2022-03-08] MEDS: ALBUTEROL NEBULIZED 2.5 MG/3 ML INHALATION PRN ×2 (11:12→19:08)
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
--- NOTE | 2022-03-08 11:38 | P.PN ---
Progress Note - Text Progress Note Date: 03/08/22 Interval History: Patient was seen today for psychiatric follow-up regarding patient's depression. Patient's daughter states that patient has been doing fairly well and no behavioral issues overnight. Patient has been taking his medications. She was seen after finishing his respiratory treatment and agreeable to physician underwriter. He states that he is feeling a bit better today and claims that he feels guilty for being in the hospital and having people come see him on an Thanksgiving. He states that he is doing better in terms of his mood and also anxiety. He states that he is no longer feeling suicidal and feels more optimistic. He claims that "I don't know what I was thinking that day". Referring to the day that he ate his blister. He states that he slept better last night however continues to have a poor appetite. he was more directable during conversation and appears to have a fairly brighter affect today. At this time patient denies any suicidal or homical ideations, intent or plan. Patient denies any auditory, visual hallucinations and denies any paranoia or delusions. Patient denies any side effects from the medications and has been compliant with meds. Mental Status Exam: General Appearance: Patient appears to be thin, long hair, stated age is alert, pleasant, and attempts to be cooperative. Patient appears to have fair hygiene and grooming wearing hospital gown with fair eye contact. Behavior: Patient is calmly lying in bed without any agitated behavior. more transportation coordinator perative. Speech: Patient's speech is fluent and nonpressured. Mood/Affect: Patient reports their mood is "better", affect is congruent and brighter Suicidality/Homicidality: Patient denies having any suicidal or homicidal ideation intent or plan. Perceptions: Patient denies any visual hallucinations and denies any auditory hallucinations Though content/process: There is no evidence of any delusional thought content and thought process is linear and goal-directed. rambles. more future oriented. Memory and concentration: AOX3, grossly intact for the purposes of this session Judgment and insight: fair IMPRESSIONS: Major depressive disorder, without psychotic features Anxiety disorder unspecified Suicide attempt PLAN: -At this time patient DOES NOT meet criteria for psychiatric admission -Would recommend the following medication changes/additions: Seroquel 150 mg at 8 PM for mood adjunct/sleep, Zoloft 150 mg daily + 100 mg qhs for mood/anxiety. wellbutrin 100 mg daily for mood adjunct. -exhaust worker to provide patient with outpatient mental health/psychiatry resources for appropriate follow up upon discharge -Patient will likely need placement or new caregiver at home. SW to continue working on placement. -At this time psychiatry will sign off. -discussed with nurse plan -Please contact with any questions.
[2022-03-08] MEDS: FLUDROCORTISONE 0.1 MG TAB PO SCH ×2 (12:06→22:21)
[2022-03-08] MEDS: NYSTATIN 100,000UNIT/GM CREAM 30 GM TUBE TOPICAL SCH ×2 (18:58→22:30)
[2022-03-08] MEDS: HYDROCORTISONE 1% CREAM 30 GM TUBE TOPICAL SCH ×2 (18:58→22:30)
[2022-03-08] MEDS: SERTRALINE 100 MG TAB PO SCH (22:19)
[2022-03-08] MEDS: QUEtiapine 50 MG TAB PO SCH (22:22)
[2022-03-08] MEDS: Acetaminophen-Codeine 300-30mg TAB PO PRN (22:36)
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
[2022-03-09] MEDS ORDERED: VANCOMYCIN TROUGH DUE 1 EACH MISC MISCELLANE ONE (03:00)
[2022-03-09] MEDS: LEVOTHYROXINE 50 MCG TAB PO SCH (07:01)
[2022-03-09] MEDS: ALBUTEROL NEBULIZED 2.5 MG/3 ML INHALATION PRN ×2 (08:08→20:24)
[2022-03-09] MEDS: SERTRALINE 50 MG TAB PO SCH (09:42)
[2022-03-09] MEDS: DOCUSATE 100 MG CAP PO SCH ×2 (09:42→20:17)
[2022-03-09] MEDS: GABAPENTIN 300 MG CAP PO SCH ×3 (09:42→20:17)
[2022-03-09] MEDS: BACLOFEN 10 MG TAB PO SCH ×2 (09:42→20:17)
[2022-03-09] MEDS: MULTIVITAMINS, THERA 1 EACH TAB PO SCH (09:42)
[2022-03-09] MEDS: PANTOPRAZOLE 40 MG TABLET PO SCH (09:42)
[2022-03-09] MEDS: amLODIPine 5 MG TAB PO SCH (09:42)
[2022-03-09] MEDS: OXYBUTYNIN CHLORIDE 5 MG TAB PO SCH ×3 (09:43→20:17)
[2022-03-09] MEDS: NITROFURANTOIN MONOHYD/M-CRYST 100 MG CAP PO SCH ×2 (09:43→20:17)
[2022-03-09] MEDS: buPROPion SR 100 MG TABLET.ER PO SCH (09:43)
[2022-03-09] MEDS: polyethylene glycoL 3350 17 GM POWD.PACK PO SCH ×2 (09:43→20:18)
[2022-03-09] MEDS: FLUDROCORTISONE 0.1 MG TAB PO SCH ×2 (09:43→20:17)
[2022-03-09] MEDS: CLARITHROMYCIN 500 MG TAB PO SCH ×2 (09:43→20:17)
[2022-03-09] MEDS: LACTULOSE 20 GM/30 ML CUP PO SCH (09:46)
[2022-03-09 14:28] LABS: African American GFR (CKD) >90 (>60 ml/min/1.73 sqM); Non-African American GFR(CKD) >90 (>60 ml/min/1.73 sqM)
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
[2022-03-09] MEDS: HYDROCORTISONE 1% CREAM 30 GM TUBE TOPICAL SCH ×2 (16:18→20:18)
[2022-03-09] MEDS: NYSTATIN 100,000UNIT/GM CREAM 30 GM TUBE TOPICAL SCH ×2 (16:20→20:18)
[2022-03-09] MEDS ORDERED: guaiFENesin 600 MG TABLET.ER PO PRN (18:49)
[2022-03-09] MEDS: QUEtiapine 50 MG TAB PO SCH (20:16)
[2022-03-09] MEDS: SERTRALINE 100 MG TAB PO SCH (20:17)
[2022-03-10] MEDS: LEVOTHYROXINE 50 MCG TAB PO SCH (05:46)
[2022-03-10] MEDS: polyethylene glycoL 3350 17 GM POWD.PACK PO SCH ×2 (09:30→21:43)
[2022-03-10] MEDS: LACTULOSE 20 GM/30 ML CUP PO SCH (09:30)
[2022-03-10] MEDS: DOCUSATE 100 MG CAP PO SCH ×2 (09:43→21:35)
[2022-03-10] MEDS: amLODIPine 5 MG TAB PO SCH (09:44)
[2022-03-10] MEDS: NITROFURANTOIN MONOHYD/M-CRYST 100 MG CAP PO SCH ×2 (09:44→23:03)
[2022-03-10] MEDS: GABAPENTIN 300 MG CAP PO SCH ×3 (09:44→21:41)
[2022-03-10] MEDS: BACLOFEN 10 MG TAB PO SCH ×2 (09:44→21:41)
[2022-03-10] MEDS: PANTOPRAZOLE 40 MG TABLET PO SCH (09:44)
[2022-03-10] MEDS: CLARITHROMYCIN 500 MG TAB PO SCH ×2 (09:44→23:03)
[2022-03-10] MEDS: MULTIVITAMINS, THERA 1 EACH TAB PO SCH (09:44)
[2022-03-10] MEDS: SERTRALINE 50 MG TAB PO SCH (09:44)
[2022-03-10] MEDS: OXYBUTYNIN CHLORIDE 5 MG TAB PO SCH ×3 (09:45→23:02)
[2022-03-10] MEDS: NYSTATIN 100,000UNIT/GM CREAM 30 GM TUBE TOPICAL SCH ×2 (09:45→23:05)
[2022-03-10] MEDS: HYDROCORTISONE 1% CREAM 30 GM TUBE TOPICAL SCH ×2 (09:45→21:42)
[2022-03-10] MEDS: FLUDROCORTISONE 0.1 MG TAB PO SCH ×2 (09:45→23:02)
[2022-03-10] MEDS: buPROPion SR 100 MG TABLET.ER PO SCH (09:45)
[2022-03-10] MEDS: Acetaminophen-Codeine 300-30mg TAB PO PRN ×2 (09:56→21:35)
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
[2022-03-10] MEDS: ALBUTEROL NEBULIZED 2.5 MG/3 ML INHALATION PRN (21:19)
[2022-03-10] MEDS: SERTRALINE 100 MG TAB PO SCH (21:41)
[2022-03-10] MEDS: QUEtiapine 50 MG TAB PO SCH (21:41)
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
[2022-03-11] MEDS: LEVOTHYROXINE 50 MCG TAB PO SCH (06:12)
[2022-03-11] MEDS: polyethylene glycoL 3350 17 GM POWD.PACK PO SCH ×2 (08:28→20:54)
[2022-03-11] MEDS: LACTULOSE 20 GM/30 ML CUP PO SCH (08:28)
[2022-03-11] MEDS: amLODIPine 5 MG TAB PO SCH (09:33)
[2022-03-11] MEDS: GABAPENTIN 300 MG CAP PO SCH ×3 (09:33→20:54)
[2022-03-11] MEDS: SERTRALINE 50 MG TAB PO SCH (09:34)
[2022-03-11] MEDS: MULTIVITAMINS, THERA 1 EACH TAB PO SCH (09:34)
[2022-03-11] MEDS: DOCUSATE 100 MG CAP PO SCH ×2 (09:34→20:54)
[2022-03-11] MEDS: BACLOFEN 10 MG TAB PO SCH ×2 (09:34→20:54)
[2022-03-11] MEDS: PANTOPRAZOLE 40 MG TABLET PO SCH (09:34)
[2022-03-11] MEDS: OXYBUTYNIN CHLORIDE 5 MG TAB PO SCH ×3 (09:35→20:55)
[2022-03-11] MEDS: CLARITHROMYCIN 500 MG TAB PO SCH ×2 (09:35→20:55)
[2022-03-11] MEDS: buPROPion SR 100 MG TABLET.ER PO SCH (09:35)
[2022-03-11] MEDS: FLUDROCORTISONE 0.1 MG TAB PO SCH ×2 (09:35→20:54)
[2022-03-11] MEDS: NITROFURANTOIN MONOHYD/M-CRYST 100 MG CAP PO SCH ×2 (09:35→20:55)
[2022-03-11] MEDS: HYDROCORTISONE 1% CREAM 30 GM TUBE TOPICAL SCH ×2 (09:39→20:56)
[2022-03-11] MEDS: NYSTATIN 100,000UNIT/GM CREAM 30 GM TUBE TOPICAL SCH ×2 (09:39→20:56)
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
[2022-03-11] MEDS: CARBAMIDE PEROXIDE 6.5% DROPS 15 ML BTL BOTH EARS SCH ×2 (12:34→20:55)
[2022-03-11] MEDS ORDERED: NA PHOS,M-B/NA PHOS,DI-BA 133 ML ENEMA RECTAL ONE (16:06)
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
[2022-03-11] MEDS: ONDANSETRON ODT 4 MG TAB PO PRN (18:57)
[2022-03-11] MEDS: ALBUTEROL NEBULIZED 2.5 MG/3 ML INHALATION PRN (19:04)
[2022-03-11] MEDS: SERTRALINE 100 MG TAB PO SCH (20:54)
[2022-03-11] MEDS: QUEtiapine 50 MG TAB PO SCH (20:54)
[2022-03-12] MEDS: Acetaminophen-Codeine 300-30mg TAB PO PRN (03:48)
[2022-03-12] MEDS: LEVOTHYROXINE 50 MCG TAB PO SCH (05:40)
[2022-03-12] MEDS: LACTULOSE 20 GM/30 ML CUP PO SCH (09:51)
[2022-03-12] MEDS: DOCUSATE 100 MG CAP PO SCH ×2 (09:55→21:01)
[2022-03-12] MEDS: BACLOFEN 10 MG TAB PO SCH ×2 (09:55→21:00)
[2022-03-12] MEDS: amLODIPine 5 MG TAB PO SCH (09:55)
[2022-03-12] MEDS: MULTIVITAMINS, THERA 1 EACH TAB PO SCH (09:55)
[2022-03-12] MEDS: polyethylene glycoL 3350 17 GM POWD.PACK PO SCH ×2 (09:55→21:01)
[2022-03-12] MEDS: PANTOPRAZOLE 40 MG TABLET PO SCH (09:55)
[2022-03-12] MEDS: SERTRALINE 50 MG TAB PO SCH (09:55)
[2022-03-12] MEDS: GABAPENTIN 300 MG CAP PO SCH ×3 (09:55→21:05)
[2022-03-12] MEDS: OXYBUTYNIN CHLORIDE 5 MG TAB PO SCH ×3 (09:56→21:01)
[2022-03-12] MEDS: CLARITHROMYCIN 500 MG TAB PO SCH ×2 (09:56→21:01)
[2022-03-12] MEDS: buPROPion SR 100 MG TABLET.ER PO SCH (09:56)
[2022-03-12] MEDS: NITROFURANTOIN MONOHYD/M-CRYST 100 MG CAP PO SCH ×2 (09:56→21:01)
[2022-03-12] MEDS: HYDROCORTISONE 1% CREAM 30 GM TUBE TOPICAL SCH ×2 (09:56→21:05)
[2022-03-12] MEDS: NYSTATIN 100,000UNIT/GM CREAM 30 GM TUBE TOPICAL SCH ×2 (09:57→21:05)
[2022-03-12] MEDS: CARBAMIDE PEROXIDE 6.5% DROPS 15 ML BTL BOTH EARS SCH ×2 (10:02→21:05)
[2022-03-12] MEDS: FLUDROCORTISONE 0.1 MG TAB PO SCH ×2 (10:49→21:01)
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
[2022-03-12] MEDS: QUEtiapine 50 MG TAB PO SCH (21:01)
[2022-03-12] MEDS: SERTRALINE 100 MG TAB PO SCH (21:01)
[2022-03-12] MEDS: ALBUTEROL NEBULIZED 2.5 MG/3 ML INHALATION PRN (21:45)
[2022-03-13] MEDS: LEVOTHYROXINE 50 MCG TAB PO SCH (06:31)
[2022-03-13] MEDS: GABAPENTIN 300 MG CAP PO SCH ×3 (08:49→21:31)
[2022-03-13] MEDS: PANTOPRAZOLE 40 MG TABLET PO SCH (08:49)
[2022-03-13] MEDS: amLODIPine 5 MG TAB PO SCH (08:49)
[2022-03-13] MEDS: BACLOFEN 10 MG TAB PO SCH ×2 (08:49→21:31)
[2022-03-13] MEDS: MULTIVITAMINS, THERA 1 EACH TAB PO SCH (08:49)
[2022-03-13] MEDS: DOCUSATE 100 MG CAP PO SCH ×2 (08:49→21:31)
[2022-03-13] MEDS: SERTRALINE 50 MG TAB PO SCH (08:49)
[2022-03-13] MEDS: OXYBUTYNIN CHLORIDE 5 MG TAB PO SCH ×3 (08:50→21:31)
[2022-03-13] MEDS: FLUDROCORTISONE 0.1 MG TAB PO SCH ×2 (08:50→21:31)
[2022-03-13] MEDS: buPROPion SR 100 MG TABLET.ER PO SCH (08:50)
[2022-03-13] MEDS: NYSTATIN 100,000UNIT/GM CREAM 30 GM TUBE TOPICAL SCH ×2 (08:51→21:32)
[2022-03-13] MEDS: HYDROCORTISONE 1% CREAM 30 GM TUBE TOPICAL SCH ×2 (08:51→21:32)
[2022-03-13] MEDS: polyethylene glycoL 3350 17 GM POWD.PACK PO SCH ×2 (08:51→21:30)
[2022-03-13] MEDS: CARBAMIDE PEROXIDE 6.5% DROPS 15 ML BTL BOTH EARS SCH ×2 (08:51→21:32)
[2022-03-13] MEDS: LACTULOSE 20 GM/30 ML CUP PO SCH (08:52)
[2022-03-13] MEDS: Acetaminophen-Codeine 300-30mg TAB PO PRN (11:26)
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
[2022-03-13] MEDS: ALBUTEROL NEBULIZED 2.5 MG/3 ML INHALATION PRN (20:04)
[2022-03-13] MEDS: QUEtiapine 50 MG TAB PO SCH (21:30)
[2022-03-13] MEDS: SERTRALINE 100 MG TAB PO SCH (21:31)
[2022-03-14] MEDS: LEVOTHYROXINE 50 MCG TAB PO SCH (04:42)
[2022-03-14] MEDS: MULTIVITAMINS, THERA 1 EACH TAB PO SCH (08:51)
[2022-03-14] MEDS: FLUDROCORTISONE 0.1 MG TAB PO SCH ×2 (08:51→22:30)
[2022-03-14] MEDS: DOCUSATE 100 MG CAP PO SCH ×2 (08:51→22:17)
[2022-03-14] MEDS: GABAPENTIN 300 MG CAP PO SCH ×3 (08:51→22:16)
[2022-03-14] MEDS: SERTRALINE 50 MG TAB PO SCH (08:51)
[2022-03-14] MEDS: OXYBUTYNIN CHLORIDE 5 MG TAB PO SCH ×3 (08:51→22:31)
[2022-03-14] MEDS: PANTOPRAZOLE 40 MG TABLET PO SCH (08:52)
[2022-03-14] MEDS: buPROPion SR 100 MG TABLET.ER PO SCH (08:52)
[2022-03-14] MEDS: NYSTATIN 100,000UNIT/GM CREAM 30 GM TUBE TOPICAL SCH ×2 (08:52→22:19)
[2022-03-14] MEDS: CARBAMIDE PEROXIDE 6.5% DROPS 15 ML BTL BOTH EARS SCH ×2 (08:52→22:18)
[2022-03-14] MEDS: HYDROCORTISONE 1% CREAM 30 GM TUBE TOPICAL SCH ×2 (08:52→22:19)
[2022-03-14] MEDS: amLODIPine 5 MG TAB PO SCH (08:52)
[2022-03-14] MEDS: BACLOFEN 10 MG TAB PO SCH ×2 (08:52→22:16)
[2022-03-14] MEDS: LACTULOSE 20 GM/30 ML CUP PO SCH (08:53)
[2022-03-14] MEDS: polyethylene glycoL 3350 17 GM POWD.PACK PO SCH ×2 (09:05→22:19)
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
[2022-03-14] MEDS: ALBUTEROL NEBULIZED 2.5 MG/3 ML INHALATION PRN (19:49)
[2022-03-14] MEDS: QUEtiapine 50 MG TAB PO SCH (22:17)
[2022-03-14] MEDS: SERTRALINE 100 MG TAB PO SCH (22:17)
[2022-03-15] MEDS: LEVOTHYROXINE 50 MCG TAB PO SCH (06:55)
[2022-03-15] MEDS: buPROPion SR 100 MG TABLET.ER PO SCH (08:52)
[2022-03-15] MEDS: SERTRALINE 50 MG TAB PO SCH (08:52)
[2022-03-15] MEDS: PANTOPRAZOLE 40 MG TABLET PO SCH (08:52)
[2022-03-15] MEDS: GABAPENTIN 300 MG CAP PO SCH ×3 (08:53→20:10)
[2022-03-15] MEDS: FLUDROCORTISONE 0.1 MG TAB PO SCH ×2 (08:54→20:09)
[2022-03-15] MEDS: BACLOFEN 10 MG TAB PO SCH ×2 (08:54→20:09)
[2022-03-15] MEDS: LACTULOSE 20 GM/30 ML CUP PO SCH (08:54)
[2022-03-15] MEDS: NYSTATIN 100,000UNIT/GM CREAM 30 GM TUBE TOPICAL SCH ×2 (08:54→20:10)
[2022-03-15] MEDS: DOCUSATE 100 MG CAP PO SCH ×2 (08:54→20:09)
[2022-03-15] MEDS: amLODIPine 5 MG TAB PO SCH (08:54)
[2022-03-15] MEDS: HYDROCORTISONE 1% CREAM 30 GM TUBE TOPICAL SCH ×2 (08:54→20:10)
[2022-03-15] MEDS: MULTIVITAMINS, THERA 1 EACH TAB PO SCH (08:55)
[2022-03-15] MEDS: CARBAMIDE PEROXIDE 6.5% DROPS 15 ML BTL BOTH EARS SCH (08:55)
[2022-03-15] MEDS: polyethylene glycoL 3350 17 GM POWD.PACK PO SCH ×2 (08:57→20:10)
[2022-03-15] MEDS: OXYBUTYNIN CHLORIDE 5 MG TAB PO SCH ×3 (08:58→20:09)
[2022-03-15] MEDS: ALBUTEROL NEBULIZED 2.5 MG/3 ML INHALATION PRN ×3 (10:38→20:47)
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
[2022-03-15] MEDS: SERTRALINE 100 MG TAB PO SCH (20:09)
[2022-03-15] MEDS: QUEtiapine 50 MG TAB PO SCH (20:09)
[2022-03-15] MEDS: Acetaminophen-Codeine 300-30mg TAB PO PRN (20:17)
[2022-03-16] MEDS: LEVOTHYROXINE 50 MCG TAB PO SCH (06:54)
[2022-03-16] MEDS: ALBUTEROL NEBULIZED 2.5 MG/3 ML INHALATION PRN (07:32)
[2022-03-16] MEDS: BACLOFEN 10 MG TAB PO SCH ×2 (08:49→20:33)
[2022-03-16] MEDS: LACTULOSE 20 GM/30 ML CUP PO SCH (08:49)
[2022-03-16] MEDS: SERTRALINE 50 MG TAB PO SCH (08:49)
[2022-03-16] MEDS: DOCUSATE 100 MG CAP PO SCH ×2 (08:49→20:32)
[2022-03-16] MEDS: polyethylene glycoL 3350 17 GM POWD.PACK PO SCH ×2 (08:49→20:37)
[2022-03-16] MEDS: amLODIPine 5 MG TAB PO SCH (08:49)
[2022-03-16] MEDS: GABAPENTIN 300 MG CAP PO SCH ×3 (08:50→21:51)
[2022-03-16] MEDS: MULTIVITAMINS, THERA 1 EACH TAB PO SCH (08:50)
[2022-03-16] MEDS: PANTOPRAZOLE 40 MG TABLET PO SCH (08:50)
[2022-03-16] MEDS: FLUDROCORTISONE 0.1 MG TAB PO SCH ×2 (08:50→21:51)
[2022-03-16] MEDS: OXYBUTYNIN CHLORIDE 5 MG TAB PO SCH ×3 (08:51→22:46)
[2022-03-16] MEDS: buPROPion SR 100 MG TABLET.ER PO SCH (08:51)
[2022-03-16] MEDS: NYSTATIN 100,000UNIT/GM CREAM 30 GM TUBE TOPICAL SCH ×2 (08:51→20:50)
[2022-03-16] MEDS: HYDROCORTISONE 1% CREAM 30 GM TUBE TOPICAL SCH ×2 (08:52→20:50)
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
[2022-03-16] MEDS: ASCORBIC ACID 500 MG TAB PO SCH ×2 (16:42→20:32)
[2022-03-16] MEDS: ZINC SULFATE 220 MG CAP PO SCH (16:43)
[2022-03-16] MEDS: CHOLECALCIFEROL 25 MCG (1000 IU) TABLET PO SCH (16:43)
[2022-03-16] MEDS: SERTRALINE 100 MG TAB PO SCH (20:32)
[2022-03-16] MEDS: Acetaminophen-Codeine 300-30mg TAB PO PRN (20:33)
[2022-03-16] MEDS: ALBUTEROL HFA INHALER INHALATION PRN (21:04)
[2022-03-16] MEDS: QUEtiapine 50 MG TAB PO SCH (21:51)
[2022-03-17] MEDS: LEVOTHYROXINE 50 MCG TAB PO SCH (06:53)
[2022-03-17] MEDS: CHOLECALCIFEROL 25 MCG (1000 IU) TABLET PO SCH (09:17)
[2022-03-17] MEDS: MULTIVITAMINS, THERA 1 EACH TAB PO SCH (09:17)
[2022-03-17] MEDS: buPROPion SR 100 MG TABLET.ER PO SCH (09:17)
[2022-03-17] MEDS: BACLOFEN 10 MG TAB PO SCH ×2 (09:17→21:36)
[2022-03-17] MEDS: SERTRALINE 50 MG TAB PO SCH (09:17)
[2022-03-17] MEDS: polyethylene glycoL 3350 17 GM POWD.PACK PO SCH ×2 (09:17→21:35)
[2022-03-17] MEDS: amLODIPine 5 MG TAB PO SCH (09:17)
[2022-03-17] MEDS: GABAPENTIN 300 MG CAP PO SCH ×3 (09:17→21:35)
[2022-03-17] MEDS: OXYBUTYNIN CHLORIDE 5 MG TAB PO SCH ×3 (09:17→21:35)
[2022-03-17] MEDS: FLUDROCORTISONE 0.1 MG TAB PO SCH ×2 (09:17→21:36)
[2022-03-17] MEDS: ASCORBIC ACID 500 MG TAB PO SCH ×2 (09:17→21:35)
[2022-03-17] MEDS: PANTOPRAZOLE 40 MG TABLET PO SCH (09:17)
[2022-03-17] MEDS: DOCUSATE 100 MG CAP PO SCH ×2 (09:18→21:35)
[2022-03-17] MEDS: HYDROCORTISONE 1% CREAM 30 GM TUBE TOPICAL SCH ×2 (09:18→21:48)
[2022-03-17] MEDS: ZINC SULFATE 220 MG CAP PO SCH (09:18)
[2022-03-17] MEDS: LACTULOSE 20 GM/30 ML CUP PO SCH (09:18)
[2022-03-17] MEDS: NYSTATIN 100,000UNIT/GM CREAM 30 GM TUBE TOPICAL SCH ×2 (09:18→23:00)
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
[2022-03-17] MEDS ORDERED: NA PHOS,M-B/NA PHOS,DI-BA 133 ML ENEMA RECTAL ONE (14:01)
[2022-03-17] MEDS: SERTRALINE 100 MG TAB PO SCH (21:35)
[2022-03-17] MEDS: QUEtiapine 50 MG TAB PO SCH (21:36)
[2022-03-17] MEDS: Acetaminophen-Codeine 300-30mg TAB PO PRN (22:48)
[2022-03-18] MEDS ORDERED: HYDROcodone/APAP 7.5-325MG 1 EACH TAB PO PRN (00:12)
[2022-03-18] MEDS: LEVOTHYROXINE 50 MCG TAB PO SCH (06:37)
[2022-03-18] MEDS: PANTOPRAZOLE 40 MG TABLET PO SCH (09:36)
[2022-03-18] MEDS: ASCORBIC ACID 500 MG TAB PO SCH ×2 (09:36→21:31)
[2022-03-18] MEDS: buPROPion SR 100 MG TABLET.ER PO SCH (09:36)
[2022-03-18] MEDS: BACLOFEN 10 MG TAB PO SCH ×2 (09:37→21:31)
[2022-03-18] MEDS: GABAPENTIN 300 MG CAP PO SCH ×3 (09:37→21:30)
[2022-03-18] MEDS: MULTIVITAMINS, THERA 1 EACH TAB PO SCH (09:37)
[2022-03-18] MEDS: amLODIPine 5 MG TAB PO SCH (09:37)
[2022-03-18] MEDS: OXYBUTYNIN CHLORIDE 5 MG TAB PO SCH ×3 (09:37→21:31)
[2022-03-18] MEDS: SERTRALINE 50 MG TAB PO SCH (09:37)
[2022-03-18] MEDS: CHOLECALCIFEROL 25 MCG (1000 IU) TABLET PO SCH (09:37)
[2022-03-18] MEDS: DOCUSATE 100 MG CAP PO SCH ×2 (09:37→21:31)
[2022-03-18] MEDS: ZINC SULFATE 220 MG CAP PO SCH (09:37)
[2022-03-18] MEDS: FLUDROCORTISONE 0.1 MG TAB PO SCH ×2 (09:37→21:31)
[2022-03-18] MEDS: LACTULOSE 20 GM/30 ML CUP PO SCH ×2 (09:38→09:49)
[2022-03-18] MEDS: polyethylene glycoL 3350 17 GM POWD.PACK PO SCH ×2 (09:38→21:28)
[2022-03-18] MEDS: HYDROCORTISONE 1% CREAM 30 GM TUBE TOPICAL SCH ×2 (09:38→21:31)
[2022-03-18] MEDS: NYSTATIN 100,000UNIT/GM CREAM 30 GM TUBE TOPICAL SCH ×2 (09:38→21:32)
[2022-03-18] MEDS: ALBUTEROL HFA INHALER INHALATION PRN ×2 (11:55→21:03)
--- NOTE | 2022-03-18 12:53 | P.PN ---
Subjective Progress Note Date: 03/18/22 Principal diagnosis: Right hip wound, possible urinary tract infection, depression Mr. Silva a well-known quadriplegia 5-year-old well-known to our practice who currently was living with [id number] care caregivers, and a guardian who is his and due to circumstances this patient found himself without caregivers and was unable to care for himself. Arrangements were made to place this individual in a nursing care facility until Arrangements for home care people was arranged this appeared to have been accomplished prior to discharge and transfer to the extended care facility patient turned up positive for COVID-19, please note that he is completely without symptoms at this time and apparently other arrangements need to be made because of the positive COVID-19 Objective - Vital Signs Vital signs: Vital Signs Temp 97.8 F 03/18/22 08:00 Pulse 59 L 03/18/22 08:00 Resp 16 03/18/22 08:00 BP 95/61 03/18/22 08:00 Pulse Ox 97 03/18/22 08:00 FiO2 Intake & Output 03/17/22 03/18/22 03/18/22 18:59 06:59 18:59 Output Total 1300 1550 Balance -1300 -1550 Output: Urine 1300 1550 Other: Voiding Method Indwelling Catheter Indwelling Catheter # Bowel Movements 1 - Exam General: Appears somewhat disheveled, awake and oriented 3 vital signs are stable HEENT: [PERRL. EOMI. No pharyngeal erythema or exudate.] Neck: [No adenopathy.] Cardiac: [Heart regular in rate and rhythm. No S3. No S4. No clicks, rubs. No murmur.] Lungs: [Clear to auscultation bilaterally.] Abdomen: [No mass. No organomegaly. Bowel sounds presnt and normoactive in all 4 quadrants.] Extremes: Spastic paralysis to all 4 extremes limited use of his upper extreme : Normal male genitalia with suprapubic catheter in place Musculoskeletal: [No joint erythema, edema or tenderness.] Skin: Has a blister on the right hip from laying in this area without being moved that appears to be improving Neurologic: [No lateralizing deficits. CN II - XII grossly intact.] Lymphatic: [No adenopathy.] - Labs CBC & Chem 7: 03/08/22 05:35 03/09/22 04:36 Assessment and Plan (1) Bacteremia Narrative/Plan: Resolving Current Visit: Yes Status: Acute Code(s): R78.81 - BACTEREMIA SNOMED Code(s): 7100187 (2) Need for older adult social work specialist intervention Current Visit: Yes Status: Acute Code(s): [id number] - SNOMED Code(s): 305 022477 (3) Stage II pressure ulcer of right buttock Narrative/Plan: Treated with dry dressing appropriate air mattress patient is improving Current Visit: Yes Status: Acute Code(s): L89.312 - PRESSURE ULCER OF RIGHT BUTTOCK, STAGE 2 SNOMED Code(s): 40112764295641 (4) UTI (urinary tract infection) Narrative/Plan: Chronic, resolving Current Visit: Yes Status: Acute Code(s): N39.0 - URINARY TRACT INFECTION, SITE NOT SPECIFIED SNOMED Code(s): 78209358 (5) Lab test positive for detection of COVID-19 virus Narrative/Plan: This patient is completely asymptomatic Current Visit: Yes Status: Acute Code(s): U07.1 - COVID-19 SNOMED Code(s): 0205887934802106 Time with Patient: Greater than 30
[2022-03-18] MEDS: SERTRALINE 100 MG TAB PO SCH (21:30)
[2022-03-18] MEDS: QUEtiapine 50 MG TAB PO SCH (21:31)
[2022-03-19] MEDS: LEVOTHYROXINE 50 MCG TAB PO SCH (05:45)
[2022-03-19] MEDS ORDERED: NA PHOS,M-B/NA PHOS,DI-BA 133 ML ENEMA RECTAL ONE (09:00)
[2022-03-19] MEDS: ALBUTEROL HFA INHALER INHALATION PRN ×2 (09:09→21:18)
[2022-03-19] MEDS: GABAPENTIN 300 MG CAP PO SCH ×3 (09:51→21:29)
[2022-03-19] MEDS: BACLOFEN 10 MG TAB PO SCH ×2 (09:51→21:29)
[2022-03-19] MEDS: SERTRALINE 50 MG TAB PO SCH (09:51)
[2022-03-19] MEDS: CHOLECALCIFEROL 25 MCG (1000 IU) TABLET PO SCH (09:52)
[2022-03-19] MEDS: ASCORBIC ACID 500 MG TAB PO SCH ×2 (09:52→21:29)
[2022-03-19] MEDS: polyethylene glycoL 3350 17 GM POWD.PACK PO SCH ×3 (09:52→22:02)
[2022-03-19] MEDS: buPROPion SR 100 MG TABLET.ER PO SCH (09:52)
[2022-03-19] MEDS: PANTOPRAZOLE 40 MG TABLET PO SCH (09:52)
[2022-03-19] MEDS: FLUDROCORTISONE 0.1 MG TAB PO SCH ×2 (09:52→21:29)
[2022-03-19] MEDS: ZINC SULFATE 220 MG CAP PO SCH (09:52)
[2022-03-19] MEDS: MULTIVITAMINS, THERA 1 EACH TAB PO SCH (09:52)
[2022-03-19] MEDS: OXYBUTYNIN CHLORIDE 5 MG TAB PO SCH ×3 (09:52→21:29)
[2022-03-19] MEDS: DOCUSATE 100 MG CAP PO SCH ×2 (09:52→21:29)
[2022-03-19] MEDS: amLODIPine 5 MG TAB PO SCH (09:52)
[2022-03-19] MEDS: NYSTATIN 100,000UNIT/GM CREAM 30 GM TUBE TOPICAL SCH ×2 (09:53→21:29)
[2022-03-19] MEDS: LACTULOSE 20 GM/30 ML CUP PO SCH (09:53)
[2022-03-19] MEDS: HYDROCORTISONE 1% CREAM 30 GM TUBE TOPICAL SCH ×2 (09:53→21:30)
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
[2022-03-19] MEDS: HYDROcodone/APAP 7.5-325MG 1 EACH TAB PO PRN (17:45)
[2022-03-19] MEDS: ONDANSETRON ODT 4 MG TAB PO PRN (17:46)
[2022-03-19] MEDS: SERTRALINE 100 MG TAB PO SCH (21:29)
[2022-03-19] MEDS: QUEtiapine 50 MG TAB PO SCH (21:29)
[2022-03-20] MEDS: LEVOTHYROXINE 50 MCG TAB PO SCH (06:09)
[2022-03-20] MEDS: ALBUTEROL HFA INHALER INHALATION PRN ×3 (08:53→22:21)
[2022-03-20] MEDS: LACTULOSE 20 GM/30 ML CUP PO SCH (08:57)
[2022-03-20] MEDS: CHOLECALCIFEROL 25 MCG (1000 IU) TABLET PO SCH (09:04)
[2022-03-20] MEDS: ZINC SULFATE 220 MG CAP PO SCH (09:04)
[2022-03-20] MEDS: GABAPENTIN 300 MG CAP PO SCH ×3 (09:04→21:29)
[2022-03-20] MEDS: OXYBUTYNIN CHLORIDE 5 MG TAB PO SCH ×3 (09:04→21:29)
[2022-03-20] MEDS: BACLOFEN 10 MG TAB PO SCH ×2 (09:04→21:29)
[2022-03-20] MEDS: PANTOPRAZOLE 40 MG TABLET PO SCH (09:04)
[2022-03-20] MEDS: MULTIVITAMINS, THERA 1 EACH TAB PO SCH (09:05)
[2022-03-20] MEDS: polyethylene glycoL 3350 17 GM POWD.PACK PO SCH ×2 (09:05→21:29)
[2022-03-20] MEDS: amLODIPine 5 MG TAB PO SCH (09:05)
[2022-03-20] MEDS: SERTRALINE 50 MG TAB PO SCH (09:05)
[2022-03-20] MEDS: DOCUSATE 100 MG CAP PO SCH ×2 (09:05→21:29)
[2022-03-20] MEDS: ASCORBIC ACID 500 MG TAB PO SCH ×2 (09:05→21:29)
[2022-03-20] MEDS: NYSTATIN 100,000UNIT/GM CREAM 30 GM TUBE TOPICAL SCH ×2 (09:06→22:53)
[2022-03-20] MEDS: buPROPion SR 100 MG TABLET.ER PO SCH (09:06)
[2022-03-20] MEDS: FLUDROCORTISONE 0.1 MG TAB PO SCH ×2 (09:07→21:29)
[2022-03-20] MEDS: HYDROCORTISONE 1% CREAM 30 GM TUBE TOPICAL SCH ×2 (09:07→21:29)
[2022-03-20] MEDS: QUEtiapine 50 MG TAB PO SCH (21:29)
[2022-03-20] MEDS: SERTRALINE 100 MG TAB PO SCH (21:29)
[2022-03-20] MEDS ORDERED: guaiFENesin SYRUP 100MG/5ML 200 MG/10 ML CUP PO PRN (22:48)
[2022-03-21] MEDS: HYDROcodone/APAP 7.5-325MG 1 EACH TAB PO PRN ×3 (00:15→22:14)
[2022-03-21] MEDS ORDERED: LEVOTHYROXINE 50 MCG TAB PO SCH (03:37)
[2022-03-21] MEDS: DOCUSATE 100 MG CAP PO SCH ×2 (09:45→20:40)
[2022-03-21] MEDS: buPROPion SR 100 MG TABLET.ER PO SCH (09:45)
[2022-03-21] MEDS: BACLOFEN 10 MG TAB PO SCH ×2 (09:45→20:40)
[2022-03-21] MEDS: FLUDROCORTISONE 0.1 MG TAB PO SCH ×2 (09:45→20:41)
[2022-03-21] MEDS: OXYBUTYNIN CHLORIDE 5 MG TAB PO SCH ×3 (09:45→20:41)
[2022-03-21] MEDS: GABAPENTIN 300 MG CAP PO SCH ×3 (09:45→20:40)
[2022-03-21] MEDS: PANTOPRAZOLE 40 MG TABLET PO SCH (09:45)
[2022-03-21] MEDS: ZINC SULFATE 220 MG CAP PO SCH (09:45)
[2022-03-21] MEDS: SERTRALINE 50 MG TAB PO SCH (09:46)
[2022-03-21] MEDS: MULTIVITAMINS, THERA 1 EACH TAB PO SCH (09:46)
[2022-03-21] MEDS: ASCORBIC ACID 500 MG TAB PO SCH ×2 (09:46→20:40)
[2022-03-21] MEDS: CHOLECALCIFEROL 25 MCG (1000 IU) TABLET PO SCH (09:46)
[2022-03-21] MEDS: amLODIPine 5 MG TAB PO SCH (09:46)
[2022-03-21] MEDS: LEVOTHYROXINE 50 MCG TAB PO SCH (09:46)
[2022-03-21] MEDS: polyethylene glycoL 3350 17 GM POWD.PACK PO SCH ×2 (09:46→20:40)
[2022-03-21] MEDS: NYSTATIN 100,000UNIT/GM CREAM 30 GM TUBE TOPICAL SCH ×2 (09:47→20:40)
[2022-03-21] MEDS: LACTULOSE 20 GM/30 ML CUP PO SCH (09:48)
[2022-03-21] MEDS: HYDROCORTISONE 1% CREAM 30 GM TUBE TOPICAL SCH ×2 (09:48→20:41)
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
[2022-03-21] MEDS: ALBUTEROL HFA INHALER INHALATION PRN ×2 (12:34→17:04)
[2022-03-21] MEDS ORDERED: ALBUTEROL NEBULIZED 2.5 MG/3 ML INHALATION PRN (12:52)
[2022-03-21 13:17] LABS: Basophils % (A) 1 %; Eosinophils # (A) 0.2 k/uL (0-0.7); Eosinophils % (A) 5 %; HCT 43.2 % (39.0-53.0); HGB 13.9 gm/dL (13.0-17.5); Hypochromasia Slight; Lymphocytes # (A) 1.8 k/uL (1.0-4.8); Lymphocytes % (A) 37 %; MCH 28.3 pg (25.0-35.0); MCHC 32.2 g/dL (31.0-37.0); MCV 87.9 fL (80.0-100.0); Monocytes # (A) 0.2 k/uL (0-1.0); Monocytes % (A) 4 %; Neutrophils # (A) 2.5 k/uL (1.3-7.7); Neutrophils % (A) 51 %; Platelet Count 148 k/uL (150-450); RBC 4.91 m/uL (4.30-5.90); RDW 15.2 % (11.5-15.5); WBC 4.8 k/uL (3.8-10.6)
[2022-03-21 14:00] LABS: Calcium 8.5 mg/dL (8.4-10.2); Magnesium 2.2 mg/dL (1.6-2.3)
[2022-03-21 14:02] LABS: African American GFR (CKD) >90 (>60 ml/min/1.73 sqM); Anion Gap 7 mmol/L; Blood Urea Nitrogen 14 mg/dL (9-20); Carbon Dioxide 26 mmol/L (22-30); Chloride 104 mmol/L (98-107); Glucose 103 mg/dL (74-99); Non-African American GFR(CKD) >90 (>60 ml/min/1.73 sqM); Potassium 3.9 mmol/L (3.5-5.1); Sodium 137 mmol/L (137-145)
[2022-03-21 14:05] LABS: Erythrocyte Sedimentation Rate 12 mm/hr (0-15)
--- NOTE | 2022-03-21 14:14 | XR ---
EXAMINATION TYPE: XR chest 1V DATE OF EXAM: 03/21/2022 COMPARISON: NONE HISTORY: Cough TECHNIQUE: Single frontal view of the chest is obtained. FINDINGS: There is no focal air space opacity, pleural effusion, or pneumothorax seen. The cardiac silhouette size is within normal limits. The osseous structures are intact. Artifact overlies the r ight lower lobe. Remaining lung johnston are clear. Postsurgical changes overlying the cervical spine w ith no overt failure. Heart size normal. Subsegmental right perihilar changes are similar to the prio r exam and may represent superimposed structures. Underlying COPD suspected. Elevated right hemidiaph ragm. Correlate for phrenic nerve palsy. IMPRESSION: 1. Persistent elevated right hemidiaphragm with persistent subsegmental right perihilar linear change s. These likely are present on prior exams and may represent chronic atelectasis, bronchiectasis or s carring.
[2022-03-21] MEDS: MELOXICAM 7.5 MG TAB PO SCH (14:36)
[2022-03-21] MEDS: SERTRALINE 100 MG TAB PO SCH (20:41)
[2022-03-21] MEDS: QUEtiapine 50 MG TAB PO SCH (20:41)
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
[2022-03-22] MEDS: LEVOTHYROXINE 50 MCG TAB PO SCH (10:54)
[2022-03-22] MEDS: FLUDROCORTISONE 0.1 MG TAB PO SCH ×2 (10:54→20:22)
[2022-03-22] MEDS: BACLOFEN 10 MG TAB PO SCH ×2 (10:54→20:22)
[2022-03-22] MEDS: ZINC SULFATE 220 MG CAP PO SCH (10:54)
[2022-03-22] MEDS: ASCORBIC ACID 500 MG TAB PO SCH ×2 (10:54→20:22)
[2022-03-22] MEDS: OXYBUTYNIN CHLORIDE 5 MG TAB PO SCH ×3 (10:54→20:22)
[2022-03-22] MEDS: MULTIVITAMINS, THERA 1 EACH TAB PO SCH (10:54)
[2022-03-22] MEDS: amLODIPine 5 MG TAB PO SCH (10:54)
[2022-03-22] MEDS: buPROPion SR 100 MG TABLET.ER PO SCH (10:55)
[2022-03-22] MEDS: CHOLECALCIFEROL 25 MCG (1000 IU) TABLET PO SCH (10:55)
[2022-03-22] MEDS: NYSTATIN 100,000UNIT/GM CREAM 30 GM TUBE TOPICAL SCH (10:55)
[2022-03-22] MEDS: MELOXICAM 7.5 MG TAB PO SCH (10:55)
[2022-03-22] MEDS: SERTRALINE 50 MG TAB PO SCH (10:55)
[2022-03-22] MEDS: PANTOPRAZOLE 40 MG TABLET PO SCH (10:56)
[2022-03-22] MEDS: GABAPENTIN 300 MG CAP PO SCH ×3 (10:56→20:22)
[2022-03-22] MEDS: polyethylene glycoL 3350 17 GM POWD.PACK PO SCH ×2 (10:56→20:23)
[2022-03-22] MEDS: DOCUSATE 100 MG CAP PO SCH ×2 (10:56→20:22)
[2022-03-22] MEDS: HYDROCORTISONE 1% CREAM 30 GM TUBE TOPICAL SCH ×2 (10:56→20:34)
[2022-03-22] MEDS: LACTULOSE 20 GM/30 ML CUP PO SCH (10:56)
[2022-03-22] MEDS: ALBUTEROL HFA INHALER INHALATION PRN ×3 (12:04→21:12)
[2022-03-22] MEDS: HYDROcodone/APAP 7.5-325MG 1 EACH TAB PO PRN (14:39)
[2022-03-22] MEDS: SERTRALINE 100 MG TAB PO SCH (20:22)
[2022-03-22] MEDS: QUEtiapine 50 MG TAB PO SCH (20:23)
[2022-03-23] MEDS ORDERED: SIMETHICONE 40 MG/0.6 ML DROPS 2,000 MG/30 ML BOTTLE PO PRN (01:00)
[2022-03-23] MEDS: polyethylene glycoL 3350 17 GM POWD.PACK PO SCH ×2 (10:12→22:55)
[2022-03-23] MEDS: LACTULOSE 20 GM/30 ML CUP PO SCH ×2 (10:12→10:37)
[2022-03-23] MEDS: LEVOTHYROXINE 50 MCG TAB PO SCH (10:13)
[2022-03-23] MEDS: MELOXICAM 7.5 MG TAB PO SCH (10:13)
[2022-03-23] MEDS: ASCORBIC ACID 500 MG TAB PO SCH ×2 (10:13→22:57)
[2022-03-23] MEDS: DOCUSATE 100 MG CAP PO SCH ×2 (10:13→22:56)
[2022-03-23] MEDS: amLODIPine 5 MG TAB PO SCH (10:13)
[2022-03-23] MEDS: CHOLECALCIFEROL 25 MCG (1000 IU) TABLET PO SCH (10:14)
[2022-03-23] MEDS: GABAPENTIN 300 MG CAP PO SCH ×3 (10:14→22:56)
[2022-03-23] MEDS: SERTRALINE 50 MG TAB PO SCH (10:14)
[2022-03-23] MEDS: PANTOPRAZOLE 40 MG TABLET PO SCH (10:14)
[2022-03-23] MEDS: BACLOFEN 10 MG TAB PO SCH ×2 (10:14→22:57)
[2022-03-23] MEDS: MULTIVITAMINS, THERA 1 EACH TAB PO SCH (10:14)
[2022-03-23] MEDS: ZINC SULFATE 220 MG CAP PO SCH (10:14)
[2022-03-23] MEDS: OXYBUTYNIN CHLORIDE 5 MG TAB PO SCH ×3 (10:14→22:57)
[2022-03-23] MEDS: buPROPion SR 100 MG TABLET.ER PO SCH (10:15)
[2022-03-23] MEDS: FLUDROCORTISONE 0.1 MG TAB PO SCH ×2 (10:15→23:02)
[2022-03-23] MEDS: HYDROCORTISONE 1% CREAM 30 GM TUBE TOPICAL SCH ×2 (10:16→22:58)
[2022-03-23] MEDS ORDERED: NA PHOS,M-B/NA PHOS,DI-BA 133 ML ENEMA RECTAL ONE (10:49)
[2022-03-23] MEDS ORDERED: IPRATROPIUM-ALBUTEROL 3 ML NEB INHALATION PRN (13:22)
[2022-03-23] MEDS: HYDROcodone/APAP 7.5-325MG 1 EACH TAB PO PRN (15:24)
[2022-03-23] MEDS: IPRATROPIUM-ALBUTEROL 3 ML NEB INHALATION SCH ×2 (15:44→20:30)
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
[2022-03-23] MEDS: ALBUTEROL HFA INHALER INHALATION SCH (20:53)
[2022-03-23] MEDS: SERTRALINE 100 MG TAB PO SCH (22:57)
[2022-03-23] MEDS: QUEtiapine 50 MG TAB PO SCH (23:02)
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
[2022-03-24] MEDS: ALBUTEROL HFA INHALER INHALATION SCH ×4 (08:07→20:21)
[2022-03-24] MEDS: MULTIVITAMINS, THERA 1 EACH TAB PO SCH (08:17)
[2022-03-24] MEDS: PANTOPRAZOLE 40 MG TABLET PO SCH (08:17)
[2022-03-24] MEDS: LEVOTHYROXINE 50 MCG TAB PO SCH (08:17)
[2022-03-24] MEDS: OXYBUTYNIN CHLORIDE 5 MG TAB PO SCH ×3 (08:17→21:47)
[2022-03-24] MEDS: SERTRALINE 50 MG TAB PO SCH (08:17)
[2022-03-24] MEDS: GABAPENTIN 300 MG CAP PO SCH ×3 (08:17→21:47)
[2022-03-24] MEDS: CHOLECALCIFEROL 25 MCG (1000 IU) TABLET PO SCH (08:17)
[2022-03-24] MEDS: amLODIPine 5 MG TAB PO SCH (08:17)
[2022-03-24] MEDS: MELOXICAM 7.5 MG TAB PO SCH (08:18)
[2022-03-24] MEDS: ZINC SULFATE 220 MG CAP PO SCH (08:18)
[2022-03-24] MEDS: HYDROcodone/APAP 7.5-325MG 1 EACH TAB PO PRN (08:18)
[2022-03-24] MEDS: ASCORBIC ACID 500 MG TAB PO SCH ×2 (08:18→21:48)
[2022-03-24] MEDS: BACLOFEN 10 MG TAB PO SCH ×2 (08:18→21:49)
[2022-03-24] MEDS: DOCUSATE 100 MG CAP PO SCH ×2 (08:19→21:47)
[2022-03-24] MEDS: LACTULOSE 20 GM/30 ML CUP PO SCH (08:19)
[2022-03-24] MEDS: polyethylene glycoL 3350 17 GM POWD.PACK PO SCH ×2 (08:19→21:49)
[2022-03-24] MEDS: buPROPion SR 100 MG TABLET.ER PO SCH (08:19)
[2022-03-24] MEDS: HYDROCORTISONE 1% CREAM 30 GM TUBE TOPICAL SCH ×2 (08:20→21:50)
[2022-03-24] MEDS: FLUDROCORTISONE 0.1 MG TAB PO SCH ×2 (08:20→21:47)
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
[2022-03-24] MEDS: ETODOLAC 400 MG TAB PO SCH ×2 (13:34→21:48)
[2022-03-24] MEDS: QUEtiapine 50 MG TAB PO SCH (21:47)
[2022-03-24] MEDS: SERTRALINE 100 MG TAB PO SCH (21:49)
[2022-03-25] MEDS: ALBUTEROL HFA INHALER INHALATION SCH ×4 (07:59→18:57)
[2022-03-25] MEDS: LACTULOSE 20 GM/30 ML CUP PO SCH (08:03)
[2022-03-25] MEDS: polyethylene glycoL 3350 17 GM POWD.PACK PO SCH ×2 (08:03→21:38)
[2022-03-25] MEDS: SERTRALINE 50 MG TAB PO SCH (08:09)
[2022-03-25] MEDS: GABAPENTIN 300 MG CAP PO SCH ×3 (08:10→21:38)
[2022-03-25] MEDS: OXYBUTYNIN CHLORIDE 5 MG TAB PO SCH ×3 (08:10→21:37)
[2022-03-25] MEDS: PANTOPRAZOLE 40 MG TABLET PO SCH (08:11)
[2022-03-25] MEDS: BACLOFEN 10 MG TAB PO SCH ×2 (08:11→21:37)
[2022-03-25] MEDS: buPROPion SR 100 MG TABLET.ER PO SCH (08:11)
[2022-03-25] MEDS: FLUDROCORTISONE 0.1 MG TAB PO SCH ×2 (08:11→21:37)
[2022-03-25] MEDS: LEVOTHYROXINE 50 MCG TAB PO SCH (08:11)
[2022-03-25] MEDS: MULTIVITAMINS, THERA 1 EACH TAB PO SCH (08:11)
[2022-03-25] MEDS: ETODOLAC 400 MG TAB PO SCH ×2 (08:11→21:37)
[2022-03-25] MEDS: CHOLECALCIFEROL 25 MCG (1000 IU) TABLET PO SCH (08:12)
[2022-03-25] MEDS: DOCUSATE 100 MG CAP PO SCH ×2 (08:12→21:36)
[2022-03-25] MEDS: amLODIPine 5 MG TAB PO SCH (08:12)
[2022-03-25] MEDS: ASCORBIC ACID 500 MG TAB PO SCH ×2 (08:12→21:37)
[2022-03-25] MEDS: ZINC SULFATE 220 MG CAP PO SCH (08:12)
[2022-03-25] MEDS: HYDROCORTISONE 1% CREAM 30 GM TUBE TOPICAL SCH ×2 (10:24→21:38)
[2022-03-25 11:10] LABS: African American GFR (CKD) 167.8 (60.0-200.0); Anion Gap 9.3 mmol/L (10.00-18.00); BUN/Creat Ratio 34.27 Ratio (12.00-20.00); Blood Urea Nitrogen 14.6 mg/dL (9.0-27.0); Calcium 8.4 mg/dL (8.7-10.3); Non-African American GFR(CKD) 144.8 (60.0-200.0)
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
[2022-03-25] MEDS: HYDROcodone/APAP 7.5-325MG 1 EACH TAB PO PRN ×2 (15:58→23:17)
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
[2022-03-25] MEDS: QUEtiapine 50 MG TAB PO SCH (21:37)
[2022-03-25] MEDS: SERTRALINE 100 MG TAB PO SCH (21:37)
[2022-03-26 07:42] VITALS: BP 109/75; PULSE 60; RESP 18; TEMP 97.7
[2022-03-26] MEDS: ALBUTEROL HFA INHALER INHALATION SCH ×2 (08:20→11:28)
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
[2022-03-26] MEDS: SERTRALINE 50 MG TAB PO SCH (11:01)
[2022-03-26] MEDS: LEVOTHYROXINE 50 MCG TAB PO SCH (11:01)
[2022-03-26] MEDS: CHOLECALCIFEROL 25 MCG (1000 IU) TABLET PO SCH (11:02)
[2022-03-26] MEDS: buPROPion SR 100 MG TABLET.ER PO SCH (11:02)
[2022-03-26] MEDS: GABAPENTIN 300 MG CAP PO SCH (11:02)
[2022-03-26] MEDS: ASCORBIC ACID 500 MG TAB PO SCH (11:02)
[2022-03-26] MEDS: PANTOPRAZOLE 40 MG TABLET PO SCH (11:02)
[2022-03-26] MEDS: MULTIVITAMINS, THERA 1 EACH TAB PO SCH (11:02)
[2022-03-26] MEDS: ZINC SULFATE 220 MG CAP PO SCH (11:03)
[2022-03-26] MEDS: LACTULOSE 20 GM/30 ML CUP PO SCH (11:03)
[2022-03-26] MEDS: OXYBUTYNIN CHLORIDE 5 MG TAB PO SCH (11:03)
[2022-03-26] MEDS: DOCUSATE 100 MG CAP PO SCH (11:04)
[2022-03-26] MEDS: ETODOLAC 400 MG TAB PO SCH (11:04)
[2022-03-26] MEDS: polyethylene glycoL 3350 17 GM POWD.PACK PO SCH (11:04)
[2022-03-26] MEDS: BACLOFEN 10 MG TAB PO SCH (11:05)
[2022-03-26] MEDS: FLUDROCORTISONE 0.1 MG TAB PO SCH (11:05)
[2022-03-26] MEDS: HYDROCORTISONE 1% CREAM 30 GM TUBE TOPICAL SCH (11:12)
[2022-03-26] MEDS: amLODIPine 5 MG TAB PO SCH (11:13)
[2022-03-26] MEDS ORDERED: NA PHOS,M-B/NA PHOS,DI-BA 133 ML ENEMA RECTAL SCH (13:00)
== END 2022-03-26 13:13 | DRG 592 ==
LOC: EC 13:05 → 6NMEDSUR 15:54 → 5NMEDONC 20:29 → OBSVTOIN 03-06 16:03 → 4SSUR 03-16 15:52
PROVIDERS: ADMIT Family Medicine; ATTEND Family Medicine
DX: L89.312 Pressure ulcer of right buttock, stage 2 (principal); G82.50 Quadriplegia, unspecified; U07.1 COVID-19; N39.0 Urinary tract infection, site not specified; J98.11 Atelectasis; R45.851 Suicidal ideations; L89.219 Pressure ulcer of right hip, unspecified stage; N18.9 Chronic kidney disease, unspecified; N31.9 Neuromuscular dysfunction of bladder, unspecified; F32.9 Major depressive disorder, single episode, unspecified; G47.33 Obstructive sleep apnea (adult) (pediatric); M61.442 Other calcification of muscle, left hand; M62.432 Contracture of muscle, left forearm; G43.909 Migraine, unspecified, not intractable, without status migrainosus; M62.431 Contracture of muscle, right forearm; M62.411 Contracture of muscle, right shoulder; F41.9 Anxiety disorder, unspecified; S14.106S Unspecified injury at C6 level of cervical spinal cord, sequela; S14.107S Unspecified injury at C7 level of cervical spinal cord, sequela; W16.42XS Fall into unspecified water causing other injury, sequela; Z93.59 Other cystostomy status; Z79.890 Hormone replacement therapy; Z79.899 Other long term (current) drug therapy; Z86.14 Personal history of Methicillin resistant Staphylococcus aureus infection; Z87.440 Personal history of urinary (tract) infections; Z87.442 Personal history of urinary calculi; Z60.2 Problems related to living alone; Z75.1 Person awaiting admission to adequate facility elsewhere; Z91.51 Personal history of suicidal behavior; Z71.3 Dietary counseling and surveillance; Z28.310 Unvaccinated for COVID-19; Z28.21 Immunization not carried out because of patient refusal; Z88.1 Allergy status to other antibiotic agents; Z88.0 Allergy status to penicillin; Z88.2 Allergy status to sulfonamides; Z87.01 Personal history of pneumonia (recurrent); I25.2 Old myocardial infarction; Z79.2 Long term (current) use of antibiotics
CPT/HCPCS: 36415; 71045; 71046; 80048; 80053; 80202; 81003; 82565; 83735; 84443; 85025; 85652; 86140; 87040; 87635; 94640; 96374; 96375; 99284

== ENCOUNTER 2022-07-14 13:13 | Observation (INO) | payer OTHER ==
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
--- NOTE | 2022-07-14 14:01 | XR ---
EXAMINATION TYPE: XR KUB DATE OF EXAM: 07/14/2022 1:56 PM CLINICAL HISTORY: Catheter removal TECHNIQUE: Two supine KUB images of the abdomen are obtained. COMPARISON: Most recent CT May 23, 2021 FINDINGS: Gas seen in nondistended small and large bowel loops. Chronic deformity to the pelvis redem onstrated with moderate to severe superior narrowing of both hip joints again seen. Visualized lung b ases are clear. IMPRESSION: Overall nonspecific felt to be nonobstructive bowel gas pattern.
[2022-07-14 15:14] LABS: Appearance,Urine Cloudy (Clear); Bacteria,Urine Occasional /hpf; Bilirubin,Urine Negative (Negative); Blood,Urine Large (Negative); Color,Urine Light Red; Glucose,Urine (UA) Negative (Negative); Ketones,Urine 2+ (Negative); Leukocyte Esterase,Urine Moderate (Negative); Mucus,Urine Rare /hpf; Nitrite,Urine Negative (Negative); PH, Urine 5.5 (5.0-8.0); Protein,Urine 1+ (Negative); RBC,Urine >182 /hpf (0-5); Specific Gravity,Urine 1.018 (1.001-1.035); Urobilinogen,Urine <2.0 mg/dL (<2.0); WBC,Urine 21 /hpf (0-5)
[2022-07-14 15:35] LABS: Basophils # (A) 0.1 k/uL (0-0.2); Basophils % (A) 1 %; Eosinophils # (A) 0.2 k/uL (0-0.7); Eosinophils % (A) 2 %; Lymphocytes # (A) 1.6 k/uL (1.0-4.8); Lymphocytes % (A) 20 %; MCHC 33.3 g/dL (31.0-37.0); Mean Platelet Volume 9.4; Monocytes # (A) 0.5 k/uL (0-1.0); Monocytes % (A) 6 %; Neutrophils # (A) 5.7 k/uL (1.3-7.7); Neutrophils % (A) 71 %; Platelet Count 232 k/uL (150-450); WBC 8.1 k/uL (3.8-10.6)
[2022-07-14 15:41] LABS: ALT 20 U/L (4-49); AST 28 U/L (17-59); African American GFR (CKD) >90 (>60 ml/min/1.73 sqM); Albumin 4.1 g/dL (3.5-5.0); Alkaline Phosphatase 135 U/L (38-126); Anion Gap 14 mmol/L; Blood Urea Nitrogen 13 mg/dL (9-20); Calcium 9.1 mg/dL (8.4-10.2); Carbon Dioxide 18 mmol/L (22-30); Chloride 105 mmol/L (98-107); Glucose 81 mg/dL (74-99); Non-African American GFR(CKD) >90 (>60 ml/min/1.73 sqM); Sodium 137 mmol/L (137-145); Total Bilirubin 1.1 mg/dL (0.2-1.3); Total Protein 7.4 g/dL (6.3-8.2)
[2022-07-14 15:48] LABS: Potassium 4.8 mmol/L (3.5-5.1)
[2022-07-14] MEDS ORDERED: NALOXONE 0.4 MG/ML 1 ML VIAL IV PRN (16:08)
[2022-07-14] MEDS ORDERED: GENTAMICIN PER PHARMACY MISCELLANE PRN (16:17)
[2022-07-14] MEDS ORDERED: GENTAMICIN 70 MG in SODIUM CHLORIDE 0.9% 100 ML IVPB ONE (17:00)
[2022-07-14] MEDS ORDERED: LORazepam 0.5 MG TAB PO PRN (18:51)
[2022-07-14] MEDS ORDERED: bisacodyL 10 MG SUPP RECTAL PRN (18:51)
[2022-07-14] MEDS ORDERED: QUEtiapine 100 MG TAB PO SCH (21:00)
[2022-07-14] MEDS: BACLOFEN 10 MG TAB PO SCH (21:20)
[2022-07-14] MEDS: GABAPENTIN 300 MG CAP PO SCH (21:21)
[2022-07-14] MEDS: HYDROcodone/APAP 5-325MG 1 EACH TAB PO PRN (21:21)
[2022-07-14] MEDS: DOCUSATE 100 MG CAP PO SCH (21:23)
[2022-07-14] MEDS: MIDODRINE 5 MG TAB PO SCH (21:24)
[2022-07-15] MEDS: GENTAMICIN 70 MG in SODIUM CHLORIDE 0.9% 100 ML IVPB SCH ×3 (03:09→20:10)
[2022-07-15] MEDS: LEVOTHYROXINE 50 MCG TAB PO SCH (06:50)
[2022-07-15] MEDS: ENOXAPARIN 40 MG/0.4 ML SYRINGE SQ SCH (09:53)
[2022-07-15] MEDS: FLUDROCORTISONE 0.1 MG TAB PO SCH (09:53)
[2022-07-15] MEDS: MIDODRINE 5 MG TAB PO SCH ×3 (09:53→21:36)
[2022-07-15] MEDS: DOCUSATE 100 MG CAP PO SCH ×2 (09:54→21:31)
[2022-07-15] MEDS: MULTIVITAMINS, THERA 1 EACH TAB PO SCH (09:54)
[2022-07-15] MEDS: PANTOPRAZOLE 40 MG TABLET PO SCH (09:54)
[2022-07-15] MEDS: OXYBUTYNIN XL 5 MG TAB.ER.24 PO SCH (09:54)
[2022-07-15] MEDS: GABAPENTIN 300 MG CAP PO SCH ×2 (09:55→21:31)
[2022-07-15] MEDS: BACLOFEN 10 MG TAB PO SCH ×3 (09:55→21:31)
[2022-07-15] MEDS: polyethylene glycoL 3350 17 GM POWD.PACK PO SCH (09:56)
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
[2022-07-15] MEDS ORDERED: GENTAMICIN TROUGH DUE 1 EACH MISC MISCELLANE ONE (16:30)
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
[2022-07-15] MEDS: SERTRALINE 100 MG TAB PO SCH (18:27)
[2022-07-15] MEDS ORDERED: GENTAMICIN PEAK DUE 1 EACH MISC MISCELLANE ONE (18:30)
[2022-07-15] MEDS: QUEtiapine 100 MG TAB PO SCH (19:03)
[2022-07-15] MEDS: HYDROcodone/APAP 5-325MG 1 EACH TAB PO PRN (21:32)
[2022-07-16] MEDS: LEVOTHYROXINE 50 MCG TAB PO SCH (03:54)
[2022-07-16] MEDS ORDERED: GENTAMICIN 70 MG in SODIUM CHLORIDE 0.9% 100 ML IVPB SCH (04:00)
[2022-07-16 08:50] LABS: Basophils # (A) 0.07 X 10*3/uL (0.00-0.10); Eosinophils # (A) 0.23 X 10*3/uL (0.04-0.35); Eosinophils % (A) 3.3 %; HGB 12.6 g/dL (13.0-17.0); Immature Grans, Automated 0.1 %; Lymphocytes # (A) 2.65 X 10*3/uL (0.90-5.00); Lymphocytes % (A) 37.7 %; MCH 26.5 pg (27.0-32.0); MCHC 30.7 g/dL (32.0-37.0); MCV 86.3 fL (80.0-97.0); Mean Platelet Volume 12.7 fL (9.5-12.2); Monocytes % (A) 8.5 %; NRBC Per 100 WBC 0 /100 WBCS (0.0-0.0); Neutrophils # (A) 3.47 X 10*3/uL (1.80-7.70); Neutrophils % (A) 49.4 %; Platelet Count 237 X 10*3/uL (140-440); RBC 4.75 X 10*6/uL (4.40-5.60); RDW 14.3 % (11.5-14.5); WBC 7.03 X 10*3/uL (4.50-10.00)
[2022-07-16 09:38] LABS: ALT 19 U/L (10-49); AST 15 U/L (14-35); African American GFR (CKD) 172.2 (60.0-200.0); Albumin 4.2 g/dL (3.8-4.9); Albumin/Globulin Ratio 1.56 (1.60-3.17); Alkaline Phosphatase 147 U/L (41-126); Blood Urea Nitrogen 12.6 mg/dL (9.0-27.0); Calcium 9.2 mg/dL (8.7-10.3); Carbon Dioxide 22.3 mmol/L (20.0-27.5); Chloride 104 mmol/L (96-109); Globulin 2.7 g/dL (1.6-3.3); Glucose 99 mg/dL (70-110); Magnesium 2.2 mg/dL (1.5-2.4); Non-African American GFR(CKD) 148.6 (60.0-200.0); Potassium 4.3 mmol/L (3.5-5.5); Sodium 137 mmol/L (135-145); Total Protein 6.9 g/dL (6.2-8.2)
[2022-07-16] MEDS: ENOXAPARIN 40 MG/0.4 ML SYRINGE SQ SCH ×2 (11:39→12:18)
[2022-07-16] MEDS: MULTIVITAMINS, THERA 1 EACH TAB PO SCH (11:39)
[2022-07-16] MEDS: BACLOFEN 10 MG TAB PO SCH ×3 (11:39→21:46)
[2022-07-16] MEDS: PANTOPRAZOLE 40 MG TABLET PO SCH (11:39)
[2022-07-16] MEDS: GABAPENTIN 300 MG CAP PO SCH ×2 (11:39→21:46)
[2022-07-16] MEDS: SERTRALINE 100 MG TAB PO SCH (11:40)
[2022-07-16] MEDS: DOCUSATE 100 MG CAP PO SCH ×2 (11:40→21:47)
[2022-07-16] MEDS: FLUDROCORTISONE 0.1 MG TAB PO SCH (11:40)
[2022-07-16] MEDS: polyethylene glycoL 3350 17 GM POWD.PACK PO SCH (11:40)
[2022-07-16] MEDS: MIDODRINE 5 MG TAB PO SCH ×3 (11:41→21:46)
[2022-07-16] MEDS: OXYBUTYNIN XL 5 MG TAB.ER.24 PO SCH (11:41)
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
[2022-07-16] MEDS ORDERED: GENTAMICIN PEAK DUE 1 EACH MISC MISCELLANE ONE (13:30)
[2022-07-16] MEDS: ALBUTEROL NEBULIZED 2.5 MG/3 ML INHALATION PRN ×2 (15:03→20:57)
[2022-07-16] MEDS: QUEtiapine 100 MG TAB PO SCH (17:23)
[2022-07-16] MEDS: ACETYLCYSTEINE 800 MG/4 ML VIAL INHALATION SCH (20:57)
[2022-07-17] MEDS: LEVOTHYROXINE 50 MCG TAB PO SCH (05:42)
[2022-07-17] MEDS: polyethylene glycoL 3350 17 GM POWD.PACK PO SCH (09:39)
[2022-07-17] MEDS: SERTRALINE 100 MG TAB PO SCH (09:39)
[2022-07-17] MEDS: BACLOFEN 10 MG TAB PO SCH ×3 (09:40→21:46)
[2022-07-17] MEDS: FLUDROCORTISONE 0.1 MG TAB PO SCH (09:41)
[2022-07-17] MEDS: GABAPENTIN 300 MG CAP PO SCH ×2 (09:41→21:47)
[2022-07-17] MEDS: ENOXAPARIN 40 MG/0.4 ML SYRINGE SQ SCH ×2 (09:41→09:52)
[2022-07-17] MEDS: DOCUSATE 100 MG CAP PO SCH ×2 (09:41→21:48)
[2022-07-17] MEDS: MULTIVITAMINS, THERA 1 EACH TAB PO SCH (09:42)
[2022-07-17] MEDS: MIDODRINE 5 MG TAB PO SCH ×3 (09:42→21:46)
[2022-07-17] MEDS: PANTOPRAZOLE 40 MG TABLET PO SCH (09:42)
[2022-07-17] MEDS: OXYBUTYNIN XL 5 MG TAB.ER.24 PO SCH (09:42)
[2022-07-17] MEDS: ACETYLCYSTEINE 800 MG/4 ML VIAL INHALATION SCH ×3 (09:59→22:14)
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
[2022-07-17] MEDS: QUEtiapine 100 MG TAB PO SCH (17:57)
[2022-07-17] MEDS: ALBUTEROL NEBULIZED 2.5 MG/3 ML INHALATION PRN (22:14)
[2022-07-18] MEDS: ACETYLCYSTEINE 800 MG/4 ML VIAL INHALATION SCH ×3 (10:09→19:55)
[2022-07-18] MEDS: ALBUTEROL NEBULIZED 2.5 MG/3 ML INHALATION PRN ×2 (10:09→19:55)
[2022-07-18] MEDS: LEVOTHYROXINE 50 MCG TAB PO SCH (11:19)
[2022-07-18] MEDS: DOCUSATE 100 MG CAP PO SCH ×2 (11:20→20:47)
[2022-07-18] MEDS: BACLOFEN 10 MG TAB PO SCH ×3 (11:20→20:47)
[2022-07-18] MEDS: GABAPENTIN 300 MG CAP PO SCH ×2 (11:21→20:47)
[2022-07-18] MEDS: FLUDROCORTISONE 0.1 MG TAB PO SCH (11:21)
[2022-07-18] MEDS: MULTIVITAMINS, THERA 1 EACH TAB PO SCH (11:22)
[2022-07-18] MEDS: MIDODRINE 5 MG TAB PO SCH ×3 (11:22→20:54)
[2022-07-18] MEDS: OXYBUTYNIN XL 5 MG TAB.ER.24 PO SCH (11:22)
[2022-07-18] MEDS: PANTOPRAZOLE 40 MG TABLET PO SCH (11:23)
[2022-07-18] MEDS: SERTRALINE 100 MG TAB PO SCH (11:23)
[2022-07-18 11:26] LABS: Appearance,Urine Clear (Clear); Bacteria,Urine Rare /hpf; Bilirubin,Urine Negative (Negative); Blood,Urine Negative (Negative); Budding Yeast,Urine Many /hpf; Color,Urine Yellow; Glucose,Urine (UA) Negative (Negative); Ketones,Urine Negative (Negative); Leukocyte Esterase,Urine Large (Negative); Mucus,Urine Rare /hpf; Nitrite,Urine Negative (Negative); Protein,Urine Negative (Negative); RBC,Urine 12 /hpf (0-5); Specific Gravity,Urine 1.016 (1.001-1.035); Squamous Epithelial Cell,Urine <1 /hpf (0-4); WBC,Urine 75 /hpf (0-5)
[2022-07-18] MEDS: polyethylene glycoL 3350 17 GM POWD.PACK PO SCH (11:26)
[2022-07-18] MEDS: ENOXAPARIN 40 MG/0.4 ML SYRINGE SQ SCH (11:32)
[2022-07-18] MEDS: QUEtiapine 100 MG TAB PO SCH (17:44)
[2022-07-19] MEDS: LEVOTHYROXINE 50 MCG TAB PO SCH (06:23)
[2022-07-19 07:36] VITALS: BP 109/72; PULSE 69; RESP 17; TEMP 98.3
[2022-07-19] MEDS: GABAPENTIN 300 MG CAP PO SCH (08:53)
[2022-07-19] MEDS: DOCUSATE 100 MG CAP PO SCH (08:53)
[2022-07-19] MEDS: BACLOFEN 10 MG TAB PO SCH (08:53)
[2022-07-19] MEDS: MULTIVITAMINS, THERA 1 EACH TAB PO SCH (08:53)
[2022-07-19] MEDS: PANTOPRAZOLE 40 MG TABLET PO SCH (08:53)
[2022-07-19] MEDS: MIDODRINE 5 MG TAB PO SCH (08:54)
[2022-07-19] MEDS: polyethylene glycoL 3350 17 GM POWD.PACK PO SCH (08:54)
[2022-07-19] MEDS: ENOXAPARIN 40 MG/0.4 ML SYRINGE SQ SCH (08:54)
[2022-07-19] MEDS: FLUDROCORTISONE 0.1 MG TAB PO SCH (08:54)
[2022-07-19] MEDS: OXYBUTYNIN XL 5 MG TAB.ER.24 PO SCH (08:54)
[2022-07-19] MEDS: SERTRALINE 100 MG TAB PO SCH (08:54)
[2022-07-19] MEDS: ACETYLCYSTEINE 800 MG/4 ML VIAL INHALATION SCH (10:15)
== END 2022-07-19 11:12 ==
LOC: EC 13:13 → EEVIPCON 13:13 → 5NMEDONC 16:08 → INTOOBSV 16:08 → 5NMEDONC 17:41
PROVIDERS: ADMIT Family Medicine; ATTEND Family Medicine
DX: F33.9 Major depressive disorder, recurrent, unspecified (principal); F41.1 Generalized anxiety disorder; T83.010A Breakdown (mechanical) of cystostomy catheter, initial encounter; T83.510A Infection and inflammatory reaction due to cystostomy catheter, initial encounter; G82.50 Quadriplegia, unspecified; N31.9 Neuromuscular dysfunction of bladder, unspecified; L89.152 Pressure ulcer of sacral region, stage 2; N39.0 Urinary tract infection, site not specified; G93.1 Anoxic brain damage, not elsewhere classified; Z79.890 Hormone replacement therapy; Z79.899 Other long term (current) drug therapy; Z88.2 Allergy status to sulfonamides; Z88.1 Allergy status to other antibiotic agents; Z88.0 Allergy status to penicillin; Z87.440 Personal history of urinary (tract) infections; Z63.72 Alcoholism and drug addiction in family; Z81.1 Family history of alcohol abuse and dependence; Z63.4 Disappearance and death of family member; Z20.822 Contact with and (suspected) exposure to COVID-19; Z79.52 Long term (current) use of systemic steroids; Z62.810 Personal history of physical and sexual abuse in childhood; Y84.6 Urinary catheterization as the cause of abnormal reaction of the patient, or of later complication, without mention of misadventure at the time of the procedure
CPT/HCPCS: 96366 ×2; 96376; 96365 ×2; 82075; 99285; 51702; 36415; 94640 ×5; 93005; 97162; 97165; 80170 ×2; 80053 ×2; 84443; 83735; 85025 ×2; 81001 ×2; 87086 ×2; 87635 ×2; 74018; 51705; G0378 ×6; J1580 ×3